=== PATIENT | female | born 1955 | race Caucasian/White ===

== ENCOUNTER 2017-12-29 01:56 | Inpatient (IN) | payer OTHER ==
[~2017-12-29] VITALS: Ht 152.4 cm; Wt 71.8 kg
[~2017-12-29 01:56] MED LIST: ESCITALOPRAM10 MG PO; LIDOCAINE51 PAT; PRAVASTATIN SOD10 MG PO; PROAIR HFA8.5 GM INH; SYMBICORT 16010.2 GM INH; TRAZODONE HCL100 M1 PO; VICODIN 300 MG-1 TAB PO; ZOLPIDEM TARTRAT5 MG PO
--- NOTE | 2017-12-29 16:07 | Admission Certification ---
Admission Certification Certification Statement - As attending physician, I certify that at the time of - admission, based on clinical presentation, severity of - symptoms, need for further diagnostic testing and - therapeutic interventions, and risk of adverse outcomes - without in-hospital treatment, in my clinical assessment, - this patient requires an acute hospital stay for a minimum - of two nights or longer. I have also considered psychsocial - factors such as support system, advanced age, financial - issues, cognitive issues, and failed out-patient treatments, - past re-admission history, safety of patient, and lack of - compliance as applicable. Specific rationale supporting this admission is: Major chest surgery with expected 4-5 day hospital stay including intensive care unit
--- NOTE | 2017-12-29 16:11 | Operative Report ---
Operative/Inv Procedure Report Surgery Date: 12/29/17 Name of Procedure: Right upper lobectomy with mediastinal lymph node dissection Pre-Operative Diagnosis: Right upper lobe lung cancer Post-Operative Diagnosis: Same Estimated Blood Loss: 50ml to 100ml Surgeon/Coping Machine Operator: Miguel Simon MD,Roddy Ocampo Anesthesia: general endotracheal tube Operative/Procedure Note Note: After placement of monitoring lines and induction of general anesthesia the double-lumen endotracheal tube was appropriate position with fiberoptic bronchoscopy. The patient was placed in left lateral decubitus position in her right chest was prepped and draped in a sterile fashion. The chest was entered through the fifth intercostal space via a standard posterolateral thoracotomy incision. The sixth rib was resected in part to allow for better exposure and retraction. There were fairly significant radiation changes along the mediastinum and this made for reflecting the pleura somewhat tedious around the hilum but this was done showing that there were no contraindications to resection. The apical anterior pulmonary arterial branches were divided with the stapler. Dissection was then done in the base of the fissure and the fissures were completed with the Endo CHER stapler. This allowed an opening of the pulmonary artery and further pulmonary arterial branches to the upper lobe were divided with the Endo CHER stapler. The pulmonary vein drainage of the right upper lobe was similarly resected with the Endo CHER stapler. There were a significant amount of lymphatic drainage from the upper lobe and this was also resected with the vascular stapler. The upper lobe bronchus was cleared of surrounding tissue. It was resected with the TA 55 stapler. Intraoperative frozen section of the bronchial margin showed no evidence of tumor. The bronchial stump was insufflated under water to 30 mmHg pressure with no evidence of air leak. The fissures were sprayed with CoSeal spray for pneumostasis. Long-acting rib blocks were placed in the chest was drained with straight and angled 28 Spanish chest tube. Lymph nodes were resected from level 4 level 10. Because of the radiation changes it was felt to be too risky to find lymph nodes from level 7. Inferior pulmonary ligament was divided with electrocautery. The ribs were reapproximated pericostal suture. The incision was closed anatomically with running Vicryl suture followed by running Vicryl subcuticular suture. Patient tolerated the procedure well was brought to recovery room awake and extubated in stable condition. CC: Raffi HINDS,Sanjuana Del Rio; Collin HINDS,Maria D Collins; Veena HINDS,[facility]
--- NOTE | 2017-12-29 16:28 | RADIOLOGY REPORT ---
EXAMINATION: XR PORTABLE CHEST CLINICAL INFORMATION: Right upper lobe lobectomy. History of left upper lobe lobectomy. COMPARISON: Chest x-ray 12/01/2017. CT chest 11/05/2017. PET/CT 11/22/2017. TECHNIQUE: Portable frontal view of the chest was obtained. 3:43 PM FINDINGS: Postsurgical changes with 2 right-sided chest tubes in place and a small right pneumothorax. There is subcutaneous emphysema in the right axillary soft tissues. There are surgical clips over the right hilum. Stable postsurgical changes from upper lobe lobectomy of the left lung. The cardiac and mediastinal contours are normal. There are calcifications of aortic arch. Intramedullary el in the left humerus. There are multiple healed left-sided rib fractures. IMPRESSION: Postsurgical changes of the right hemithorax with [address] and small right-sided pneumothorax. Stable chronic postsurgical changes from left upper lobe lobectomy of the left hemithorax.
[2017-12-29 17:00] VITALS: BP 110/60
--- NOTE | 2017-12-29 17:26 | Cons- CRCU ---
Navin Hill MD 12/29/17 1724: General Information and HPI Consulting Request Date of Consult: 12/29/17 Requested By: Dr. Rivera Reason for Consult: Right upper lobectomy postoperative care Source of Information: patient, old records Exam Limitations: no limitations History of Present Illness: 62 year old female with PMH significant for HTN, HLD, anxiety, paroxysmal SVT, 50+ pack year current daily smoker, stage IB left upper lobe lung cancer s/p left upper lobectomy in 2011 with mediastinal recurrence in 2013 treated with chemoradiotherapy is now admitted to critical care for postoperative care after right upper lobectomy for a new primary right upper lobe biopsy confirmed non small cell lung cancer. She was treated surgically in 2011 followed by cisplatin/docetaxel in February 2012. She was changed to carboplatin/paclitaxel in March 2012 through June 2012. Her relapse in 05/2014 was treated with external beam radiotherapy from 08/2014-09/2014 followed by 10/2014 through 12/2014. She has continues to smoke daily, 1 pack per day. She has been feeling well but had a lesion detected on CT, followed by PET and confirmed with IR CT guided biopsy last month, positive for adenocarcinoma. She underwent preoperative testing with nuclear stress test and outpatient PFTs, labs, and EKG. She underwent right upper lobectomy under GETA, without complications. She has a right radial arterial line, Ramachandran, and [address] postoperatively. She is now being monitored in the critical care unit. Allergies/Medications Allergies: Coded Allergies: Penicillins (LIP SWELLING 12/21/17) acetaminophen (UNKNOWN 12/21/17) codeine (UNKNOWN 12/21/17) latex (UNKNOWN 12/21/17) oxycodone (UNKNOWN 12/21/17) Home Med List: Albuterol Sulfate (Proair Hfa) 90 MCG HFA.AER.AD 2 PUF INH Q4-6 PRN PRN COPD (Reported) Budesonide/Formoterol Fumarate (Symbicort 160-4.5 Mcg Inhaler) 160 MCG-4.5 MCG/ ACTUATION HFA.AER.AD 2 PUF INH BID PRN COPD (Reported) Trazodone HCl 100 MG TABLET 1 TAB PO QPM PRN SLEEP (Reported) Current Medications: Current Medications Sig/Nathan Start time Last Medication Dose Route Stop Time Status Admin Acetaminophen 1,000 MG Q6 12/29 1800 AC PO Acetaminophen 0 .STK-MED ONE 12/29 1128 DC PO Acetaminophen 1,000 MG ONCE 12/29 0000 DC PO 12/29 2359 Albuterol Sulfate 2 PUF Q4P PRN 12/29 1600 AC INH Alvimopan 12 MG ONCE 12/29 0000 DC PO 12/29 2359 Budesonide/ 2 PUF BID 12/29 2100 AC Formoterol Fumarate INH Cefazolin Sodium 1,000 MG Q8H 12/29 2100 AC IV 12/30 0501 Celecoxib 100 MG BID 12/29 2100 AC PO Celecoxib 200 MG ONCE 12/29 0000 DC PO 12/29 2359 Docusate Sodium 100 MG BID 12/29 2100 AC PO Gabapentin 300 MG Q8 12/29 2200 AC PO Gabapentin 0 .STK-MED ONE 12/29 1128 DC PO Gabapentin 600 MG ONCE 12/29 0000 DC PO 12/29 2359 Heparin Sodium 5,000 UNIT Q8 12/30 0600 AC (Porcine) SC Heparin Sodium 0 .STK-MED ONE 12/29 1129 DC (Porcine) .ROUTE Heparin Sodium 5,000 UNIT ONCE 12/29 0000 DC (Porcine) SC 12/29 235 Non-Formulary 0 SEE ADMIN CRITERIA 12/29 2330 UNVr Medication ANY Ondansetron HCl 4 MG Q6P PRN 12/29 1700 AC IV Potassium Chloride 20 MEQ Q13H 12/29 1700 AC Dextrose/Water 1,000 ML IV Tramadol HCl 50 MG Q4-6 PRN PRN 12/29 1700 AC PO Tramadol HCl 100 MG Q4-6 PRN PRN 12/29 1700 AC PO Trazodone HCl 100 MG QPM PRN 12/29 1615 AC PO Review of Systems Review of Systems Constitutional: Denies: chills, diaphoresis, fever. EENTM: Denies: blurred vision, nasal congestion, throat pain. Cardiovascular: Denies: chest pain, orthopena, palpitations, peripheral edema. Respiratory: Reports: cough, short of breath, wheezing. GI: Denies: abdominal pain, diarrhea, nausea, vomiting. Genitourinary: Denies: discharge, dysuria, frequency. Musculoskeletal: Reports: no symptoms. Skin: Reports: no symptoms. Neurological/Psychological: Reports: numbness. Hematologic/Endocrine: Reports: no symptoms. Immunologic/Allergic: Reports: no symptoms. All Other Systems: Reviewed and Negative Past History Travel History Traveled to [place] past 21 day No Medical History Neurological: peripheral neuropathy Cardiovascular: hypertension, hyperlipidemia, paroxysmal SVT Respiratory: COPD, lung cancer Endocrine: hyperthyroidism Surgical History Surgical History: appendectomy, left upper lobectomy, tubal and ovarian cystectomy, knee arthroscopy, tonsillectomy, L arm ORIF Psychosocial History Services at Home: None Smoking Status: Current Everyday Smoker Functional Ability ADLs Independent: dressing, eating, toileting, bathing. Ambulation: independent IADLs Independent: shopping, housework, finances, food prep, telephone, transportation , medication admin. Employment History Employment: Retired Profession/Employer: payroll Exam & Diagnostic Data Last 24 Hrs of Vital Signs/I&O Afebrile HR 66 RR 18 BP 110/66 SpO2 97% on 3L Physical Exam General Appearance: well developed/nourished, no apparent distress, comfortable, mild tachypnea and splinting with pain Respiratory: chest tender on the right mid axillary line and posteriorly, some right sided crackles, 2 chest tubes output 45cc and 15cc bloody A/P, no leak, decreased apical breath sounds Cardiovascular: regular rate/rhythm, normal peripheral pulses, no m/g/r Gastrointestinal: normal bowel sounds, soft, non-tender Extremities: normal inspection, normal capillary refill, normal range of motion, no edema, left radial arterial line Last 48 Hrs of Labs/Tanvir: WBC 5.4 Hgb 13.9 Hct 40 Plt 189 Na 141 K 4.2 Cl 100 HCO3 29 BUN 13 Cr 0.9 Glucose 96 Diagnostic Data CXR Results FINDINGS: Postsurgical changes with 2 right-sided chest tubes in place and a small right pneumothorax. There is subcutaneous emphysema in the right axillary soft tissues. There are surgical clips over the right hilum. Stable postsurgical changes from upper lobe lobectomy of the left lung. The cardiac and mediastinal contours are normal. There are calcifications of aortic arch. Intramedullary el in the left humerus. There are multiple healed left-sided rib fractures. IMPRESSION: Postsurgical changes of the right hemithorax with [address] and small right-sided pneumothorax. Stable chronic postsurgical changes from left upper lobe lobectomy of the left hemithorax. Other Results PET 11/22/17 mild FDG activity in a right upper lobe pulmonary nodule is strongly suspiscious for malignancy. This nodule is changed from 05/07/14 PET. FEV1 1.75L 87% predicted, DLCO 50% predicted Stress test- no reversible ischemia Assessment/Plan CRCU Impression/Plan: 62 year old female with PMH significant for HTN, HLD, paroxysmal SVT, Admitted to critical care postoperative day 0 from right upper lobectomy for adenocarcinoma Post operative care for right upper lobectomy Will continue to monitor overnight for any complications post operatively Strict I/O's, hourly vitals Small right sided pneumothorax on chest x-ray postoperatively Continue to monitor chest tube drainage output Continue D5W with 20meq K at 75cc/hr per surgery Analgesia with tylenol, celebrex, tramadol, and gabapentin, minimizing narcotics Incentive spirometry TRC evaluation Placed on entereg for promotility, zofran prn for nausea Bowel regimen Clear liquid diet, advance tomorrow Follow up morning labs, CBC/BEP COPD: Continue albuterol and symbicort Supplemental oxygen as needed to maintain an SpO2 > 90% Outpatient pulmonology follow up Continue trazodone Clear liquid diet, plan to advance tomorrow DVT ppx-heparin sc Full code Consult Acknowledgment - Thank you for your consult request. Raffi HINDS,Sanjuana Del Rio 12/29/17 4504: Assessment/Plan CRCU Other Findings/Comments: I have personally seen and examined the patient and agree with the residents assessment and plan as detailed above. I discussed the care plan with the patient and family at the bedside. We will continue the plan as detailed above. Consult Acknowledgment - Thank you for your consult request.
--- NOTE | 2017-12-29 17:35 | PN- Thoracic Surgery ---
Subjective Subjective: Patient seen in her bed in ICU, she is comfortable, no complaints. She denies shortness of breath or chest pain Objective Vital Signs and I&Os Vital signs stable, afebrile O2 96% on 2 L nasal cannula Physical Exam: Well-developed well-nourished no apparent distress. HEENT: Atraumatic, extraocular motion intact Neck: Supple, no lymphadenopathy, trachea midline Respiratory: No respiratory distress, breath sounds noted both lungs, crackles noted throughout right lung, decreased breath sounds noted apex. Posterior thoracotomy incision with minimal amount of bloody staining, trace amount of subcu air at the tube sites. [address], anterior chest tube had approximately 47 cc of bloody drainage, posterior chest tube with approximately 15 cc of bloody drainage, holding suction, no air leaks Extremities: No edema, no calf pain Neuro: Alert and oriented x3 Psych: Mood affect normal, normal memory normal judgment. Skin: Warm and dry, no rash on exposed skin Results Recent Imaging Studies: PATIENT: SCOOTER BOYD PRESENT AGE: 62 PATIENT ACCOUNT NO: [id number] : 53 LOCATION: ORDERING PHYSICIAN: Roddy Rivera Jr., MD SERVICE DATE: 12/29/17 EXAM TYPE: RAD - XRY-PORTABLE CHEST XRAY EXAMINATION: XR PORTABLE CHEST CLINICAL INFORMATION: Right upper lobe lobectomy. History of left upper lobe lobectomy. COMPARISON: Chest x-ray 12/01/2017. CT chest 11/05/2017. PET/CT 11/22/2017. TECHNIQUE: Portable frontal view of the chest was obtained. 3:43 PM FINDINGS: Postsurgical changes with 2 right-sided chest tubes in place and a small right pneumothorax. There is subcutaneous emphysema in the right axillary soft tissues. There are surgical clips over the right hilum. Stable postsurgical changes from upper lobe lobectomy of the left lung. The cardiac and mediastinal contours are normal. There are calcifications of aortic arch. Intramedullary el in the left humerus. There are multiple healed left-sided rib fractures. IMPRESSION: Postsurgical changes of the right hemithorax with [address] and small right-sided pneumothorax. Stable chronic postsurgical changes from left upper lobe lobectomy of the left hemithorax. DICTATED BY: Brent Malone MD DATE/TIME DICTATED:12/29/171621 GOVERNMENT PROPERTY INSPECTOR:GONZALEZ DATE/TIME TRANSCRIBED:12/29/171621 Assessment/Plan Assessment/Plan Postop day #0 status post right upper lobectomy with mediastinal lymph node dissection secondary to Right upper lobe lung cancer Monitoring the ICU overnight, critical care consult Perioperative antibiotics Chest x-ray show small right-sided pneumothorax, continue chest tubes 2 to wall suction Heparin subcu for DVT prophylaxis, Alps ERAS protocol Neurontin 1 week Minimize narcotics Entereg IV fluids Continue Ramachandran, monitor I's and O's Clear liquid diet, advance tomorrow Follow-up a.m. labs Follow-up a.m. chest x-ray Reinforced dressing as needed Bedrest Home meds IS/TRC Core Measures Venous Thromboembolism VTE Risk Factors Age>40 No Mechanical VTE Prophylaxis d/t N/A MechProphylax Ordered No VTE Pharm Prophylaxis d/t NA PharmProphylax ordered
[2017-12-29 22:00] VITALS: BP 114/56
[2017-12-30] VITALS: BP 124/60
--- NOTE | 2017-12-30 02:43 | RADIOLOGY REPORT ---
EXAMINATION: XR PORTABLE CHEST CLINICAL INFORMATION: Shortness of breath, pain, right upper lobectomy COMPARISON: 12/29/2017 TECHNIQUE: Portable frontal view of the chest was obtained. FINDINGS: Redemonstrated right-sided chest tubes, in similar orientation compared to prior. Suboptimal assessment of the lungs due to technique with image overexposure. Previously identified right apical pneumothorax may be mildly increased in size from prior. There is mild opacification along the lateral right lung base. No significant pleural effusion. The cardiomediastinal silhouette is stable. Calcification is present at the aortic arch. Left humeral hardware is partially visualized. Soft tissue gas is again demonstrated along the lateral right chest wall. Redemonstrated left rib deformities. IMPRESSION: Suboptimal assessment due to study technique. Previously identified right apical pneumothorax may be mildly increased in size from prior; attention on follow-up is recommended.
[2017-12-30 05:17] LABS: ABSOLUTE BASOPHIL COUNT 0 /CUMM (0.0-0.2); ABSOLUTE EOSINOPHIL COUNT 0 /CUMM (0.0-0.7); ABSOLUTE GRANULOCYTE CT 8.9 /CUMM (1.4-6.5); ABSOLUTE LYMPH COUNT 0.5 /CUMM (1.2-3.4); ABSOLUTE MONOCYTE COUNT 0.6 /CUMM (0.10-0.60); BASOPHIL % 0.3 % (0.0-2.0); EOSINOPHIL % 0 % (0-5); MEAN CORPUSCULAR HGB 33.6 PG (27.0-31.0); MEAN CORPUSCULAR VOLUME 98.9 FL (81.0-99.0); MEAN PLATELET VOLUME 9.4 FL (7.4-10.4); PLATELET COUNT 170 /CUMM (130-400); RBC DISTRIBUTION WIDTH 13.8 % (11.5-14.5); RED BLOOD CELL CT 3.85 /CUMM (4.20-5.40)
[2017-12-30 05:22] LABS: GRANULOCYTE % 88.6 % (42.2-75.2)
--- NOTE | 2017-12-30 05:29 | PN- Thoracic Surgery ---
Subjective Subjective: Patient seen last night and again this am, having moderate pain from the chest tube site despite all meds given on ERAS protocal. Patient having difficulty clearing fluid with PT. CXR ordered shows small right sided pneumo virtually unchanged. She was given a dose of morphine which settled her symptoms down and she is now comfortable. She has mild heartburn this morning after taking neurontin but no chest pain or SOB. Review of Systems Constitutional: Reports: chills, fever. Denies: weakness. Respiratory: Denies: cough, short of breath. Objective Vital Signs and I&Os Vital Signs Date Time Temp Pulse Resp B/P B/P Pulse O2 O2 Flow FiO2 Mean Ox Delivery Rate 12/30 0421 95 Nasal 2.0L Cannula 12/30 0400 98 Nasal 2.0L Cannula 12/30 0003 99 Nasal 3.0L Cannula 12/30 0000 99 Nasal 3.0L Cannula 12/30 0000 96.5 65 20 124/60 99 Nasal 3.0L Cannula 12/29 2200 66 114/56 12/29 2048 Nasal 3.0L Cannula 12/30 1999 97 Nasal 2.0L Cannula 12/29 1715 94 Nasal 3.0L Cannula 12/29 1700 96.6 64 18 110/60 96 Nasal 3.0L Cannula Intake & Output 12/30 0800 12/30 0000 12/29 1600 12/29 0800 12/29 0000 12/28 1600 Intake Total 2530 Output Total 930 Balance 1600 Intake, IV 2450 Intake, Oral 80 Output, Chest 170 Tube Drainage Output, Urine 760 Patient 145 lb Weight Weight Standing Scale Measurement Method Physical Exam: patient is alert and oriented, comfortable this am VSS, afebrile chest - crackles right base, rhonchi that clears with cough -very difficult for patient to cough due to pain, chest tubes to suction without leak 170cc overnight from both heart- RRR without MRG Abdomen -rounded without distention bilateral lower extremities- calves soft distal pulses intact Current Medications: Current Medications Sig/Nathan Start time Last Medication Dose Route Stop Time Status Admin Acetaminophen 1,000 MG .STK-MED ONE 12/29 1833 DC IV 12/29 1834 Acetaminophen 1,000 MG Q6 12/29 1800 AC 12/29 PO 2338 Acetaminophen 0 .STK-MED ONE 12/29 1128 DC PO Acetaminophen 1,000 MG .STK-MED ONE 12/29 1127 DC IV 12/29 1128 Acetaminophen 1,000 MG ONCE 12/29 0000 DC PO 12/29 2359 Albuterol Sulfate 3 ML Q4 12/29 2200 AC 12/30 INH 0352 Albuterol Sulfate 2 PUF Q4P PRN 12/29 1600 AC INH Alvimopan 12 MG Q12 12/29 2100 AC 12/29 PO 2012 Alvimopan 12 MG ONCE 12/29 0000 DC PO 12/29 2359 Budesonide/ 2 PUF BID 12/29 2100 AC 12/29 Formoterol Fumarate INH 2013 Calcium Carbonate 500 MG DAILY 12/30 0900 CANr PO Calcium Carbonate 500 MG ONCE ONE 12/30 0530 UNVr PO 12/30 0531 Cefazolin Sodium 1,000 MG Q8H 12/29 2100 DC 12/29 IV 12/30 0501 2012 Celecoxib 100 MG BID 12/29 2100 AC 12/29 PO 2012 Celecoxib 200 MG ONCE 12/29 0000 DC PO 12/29 2359 Dexmedetomidine HCl 400 MCG .STK-MED ONE 12/29 1127 DC IV 12/29 1128 Docusate Sodium 100 MG BID 12/29 2100 AC 12/29 PO 2010 Fentanyl Citrate 200 MCG .STK-MED ONE 12/29 1126 DC IM 12/29 1127 Gabapentin 300 MG Q8 12/29 2200 AC 12/29 PO 2242 Gabapentin 0 .STK-MED ONE 12/29 1128 DC PO Gabapentin 600 MG ONCE 12/29 0000 DC PO 12/29 2359 Heparin Sodium 5,000 UNIT Q8 12/30 0600 AC (Porcine) SC Heparin Sodium 0 .STK-MED ONE 12/29 1129 DC (Porcine) .ROUTE Heparin Sodium 5,000 UNIT ONCE 12/29 0000 DC (Porcine) SC 12/29 2359 Hydromorphone HCl 2 MG .STK-MED ONE 12/29 1649 DC IM 12/29 1650 Hydromorphone HCl 2 MG .STK-MED ONE 12/29 1618 DC IM 12/29 1619 Hydromorphone HCl 2 MG .STK-MED ONE 12/29 1545 DC IM 12/29 1546 Hydromorphone HCl 2 MG .STK-MED ONE 12/29 1126 DC IM 12/29 1127 Ketamine HCl 50 MG .STK-MED ONE 12/29 1126 DC IM 12/29 1127 Magnesium Sulfate 3 GM .STK-MED ONE 12/29 1126 DC IV 12/29 1127 Midazolam HCl 2 MG .STK-MED ONE 12/29 1126 DC IM 12/29 1127 Morphine Sulfate 4 MG ONCE ONE 12/30 0045 DC 12/30 IV 12/30 0046 0049 Ondansetron HCl 4 MG Q6P PRN 12/29 1700 AC IV Potassium Chloride 20 MEQ Q13H 12/29 1700 AC 12/29 Dextrose/Water 1,000 ML IV 1844 Tramadol HCl 50 MG Q4-6 PRN PRN 12/29 1700 AC PO Tramadol HCl 100 MG Q4-6 PRN PRN 12/29 1700 AC 12/29 PO 2013 Trazodone HCl 100 MG QPM PRN 12/29 1615 AC PO Results Last 48 Hours of Labs: Laboratory Tests 12/30 0350 Hematology CBC w Diff Pending WBC Pending RBC Pending Hgb Pending Hct Pending MCV Pending MCH Pending MCHC Pending RDW Pending Plt Count Pending MPV Pending Gran % Pending Lymphocytes % Pending Monocytes % Pending Eosinophils % Pending Basophils % Pending Absolute Granulocytes Pending Absolute Lymphocytes Pending Absolute Monocytes Pending Absolute Eosinophils Pending Absolute Basophils Pending Assessment/Plan Assessment/Plan 62 y/o female POD1 right upper lobectomy increasing pain last night controlled with one dose of morphine CXR - small apical pneumo -unchanged CLD -advance slowly OOB to chair continue to monitor CT output awaiting am labs Core Measures Venous Thromboembolism VTE Risk Factors Age>40 No Mechanical VTE Prophylaxis d/t N/A MechProphylax Ordered No VTE Pharm Prophylaxis d/t NA PharmProphylax ordered
--- NOTE | 2017-12-30 07:27 | PN- CRCU ---
Subjective HPI/Critical Care Issues: The patient is awake and alert. She continues to have a congested cough. She has ongoing shortness of breath. She has a persistent air leak. There were no overnight events reported. Objective Current Medications: Current Medications Sig/Nathan Start time Last Medication Dose Route Stop Time Status Admin Acetaminophen 1,000 MG .STK-MED ONE 12/29 1833 DC IV 12/29 1834 Acetaminophen 1,000 MG Q6 12/29 1800 AC 12/30 PO 0644 Acetaminophen 0 .STK-MED ONE 12/29 1128 DC PO Acetaminophen 1,000 MG .STK-MED ONE 12/29 1127 DC IV 12/29 1128 Acetaminophen 1,000 MG ONCE 12/29 0000 DC PO 12/29 2359 Albuterol Sulfate 3 ML Q4 12/29 2200 AC 12/30 INH 0352 Albuterol Sulfate 2 PUF Q4P PRN 12/29 1600 AC INH Alvimopan 12 MG Q12 12/29 2100 AC 12/29 PO 2012 Alvimopan 12 MG ONCE 12/29 0000 DC PO 12/29 2359 Budesonide/ 2 PUF BID 12/29 2100 AC 12/29 Formoterol Fumarate INH 2013 Calcium Carbonate 500 MG DAILY 12/30 0900 CAN PO Calcium Carbonate 500 MG ONCE ONE 12/30 0530 DC 12/30 PO 12/30 0531 0544 Cefazolin Sodium 1,000 MG Q8H 12/29 2100 DC 12/30 IV 12/30 0501 0643 Celecoxib 100 MG BID 12/29 2100 AC 12/29 PO 2011 Celecoxib 200 MG ONCE 12/29 0000 DC PO 12/29 2359 Dexmedetomidine HCl 400 MCG .STK-MED ONE 12/29 1127 DC IV 12/29 1128 Docusate Sodium 100 MG BID 12/29 2100 AC 12/29 PO 2010 Fentanyl Citrate 200 MCG .STK-MED ONE 12/29 1126 DC IM 12/29 1127 Gabapentin 300 MG Q8 12/29 2200 AC 12/29 PO 2242 Gabapentin 0 .STK-MED ONE 12/29 1128 DC PO Gabapentin 600 MG ONCE 12/29 0000 DC PO 12/29 2359 Heparin Sodium 5,000 UNIT Q8 12/30 0600 AC 12/30 (Porcine) SC 0644 Heparin Sodium 0 .STK-MED ONE 12/29 1129 DC (Porcine) .ROUTE Heparin Sodium 5,000 UNIT ONCE 12/29 0000 DC (Porcine) SC 12/29 2359 Hydromorphone HCl 2 MG .STK-MED ONE 12/29 1649 DC IM 12/29 1650 Hydromorphone HCl 2 MG .STK-MED ONE 12/29 1618 DC IM 12/29 1619 Hydromorphone HCl 2 MG .STK-MED ONE 12/29 1545 DC IM 12/29 1546 Hydromorphone HCl 2 MG .STK-MED ONE 12/29 1126 DC IM 12/29 1127 Ketamine HCl 50 MG .STK-MED ONE 12/29 1126 DC IM 12/29 1127 Magnesium Sulfate 3 GM .STK-MED ONE 12/29 1126 DC IV 12/29 1127 Midazolam HCl 2 MG .STK-MED ONE 12/29 1126 DC IM 12/29 1127 Morphine Sulfate 4 MG ONCE ONE 12/30 0045 DC 12/30 IV 12/30 0046 0049 Ondansetron HCl 4 MG Q6P PRN 12/29 1700 AC IV Potassium Chloride 20 MEQ Q13H 12/29 1700 AC 12/30 Dextrose/Water 1,000 ML IV 0545 Tramadol HCl 50 MG Q4-6 PRN PRN 12/29 1700 AC PO Tramadol HCl 100 MG Q4-6 PRN PRN 12/29 1700 AC 12/29 PO 2013 Trazodone HCl 100 MG QPM PRN 12/29 1615 AC PO Vital Signs & I&O Last 24 Hrs of Vitals and I&O: Vital Signs Date Time Temp Pulse Resp B/P B/P Pulse O2 O2 Flow FiO2 Mean Ox Delivery Rate 12/30 0421 95 Nasal 2.0L Cannula 12/30 0400 98 Nasal 2.0L Cannula 12/30 0003 99 Nasal 3.0L Cannula 12/30 0000 99 Nasal 3.0L Cannula 12/30 0000 96.5 65 20 124/60 99 Nasal 3.0L Cannula 12/29 2200 66 114/56 12/29 2048 Nasal 3.0L Cannula 12/29 2000 97 Nasal 2.0L Cannula 12/29 1715 94 Nasal 3.0L Cannula 12/29 1700 96.6 64 18 110/60 96 Nasal 3.0L Cannula Intake & Output 12/30 0800 12/30 0000 07/19 1600 Intake Total 700 2530 Output Total 270 930 Balance 430 1600 Intake, IV 600 2450 Intake, Oral 100 80 Output, Chest 120 170 Tube Drainage Output, Urine 150 760 Patient 145 lb Weight Weight Standing Scale Measurement Method Results Last 24 Hrs of Lab Results: Laboratory Tests 12/30/17 0540: Anion Gap 12, Estimated GFR > 60, BUN/Creatinine Ratio 21.7 12/30/17 0350: CBC w Diff MAN DIFF ORDERED, RBC 3.85 L, MCV 98.9, MCH 33.6 H, MCHC 34.0, RDW 13.8, MPV 9.4, Gran % 88.6 H, Lymphocytes % 5.4 L, Monocytes % 5.7, Eosinophils % 0, Basophils % 0.3, Absolute Granulocytes 8.9 H, Segmented Neutrophils 82 H, Band Neutrophils 1, Absolute Lymphocytes 0.5 L, Lymphocytes 9 L, Monocytes 8, Absolute Monocytes 0.6, Absolute Eosinophils 0, Absolute Basophils 0, Platelet Estimate ADEQUATE, Polychromasia 1+, Basophilic Stippling RARE, Ovalocytes RARE, Fld Total RBCs Counted 100 Impression/Plan Impression/Plan Impression/Plan: Right upper lobe lung cancer, status post lobectomy. The patient has severe COPD and hypoxemic respiratory failure per Recommendations: Continue nebs/TRC. Taper supplemental oxygen if able. Continue postthoracotomy protocol. Out of bed to chair daily. DVT prophylaxis at all times. Continue all supportive care
[2017-12-30 08:00] VITALS: BP 122/60
--- NOTE | 2017-12-30 09:14 | PN- CRCU ---
Subjective HPI/Critical Care Issues: The patient is awake and alert. She continues to complain of severe pain at the incisional sites. She had significant heartburn overnight which was treated with antacids. She has good urine output. She remains afebrile. Her vital signs have been stable. Objective Current Medications: Current Medications Sig/Nathan Start time Last Medication Dose Route Stop Time Status Admin Acetaminophen 1,000 MG .STK-MED ONE 12/29 1833 DC IV 12/29 1834 Acetaminophen 1,000 MG Q6 12/29 1800 AC 12/30 PO 0644 Acetaminophen 0 .STK-MED ONE 12/29 1128 DC PO Acetaminophen 1,000 MG .STK-MED ONE 12/29 1127 DC IV 12/29 1128 Acetaminophen 1,000 MG ONCE 12/29 0000 DC PO 12/29 2359 Albuterol Sulfate 3 ML Q4 12/29 2200 AC 12/30 INH 0818 Albuterol Sulfate 2 PUF Q4P PRN 12/29 1600 AC INH Alvimopan 12 MG Q12 12/29 2100 AC 12/29 PO 2011 Alvimopan 12 MG ONCE 12/29 0000 DC PO 12/29 2359 Budesonide/ 2 PUF BID 12/29 2100 AC 12/29 Formoterol Fumarate INH 2013 Calcium Carbonate 500 MG DAILY 12/30 0900 CAN PO Calcium Carbonate 500 MG ONCE ONE 12/30 0530 DC 12/30 PO 12/30 0531 0544 Cefazolin Sodium 1,000 MG Q8H 12/29 2100 DC 12/30 IV 12/30 0501 0643 Celecoxib 100 MG BID 12/29 2100 AC 12/29 PO 2011 Celecoxib 200 MG ONCE 12/29 0000 DC PO 12/29 2359 Dexmedetomidine HCl 400 MCG .STK-MED ONE 12/29 1127 DC IV 12/29 1128 Docusate Sodium 100 MG BID 12/29 2100 AC 12/29 PO 2010 Fentanyl Citrate 200 MCG .STK-MED ONE 12/29 1126 DC IM 12/29 1127 Gabapentin 300 MG Q8 12/29 2200 AC 12/29 PO 2242 Gabapentin 0 .STK-MED ONE 12/29 1128 DC PO Gabapentin 600 MG ONCE 12/29 0000 DC PO 12/29 2359 Heparin Sodium 5,000 UNIT Q8 12/30 0600 AC 12/30 (Porcine) SC 0644 Heparin Sodium 0 .STK-MED ONE 12/29 1129 DC (Porcine) .ROUTE Heparin Sodium 5,000 UNIT ONCE 12/29 0000 DC (Porcine) SC 12/29 2359 Hydromorphone HCl 2 MG .STK-MED ONE 12/29 1649 DC IM 12/29 1650 Hydromorphone HCl 2 MG .STK-MED ONE 12/29 1618 DC IM 12/29 1619 Hydromorphone HCl 2 MG .STK-MED ONE 12/29 1545 DC IM 12/29 1546 Hydromorphone HCl 2 MG .STK-MED ONE 12/29 1126 DC IM 12/29 1127 Ketamine HCl 50 MG .STK-MED ONE 12/29 1126 DC IM 12/29 1127 Lidocaine 20 ML .STK-MED ONE 12/30 0026 DC IA 12/30 0027 Magnesium Sulfate 3 GM .STK-MED ONE 12/29 1126 DC IV 12/29 1127 Midazolam HCl 2 MG .STK-MED ONE 12/29 1126 DC IM 12/29 1127 Morphine Sulfate 4 MG ONCE ONE 12/30 0045 DC 12/30 IV 12/30 0046 0049 Ondansetron HCl 4 MG Q6P PRN 12/29 1700 AC IV Potassium Chloride 20 MEQ Q13H 12/29 1700 AC 12/30 Dextrose/Water 1,000 ML IV 0545 Tramadol HCl 50 MG Q4-6 PRN PRN 12/29 1700 AC PO Tramadol HCl 100 MG Q4-6 PRN PRN 12/29 1700 AC 12/29 PO 2013 Trazodone HCl 100 MG QPM PRN 12/29 1615 AC PO Vital Signs & I&O Last 24 Hrs of Vitals and I&O: Vital Signs Date Time Temp Pulse Resp B/P B/P Pulse O2 O2 Flow FiO2 Mean Ox Delivery Rate 12/30 0421 95 Nasal 2.0L Cannula 12/30 0400 98 Nasal 2.0L Cannula 12/30 0003 99 Nasal 3.0L Cannula 12/30 0000 99 Nasal 3.0L Cannula 12/30 0000 96.5 65 20 124/60 99 Nasal 3.0L Cannula 12/29 2200 66 114/56 12/30 2047 Nasal 3.0L Cannula 12/29 2000 97 Nasal 2.0L Cannula 12/29 1715 94 Nasal 3.0L Cannula 12/29 1700 96.6 64 18 110/60 96 Nasal 3.0L Cannula Intake & Output 12/30 1600 12/30 0800 12/30 0000 Intake Total 700 2530 Output Total 270 930 Balance 430 1600 Intake, IV 600 2450 Intake, Oral 100 80 Output, Chest 120 170 Tube Drainage Output, Urine 150 760 Patient 145 lb Weight Weight Standing Scale Measurement Method General Appearance: well developed/nourished, no apparent distress, comfortable, mild tachypnea and splinting with pain Respiratory: chest tender on the right mid axillary line and posteriorly, some right sided crackles, 2 chest tubes output 45cc and 15cc bloody A/P, no leak, decreased apical breath sounds Cardiovascular: regular rate/rhythm, normal peripheral pulses, no m/g/r Gastrointestinal: normal bowel sounds, soft, non-tender Extremities: normal inspection, normal capillary refill, normal range of motion, no edema, left radial arterial line Last 48 Hrs of Labs/Tanvir: Impression/Plan Impression/Plan Impression/Plan: 1. Status post right upper lobectomy for adenocarcinoma, postoperative day 1. 2. Severe pain at incisional sites. 3. Increased heartburn, likely side effect of medication. 4. Dyspepsia, surgery, and cardiovascular risk factors, will further evaluate chest pain. 5. History of COPD without evidence of acute bronchospasm. 6. History of hypertension, hyperlipidemia and proximal SVT. Recommendations: * Continue with adequate pain control. * Stop IVFs when patient taking in adequate PO. * Will check an EKG and troponin. Cardiology consult if any abnormalities. * Discontinue radial arterial line. * Continue nebs/total respiratory care. * Continue Symbicort 2 puffs twice daily. * Continue total respiratory care. * Incentive spirometry. * Out of bed to chair. * DVT prophylaxis at all times. Code Status: Full Code
[2017-12-30 16:00] VITALS: BP 112/50
[2017-12-30 20:00] VITALS: BP 108/44
[2017-12-31] VITALS: BP 104/50
[2017-12-31 05:31] LABS: ABSOLUTE BASOPHIL COUNT 0 /CUMM (0.0-0.2); ABSOLUTE EOSINOPHIL COUNT 0 /CUMM (0.0-0.7); ABSOLUTE LYMPH COUNT 0.9 /CUMM (1.2-3.4); ABSOLUTE MONOCYTE COUNT 0.4 /CUMM (0.10-0.60); BASOPHIL % 0.1 % (0.0-2.0); EOSINOPHIL % 0.3 % (0-5); GRANULOCYTE % 85.8 % (42.2-75.2); HEMATOCRIT 35.7 % (37-47); MEAN CORPUSCULAR HGB 33.8 PG (27.0-31.0); MEAN CORPUSCULAR HGB CONC 33.8 G/DL (33.0-37.0); MEAN CORPUSCULAR VOLUME 100.2 FL (81.0-99.0); MEAN PLATELET VOLUME 9.4 FL (7.4-10.4); PLATELET COUNT 148 /CUMM (130-400); RBC DISTRIBUTION WIDTH 13.8 % (11.5-14.5); RED BLOOD CELL CT 3.56 /CUMM (4.20-5.40); WHITE BLOOD CELL COUNT 9.3 /CUMM (4.8-10.8)
--- NOTE | 2017-12-31 06:00 | PN- Thoracic Surgery ---
Subjective Subjective: Reports pain controlled best with vicodin, so she was switched yesterday. Posterior chest tube removed yesterday and anterior tube placed to waterseal. Out of bed to chair and sink without difficulty. Some shortness of breath with exertion when out of bed. She admits coughing up some scant, dark "bloody" sputum yesterday. Poor appetite but tolerating diet. Anticipates adler removal this morning. Objective Vital Signs and I&Os Vital Signs Date Time Temp Pulse Resp B/P B/P Pulse O2 O2 Flow FiO2 Mean Ox Delivery Rate 12/31 0400 95 Nasal 2.0L Cannula 12/31 0043 96 Nasal 2.0L Cannula 12/31 0000 97 Nasal 2.0L Cannula 12/31 0000 97.6 76 22 104/50 97 Nasal 2.0L Cannula 12/31 1999 94 Nasal 2.0L Cannula 12/31 1999 99.2 86 24 108/44 97 Nasal 2.0L Cannula 12/30 1610 96 Nasal 2.0L Cannula 12/30 1600 97.8 88 20 112/50 96 Nasal 2.0L Cannula 12/30 1600 96 Nasal 2.0L Cannula 12/30 1200 98 Nasal 2.0L Cannula 12/30 0818 97 Nasal 2.0L Cannula 12/30 0800 98.7 80 18 122/60 98 Nasal 2.0L Cannula Intake & Output 12/31 0800 12/31 0000 12/30 1600 12/30 0800 12/30 0000 12/29 1600 Intake Total 620 6114 342 4563 Output Total 760 405 270 930 Balance -140 6517 190 8623 Intake, IV 909 023 4416 Intake, Oral 620 920 100 80 Number 0 Bowel Movements Output, Chest 160 80 120 170 Tube Drainage Output, Urine 600 325 150 760 Patient 151 lb 145 lb Weight Weight Bed scale Standing Scale Measurement Method Physical Exam: General - alert & oriented x 3. comfortable. no acute distress. Lungs - clear. decreased breath sounds b/l bases. anterior chest tube remains, to waterseal, without any significant air leak appreciated, with 60mls serosang drainage overnight. Cardiac - s1s2. reg. Abdomen - soft. nontender - adler draining clear, yellow urine. Extremities - warm bilaterally. no c/c/e. calves soft and nontender b/l. athrombics active. Current Medications: Current Medications Sig/Nathan Start time Last Medication Dose Route Stop Time Status Admin Acetaminophen 650 MG .STK-MED ONE 12/30 1308 DC PO 12/30 1309 Acetaminophen 325 MG ONCE ONE 12/30 1200 DC 12/30 PO 12/30 1201 1203 Acetaminophen 1,000 MG Q6 12/29 1800 DC 12/30 PO 0644 Al Hydroxide/Mg 30 ML .STK-MED ONE 12/30 2101 DC Hydroxide PO 12/30 2102 Al Hydroxide/Mg 30 ML .STK-MED ONE 12/30 1736 DC Hydroxide PO 12/30 1737 Al Hydroxide/Mg 30 ML Q4-6 PRN PRN 12/30 1115 AC 12/30 Hydroxide PO 2130 Al Hydroxide/Mg 30 ML .STK-MED ONE 12/30 1110 DC Hydroxide PO 12/30 1111 Albuterol Sulfate 3 ML Q4 12/29 2200 AC 12/31 INH 0400 Albuterol Sulfate 2 PUF Q4P PRN 12/29 1600 AC INH Alvimopan 12 MG Q12 12/29 2100 AC 12/30 PO 2211 Budesonide/ 2 PUF BID 12/29 2100 AC 12/30 Formoterol Fumarate INH 2212 Calcium Carbonate 500 MG .STK-MED ONE 12/30 1308 DC PO 12/30 1309 Celecoxib 100 MG BID 12/29 2100 AC 12/30 PO 2213 Docusate Sodium 100 MG BID 12/29 2100 AC 12/30 PO 2211 Gabapentin 300 MG Q8 12/29 2200 AC 12/30 PO 2212 Heparin Sodium 5,000 UNIT Q8 12/30 0600 AC 12/30 (Porcine) SC 2208 Hydrocodone Bitart/ 1 TAB ONCE ONE 12/30 1200 DC 12/30 Acetaminophen PO 12/30 1201 1203 Hydrocodone Bitart/ 1 TAB Q4P PRN 12/30 1030 AC 12/30 Acetaminophen PO 1117 Hydrocodone Bitart/ 2 TAB Q4-6 PRN PRN 12/30 1030 AC 12/31 Acetaminophen PO 0017 Morphine Sulfate 4 MG .STK-MED ONE 12/30 1308 DC IV 12/30 1309 Omeprazole 40 MG .STK-MED ONE 12/30 1308 DC PO 12/30 1309 Omeprazole 40 MG DAILY AC 12/30 1115 AC 12/30 PO 1116 Ondansetron HCl 4 MG Q6P PRN 07/19 1700 AC 12/30 IV 2208 Potassium Chloride 20 MEQ Q13H 12/29 1699 DC 12/30 Dextrose/Water 1,000 ML IV 0545 Tramadol HCl 50 MG Q4-6 PRN PRN 12/29 1699 DC PO Tramadol HCl 100 MG Q4-6 PRN PRN 12/29 1699 AC 12/29 PO 2012 Trazodone HCl 100 MG QPM PRN 12/29 1615 DC PO Results Last 48 Hours of Labs: Laboratory Tests 12/31 12/30 12/30 0410 0918 0540 Chemistry Sodium (137 - 145 mmol/L) 132 L 133 L Potassium (3.5 - 5.1 mmol/L) 4.3 4.1 Chloride (98 - 107 mmol/L) 96 L 95 L Carbon Dioxide (22 - 30 mmol/L) 27 26 Anion Gap (5 - 16) 8 12 BUN (7 - 17 mg/dL) 13 13 Creatinine (0.5 - 1.0 mg/dL) 0.7 0.6 Estimated GFR (>60 ml/min) > 60 > 60 BUN/Creatinine Ratio (7 - 25 %) 21.7 Glucose (65 - 99 mg/dL) 114 H Calcium (8.4 - 10.2 mg/dL) 9.3 Phosphorus (2.5 - 4.5 mg/dL) 2.6 Magnesium (1.6 - 2.3 mg/dL) 2.2 Total Bilirubin (0.2 - 1.3 mg/dL) 1.3 AST (14 - 36 U/L) 147 H ALT (9 - 52 U/L) 64 H Troponin I (< 0.11 ng/ml) < 0.01 Albumin (3.5 - 5.0 g/dL) 3.2 L Hematology CBC w Diff MAN DIFF ORDERED WBC (4.8 - 10.8 /CUMM) Pending RBC (4.20 - 5.40 /CUMM) Pending Hgb (12.0 - 16.0 G/DL) Pending Hct (37 - 47 %) Pending MCV (81.0 - 99.0 FL) Pending MCH (27.0 - 31.0 PG) Pending MCHC (33.0 - 37.0 G/DL) Pending RDW (11.5 - 14.5 %) Pending Plt Count (130 - 400 /CUMM) Pending MPV (7.4 - 10.4 FL) Pending Gran % (42.2 - 75.2 %) Pending Lymphocytes % (20.5 - 51.1 %) Pending Monocytes % (1.7 - 9.3 %) Pending Eosinophils % (0 - 5 %) Pending Basophils % (0.0 - 2.0 %) Pending Absolute Granulocytes (1.4 - 6.5 /CUMM) Pending Segmented Neutrophils (42.2 - 75.2 %) Pending Absolute Lymphocytes (1.2 - 3.4 /CUMM) Pending Absolute Monocytes (0.10 - 0.60 /CUMM) Pending Absolute Eosinophils (0.0 - 0.7 /CUMM) Pending Absolute Basophils (0.0 - 0.2 /CUMM) Pending 12/30 0350 Hematology CBC w Diff MAN DIFF ORDERED WBC (4.8 - 10.8 /CUMM) 10.0 RBC (4.20 - 5.40 /CUMM) 3.85 L Hgb (12.0 - 16.0 G/DL) 12.9 Hct (37 - 47 %) 38.0 MCV (81.0 - 99.0 FL) 98.9 MCH (27.0 - 31.0 PG) 33.6 H MCHC (33.0 - 37.0 G/DL) 34.0 RDW (11.5 - 14.5 %) 13.8 Plt Count (130 - 400 /CUMM) 170 MPV (7.4 - 10.4 FL) 9.4 Gran % (42.2 - 75.2 %) 88.6 H Lymphocytes % (20.5 - 51.1 %) 5.4 L Monocytes % (1.7 - 9.3 %) 5.7 Eosinophils % (0 - 5 %) 0 Basophils % (0.0 - 2.0 %) 0.3 Absolute Granulocytes (1.4 - 6.5 /CUMM) 8.9 H Segmented Neutrophils (42.2 - 75.2 %) 82 H Band Neutrophils (0.0 - 5.0 %) 1 Absolute Lymphocytes (1.2 - 3.4 /CUMM) 0.5 L Lymphocytes (20.5 - 51.1 %) 9 L Monocytes (1.7 - 9.3 %) 8 Absolute Monocytes (0.10 - 0.60 /CUMM) 0.6 Absolute Eosinophils (0.0 - 0.7 /CUMM) 0 Absolute Basophils (0.0 - 0.2 /CUMM) 0 Platelet Estimate (ADEQUATE) ADEQUATE Polychromasia 1+ Basophilic Stippling RARE Ovalocytes RARE Other Body Source Fld Total RBCs Counted (%) 100 Assessment/Plan Assessment/Plan This 62 year old female with hx copd, lung ca s/p previous left sided lobectomy, is POD#2 s/p right upper lobectomy with mediastinal lymph node dissection for right upper lobe lung cancer tolerating diet, off ivf pain controlled with vicodin / neurontin / celebrex continue entereg q12 f/u labs and cxr omeprazole added yesterday hep sc - dvt ppx possible removal of remaining chest tube f/u critical care note will d/w Core Measures Venous Thromboembolism VTE Risk Factors Age>40 No Mechanical VTE Prophylaxis d/t N/A MechProphylax Ordered No VTE Pharm Prophylaxis d/t NA PharmProphylax ordered
[2017-12-31 08:00] VITALS: BP 102/50
--- NOTE | 2017-12-31 08:36 | RADIOLOGY REPORT ---
EXAMINATION: XR PORTABLE CHEST CLINICAL INFORMATION: Status post right lobectomy, d/c one chest tube, 2nd tube to water seal 12/30 COMPARISON: Multiple priors, most recent dated 12/30/2017. TECHNIQUE: Portable frontal view of the chest was obtained. FINDINGS: The right basilar chest tube has been removed. The right apical chest tube is in similar position compared to prior. The cardiomediastinal silhouette is unchanged. Aortic arch atherosclerosis again seen. Similar size of moderate right apical pneumothorax when compared to radiograph from 12/30/2017, although increased compared to radiograph dated 12/29/2017. A collapsed right upper lung is again seen. The left lung is hypoexpanded with ill-defined opacities likely representing atelectasis. Scattered surgical clips again seen at the donita. Old left-sided rib fractures and left proximal humeral fracture stabilized by a partially imaged intramedullary el again seen. There is increased soft tissue gas in the right chest wall. IMPRESSION: Right basilar chest tube has been removed. Right apical chest tube in unchanged position. Similar size of moderate right pneumothorax compared to 12/30/2017, although is increased compared to 12/29/2017. Collapsed right upper lung with postsurgical change again seen. Left lung is hypoexpanded with basilar atelectasis.
--- NOTE | 2017-12-31 10:19 | PN- Resident CRCU ---
Subjective HPI/CRCU Issues: #s/p right upper lobectomy for adenocarcinoma, POD#2 #Heartburn, resolving #H/o COPD #H/o HLD, HTN 24 Hour Events: Pt seen and examined at bedside this am. States pain is better controlled this am. POD#2. Posterior chest tube removed yesterday, anterior remains in place. She notes some dyspnea on exertion; heartburn is much improved, though still experiences some dysphagia with decreased appetite. She remains afebrile, with stable vital signs. Objective Vital Signs & I&O Last 8 Hrs of Vitals and I&O: Laboratory Tests 12/31/17 0410: Anion Gap 8, Estimated GFR > 60, Glucose 114 H, Calcium 9.3, Phosphorus 2.6, Magnesium 2.2, Total Bilirubin 1.3, AST 147 H, ALT 64 H, Albumin 3.2 L, CBC w Diff MAN DIFF ORDERED, RBC 3.56 L, MCV 100.2 H, MCH 33.8 H, MCHC 33.8, RDW 13.8, MPV 9.4, Gran % 85.8 H, Lymphocytes % 9.6 L, Monocytes % 4.2, Eosinophils % 0.3, Basophils % 0.1, Absolute Granulocytes 8.0 H, Absolute Lymphocytes 0.9 L, Absolute Monocytes 0.4, Absolute Eosinophils 0, Absolute Basophils 0, Platelet Estimate ADEQUATE, Basophilic Stippling 1+ Vital Signs Date Time Temp Pulse Resp B/P B/P Pulse O2 O2 Flow FiO2 Mean Ox Delivery Rate 12/31 0938 94 Nasal 2.0L Cannula 12/31 0800 96 Nasal 2.0L Cannula 12/31 0800 96.6 80 20 102/50 96 Nasal 2.0L Cannula 12/31 0400 95 Nasal 2.0L Cannula 12/31 0043 96 Nasal 2.0L Cannula 12/31 0000 97 Nasal 2.0L Cannula 12/31 0000 97.6 76 22 104/50 97 Nasal 2.0L Cannula 12/30 2000 94 Nasal 2.0L Cannula 12/31 1999 99.2 86 24 108/44 97 Nasal 2.0L Cannula 12/30 1610 96 Nasal 2.0L Cannula 12/30 1600 97.8 88 20 112/50 96 Nasal 2.0L Cannula 12/30 1600 96 Nasal 2.0L Cannula 12/30 1200 98 Nasal 2.0L Cannula Intake & Output 12/31 1600 12/31 0800 12/31 0000 Intake Total 440 620 Output Total 1320 760 Balance -880 -140 Intake, Oral 440 620 Number 0 Bowel Movements Output, Chest 60 160 Tube Drainage Output, Urine 1260 600 Patient 151 lb Weight Weight Bed scale Measurement Method Exam General Appearance: no apparent distress, alert, awake Head: atraumatic, normal appearance Neck: normal inspection, supple Respiratory: decreased breath sounds (bibasilar), anterior chest tube in place noted Cardiovascular: regular rate/rhythm Gastrointestinal: normal bowel sounds, soft, non-tender, no organomegaly Extremities: normal inspection, normal capillary refill, no edema Current Medications: Current Medications Sig/Nathan Start time Last Medication Dose Route Stop Time Status Admin Acetaminophen 650 MG .STK-MED ONE 12/30 1308 DC PO 12/30 1309 Acetaminophen 325 MG ONCE ONE 12/30 1200 DC 12/30 PO 12/30 1201 1203 Acetaminophen 1,000 MG Q6 12/29 1800 DC 12/30 PO 0644 Al Hydroxide/Mg 30 ML .STK-MED ONE 12/30 2101 DC Hydroxide PO 12/30 2102 Al Hydroxide/Mg 30 ML .STK-MED ONE 12/30 1736 DC Hydroxide PO 12/30 1737 Al Hydroxide/Mg 30 ML Q4-6 PRN PRN 12/30 1115 AC 12/30 Hydroxide PO 2130 Albuterol Sulfate 3 ML Q4 12/29 2200 AC 12/31 INH 0900 Albuterol Sulfate 2 PUF Q4P PRN 12/29 1600 AC INH Alvimopan 12 MG Q12 12/29 2100 AC 12/31 PO 0822 Budesonide/ 2 PUF BID 12/29 2100 AC 12/31 Formoterol Fumarate INH 0822 Calcium Carbonate 500 MG .STK-MED ONE 12/30 1308 DC PO 12/30 1309 Celecoxib 100 MG BID 12/29 2100 AC 12/31 PO 0822 Docusate Sodium 100 MG BID 12/29 2100 AC 12/31 PO 0822 Gabapentin 300 MG Q8 12/29 2200 AC 12/31 PO 0623 Heparin Sodium 5,000 UNIT Q8 12/30 0600 AC 12/31 (Porcine) SC 0628 Hydrocodone Bitart/ 1 TAB ONCE ONE 12/30 1200 DC 12/30 Acetaminophen PO 12/30 1201 1203 Hydrocodone Bitart/ 1 TAB Q4P PRN 12/30 1030 AC 12/30 Acetaminophen PO 1117 Hydrocodone Bitart/ 2 TAB Q4-6 PRN PRN 12/30 1030 AC 12/31 Acetaminophen PO 0821 Morphine Sulfate 4 MG .STK-MED ONE 12/30 1308 DC IV 12/30 1309 Omeprazole 40 MG .STK-MED ONE 12/30 1308 DC PO 12/30 1309 Omeprazole 40 MG DAILY AC 12/30 1115 AC 12/31 PO 0623 Ondansetron HCl 4 MG Q6P PRN 12/29 1700 AC 12/30 IV 2208 Potassium Chloride 20 MEQ Q13H 12/29 170 DC 12/30 Dextrose/Water 1,000 ML IV 0545 Tramadol HCl 50 MG Q4-6 PRN PRN 12/29 170 DC PO Tramadol HCl 100 MG Q4-6 PRN PRN 12/29 1700 AC 12/29 PO 2013 Trazodone HCl 100 MG QPM PRN 12/29 1615 DC PO CXR Findings: SERVICE DATE: EXAM TYPE: RAD - XRY-PORTABLE CHEST XRAY EXAMINATION: XR PORTABLE CHEST CLINICAL INFORMATION: Status post right lobectomy, d/c one chest tube, 2nd tube to water seal 12/30 COMPARISON: Multiple priors, most recent dated 12/30/2017. TECHNIQUE: Portable frontal view of the chest was obtained. FINDINGS: The right basilar chest tube has been removed. The right apical chest tube is in similar position compared to prior. The cardiomediastinal silhouette is unchanged. Aortic arch atherosclerosis again seen. Similar size of moderate right apical pneumothorax when compared to radiograph from 12/30/2017, although increased compared to radiograph dated 12/29/2017. A collapsed right upper lung is again seen. The left lung is hypoexpanded with ill-defined opacities likely representing atelectasis. Scattered surgical clips again seen at the donita. Old left-sided rib fractures and left proximal humeral fracture stabilized by a partially imaged intramedullary el again seen. There is increased soft tissue gas in the right chest wall. IMPRESSION: Right basilar chest tube has been removed. Right apical chest tube in unchanged position. Similar size of moderate right pneumothorax compared to 12/30/2017, although is increased compared to 12/29/2017. Collapsed right upper lung with postsurgical change again seen. Left lung is hypoexpanded with basilar atelectasis. Impression/Plan Impression/Problem List Impression: Ms. 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 POD#2. IMPRESSION #s/p right upper lobectomy for adenocarcinoma, POD#2 #H/o COPD #H/o HLD, HTN #S/p right upper lobectomy for adenocarcinoma, POD#2 Patient's pain is better controlled with vicodin added to the pain regimen - she states it is now more manageable. Her posterior chest tube was dc'd yesterday. anterior chest tube is noted. Latest CXR shows a hypoexpanded left lung with basilar atelectasis. -Continue nebs/TRC -Symbicort 2 puffs BID -Incentive spirometry -f/u CXR -Pain management as per surgery FULL CODE REG DIET DVT PPX - mech, pharm Problem List: 1. S/P SANTOS LOBECTOMY 2. LEFT LUNG CANCER Pain Ratin Pain Location: Surgical incisions Tomorrow's Labs & Rationales: cxr icu lab bundle cbc Plan DVT/Prophylaxis: mechanical Code Status: Full Code
--- NOTE | 2017-12-31 10:24 | PN- Pulmonary ---
Subjective HPI/Critical Care Issues: Reports pain controlled best with vicodin, so she was switched yesterday. Posterior chest tube removed yesterday and anterior tube placed to waterseal. Out of bed to chair and sink without difficulty. Some shortness of breath with exertion when out of bed. She admits coughing up some scant, dark "bloody" sputum yesterday. Poor appetite but tolerating diet. Anticipates adler removal this morning. Still has a sig airleak Objective Current Medications: Current Medications Sig/Nathan Start time Last Medication Dose Route Stop Time Status Admin Acetaminophen 650 MG .STK-MED ONE 12/30 1308 DC PO 12/30 1309 Acetaminophen 325 MG ONCE ONE 12/30 1200 DC 12/30 PO 12/30 1201 1203 Acetaminophen 1,000 MG Q6 12/29 1800 DC 12/30 PO 0644 Al Hydroxide/Mg 30 ML .STK-MED ONE 12/30 2101 DC Hydroxide PO 12/30 2102 Al Hydroxide/Mg 30 ML .STK-MED ONE 12/30 1736 DC Hydroxide PO 12/30 1737 Al Hydroxide/Mg 30 ML Q4-6 PRN PRN 12/30 1115 AC 12/30 Hydroxide PO 2130 Al Hydroxide/Mg 30 ML .STK-MED ONE 12/30 1110 DC Hydroxide PO 12/30 1111 Albuterol Sulfate 3 ML Q4 12/29 2200 AC 12/31 INH 0900 Albuterol Sulfate 2 PUF Q4P PRN 12/29 1600 AC INH Alvimopan 12 MG Q12 12/29 2100 AC 12/31 PO 0822 Budesonide/ 2 PUF BID 12/29 2100 AC 12/31 Formoterol Fumarate INH 0822 Calcium Carbonate 500 MG .STK-MED ONE 12/30 1308 DC PO 12/30 1309 Celecoxib 100 MG BID 12/29 2100 AC 12/31 PO 0822 Docusate Sodium 100 MG BID 12/29 2100 AC 12/31 PO 0822 Gabapentin 300 MG Q8 12/29 2200 AC 12/31 PO 0623 Heparin Sodium 5,000 UNIT Q8 12/30 0600 AC 12/31 (Porcine) SC 0628 Hydrocodone Bitart/ 1 TAB ONCE ONE 12/30 1200 DC 12/30 Acetaminophen PO 12/30 1201 1203 Hydrocodone Bitart/ 1 TAB Q4P PRN 12/30 1030 AC 12/30 Acetaminophen PO 1117 Hydrocodone Bitart/ 2 TAB Q4-6 PRN PRN 12/30 1030 AC 12/31 Acetaminophen PO 0821 Morphine Sulfate 4 MG .STK-MED ONE 12/30 1308 DC IV 12/30 1309 Omeprazole 40 MG .STK-MED ONE 12/30 1308 DC PO 12/30 1309 Omeprazole 40 MG DAILY AC 12/30 1115 AC 12/31 PO 0623 Ondansetron HCl 4 MG Q6P PRN 12/29 1700 AC 12/30 IV 2208 Potassium Chloride 20 MEQ Q13H 12/29 1700 DC 12/30 Dextrose/Water 1,000 ML IV 0545 Tramadol HCl 50 MG Q4-6 PRN PRN 12/29 170 DC PO Tramadol HCl 100 MG Q4-6 PRN PRN 12/29 1700 AC 12/29 PO 2013 Trazodone HCl 100 MG QPM PRN 12/29 1615 DC PO Vital Signs & I&O Last 24 Hrs of Vitals and I&O: Vital Signs Date Time Temp Pulse Resp B/P B/P Pulse O2 O2 Flow FiO2 Mean Ox Delivery Rate 12/31 0938 94 Nasal 2.0L Cannula 12/31 0400 95 Nasal 2.0L Cannula 12/31 0043 96 Nasal 2.0L Cannula 12/31 0000 97 Nasal 2.0L Cannula 12/31 0000 97.6 76 22 104/50 97 Nasal 2.0L Cannula 12/30 2000 94 Nasal 2.0L Cannula 12/30 2000 99.2 86 24 108/44 97 Nasal 2.0L Cannula 12/30 1610 96 Nasal 2.0L Cannula 12/30 1600 97.8 88 20 112/50 96 Nasal 2.0L Cannula 12/30 1600 96 Nasal 2.0L Cannula 12/30 1200 98 Nasal 2.0L Cannula Intake & Output 12/31 1600 12/31 0800 12/31 0000 Intake Total 440 620 Output Total 1320 760 Balance -880 -140 Intake, Oral 440 620 Number 0 Bowel Movements Output, Chest 60 160 Tube Drainage Output, Urine 1260 600 Patient 151 lb Weight Weight Bed scale Measurement Method Impression/Plan Impression/Plan Impression/Plan: General - alert & oriented x 3. comfortable. no acute distress. Lungs - clear. decreased breath sounds b/l bases. anterior chest tube remains, to waterseal, with air leak appreciated, with 60mls serosang drainage overnight. Cardiac - s1s2. reg. Abdomen - soft. nontender - adler draining clear, yellow urine. Extremities - warm bilaterally. no c/c/e. calves soft and nontender b/l. athrombics active. This 62 year old female with hx copd, lung ca s/p previous left sided lobectomy, is POD#2 s/p right upper lobectomy with mediastinal lymph node dissection for right upper lobe lung cancer Ongoing mild to mod airleak GERD with mild dysphagia COPD no sig wheezing HTN and HLD and psvt before Altered lft (prob chronic needs follow up labs) bili ok and no rt upper qdt pain REC COnt current rx Pain control per surg Incentive spirometry Cont nebs and resp care Incentive spirometry DVT prophylaxis will follow Cont
[2017-12-31 16:00] VITALS: BP 110/50
[2018-01-01] VITALS: BP 110/60
[2018-01-01 04:34] LABS: ABSOLUTE BASOPHIL COUNT 0 /CUMM (0.0-0.2); ABSOLUTE EOSINOPHIL COUNT 0.1 /CUMM (0.0-0.7); ABSOLUTE LYMPH COUNT 0.9 /CUMM (1.2-3.4); ABSOLUTE MONOCYTE COUNT 0.5 /CUMM (0.10-0.60); BASOPHIL % 0.1 % (0.0-2.0); EOSINOPHIL % 0.9 % (0-5); HEMATOCRIT 34.9 % (37-47); MEAN CORPUSCULAR HGB 33.6 PG (27.0-31.0); MEAN CORPUSCULAR HGB CONC 34.1 G/DL (33.0-37.0); MEAN CORPUSCULAR VOLUME 98.6 FL (81.0-99.0); MEAN PLATELET VOLUME 9.4 FL (7.4-10.4); PLATELET COUNT 157 /CUMM (130-400); RBC DISTRIBUTION WIDTH 13.6 % (11.5-14.5); RED BLOOD CELL CT 3.54 /CUMM (4.20-5.40)
[2018-01-01 05:22] LABS: WHITE BLOOD CELL COUNT 10.5 /CUMM (4.8-10.8)
--- NOTE | 2018-01-01 06:02 | PN- Thoracic Surgery ---
Subjective Subjective: Patient feels as though she is improving. Her breathing is improving. She has now more production with her cough. She has less pain. She denies fever or flulike illness. Objective Vital Signs and I&Os Vital Signs Date Time Temp Pulse Resp B/P B/P Pulse O2 O2 Flow FiO2 Mean Ox Delivery Rate 01/01 0400 92 Nasal 2.0L Cannula 01/01 0102 91 Nasal 4.0L Cannula 01/01 0000 94 Nasal 4.0L Cannula 01/01 0000 97.0 78 22 110/60 94 Nasal 4.0L Cannula 12/31 2100 94 Nasal 4.0L Cannula 12/31 2000 96 Nasal 4.0L Cannula 12/31 1600 94 Nasal 4.0L Cannula 12/31 1600 98.2 110 24 110/50 94 Nasal 4.0L Cannula 12/31 1200 94 Nasal 2.0L Cannula 12/31 0938 94 Nasal 2.0L Cannula 12/31 0800 96 Nasal 2.0L Cannula 12/31 0800 96.6 80 20 102/50 96 Nasal 2.0L Cannula Intake & Output 01/01 0800 01/01 0000 12/31 1600 12/31 0800 12/31 0000 12/30 1600 Intake Total 480 1200 594 826 0464 Output Total 1230 1960 1320 760 405 Balance -750 -760 -880 -140 1216 Intake, IV 701 Intake, Oral 480 1200 440 620 920 Number 0 0 0 Bowel Movements Output, Chest 30 60 60 160 80 Tube Drainage Output, Urine 1200 1900 1260 600 325 Patient 145 lb 151 lb 151 lb Weight Weight Bed scale Bed scale Measurement Method Physical Exam: Well-developed well-nourished no apparent distress. HEENT: Atraumatic, extraocular motion intact Neck: Supple, no lymphadenopathy, trachea midline Heart: Mild tachycardia, regular rhythm Respiratory: No respiratory distress right posterior thorax. Dressing with minimal dry staining. No swelling, no subcu air. Tube site dressing is clean dry and intact. Serosanguineous drainage remains in the tube. Lung sounds noted at the apex bilaterally, equal. Mild crackles throughout right lung and mild wheezing bilateral. Chest tube to waterseal, minimal air leak if any, positive titling Extremities: No edema, no calf pain Neuro: Alert and oriented x3 Psych: Mood affect normal, normal memory normal judgment. Skin: Warm and dry, no rash on exposed skin Results Last 48 Hours of Labs: Laboratory Tests 01/01 12/31 0340 0410 Chemistry Sodium (137 - 145 mmol/L) 139 132 L Potassium (3.5 - 5.1 mmol/L) 4.5 4.3 Chloride (98 - 107 mmol/L) 100 96 L Carbon Dioxide (22 - 30 mmol/L) 29 27 Anion Gap (5 - 16) 10 8 BUN (7 - 17 mg/dL) 14 13 Creatinine (0.5 - 1.0 mg/dL) 0.6 0.7 Estimated GFR (>60 ml/min) > 60 > 60 Glucose (65 - 99 mg/dL) 109 H 114 H Calcium (8.4 - 10.2 mg/dL) 9.8 9.3 Phosphorus (2.5 - 4.5 mg/dL) 2.8 2.6 Magnesium (1.6 - 2.3 mg/dL) 2.1 2.2 Total Bilirubin (0.2 - 1.3 mg/dL) 1.2 1.3 AST (14 - 36 U/L) 85 H 147 H ALT (9 - 52 U/L) 60 H 64 H Albumin (3.5 - 5.0 g/dL) 3.3 L 3.2 L Hematology CBC w Diff NO MAN DIFF REQ MAN DIFF ORDERED WBC (4.8 - 10.8 /CUMM) 10.5 9.3 RBC (4.20 - 5.40 /CUMM) 3.54 L 3.56 L Hgb (12.0 - 16.0 G/DL) 11.9 L 12.1 Hct (37 - 47 %) 34.9 L 35.7 L MCV (81.0 - 99.0 FL) 98.6 100.2 H MCH (27.0 - 31.0 PG) 33.6 H 33.8 H MCHC (33.0 - 37.0 G/DL) 34.1 33.8 RDW (11.5 - 14.5 %) 13.6 13.8 Plt Count (130 - 400 /CUMM) 157 148 MPV (7.4 - 10.4 FL) 9.4 9.4 Gran % (42.2 - 75.2 %) 86.0 H 85.8 H Lymphocytes % (20.5 - 51.1 %) 8.6 L 9.6 L Monocytes % (1.7 - 9.3 %) 4.4 4.2 Eosinophils % (0 - 5 %) 0.9 0.3 Basophils % (0.0 - 2.0 %) 0.1 0.1 Absolute Granulocytes (1.4 - 6.5 /CUMM) 9.0 H 8.0 H Absolute Lymphocytes (1.2 - 3.4 /CUMM) 0.9 L 0.9 L Absolute Monocytes (0.10 - 0.60 /CUMM) 0.5 0.4 Absolute Eosinophils (0.0 - 0.7 /CUMM) 0.1 0 Absolute Basophils (0.0 - 0.2 /CUMM) 0 0 Platelet Estimate (ADEQUATE) ADEQUATE Basophilic Stippling 1+ 12/30 0918 Chemistry Troponin I (< 0.11 ng/ml) < 0.01 Assessment/Plan Assessment/Plan This 62 year old female with hx copd, adenocarcinoma lung ca s/p previous left sided lobectomy, is POD#3 s/p right upper lobectomy with mediastinal lymph node dissection for right upper lobe lung cancer tolerating diet, off ivf pain controlled with vicodin / neurontin / celebrex continue entereg q12 until bowel movement f/u cxr hep sc - dvt ppx continue chest tube to waterseal, possible removal of remaining chest tube will d/w Core Measures Venous Thromboembolism VTE Risk Factors Age>40 No Mechanical VTE Prophylaxis d/t N/A MechProphylax Ordered No VTE Pharm Prophylaxis d/t NA PharmProphylax ordered
[2018-01-01 08:00] VITALS: BP 142/70
--- NOTE | 2018-01-01 08:23 | RADIOLOGY REPORT ---
EXAMINATION: XR PORTABLE CHEST CLINICAL INFORMATION: Post lobectomy COMPARISON: Previous chest x-rays most recent from yesterday TECHNIQUE: Portable frontal view of the chest was obtained. FINDINGS: The cardiac silhouette is enlarged. There are postsurgical changes with volume loss to the left hemithorax with shift of the central mediastinal structures to the left following left upper lobe lobectomy. This is not appreciably changed. There is increasing airspace disease with air bronchograms in the mid and lower left lung questionable for developing pneumonia. This is new from December 29 of 12/30/2017 exam. There are acute postsurgical changes to the right hemithorax. There is increased soft tissue in the right hilar region that is stable from exam probably representing postsurgical change. There is a single right apical chest tube. There is a moderate-sized right apical pneumothorax that measures approximately 3 cm in thickness. This does not appear appreciably changed from yesterday's exam. There is left apical pleural thickening that is stable. No pleural effusion is seen. There is subcutaneous emphysema in the right chest wall. There are old left rib fractures or postsurgical change that is appears stable. IMPRESSION: Stable position of single right apical chest tube. Stable moderate approximately 3 cm right apical pneumothorax. Stable increased soft tissue in the right hilar region probably representing postsurgical change. Increasing airspace disease and air bronchograms at the left lung base questionable for developing pneumonia.
--- NOTE | 2018-01-01 08:33 | PN- Resident CRCU ---
Impression/Plan Plan DVT/Prophylaxis: mechanical Code Status: Full Code
--- NOTE | 2018-01-01 11:52 | PN- Pulmonary ---
Subjective HPI/Critical Care Issues: Patient feels as though she is improving. Her breathing is improving. She has now more production with her cough. She has less pain. She denies fever or flulike illnes Objective Current Medications: Current Medications Sig/Nathan Start time Last Medication Dose Route Stop Time Status Admin Acetylcysteine 2 ML BID 12/31 2100 AC 01/01 INH 0844 Acetylcysteine 4 ML BID 12/31 1225 DC INH Al Hydroxide/Mg 30 ML Q4-6 PRN PRN 12/30 1115 AC 12/30 Hydroxide PO 2130 Albuterol Sulfate 3 ML Q4 12/29 2200 AC 01/01 INH 0844 Albuterol Sulfate 2 PUF Q4P PRN 12/29 1600 AC INH Alvimopan 12 MG Q12 12/29 2100 AC 01/01 PO 0911 Bisacodyl 10 MG ONCE ONE 01/01 1030 DC 01/01 ID 01/01 1031 1032 Budesonide/ 2 PUF BID 12/29 2100 AC 01/01 Formoterol Fumarate INH 0911 Celecoxib 100 MG BID 12/29 2100 AC 01/01 PO 0911 Docusate Sodium 100 MG BID 12/29 2100 AC 01/01 PO 0911 Gabapentin 300 MG Q8 12/29 2200 AC 01/01 PO 0608 Heparin Sodium 5,000 UNIT Q8 12/30 0600 AC 01/01 (Porcine) SC 0604 Hydrocodone Bitart/ 1 TAB Q4P PRN 12/30 1030 AC 12/30 Acetaminophen PO 1117 Hydrocodone Bitart/ 2 TAB Q4-6 PRN PRN 12/30 1030 AC 01/01 Acetaminophen PO 1000 Omeprazole 40 MG DAILY AC 12/30 1115 AC 01/01 PO 0616 Ondansetron HCl 4 MG Q6P PRN 12/29 1700 AC 12/30 IV 2208 Tramadol HCl 100 MG Q4-6 PRN PRN 12/29 1700 AC 12/29 PO 2012 Laboratory Tests 01/01 12/31 0340 0410 Chemistry Sodium (137 - 145 mmol/L) 139 132 L Potassium (3.5 - 5.1 mmol/L) 4.5 4.3 Chloride (98 - 107 mmol/L) 100 96 L Carbon Dioxide (22 - 30 mmol/L) 29 27 Anion Gap (5 - 16) 10 8 BUN (7 - 17 mg/dL) 14 13 Creatinine (0.5 - 1.0 mg/dL) 0.6 0.7 Estimated GFR (>60 ml/min) > 60 > 60 Glucose (65 - 99 mg/dL) 109 H 114 H Calcium (8.4 - 10.2 mg/dL) 9.8 9.3 Phosphorus (2.5 - 4.5 mg/dL) 2.8 2.6 Magnesium (1.6 - 2.3 mg/dL) 2.1 2.2 Total Bilirubin (0.2 - 1.3 mg/dL) 1.2 1.3 AST (14 - 36 U/L) 85 H 147 H ALT (9 - 52 U/L) 60 H 64 H Albumin (3.5 - 5.0 g/dL) 3.3 L 3.2 L Hematology CBC w Diff NO MAN DIFF REQ MAN DIFF ORDERED WBC (4.8 - 10.8 /CUMM) 10.5 9.3 RBC (4.20 - 5.40 /CUMM) 3.54 L 3.56 L Hgb (12.0 - 16.0 G/DL) 11.9 L 12.1 Hct (37 - 47 %) 34.9 L 35.7 L MCV (81.0 - 99.0 FL) 98.6 100.2 H MCH (27.0 - 31.0 PG) 33.6 H 33.8 H MCHC (33.0 - 37.0 G/DL) 34.1 33.8 RDW (11.5 - 14.5 %) 13.6 13.8 Plt Count (130 - 400 /CUMM) 157 148 MPV (7.4 - 10.4 FL) 9.4 9.4 Gran % (42.2 - 75.2 %) 86.0 H 85.8 H Lymphocytes % (20.5 - 51.1 %) 8.6 L 9.6 L Monocytes % (1.7 - 9.3 %) 4.4 4.2 Eosinophils % (0 - 5 %) 0.9 0.3 Basophils % (0.0 - 2.0 %) 0.1 0.1 Absolute Granulocytes (1.4 - 6.5 /CUMM) 9.0 H 8.0 H Absolute Lymphocytes (1.2 - 3.4 /CUMM) 0.9 L 0.9 L Absolute Monocytes (0.10 - 0.60 /CUMM) 0.5 0.4 Absolute Eosinophils (0.0 - 0.7 /CUMM) 0.1 0 Absolute Basophils (0.0 - 0.2 /CUMM) 0 0 Platelet Estimate (ADEQUATE) ADEQUATE Basophilic Stippling 1+ Microbiology Date/Time Procedure - Status Source Growth 12/29 163 Surveillance Culture - COMP UPPER RESP 12/29 1636 Surveillance Culture - COMP GI 12/29 1250 Urine Culture - COMP URINE ROUT Vital Signs & I&O Last 24 Hrs of Vitals and I&O: Vital Signs Date Time Temp Pulse Resp B/P B/P Pulse O2 O2 Flow FiO2 Mean Ox Delivery Rate 01/01 0845 93 Nasal 5.0L Cannula 01/01 0400 92 Nasal 2.0L Cannula 01/01 0102 91 Nasal 4.0L Cannula 01/01 0000 94 Nasal 4.0L Cannula 01/01 0000 97.0 78 22 110/60 94 Nasal 4.0L Cannula 12/31 2100 94 Nasal 4.0L Cannula 12/31 2000 96 Nasal 4.0L Cannula 12/31 1600 94 Nasal 4.0L Cannula 12/31 1600 98.2 110 24 110/50 94 Nasal 4.0L Cannula 12/31 1200 94 Nasal 2.0L Cannula Intake & Output 01/01 1600 01/01 0800 01/01 0000 Intake Total 320 480 Output Total 515 1230 Balance -195 -750 Intake, Oral 320 480 Number 0 Bowel Movements Output, Chest 40 30 Tube Drainage Output, Urine 475 1200 Patient 145 lb 151 lb Weight Weight Bed scale Measurement Method Impression/Plan Impression/Plan Impression/Plan: General - alert & oriented x 3. comfortable. no acute distress. Lungs - clear. decreased breath sounds b/l bases. anterior chest tube remains, to waterseal, with air leak appreciated, with 60mls serosang drainage overnight. Cardiac - s1s2. reg. Abdomen - soft. nontender - adler draining clear, yellow urine. Extremities - warm bilaterally. no c/c/e. calves soft and nontender b/l. athrombics active. This 62 year old female with hx copd, lung ca s/p previous left sided lobectomy, is POD#2 s/p right upper lobectomy with mediastinal lymph node dissection for right upper lobe lung cancer Ongoing mild airleak GERD with mild dysphagia COPD no sig wheezing HTN and HLD and psvt before Altered lft (prob chronic needs follow up labs) bili ok and no rt upper qdt pain Increased sputum REC COnt current rx Pain control per surg Sputum culture Incentive spirometry Cont nebs and resp care Incentive spirometry DVT prophylaxis will follow Cont
[2018-01-01 12:00] VITALS: BP 124/64
[2018-01-01 16:00] VITALS: BP 122/60
[2018-01-02] VITALS: BP 93/54
--- NOTE | 2018-01-02 05:52 | PN- Thoracic Surgery ---
Subjective Subjective: Patient sitting upright in bed getting respiratory treatment. Moving air overall better this morning but desated on 6 Liters- coughing frequently. no fevers or chills. now on partial rebreather at 60% per repiratory therapist Review of Systems Constitutional: Denies: diaphoresis, fever, weakness. Cardiovascular: Denies: chest pain. Respiratory: Reports: cough, short of breath. Denies: orthopnea. Gastrointestinal: Denies: no symptoms. Objective Vital Signs and I&Os Vital Signs Date Time Temp Pulse Resp B/P B/P Pulse O2 O2 Flow FiO2 Mean Ox Delivery Rate 01/02 0400 92 Nasal 6.0L Cannula 01/02 0116 94 Nasal 6.0L Cannula 01/02 0000 92 Nasal 6.0L Cannula 01/02 0000 106 16 93/54 94 Nasal 6.0L Cannula 01/01 2000 92 Nasal 5.0L Cannula 01/01 1600 98.0 122 24 122/60 92 Nasal 5.0L Cannula 01/01 1600 92 Nasal 5.0L Cannula 01/01 1547 91 Nasal 5.0L Cannula 01/01 1200 97.2 100 20 124/64 92 Nasal 5.0L Cannula 01/01 1200 94 Nasal 5.0L Cannula 01/01 0845 93 Nasal 5.0L Cannula 01/01 0800 92 Nasal 4.0L Cannula 01/01 0800 97.7 115 22 142/70 92 Nasal 4.0L Cannula Intake & Output 01/02 0800 01/02 0000 01/01 1600 01/01 0800 01/01 0000 12/31 1600 Intake Total 450 720 908 407 6716 Output Total 770 519 488 3004 1960 Balance -320 200 -195 -750 -760 Intake, Oral 450 720 698 529 1627 Number 1 0 0 Bowel Movements Output, Chest 20 20 40 30 60 Tube Drainage Output, Urine 750 620 470 5819 1900 Patient 145 lb 151 lb Weight Weight Bed scale Measurement Method Physical Exam: alert and oriented, comfortable, pain controlled HEENT: Atraumatic, extraocular motion intact Neck: Supple, no lymphadenopathy, trachea midline Heart: Mild tachycardia, regular rhythm -getting breathing treatment Respiratory: Dressing with minimal dry staining. No swelling, no subcu air. Tube site dressing is clean dry and intact. Serosanguineous drainage remains in the tube. Lung sounds noted at the apex bilaterally, Mild crackles throughout right. Chest tube to waterseal, minimal air leak if any Extremities: No edema, no calf pain Neuro: Alert and oriented x3 Psych: Mood affect normal, normal memory normal judgment. Skin: Warm and dry, no rash on exposed skin Assessment/Plan Assessment/Plan This 62 year old female with hx copd, adenocarcinoma lung ca s/p previous left sided lobectomy, is POD#4 s/p right upper lobectomy with mediastinal lymph node dissection for right upper lobe lung cancer desaturated to 87% on 6 L changed to partial rebreather at 60% breathing unlabored -coughing up clear sputum intermittent- which has improved awaiting am chest xray tolerating diet, off ivf pain controlled with vicodin / neurontin / celebrex BM last night - D/C entereg hep sc - dvt ppx continue chest tube to waterseal, possible removal of remaining chest tube will d/w Core Measures Venous Thromboembolism VTE Risk Factors Age>40 No Mechanical VTE Prophylaxis d/t N/A MechProphylax Ordered No VTE Pharm Prophylaxis d/t NA PharmProphylax ordered
[2018-01-02 06:00] LABS: ABSOLUTE BASOPHIL COUNT 0 /CUMM (0.0-0.2); ABSOLUTE EOSINOPHIL COUNT 0.1 /CUMM (0.0-0.7); ABSOLUTE GRANULOCYTE CT 9.5 /CUMM (1.4-6.5); ABSOLUTE LYMPH COUNT 0.9 /CUMM (1.2-3.4); ABSOLUTE MONOCYTE COUNT 0.4 /CUMM (0.10-0.60); BASOPHIL % 0.1 % (0.0-2.0); EOSINOPHIL % 1.2 % (0-5); GRANULOCYTE % 86.3 % (42.2-75.2); HEMATOCRIT 37.2 % (37-47); MEAN CORPUSCULAR HGB 33.3 PG (27.0-31.0); MEAN CORPUSCULAR HGB CONC 33.6 G/DL (33.0-37.0); MEAN PLATELET VOLUME 9.4 FL (7.4-10.4); PLATELET COUNT 172 /CUMM (130-400); RBC DISTRIBUTION WIDTH 14.1 % (11.5-14.5); RED BLOOD CELL CT 3.76 /CUMM (4.20-5.40); WHITE BLOOD CELL COUNT 11.1 /CUMM (4.8-10.8)
--- NOTE | 2018-01-02 07:19 | PN- Student ---
Judi Suazo 01/02/18 0704: Subjective Subjective: This morning when I went to see the pt she was sitting up comfortable in bed with her partial rebreather mask on. Pt states that she still has difficulty breathing at times, particularily after her breathing treatments. Pt is still has a productive cough with clear secretions this morning. Pt deneis any PND, orthopnea, cp, chest tightness, palipations, abd pain. Pt states she had a BM yesterday and is passing gas. Pt denies any difficulty urinating. Overall, pt is feel better and states she is eager to get back home to see her cats. Objective Objective: Intake & Output 01/02 0800 01/02 0000 01/01 1600 Intake Total 100 450 720 Output Total 0 770 520 Balance 100 -320 200 Intake, Oral 100 450 720 Number 0 1 Bowel Movements Output, Chest 20 20 Tube Drainage Output, Urine 0 750 500 Laboratory Tests 01/02 0510 Chemistry Sodium (137 - 145 mmol/L) 138 Potassium (3.5 - 5.1 mmol/L) 4.4 Chloride (98 - 107 mmol/L) 96 L Carbon Dioxide (22 - 30 mmol/L) 30 Anion Gap (5 - 16) 11 BUN (7 - 17 mg/dL) 14 Creatinine (0.5 - 1.0 mg/dL) 0.6 Estimated GFR (>60 ml/min) > 60 Glucose (65 - 99 mg/dL) 124 H Calcium (8.4 - 10.2 mg/dL) 9.8 Phosphorus (2.5 - 4.5 mg/dL) 3.7 Magnesium (1.6 - 2.3 mg/dL) 1.7 Total Bilirubin (0.2 - 1.3 mg/dL) 1.4 H AST (14 - 36 U/L) 59 H ALT (9 - 52 U/L) 43 Albumin (3.5 - 5.0 g/dL) 3.3 L Hematology CBC w Diff Pending WBC Pending RBC Pending Hgb Pending Hct Pending MCV Pending MCH Pending MCHC Pending RDW Pending Plt Count Pending MPV Pending Physical Exam: Gen: O&Ax3, in no apparent respiratory distress HEENT: PERRL, oral mucosa moist clear Lungs: Crackles noted on left base, lungs presents at right base and throughout anterior aspect of both lungs. Dressing in place on right posterior thorax, clear, dry, intact wtih some dried serosangious fluid underneath it. Chest tube in place with serosangious output. Non labored breathing, no accessory muscle use. Pt has partial rebreather mask on wtih Fio2 at 60 per [employer] Heart: Tachycardia, regular rhythm. S1 and S2 normal Abd: soft, nt/nd, normoactive bs Extremities: Soft, no edema, nt Assessment/Plan Assessment: Pt is a 62 yo Female with hx copd, adenocarcinoma lung ca s/p previous left sided lobectomy, and is now POD#4 s/p right upper lobectomy with mediastinal lymph node dissection for right upper lobe lung cancer. Plan: - Per [employer], pt saturations dropping during treatment this weekend requiring non- rebreather at Fi02 of 60 to bring saturations back into 90s, continue with this and wean and adjust as tolerated by pt and per [employer] -CXR ordered this AM, results still pending -Continue with IS, encourage oob and ambulation -one chest tube remains in place, and put out about 80 cc over past 24 hrs, 500 cc overall of serosangious fluid, may be ready to be removed today, will d/w attending -BM and Flatus passed, pt on regular diet and is tolerating well -Ramachandran is removed, pt urinating well -DVT ppx - ALPS in place, heparin sq -Continue with breathing treatments per respiratory -Pt's pain is well controlled, c/w celebrex, tramadol, vicodin prn for pain Signed FROYLAN Grier Sara 01/02/18 1130: Assessment/Plan Assessment: did not see patient, please review notes from surgical pa
[2018-01-02 08:00] VITALS: BP 100/56
--- NOTE | 2018-01-02 08:18 | RADIOLOGY REPORT ---
EXAMINATION: XR PORTABLE CHEST CLINICAL INFORMATION: Shortness of breath. COMPARISON: 01/01/2018 TECHNIQUE: Portable frontal view of the chest was obtained. FINDINGS: Again noted is surgical change from recent right upper lobectomy. The moderate sized pneumothorax is similar in appearance compared to the prior exam. The tip of the right thoracostomy tube remains within the apex of the right hemithorax. There is persistent soft tissue emphysema of the right chest wall and neck, and the soft tissue emphysema within the neck has increased compared to 01/01/2018. There is volume loss of the left hemithorax with radiation-induced fibrosis in the perihilar region of the left upper lung. Cardiac silhouette is normal in size. There are old thoracotomy defects of left 5th - 7th ribs. Old, healed fracture of right posterolateral seventh rib. IMPRESSION: 1. The moderate right pneumothorax is similar in appearance compared to 01/01/2018. No new cardiopulmonary findings compared to the prior radiograph. 2. Soft tissue emphysema within the neck has increased compared to 01/01/2018.
--- NOTE | 2018-01-02 08:44 | PN- CRCU ---
Subjective HPI/Critical Care Issues: The patient is awake and alert. She continues to have shortness of breath with minimal exertion. The patient was noted to have worsening hypoxia overnight and was placed on a partial rebreather. She has a cough which is productive of clear sputum. The patient is afebrile. She is intermittently tachycardic. Chest x-ray shows persistent moderate right pneumothorax with chest tube in place. Objective Current Medications: Current Medications Sig/Nathan Start time Last Medication Dose Route Stop Time Status Admin Acetylcysteine 2 ML BID 12/31 2100 AC 01/01 INH 2026 Al Hydroxide/Mg 30 ML Q4-6 PRN PRN 12/30 1115 AC 12/30 Hydroxide PO 2130 Albuterol Sulfate 3 ML Q4 12/29 220 AC 01/02 INH 0423 Albuterol Sulfate 2 PUF Q4P PRN 12/29 1600 AC INH Alvimopan 12 MG Q12 12/29 2100 AC 01/01 PO 2020 Bisacodyl 10 MG ONCE ONE 01/01 1030 DC 01/01 MI 01/01 1031 1032 Budesonide/ 2 PUF BID 12/29 2100 AC 01/01 Formoterol Fumarate INH 2020 Celecoxib 100 MG BID 12/29 2100 AC 01/01 PO 202 Docusate Sodium 100 MG BID 12/29 2100 AC 01/01 PO 2020 Gabapentin 300 MG Q8 12/29 220 AC 01/02 PO 045 Heparin Sodium 5,000 UNIT Q8 12/30 0600 AC 01/02 (Porcine) SC 0456 Hydrocodone Bitart/ 1 TAB Q4P PRN 12/30 1030 AC 01/01 Acetaminophen PO 2019 Hydrocodone Bitart/ 2 TAB Q4-6 PRN PRN 12/30 1030 AC 01/01 Acetaminophen PO 1000 Melatonin 5 MG AT BEDTIME 01/01 2100 AC 01/01 PO 2019 Omeprazole 40 MG DAILY AC 12/30 1115 AC 01/02 PO 0455 Ondansetron HCl 4 MG Q6P PRN 12/29 1700 AC 12/30 IV 2208 Tramadol HCl 100 MG Q4-6 PRN PRN 12/29 1700 AC 01/01 PO 2019 Trazodone HCl 100 MG AT BEDTIME 01/01 2100 AC 01/01 PO 2020 Vital Signs & I&O Last 24 Hrs of Vitals and I&O: Vital Signs Date Time Temp Pulse Resp B/P B/P Pulse O2 O2 Flow FiO2 Mean Ox Delivery Rate 01/02 0400 92 Nasal 6.0L Cannula 01/02 0116 94 Nasal 6.0L Cannula 01/02 0000 92 Nasal 6.0L Cannula 01/02 0000 106 16 93/54 94 Nasal 6.0L Cannula 01/01 2000 92 Nasal 5.0L Cannula 01/01 1600 98.0 122 24 122/60 92 Nasal 5.0L Cannula 01/01 1600 92 Nasal 5.0L Cannula 01/01 1547 91 Nasal 5.0L Cannula 01/01 1200 97.2 100 20 124/64 92 Nasal 5.0L Cannula 01/01 1200 94 Nasal 5.0L Cannula 01/01 0845 93 Nasal 5.0L Cannula Intake & Output 01/02 1600 01/02 0800 01/02 0000 Intake Total 100 450 Output Total 0 770 Balance 100 -320 Intake, Oral 100 450 Number 0 Bowel Movements Output, Chest 20 Tube Drainage Output, Urine 0 750 General Appearance: well developed/nourished, no apparent distress, comfortable, mild tachypnea Respiratory: chest tender on the right mid axillary line and posteriorly, some right sided crackles, Cardiovascular: regular rate/rhythm, normal peripheral pulses, no m/g/r Gastrointestinal: normal bowel sounds, soft, non-tender Extremities: normal inspection, normal capillary refill, normal range of motion, no edema Results Last 24 Hrs of Lab Results: Laboratory Tests 01/02/18 0510: Anion Gap 11, Estimated GFR > 60, Glucose 124 H, Calcium 9.8, Phosphorus 3.7, Magnesium 1.7, Total Bilirubin 1.4 H, AST 59 H, ALT 43, Albumin 3.3 L, CBC w Diff MAN DIFF ORDERED, RBC 3.76 L, MCV 99.0, MCH 33.3 H, MCHC 33.6, RDW 14.1, MPV 9.4, Gran % 86.3 H, Lymphocytes % 8.6 L, Monocytes % 3.8, Eosinophils % 1.2, Basophils % 0.1, Absolute Granulocytes 9.5 H, Segmented Neutrophils 72, Band Neutrophils 8 H, Absolute Lymphocytes 0.9 L, Lymphocytes 14 L, Monocytes 4, Absolute Monocytes 0.4, Eosinophils 1, Absolute Eosinophils 0.1, Absolute Basophils 0, Metamyelocytes 1, Nucleated RBCs 1 H, Platelet Estimate ADEQUATE, Normocytic RBCs VERIFIED, Normochromic RBCs VERIFIED Impression/Plan Impression/Plan Impression/Plan: 1. Status post right upper lobectomy for adenocarcinoma (12/29/17). 2. Hypoxemic respiratory failure in the setting of persistent right pneumothorax and emphysema. 3. Increased heartburn, likely side effect of medication. 4. Dyspepsia, surgery, and cardiovascular risk factors, will further evaluate chest pain. 5. History of COPD without evidence of acute bronchospasm. 6. History of hypertension, hyperlipidemia and proximal SVT. Recommendations: * Continue with nebs/total respiratory care. * Change to high flow oxygen if the patient does not improve with nasal cannula appear * Follow-up sputum culture. * Continue with incentive spirometry. * Will discuss chest tube management with surgery. * Continue with pain control. * Will consider CT angiogram if the patient does not improve with oxygen therapy. * DVT prophylaxis at all times per * Continue all supportive care. Code Status: Full Code
--- NOTE | 2018-01-02 08:48 | PN- Resident CRCU ---
Subjective HPI/CRCU Issues: s/p right upper lobectomy for adenocarcinoma, POD#4 pneumothorax Patient seen and examined. Reports significant shortness of breath at rest and with minimal exertion. Currently on 70% high flow oxygen. 24 Hour Events: Overnight patient was hypoxic and was placed on a partial rebreather which was taken off this morning. Objective Vital Signs & I&O Last 8 Hrs of Vitals and I&O: . Exam General Appearance: alert, awake, mild distress Head: atraumatic, normal appearance Respiratory: crackles (right lung base), left lung cta, palpable crepitus in right infraclavicular space, anterior chest tube to waterseal with air leak Cardiovascular: tachycardia Gastrointestinal: soft, non-tender Extremities: no edema Cranial Nerves: normal hearing, normal speech Skin: intact, normal color, warm/dry Skin Temp/Moisture Exam: Warm/Dry Sepsis Skin Exam (color): Normal for Ethnicity Current Medications: Current Medications Sig/Nathan Start time Last Medication Dose Route Stop Time Status Admin Acetylcysteine 2 ML BID 12/31 2100 AC 01/01 INH 2026 Al Hydroxide/Mg 30 ML Q4-6 PRN PRN 12/30 1115 AC 12/30 Hydroxide PO 2130 Albuterol Sulfate 3 ML Q4 12/29 2200 AC 01/02 INH 0423 Albuterol Sulfate 2 PUF Q4P PRN 12/29 1600 AC INH Alvimopan 12 MG Q12 12/29 2100 AC 01/01 PO 202 Bisacodyl 10 MG ONCE ONE 01/01 1030 DC 01/01 PA 01/01 1031 1032 Budesonide/ 2 PUF BID 12/29 2100 AC 01/01 Formoterol Fumarate INH 2020 Celecoxib 100 MG BID 12/29 2100 AC 01/01 PO 202 Docusate Sodium 100 MG BID 12/29 2100 AC 01/01 PO 2020 Gabapentin 300 MG Q8 12/29 2200 AC 01/02 PO 0455 Heparin Sodium 5,000 UNIT Q8 12/30 0600 AC 01/02 (Porcine) SC 0456 Hydrocodone Bitart/ 1 TAB Q4P PRN 12/30 1030 AC 01/01 Acetaminophen PO 2019 Hydrocodone Bitart/ 2 TAB Q4-6 PRN PRN 12/30 1030 AC 01/01 Acetaminophen PO 1000 Magnesium Sulfate 1 GM ONCE ONE 01/02 0900 UNVr Dextrose/Water 100 ML IV 01/02 1259 Melatonin 5 MG AT BEDTIME 01/01 2100 AC 01/01 PO 2019 Omeprazole 40 MG DAILY AC 12/30 1115 AC 01/02 PO 045 Ondansetron HCl 4 MG Q6P PRN 12/29 1700 AC 12/30 IV 2208 Tramadol HCl 100 MG Q4-6 PRN PRN 12/29 1700 AC 01/01 PO 2018 Trazodone HCl 100 MG AT BEDTIME 01/01 2100 AC 01/01 PO 2020 Impression/Plan Impression/Problem List Impression: Ms. Hadley is a pleasant 62 y/o F with PMH significant for HTN, HLD, paroxysmal SVT, 50PY daily smoker, stage IB left upper lobe lung cancer s/p left upper lobectomy in 2011 with mediastinal recurrence in 2013 tx with chemo/rad, is now admitted to critical care for postoperative care after right upper lobectomy. Assessment: 1. Hypoxemic Respiratory Failure 2. Moderate Right Sided Pneumothorax 3. S/p right upper lobectomy for adenocarcinmoa 4. Sinus Tachycardia Plan: * Continue supplemental oxygen to maintain target sats >92%. Currently on 75%. * TRC/nebs as needed. * Obtain blood and urine culture * Follow up sputum cultures * IV Unasyn. Patient has an allergy listed but she has received Unasyn in the past at the hospital. * Incentive spirometry * Management of chest tube as per surgery * Monitor electrolytes and replete as needed * Diet: Regular * DVT Prophylaxis: SC Heparin * Code: Full Code Problem List: 1. S/P SANTOS LOBECTOMY Pain Ratin Tomorrow's Labs & Rationales: CBC, ICU bundle Plan DVT/Prophylaxis: mechanical Code Status: Full Code
--- NOTE | 2018-01-02 15:53 | PN- Thoracic Surgery ---
Surgical Brief Attending Note Brief Attending Note: Patient a little more dyspneic this morning with higher oxygen requirements. I am actually happy with her chest x-ray appearance as the middle lobe appears better aerated and there is definite improvement at the left base. Her white blood cell count is elevated and she is having a productive cough. After discussion with pulmonary we will start antibiotics. I am putting the chest tube back to suction given that there is increase in subcutaneous air. Hopefully with a degree of reexpansion it might haste and resolution of her small air leak. If there is no clinical improvement on antibiotics, we will need to check a CT angiogram.
[2018-01-02 16:00] VITALS: BP 110/63
[2018-01-03] VITALS: BP 104/54
[2018-01-03 05:38] LABS: ABSOLUTE BASOPHIL COUNT 0 /CUMM (0.0-0.2); ABSOLUTE EOSINOPHIL COUNT 0.3 /CUMM (0.0-0.7); ABSOLUTE GRANULOCYTE CT 7.5 /CUMM (1.4-6.5); ABSOLUTE LYMPH COUNT 0.9 /CUMM (1.2-3.4); ABSOLUTE MONOCYTE COUNT 0.6 /CUMM (0.10-0.60); BASOPHIL % 0.1 % (0.0-2.0); EOSINOPHIL % 3.1 % (0-5); GRANULOCYTE % 80.7 % (42.2-75.2); MEAN CORPUSCULAR HGB 33.7 PG (27.0-31.0); MEAN CORPUSCULAR VOLUME 99.1 FL (81.0-99.0); MEAN PLATELET VOLUME 8.8 FL (7.4-10.4); PLATELET COUNT 199 /CUMM (130-400); RBC DISTRIBUTION WIDTH 13.9 % (11.5-14.5); RED BLOOD CELL CT 3.24 /CUMM (4.20-5.40); WHITE BLOOD CELL COUNT 9.3 /CUMM (4.8-10.8)
[2018-01-03 05:44] LABS: HEMATOCRIT 32.1 % (37-47)
--- NOTE | 2018-01-03 05:51 | PN- Thoracic Surgery ---
Subjective Subjective: CT back to [facility] yesterday, started on unasyn. feeling better, breathing less difficult, "less raspy", pain at tube site, syed diet, +bms/void Objective Vital Signs and I&Os Vital Signs Date Time Temp Pulse Resp B/P B/P Pulse O2 O2 Flow FiO2 Mean Ox Delivery Rate 01/03 0400 94 Nasal 60% Cannula 01/03 0050 94 Nasal 60% Cannula 01/03 0000 98.1 90 24 104/54 92 Nasal 60% Cannula 01/03 0000 92 Nasal 60% Cannula 01/02 2000 93 Nasal 60% Cannula 01/02 1641 94 Nasal 70% Cannula 01/02 1600 94 Nasal 70% Cannula 01/02 1600 98.3 114 32 110/63 94 Nasal 70% Cannula 01/02 1347 96 Nasal 70% Cannula 01/02 1200 94 Nasal 70% Cannula 01/02 0910 94 Nasal 75% Cannula 01/02 0840 92 Part 60% ReBreather 01/02 0800 99 Part 60% ReBreather 01/02 0800 98.4 110 32 100/56 99 Part 60% ReBreather Intake & Output 01/03 0800 01/03 0000 01/02 1600 01/02 0800 01/02 0000 01/01 1600 Intake Total 600 870 100 450 720 Output Total 400 600 0 770 520 Balance 200 270 100 -320 200 Intake, IV 120 240 Intake, Oral 480 630 100 450 720 Number 1 0 1 Bowel Movements Output, Chest 50 20 20 Tube Drainage Output, Urine 350 600 0 750 500 Physical Exam: gen- nad card-s1s2 pulm- coarse throughout. ct dressing cdi, tube w serous drainage, 130cc since 2pm yesterday, +AL abd- soft nt ext- calves soft nt, alps on, palp pedal pulses CT- 80/50/nr UO- 650/350/600 Current Medications: Current Medications Sig/Nathan Start time Last Medication Dose Route Stop Time Status Admin Acetylcysteine 2 ML BID 12/31 2100 AC 01/02 INH 2035 Al Hydroxide/Mg 30 ML Q4-6 PRN PRN 12/30 1115 AC 12/30 Hydroxide PO 2130 Albuterol Sulfate 3 ML Q4 12/29 2200 AC 01/03 INH 0452 Albuterol Sulfate 2 PUF Q4P PRN 12/29 1600 AC INH Alvimopan 12 MG Q12 12/29 2100 AC 01/02 PO 2019 Ampicillin Sodium/ 3,000 MG Q6 01/02 1200 AC 01/03 Sulbactam Sodium IV 0507 Sodium Chloride 100 ML Budesonide/ 2 PUF BID 12/29 2100 AC 01/02 Formoterol Fumarate INH 2019 Celecoxib 100 MG BID 12/29 2100 AC 01/02 PO 2019 Docusate Sodium 100 MG BID 12/29 2100 AC 01/02 PO 2019 Gabapentin 300 MG Q8 12/29 2200 AC 01/03 PO 0508 Heparin Sodium 5,000 UNIT Q8 12/30 0600 AC 01/03 (Porcine) SC 0508 Hydrocodone Bitart/ 1 TAB Q4P PRN 12/30 1030 AC 01/03 Acetaminophen PO 0145 Hydrocodone Bitart/ 2 TAB Q4-6 PRN PRN 12/30 1030 AC 01/01 Acetaminophen PO 1000 Magnesium Sulfate 1 GM ONCE ONE 01/02 0900 DC 01/02 Dextrose/Water 100 ML IV 01/02 1259 0924 Melatonin 5 MG AT BEDTIME 01/01 2100 AC 01/02 PO 2019 Omeprazole 40 MG DAILY AC 12/30 1115 AC 01/03 PO 0507 Ondansetron HCl 4 MG Q6P PRN 12/29 1700 AC 12/30 IV 2208 Tramadol HCl 100 MG Q4-6 PRN PRN 12/29 1700 AC 01/01 PO 2019 Trazodone HCl 100 MG AT BEDTIME 01/01 2100 AC 01/02 PO 2018 Results Last 48 Hours of Labs: Laboratory Tests 01/03 01/02 0500 1334 Chemistry Sodium Pending Potassium Pending Chloride Pending Carbon Dioxide Pending Anion Gap Pending BUN Pending Creatinine Pending Glucose Pending Calcium Pending Phosphorus Pending Magnesium Pending Total Bilirubin Pending AST Pending ALT Pending Albumin Pending Hematology CBC w Diff NO MAN DIFF REQ WBC (4.8 - 10.8 /CUMM) 9.3 RBC (4.20 - 5.40 /CUMM) 3.24 L Hgb (12.0 - 16.0 G/DL) 10.9 L Hct (37 - 47 %) 32.1 L MCV (81.0 - 99.0 FL) 99.1 H MCH (27.0 - 31.0 PG) 33.7 H MCHC (33.0 - 37.0 G/DL) 34.0 RDW (11.5 - 14.5 %) 13.9 Plt Count (130 - 400 /CUMM) 199 MPV (7.4 - 10.4 FL) 8.8 Gran % (42.2 - 75.2 %) 80.7 H Lymphocytes % (20.5 - 51.1 %) 9.8 L Monocytes % (1.7 - 9.3 %) 6.3 Eosinophils % (0 - 5 %) 3.1 Basophils % (0.0 - 2.0 %) 0.1 Absolute Granulocytes (1.4 - 6.5 /CUMM) 7.5 H Absolute Lymphocytes (1.2 - 3.4 /CUMM) 0.9 L Absolute Monocytes (0.10 - 0.60 /CUMM) 0.6 Absolute Eosinophils (0.0 - 0.7 /CUMM) 0.3 Absolute Basophils (0.0 - 0.2 /CUMM) 0 Urines Urine Color (YEL,AMB,STR) YEL Urine Clarity (CLEAR) CLEAR Urine pH (5.0 - 8.0) 7.0 Ur Specific [place] (1.001 - 1.035) 1.015 Urine Protein (NEG,<30 MG/DL) NEG Urine Ketones (NEG) NEG Urine Nitrite (NEG) NEG Urine Bilirubin (NEG) NEG Urine Urobilinogen (0.1 - 1.0 EU/dl) 0.2 Ur Leukocyte Esterase (NEG) NEG Ur Microscopic EXAM NOT REQUIRED Urine Hemoglobin (NEG) NEG Urine Glucose (N MG/DL) NEG 01/02 0510 Chemistry Sodium (137 - 145 mmol/L) 138 Potassium (3.5 - 5.1 mmol/L) 4.4 Chloride (98 - 107 mmol/L) 96 L Carbon Dioxide (22 - 30 mmol/L) 30 Anion Gap (5 - 16) 11 BUN (7 - 17 mg/dL) 14 Creatinine (0.5 - 1.0 mg/dL) 0.6 Estimated GFR (>60 ml/min) > 60 Glucose (65 - 99 mg/dL) 124 H Calcium (8.4 - 10.2 mg/dL) 9.8 Phosphorus (2.5 - 4.5 mg/dL) 3.7 Magnesium (1.6 - 2.3 mg/dL) 1.7 Total Bilirubin (0.2 - 1.3 mg/dL) 1.4 H AST (14 - 36 U/L) 59 H ALT (9 - 52 U/L) 43 Albumin (3.5 - 5.0 g/dL) 3.3 L Hematology CBC w Diff MAN DIFF ORDERED WBC (4.8 - 10.8 /CUMM) 11.1 H RBC (4.20 - 5.40 /CUMM) 3.76 L Hgb (12.0 - 16.0 G/DL) 12.5 Hct (37 - 47 %) 37.2 MCV (81.0 - 99.0 FL) 99.0 MCH (27.0 - 31.0 PG) 33.3 H MCHC (33.0 - 37.0 G/DL) 33.6 RDW (11.5 - 14.5 %) 14.1 Plt Count (130 - 400 /CUMM) 172 MPV (7.4 - 10.4 FL) 9.4 Gran % (42.2 - 75.2 %) 86.3 H Lymphocytes % (20.5 - 51.1 %) 8.6 L Monocytes % (1.7 - 9.3 %) 3.8 Eosinophils % (0 - 5 %) 1.2 Basophils % (0.0 - 2.0 %) 0.1 Absolute Granulocytes (1.4 - 6.5 /CUMM) 9.5 H Segmented Neutrophils (42.2 - 75.2 %) 72 Band Neutrophils (0.0 - 5.0 %) 8 H Absolute Lymphocytes (1.2 - 3.4 /CUMM) 0.9 L Lymphocytes (20.5 - 51.1 %) 14 L Monocytes (1.7 - 9.3 %) 4 Absolute Monocytes (0.10 - 0.60 /CUMM) 0.4 Eosinophils (0 - 5.0 %) 1 Absolute Eosinophils (0.0 - 0.7 /CUMM) 0.1 Absolute Basophils (0.0 - 0.2 /CUMM) 0 Metamyelocytes (0.0 - 1.0 %) 1 Nucleated RBCs (0.0 - 0.0 /100WBC) 1 H Platelet Estimate (ADEQUATE) ADEQUATE Normocytic RBCs VERIFIED Normochromic RBCs VERIFIED Recent Imaging Studies: CXR: pending Assessment/Plan Assessment/Plan A- 62F with lung CA POD5 sp RULobectomy, MS node dissection, with hx copd and hx left sided lobectomy for ca, placed back to [facility] yesterday and started on unasyn per pulmonology due to ptx/sqair/decreased o2sats, stable with todays cxr and labs pending. P- unasyn per pulm +daily bm- dc entereg prn pain meds hep sc - dvt ppx continue chest tube to [facility] await am labs, cxr will d/w Core Measures Venous Thromboembolism VTE Risk Factors Age>40 No Mechanical VTE Prophylaxis d/t N/A MechProphylax Ordered No VTE Pharm Prophylaxis d/t NA PharmProphylax ordered
--- NOTE | 2018-01-03 07:01 | PN- Resident CRCU ---
Subjective HPI/CRCU Issues: s/p right upper lobectomy for adenocarcinoma, POD#5 pneumothorax Patient seen and examined. Still reports feeling short of breath at rest and with minimal exertion. States she slept well last night and offers no other complaints. 24 Hour Events: No acute events overnight. Patient remains on high flow oxygen though her oxygen requirement has decreased to 60% today. Objective Vital Signs & I&O Last 8 Hrs of Vitals and I&O: . Exam General Appearance: alert, awake, mild distress Head: atraumatic, normal appearance Respiratory: chest non-tender, crackles, wheezing, palpable crepitus in right anterior and posterior chest wall Cardiovascular: regular rate/rhythm Gastrointestinal: soft, non-tender Extremities: no edema Cranial Nerves: normal hearing, normal speech Skin: intact, normal color Skin Temp/Moisture Exam: Warm/Dry Sepsis Skin Exam (color): Normal for Ethnicity Current Medications: Current Medications Sig/Nathan Start time Last Medication Dose Route Stop Time Status Admin Acetylcysteine 2 ML BID 12/31 2100 AC 01/02 INH 2036 Al Hydroxide/Mg 30 ML Q4-6 PRN PRN 12/30 1115 AC 12/30 Hydroxide PO 2130 Albuterol Sulfate 3 ML Q4 12/29 2200 AC 01/03 INH 0452 Albuterol Sulfate 2 PUF Q4P PRN 12/29 1600 AC INH Alvimopan 12 MG Q12 12/29 2100 DC 01/02 PO 2019 Ampicillin Sodium/ 3,000 MG Q6 01/02 1200 AC 01/03 Sulbactam Sodium IV 0507 Sodium Chloride 100 ML Budesonide/ 2 PUF BID 12/29 2100 AC 01/02 Formoterol Fumarate INH 2020 Celecoxib 100 MG BID 12/29 2100 AC 01/02 PO 2019 Docusate Sodium 100 MG BID 12/29 2100 AC 01/02 PO 2019 Gabapentin 300 MG Q8 12/29 2200 AC 01/03 PO 0508 Heparin Sodium 5,000 UNIT Q8 12/30 0600 AC 01/03 (Porcine) SC 0508 Hydrocodone Bitart/ 1 TAB Q4P PRN 12/30 1030 AC 01/03 Acetaminophen PO 0612 Hydrocodone Bitart/ 2 TAB Q4-6 PRN PRN 12/30 1030 AC 01/01 Acetaminophen PO 1000 Magnesium Sulfate 1 GM ONCE ONE 01/02 0900 DC 01/02 Dextrose/Water 100 ML IV 01/02 1259 0924 Melatonin 5 MG AT BEDTIME 01/01 2100 AC 01/02 PO 2019 Omeprazole 40 MG DAILY AC 12/30 1115 AC 01/03 PO 0507 Ondansetron HCl 4 MG Q6P PRN 12/29 1700 AC 12/30 IV 2208 Tramadol HCl 100 MG Q4-6 PRN PRN 12/29 1700 AC 01/01 PO 2019 Trazodone HCl 100 MG AT BEDTIME 01/01 2100 AC 01/02 PO 2018 Impression/Plan Impression/Problem List Impression: Ms. Hadley is a pleasant 62 y/o F with PMH significant for HTN, HLD, paroxysmal SVT, 50PY daily smoker, stage IB left upper lobe lung cancer s/p left upper lobectomy in 2011 with mediastinal recurrence in 2013 tx with chemo/rad, is now admitted to critical care for postoperative care after right upper lobectomy. Assessment: 1. Hypoxemic Respiratory Failure 2. Moderate Right Sided Pneumothorax 3. S/p right upper lobectomy for adenocarcinmoa 4. Sinus Tachycardia - resolved Plan: * Continue supplemental oxygen to maintain target sats >92%. Currently on 60% high flow * TRC/nebs as needed. * Blood and urine cultures - pending * UA shows no signs of infection * Continue IV Unasyn for possible aspiration pneumonia * Incentive spirometry * Management of chest tube as per surgery * Monitor electrolytes and replete as needed * Diet: Regular * DVT Prophylaxis: SC Lovenox * Code: Full Code Problem List: 1. LEFT LUNG CANCER Pain Ratin Tomorrow's Labs & Rationales: CBC, ICU bundle Plan DVT/Prophylaxis: mechanical Code Status: Full Code
[2018-01-03 08:00] VITALS: BP 102/50
--- NOTE | 2018-01-03 08:33 | PN- CRCU ---
Subjective HPI/Critical Care Issues: The patient is awake and alert. She reports feeling slightly improved today. She is afebrile. She remains on high flow nasal cannula noting she is down to 60% with saturations in the mid 90s. She is less tachycardic. She coughed up 1 mucous plug which was bloody. She is taking in adequate nutrition. She is sitting out of bed daily. There were no overnight events reported. Objective Current Medications: Current Medications Sig/Nathan Start time Last Medication Dose Route Stop Time Status Admin Acetylcysteine 2 ML BID 12/31 2100 AC 01/02 INH 2036 Al Hydroxide/Mg 30 ML Q4-6 PRN PRN 12/30 1115 AC 12/30 Hydroxide PO 2130 Albuterol Sulfate 3 ML Q4 12/29 2200 AC 01/03 INH 0452 Albuterol Sulfate 2 PUF Q4P PRN 12/29 1600 AC INH Alvimopan 12 MG Q12 12/29 2100 DC 01/02 PO 2019 Ampicillin Sodium/ 3,000 MG Q6 01/02 1200 AC 01/03 Sulbactam Sodium IV 0507 Sodium Chloride 100 ML Budesonide/ 2 PUF BID 12/29 2100 AC 01/02 Formoterol Fumarate INH 2020 Celecoxib 100 MG BID 12/29 2100 AC 01/02 PO 2019 Docusate Sodium 100 MG BID 12/29 2100 AC 01/02 PO 2019 Gabapentin 300 MG Q8 12/29 2200 AC 01/03 PO 0508 Heparin Sodium 5,000 UNIT Q8 12/30 0600 AC 01/03 (Porcine) SC 0508 Hydrocodone Bitart/ 1 TAB Q4P PRN 12/30 1030 AC 01/03 Acetaminophen PO 0612 Hydrocodone Bitart/ 2 TAB Q4-6 PRN PRN 12/30 1030 AC 01/01 Acetaminophen PO 1000 Magnesium Sulfate 1 GM ONCE ONE 01/02 0900 DC 01/02 Dextrose/Water 100 ML IV 01/02 1259 0924 Melatonin 5 MG AT BEDTIME 01/01 2100 AC 01/02 PO 2019 Omeprazole 40 MG DAILY AC 12/30 1115 AC 01/03 PO 0507 Ondansetron HCl 4 MG Q6P PRN 12/29 1700 AC 12/30 IV 2208 Tramadol HCl 100 MG Q4-6 PRN PRN 12/29 1700 AC 01/01 PO 2019 Trazodone HCl 100 MG AT BEDTIME 01/01 2100 AC 01/02 PO 2018 Vital Signs & I&O Last 24 Hrs of Vitals and I&O: Vital Signs Date Time Temp Pulse Resp B/P B/P Pulse O2 O2 Flow FiO2 Mean Ox Delivery Rate 01/03 0400 94 Nasal 60% Cannula 01/03 0050 94 Nasal 60% Cannula 01/03 0000 98.1 90 24 104/54 92 Nasal 60% Cannula 01/03 0000 92 Nasal 60% Cannula 01/02 2000 93 Nasal 60% Cannula 01/02 1641 94 Nasal 70% Cannula 01/02 1600 94 Nasal 70% Cannula 01/02 1600 98.3 114 32 110/63 94 Nasal 70% Cannula 01/02 1347 96 Nasal 70% Cannula 01/02 1200 94 Nasal 70% Cannula 01/02 0910 94 Nasal 75% Cannula 01/02 0840 92 Part 60% ReBreather Intake & Output 01/03 1600 01/03 0800 01/03 0000 Intake Total 480 600 Output Total 730 400 Balance -250 200 Intake, IV 240 120 Intake, Oral 240 480 Number 1 Bowel Movements Output, Chest 80 50 Tube Drainage Output, Urine 650 350 General Appearance: well developed/nourished, no apparent distress, comfortable, mild tachypnea with significant exertion Respiratory: chest tender on the right mid axillary line and posteriorly, some right sided crackles, Cardiovascular: regular rate/rhythm, normal peripheral pulses, no m/g/r Gastrointestinal: normal bowel sounds, soft, non-tender Extremities: normal inspection, normal capillary refill, normal range of motion, no edema Results Last 24 Hrs of Lab Results: Laboratory Tests 01/03/18 0500: Anion Gap 8, Estimated GFR > 60, Glucose 108 H, Calcium 9.1, Phosphorus 3.7, Magnesium 1.8, Total Bilirubin 1.3, AST 51 H, ALT 39, Albumin 2.8 L, CBC w Diff NO MAN DIFF REQ, RBC 3.24 L, MCV 99.1 H, MCH 33.7 H, MCHC 34.0, RDW 13.9 , MPV 8.8, Gran % 80.7 H, Lymphocytes % 9.8 L, Monocytes % 6.3, Eosinophils % 3.1, Basophils % 0.1, Absolute Granulocytes 7.5 H, Absolute Lymphocytes 0.9 L, Absolute Monocytes 0.6, Absolute Eosinophils 0.3, Absolute Basophils 0 01/02/18 1334: Urine Color YEL, Urine Clarity CLEAR, Urine pH 7.0, Ur Specific [place] 1.015, Urine Protein NEG, Urine Ketones NEG, Urine Nitrite NEG, Urine Bilirubin NEG, Urine Urobilinogen 0.2, Ur Leukocyte Esterase NEG, Ur Microscopic EXAM NOT REQUIRED, Urine Hemoglobin NEG, Urine Glucose NEG Diagnostic Data CXR Findings: Improving pneumothorax and airspace opacities. Impression/Plan Impression/Plan Impression/Plan: 1. 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 2. Hypoxemic respiratory failure in the setting of right pneumothorax and emphysema. The patient's oxygen requirement is improving. 3. Possible tracheobronchitis versus aspiration pneumonia. The patient is now on Unasyn. Cultures are negative. 4. History of COPD without evidence of acute bronchospasm. 5. History of hypertension, hyperlipidemia and proximal SVT. Recommendations: * Continue with nebs/total respiratory care. * Continue high flow oxygen, maintain saturations greater than 92%. * Follow-up cultures. * Continue empiric antibiotic therapy pending results. * Continue with incentive spirometry/postoperative thoracotomy protocol. * Will discuss chest tube management with surgery. * Continue with pain control. * Out of bed to chair daily. * DVT prophylaxis at all times. * Continue all supportive care. Code Status: Full Code
--- NOTE | 2018-01-03 10:16 | RADIOLOGY REPORT ---
EXAMINATION: XR PORTABLE CHEST CLINICAL INFORMATION: Status post right upper lobectomy. Has chest tube in place. COMPARISON: Several prior chest x-rays, most recent of which is dated 01/02/2018. TECHNIQUE: Portable AP semierect view of the chest was obtained. FINDINGS: EKG leads overlie the lower chest/upper abdomen. A right-sided chest tube remains unchanged in position with tip directed towards the right lung apex. There is a persistent small right-sided pneumothorax, improved when compared to the prior exam. Diffuse subcutaneous emphysema, primarily in the lower neck and along the right chest wall and axilla, is also improved. There are changes related to right upper lobectomy again noted. Low lung volumes persist with diffuse opacities seen throughout both lungs, unchanged. There are changes related to prior left upper lobectomy and postradiation scarring, unchanged from previous study. There is partial air distention of the upper thoracic esophagus. Hardware is partially included in the left humeral head. Diffuse osteopenia is noted. Healed fracture deformities of the lateral left mid and upper ribs are again noted, related to prior thoracotomy. IMPRESSION: 1. Interval improvement in the small right pneumothorax and in the extensive subcutaneous emphysema when compared to prior exam. 2. No change in positioning of the right chest tube. 3. No significant change in diffuse bilateral lung parenchymal opacities. These are nonspecific and may be related to diffuse pneumonitis. Clinical correlation requested. 4. Other chronic findings in the chest are as described above and are unchanged.
[2018-01-03 16:00] VITALS: BP 120/54
[2018-01-04] VITALS: BP 105/60
[2018-01-04 05:24] LABS: ABSOLUTE BASOPHIL COUNT 0 /CUMM (0.0-0.2); ABSOLUTE EOSINOPHIL COUNT 0.3 /CUMM (0.0-0.7); ABSOLUTE GRANULOCYTE CT 8.3 /CUMM (1.4-6.5); ABSOLUTE LYMPH COUNT 0.8 /CUMM (1.2-3.4); ABSOLUTE MONOCYTE COUNT 0.7 /CUMM (0.10-0.60); BASOPHIL % 0 % (0.0-2.0); EOSINOPHIL % 3.3 % (0-5); MEAN CORPUSCULAR HGB 33.1 PG (27.0-31.0); MEAN CORPUSCULAR HGB CONC 33.2 G/DL (33.0-37.0); MEAN CORPUSCULAR VOLUME 99.8 FL (81.0-99.0); MEAN PLATELET VOLUME 8.8 FL (7.4-10.4); PLATELET COUNT 233 /CUMM (130-400); RBC DISTRIBUTION WIDTH 14.3 % (11.5-14.5); WHITE BLOOD CELL COUNT 10.1 /CUMM (4.8-10.8)
--- NOTE | 2018-01-04 06:35 | RADIOLOGY REPORT ---
EXAMINATION: CHEST 1 VIEW CLINICAL INFORMATION: Status post right upper lobectomy. Follow-up. COMPARISON: Multiple prior exams are reviewed. The most recent is from 01/03/2018. TECHNIQUE: An AP view of the chest is provided. FINDINGS: The cardiac silhouette is stable. There is a stable right apical pneumothorax with a right chest tube in place. Interstitial prominence throughout both lungs is relatively stable. The osseous structures are stable. Subcutaneous gas within the right chest wall has decreased since the prior exam. IMPRESSION: Stable right pneumothorax with right chest tube in place.
--- NOTE | 2018-01-04 06:38 | PN- Thoracic Surgery ---
Subjective Subjective: Patient doing fairly well this am. Cough is more productive today. Breathing is about the same, but overall she feels improved. No appetite. OOB to chair, using IS, and doing pulmonary toilet. Denies any other issues or complaints. No additional concerns per nursing. Objective Vital Signs and I&Os Vital Signs Date Time Temp Pulse Resp B/P B/P Pulse O2 O2 Flow FiO2 Mean Ox Delivery Rate 01/04 0400 94 Nasal 55% Cannula 01/04 0123 94 Nasal 50% Cannula 01/04 0000 95 Nasal 50% Cannula 01/04 0000 96.6 86 20 105/60 95 Nasal 50% Cannula 01/03 2028 95 Nasal 60% Cannula 01/03 2000 93 Nasal 60% Cannula 01/03 1637 93 Nasal 60% Cannula 01/03 1600 95 Nasal 60% Cannula 01/03 1600 97.3 106 24 120/54 95 Nasal 60% Cannula 01/03 1353 93 Nasal 60% Cannula 01/03 1200 93 Nasal 60% Cannula 01/03 0858 93 Nasal 60% Cannula 01/03 0800 95 Nasal 60% Cannula 01/03 0800 97.4 98 28 102/50 95 Nasal 60% Cannula Intake & Output 01/04 0800 01/04 0000 01/03 1600 01/03 0800 01/03 0000 01/02 1600 Intake Total 700 920 480 600 870 Output Total 800 1300 730 400 600 Balance -100 -380 -250 200 270 Intake, IV 100 200 240 120 240 Intake, Oral 600 720 240 480 630 Number 0 1 Bowel Movements Output, Chest 50 80 50 Tube Drainage Output, Urine 800 1250 650 350 600 Physical Exam: Gen: A, A, NAD Chest: Chest tube in place with serous drainage and an air leak, sub q emphysema at right apex, dressing c/d/i Extremities: No clubbing, cyanosis or edema Current Medications: Current Medications Sig/Nathan Start time Last Medication Dose Route Stop Time Status Admin Acetylcysteine 2 ML BID 12/31 2100 DC 01/02 INH 203 Al Hydroxide/Mg 30 ML Q4-6 PRN PRN 12/30 1115 AC 12/30 Hydroxide PO 2130 Albuterol Sulfate 3 ML Q4 12/29 2200 AC 01/04 INH 0418 Albuterol Sulfate 2 PUF Q4P PRN 12/29 1600 AC INH Ampicillin Sodium/ 3,000 MG Q6 01/02 1200 AC 01/04 Sulbactam Sodium IV 0002 Sodium Chloride 100 ML Budesonide/ 2 PUF BID 12/29 2100 AC 01/03 Formoterol Fumarate INH 2046 Celecoxib 100 MG BID 12/29 2100 AC 01/03 PO 2045 Docusate Sodium 100 MG BID 12/29 2100 AC 01/03 PO 2045 Enoxaparin Sodium 40 MG DAILY 01/03 0900 AC 01/03 SC 0940 Gabapentin 300 MG Q8 12/29 2200 AC 01/03 PO 204 Heparin Sodium 5,000 UNIT Q8 12/30 0600 DC 01/03 (Porcine) SC 0508 Hydrocodone Bitart/ 1 TAB Q4P PRN 12/30 1030 AC 01/03 Acetaminophen PO 0612 Hydrocodone Bitart/ 2 TAB Q4-6 PRN PRN 12/30 1030 AC 01/04 Acetaminophen PO 0145 Magnesium Sulfate 1 GM ONCE ONE 01/03 0830 DC 01/03 Dextrose/Water 100 ML IV 01/03 1229 0947 Melatonin 5 MG AT BEDTIME 01/01 2100 AC 01/03 PO 2045 Omeprazole 40 MG DAILY AC 12/30 1115 AC 01/03 PO 0507 Ondansetron HCl 4 MG Q6P PRN 12/29 1700 AC 12/30 IV 2208 Tramadol HCl 100 MG Q4-6 PRN PRN 12/29 170 AC 01/01 PO 2019 Trazodone HCl 100 MG AT BEDTIME 01/01 2100 AC 01/03 PO 2045 Results Last 48 Hours of Labs: Laboratory Tests 01/04 01/03 0420 0500 Chemistry Sodium (137 - 145 mmol/L) 140 135 L Potassium (3.5 - 5.1 mmol/L) 4.0 4.1 Chloride (98 - 107 mmol/L) 96 L 96 L Carbon Dioxide (22 - 30 mmol/L) 31 H 32 H Anion Gap (5 - 16) 12 8 BUN (7 - 17 mg/dL) 11 14 Creatinine (0.5 - 1.0 mg/dL) 0.7 0.6 Estimated GFR (>60 ml/min) > 60 > 60 Glucose (65 - 99 mg/dL) 105 H 108 H Calcium (8.4 - 10.2 mg/dL) 9.3 9.1 Phosphorus (2.5 - 4.5 mg/dL) 4.2 3.7 Magnesium (1.6 - 2.3 mg/dL) 1.9 1.8 Total Bilirubin (0.2 - 1.3 mg/dL) 1.6 H 1.3 AST (14 - 36 U/L) 50 H 51 H ALT (9 - 52 U/L) 47 39 Albumin (3.5 - 5.0 g/dL) 2.8 L 2.8 L Hematology CBC w Diff NO MAN DIFF REQ NO MAN DIFF REQ WBC (4.8 - 10.8 /CUMM) 10.1 9.3 RBC (4.20 - 5.40 /CUMM) 3.20 L 3.24 L Hgb (12.0 - 16.0 G/DL) 10.6 L 10.9 L Hct (37 - 47 %) 32.0 L 32.1 L MCV (81.0 - 99.0 FL) 99.8 H 99.1 H MCH (27.0 - 31.0 PG) 33.1 H 33.7 H MCHC (33.0 - 37.0 G/DL) 33.2 34.0 RDW (11.5 - 14.5 %) 14.3 13.9 Plt Count (130 - 400 /CUMM) 233 199 MPV (7.4 - 10.4 FL) 8.8 8.8 Gran % (42.2 - 75.2 %) 82.0 H 80.7 H Lymphocytes % (20.5 - 51.1 %) 7.6 L 9.8 L Monocytes % (1.7 - 9.3 %) 7.1 6.3 Eosinophils % (0 - 5 %) 3.3 3.1 Basophils % (0.0 - 2.0 %) 0 0.1 Absolute Granulocytes (1.4 - 6.5 /CUMM) 8.3 H 7.5 H Absolute Lymphocytes (1.2 - 3.4 /CUMM) 0.8 L 0.9 L Absolute Monocytes (0.10 - 0.60 /CUMM) 0.7 H 0.6 Absolute Eosinophils (0.0 - 0.7 /CUMM) 0.3 0.3 Absolute Basophils (0.0 - 0.2 /CUMM) 0 0 07/23 1334 Urines Urine Color (YEL,AMB,STR) YEL Urine Clarity (CLEAR) CLEAR Urine pH (5.0 - 8.0) 7.0 Ur Specific [place] (1.001 - 1.035) 1.015 Urine Protein (NEG,<30 MG/DL) NEG Urine Ketones (NEG) NEG Urine Nitrite (NEG) NEG Urine Bilirubin (NEG) NEG Urine Urobilinogen (0.1 - 1.0 EU/dl) 0.2 Ur Leukocyte Esterase (NEG) NEG Ur Microscopic EXAM NOT REQUIRED Urine Hemoglobin (NEG) NEG Urine Glucose (N MG/DL) NEG Recent Imaging Studies: CXR 01/04/18: Pending Assessment/Plan Assessment/Plan A- 62F with lung CA POD6 s/p Right Upper Lobectomy, MS node dissection, with hx copd and hx left sided lobectomy for ca, placed back to ws yesterday and started on unasyn per pulmonology due to ptx/sqair/decreased o2sats, stable with todays cxr and labs pending. P- unasyn per pulm prn pain meds hep sc - dvt ppx continue chest tube to ws await am labs, cxr will d/w Core Measures Venous Thromboembolism VTE Risk Factors Age>40 No Mechanical VTE Prophylaxis d/t N/A MechProphylax Ordered No VTE Pharm Prophylaxis d/t NA PharmProphylax ordered
--- NOTE | 2018-01-04 07:05 | PN- Resident CRCU ---
Subjective HPI/CRCU Issues: s/p right upper lobectomy for adenocarcinoma, POD#6 pneumothorax 24 Hour Events: No acute events overnight. Continues to feel short of breath with persistent cough. Currently on FiO2 of 55%. Objective Vital Signs & I&O Last 8 Hrs of Vitals and I&O: . Exam General Appearance: alert, awake, mild distress, on high flow Head: atraumatic, normal appearance Respiratory: chest non-tender, crackles, palpable crepitus in right anterior and posterior chest wall Cardiovascular: murmur, tachycardia Gastrointestinal: soft, non-tender Extremities: no edema Cranial Nerves: normal hearing, normal speech Skin: intact, normal color, warm/dry Skin Temp/Moisture Exam: Warm/Dry Current Medications: Current Medications Sig/Nathan Start time Last Medication Dose Route Stop Time Status Admin Acetylcysteine 2 ML BID 12/31 2099 DC 01/02 INH 2036 Al Hydroxide/Mg 30 ML Q4-6 PRN PRN 12/30 111 AC 12/30 Hydroxide PO 2130 Albuterol Sulfate 3 ML Q4 12/29 2200 AC 01/04 INH 0418 Albuterol Sulfate 2 PUF Q4P PRN 12/29 1600 AC INH Ampicillin Sodium/ 3,000 MG Q6 01/02 1200 AC 01/04 Sulbactam Sodium IV 0613 Sodium Chloride 100 ML Budesonide/ 2 PUF BID 12/29 2100 AC 01/04 Formoterol Fumarate INH 0749 Celecoxib 100 MG BID 12/29 2100 AC 01/04 PO 0748 Docusate Sodium 100 MG BID 12/29 2100 AC 01/04 PO 0748 Enoxaparin Sodium 40 MG DAILY 01/03 0900 AC 01/04 SC 0749 Gabapentin 300 MG Q8 12/29 2200 AC 01/04 PO 0618 Hydrocodone Bitart/ 1 TAB Q4P PRN 12/30 1030 AC 01/03 Acetaminophen PO 0612 Hydrocodone Bitart/ 2 TAB Q4-6 PRN PRN 12/30 1030 AC 01/04 Acetaminophen PO 0749 Magnesium Sulfate 1 GM ONCE ONE 01/03 0830 DC 01/03 Dextrose/Water 100 ML IV 01/03 1229 0947 Melatonin 5 MG AT BEDTIME 01/01 2100 AC 01/03 PO 2046 Omeprazole 40 MG DAILY AC 12/30 1115 AC 01/04 PO 0618 Ondansetron HCl 4 MG Q6P PRN 12/29 1700 AC 12/30 IV 2208 Tramadol HCl 100 MG Q4-6 PRN PRN 12/29 1700 AC 01/01 PO 2018 Trazodone HCl 100 MG AT BEDTIME 01/01 2100 AC 01/03 PO 2045 Impression/Plan Impression/Problem List Impression: Ms. Hadley is a pleasant 62 y/o F with PMH significant for HTN, HLD, paroxysmal SVT, 50PY daily smoker, stage IB left upper lobe lung cancer s/p left upper lobectomy in 2011 with mediastinal recurrence in 2013 tx with chemo/rad, is now admitted to critical care for postoperative care after right upper lobectomy. Assessment: 1. Hypoxemic Respiratory Failure 2. Moderate Right Sided Pneumothorax 3. S/p right upper lobectomy for adenocarcinmoa 4. Sinus Tachycardia - resolved Plan: * Continue supplemental oxygen to maintain target sats >92%. Currently on 55% high flow * TRC/nebs as needed. * Blood and urine cultures - no growth so far * UA shows no signs of infection * Continue IV Unasyn for possible aspiration pneumonia * CXR shows improvement in pneumothorax. * Incentive spirometry * Management of chest tube as per surgery. Still shows air leak * Monitor electrolytes and replete as needed * Diet: Regular * DVT Prophylaxis: SC Lovenox * Code: Full Code Problem List: 1. Lung cancer Pain Ratin Tomorrow's Labs & Rationales: CBC, ICU bundle Plan DVT/Prophylaxis: mechanical Code Status: Full Code
[2018-01-04 08:00] VITALS: BP 120/60
--- NOTE | 2018-01-04 08:26 | PN- CRCU ---
Subjective HPI/Critical Care Issues: The patient is awake and alert. She continues to have a cough and shortness of breath. Her oxygenation has not significantly changed over the past 24 hours, noting she is on 55% high flow. She continues to have an air leak. Chest x-ray shows persistent pneumothorax but improvement overall. Objective Current Medications: Current Medications Sig/Nathan Start time Last Medication Dose Route Stop Time Status Admin Acetylcysteine 2 ML BID 12/31 2100 DC 01/02 INH 203 Al Hydroxide/Mg 30 ML Q4-6 PRN PRN 12/30 1115 AC 12/30 Hydroxide PO 2130 Albuterol Sulfate 3 ML Q4 12/29 2200 AC 01/04 INH 0418 Albuterol Sulfate 2 PUF Q4P PRN 12/29 1600 AC INH Ampicillin Sodium/ 3,000 MG Q6 01/02 1200 AC 01/04 Sulbactam Sodium IV 0613 Sodium Chloride 100 ML Budesonide/ 2 PUF BID 12/29 2100 AC 01/04 Formoterol Fumarate INH 0749 Celecoxib 100 MG BID 12/29 2100 AC 01/04 PO 0748 Docusate Sodium 100 MG BID 12/29 2100 AC 01/04 PO 0748 Enoxaparin Sodium 40 MG DAILY 01/03 0900 AC 01/04 SC 0749 Gabapentin 300 MG Q8 12/29 2200 AC 01/04 PO 0618 Heparin Sodium 5,000 UNIT Q8 12/30 0600 DC 01/03 (Porcine) SC 0508 Hydrocodone Bitart/ 1 TAB Q4P PRN 12/30 1030 AC 01/03 Acetaminophen PO 0612 Hydrocodone Bitart/ 2 TAB Q4-6 PRN PRN 12/30 1030 AC 01/04 Acetaminophen PO 0749 Magnesium Sulfate 1 GM ONCE ONE 01/03 0830 DC 01/03 Dextrose/Water 100 ML IV 01/03 1229 0947 Melatonin 5 MG AT BEDTIME 01/01 2100 AC 01/03 PO 204 Omeprazole 40 MG DAILY AC 12/30 1115 AC 01/04 PO 0618 Ondansetron HCl 4 MG Q6P PRN 12/29 1700 AC 12/30 IV 2208 Tramadol HCl 100 MG Q4-6 PRN PRN 12/29 1700 AC 01/01 PO 2019 Trazodone HCl 100 MG AT BEDTIME 01/01 2100 AC 01/03 PO 204 Vital Signs & I&O Last 24 Hrs of Vitals and I&O: Vital Signs Date Time Temp Pulse Resp B/P B/P Pulse O2 O2 Flow FiO2 Mean Ox Delivery Rate 01/04 0400 94 Nasal 55% Cannula 01/04 0123 94 Nasal 50% Cannula 01/04 0000 95 Nasal 50% Cannula 01/04 0000 96.6 86 20 105/60 95 Nasal 50% Cannula 01/03 2028 95 Nasal 60% Cannula 01/03 2000 93 Nasal 60% Cannula 01/03 1637 93 Nasal 60% Cannula 01/03 1600 95 Nasal 60% Cannula 01/03 1600 97.3 106 24 120/54 95 Nasal 60% Cannula 01/03 1353 93 Nasal 60% Cannula 01/03 1200 93 Nasal 60% Cannula 01/03 0858 93 Nasal 60% Cannula Intake & Output 01/04 1600 01/04 0800 01/04 0000 Intake Total 570 700 Output Total 450 800 Balance 120 -100 Intake, IV 220 100 Intake, Oral 350 600 Number 0 Bowel Movements Output, Chest 25 Tube Drainage Output, Urine 425 800 General Appearance: well developed/nourished, no apparent distress, comfortable, mild tachypnea with significant exertion Respiratory: chest tender on the right mid axillary line and posteriorly, some right sided crackles, Cardiovascular: regular rate/rhythm, normal peripheral pulses, no m/g/r Gastrointestinal: normal bowel sounds, soft, non-tender Extremities: normal inspection, normal capillary refill, normal range of motion, no edema Results Last 24 Hrs of Lab Results: Laboratory Tests 01/04/18 0420: Anion Gap 12, Estimated GFR > 60, Glucose 105 H, Calcium 9.3, Phosphorus 4.2, Magnesium 1.9, Total Bilirubin 1.6 H, AST 50 H, ALT 47, Albumin 2.8 L, CBC w Diff NO MAN DIFF REQ, RBC 3.20 L, MCV 99.8 H, MCH 33.1 H, MCHC 33.2, RDW 14.3 , MPV 8.8, Gran % 82.0 H, Lymphocytes % 7.6 L, Monocytes % 7.1, Eosinophils % 3.3, Basophils % 0, Absolute Granulocytes 8.3 H, Absolute Lymphocytes 0.8 L, Absolute Monocytes 0.7 H, Absolute Eosinophils 0.3, Absolute Basophils 0 Last 24 Hrs of Micro Results: All cultures are negative to date. Diagnostic Data CXR Findings: Persistent pneumothorax, with improving airspace opacities. Impression/Plan Impression/Plan Impression/Plan: 1. 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 2. Hypoxemic respiratory failure in the setting of right pneumothorax and emphysema. The patient's oxygen requirement is improving. 3. Possible tracheobronchitis versus aspiration pneumonia. The patient is now on Unasyn. Cultures are negative. 4. History of COPD without evidence of acute bronchospasm. 5. History of hypertension, hyperlipidemia and proximal SVT. Recommendations: * Continue with nebs/total respiratory care. * Continue high flow oxygen, maintain saturations greater than 92%. * Follow-up cultures. * Continue empiric antibiotic therapy pending results. * Continue with incentive spirometry/postoperative thoracotomy protocol. * Will discuss chest tube management with surgery. * Continue with pain control. * Out of bed to chair daily. * DVT prophylaxis at all times. * Continue all supportive care. Code Status: Full Code
[2018-01-04 12:00] VITALS: BP 110/70
--- NOTE | 2018-01-04 13:48 | PN- Thoracic Surgery ---
Surgical Brief Attending Note Brief Attending Note: Air leak appears resolved. Will leave to another 24 hours and clamp in the morning.
[2018-01-04 16:00] VITALS: BP 106/66
[2018-01-05] VITALS: BP 104/58
[2018-01-05 06:08] LABS: ABSOLUTE BASOPHIL COUNT 0 /CUMM (0.0-0.2); ABSOLUTE EOSINOPHIL COUNT 0.3 /CUMM (0.0-0.7); ABSOLUTE GRANULOCYTE CT 6.7 /CUMM (1.4-6.5); ABSOLUTE LYMPH COUNT 0.8 /CUMM (1.2-3.4); ABSOLUTE MONOCYTE COUNT 0.4 /CUMM (0.10-0.60); BASOPHIL % 0 % (0.0-2.0); EOSINOPHIL % 4.2 % (0-5); GRANULOCYTE % 81.4 % (42.2-75.2); HEMATOCRIT 30.3 % (37-47); MEAN CORPUSCULAR HGB 34.2 PG (27.0-31.0); MEAN CORPUSCULAR HGB CONC 34.3 G/DL (33.0-37.0); MEAN CORPUSCULAR VOLUME 99.9 FL (81.0-99.0); MEAN PLATELET VOLUME 8.4 FL (7.4-10.4); PLATELET COUNT 256 /CUMM (130-400); RBC DISTRIBUTION WIDTH 14.5 % (11.5-14.5); RED BLOOD CELL CT 3.03 /CUMM (4.20-5.40); WHITE BLOOD CELL COUNT 8.3 /CUMM (4.8-10.8)
--- NOTE | 2018-01-05 07:32 | PN- Resident CRCU ---
Subjective HPI/CRCU Issues: s/p right upper lobectomy for adenocarcinoma, POD#6 pneumothorax 24 Hour Events: No acute events overnight. Remains on FiO2 of 55%. Subjectively does not feel any better than yesterday. Chest tube shows small air leak Objective Vital Signs & I&O Last 8 Hrs of Vitals and I&O: Intake & Output 01/05 1600 Intake Total Output Total 20 Balance -20 Output, Chest 20 Tube Drainage Patient 149 lb Weight Weight Bed scale Measurement Method Exam General Appearance: alert, awake, mild distress, on high flow oxygen Head: atraumatic, normal appearance Respiratory: normal breath sounds, chest non-tender, crackles, palpable crepitus in right anterior and posterior chest wall Cardiovascular: tachycardia Gastrointestinal: soft, non-tender Extremities: no edema Cranial Nerves: normal hearing, normal speech Skin: intact, normal color Skin Temp/Moisture Exam: Warm/Dry Sepsis Skin Exam (color): Normal for Ethnicity Current Medications: Current Medications Sig/Nathan Start time Last Medication Dose Route Stop Time Status Admin Al Hydroxide/Mg 30 ML Q4-6 PRN PRN 12/30 1115 AC 12/30 Hydroxide PO 2130 Albuterol Sulfate 3 ML Q4 12/29 2200 AC 01/05 INH 0809 Albuterol Sulfate 2 PUF Q4P PRN 12/29 1600 AC INH Ampicillin Sodium/ 3,000 MG Q6 01/02 1200 AC 01/05 Sulbactam Sodium IV 0536 Sodium Chloride 100 ML Budesonide/ 2 PUF BID 12/29 2100 AC 01/05 Formoterol Fumarate INH 0828 Celecoxib 100 MG BID 12/29 2100 AC 01/05 PO 0828 Docusate Sodium 100 MG BID 12/29 2100 AC 01/05 PO 0828 Enoxaparin Sodium 40 MG DAILY 01/03 0900 AC 01/05 SC 0828 Gabapentin 300 MG Q8 12/29 2200 AC 01/05 PO 0536 Hydrocodone Bitart/ 1 TAB Q4P PRN 12/30 1030 AC 01/03 Acetaminophen PO 0612 Hydrocodone Bitart/ 2 TAB Q4-6 PRN PRN 12/30 1030 AC 01/05 Acetaminophen PO 1012 Magnesium Sulfate 1 GM ONCE ONE 01/05 0800 AC 01/05 Dextrose/Water 100 ML IV 01/05 1159 0835 Melatonin 5 MG AT BEDTIME 01/01 2100 AC 01/04 PO 2047 Morphine Sulfate 2 MG Q2P PRN 01/05 0630 AC 01/05 IV 0837 Omeprazole 40 MG DAILY AC 12/30 1115 AC 01/05 PO 0536 Ondansetron HCl 4 MG Q6P PRN 12/29 1700 AC 12/30 IV 2208 Potassium Chloride 40 MEQ ONCE ONE 01/05 1130 DC PO 01/05 1131 Tramadol HCl 100 MG Q4-6 PRN PRN 12/29 1700 AC 01/01 PO 2018 Trazodone HCl 100 MG AT BEDTIME 01/01 2100 AC 01/04 PO 2044 Impression/Plan Impression/Problem List Impression: Ms. Hadley is a pleasant 62 y/o F with PMH significant for HTN, HLD, paroxysmal SVT, 50PY daily smoker, stage IB left upper lobe lung cancer s/p left upper lobectomy in 2011 with mediastinal recurrence in 2013 tx with chemo/rad, is now admitted to critical care for postoperative care after right upper lobectomy. Assessment: 1. Hypoxemic Respiratory Failure 2. Moderate Right Sided Pneumothorax 3. S/p right upper lobectomy for adenocarcinmoa 4. Sinus Tachycardia Plan: * Continue supplemental oxygen to maintain target sats >92%. Currently on 55% high flow. * TRC/nebs as needed. * Blood and urine cultures - no growth so far * UA showed no signs of infection * Continue IV Unasyn for possible aspiration pneumonia. Can be discontinued tomorrow after a 5 day course * CXR shows persistent pneumothorax. * Incentive spirometry * Management of chest tube as per surgery. Still shows air leak but significantly improved from before. * Monitor electrolytes and replete as needed * Diet: Regular * DVT Prophylaxis: SC Lovenox * Code: Full Code Problem List: 1. Lung cancer Pain Ratin Tomorrow's Labs & Rationales: CBC, ICU bundle Plan DVT/Prophylaxis: mechanical Code Status: Full Code
--- NOTE | 2018-01-05 07:34 | PN- Thoracic Surgery ---
See Addendum Subjective Subjective: Patient reports burning pain from her incision with deep inspiration. She reports pain improved with Morphine. She reports a productive cough, states yesterday it was dry, now reports brown phelgm. She reports sob. She offers no other complaints. Objective Vital Signs and I&Os Vital Signs Date Time Temp Pulse Resp B/P B/P Pulse O2 O2 Flow FiO2 Mean Ox Delivery Rate 01/05 0400 96 Nasal 55% Cannula 01/05 0208 92 Nasal 55% Cannula 01/05 0000 94 Nasal 55% Cannula 01/05 0000 98.1 76 18 104/58 96 Nasal 55% Cannula 01/04 2134 98 Nasal 55% Cannula 01/04 2000 96 Nasal 55% Cannula 01/04 1909 95 Nasal 55% Cannula 01/04 1827 95 Nasal 55% Cannula 01/04 1654 94 Nasal 55% Cannula 01/04 1600 96.9 95 19 106/66 97 Nasal 55% Cannula 01/04 1600 97 Nasal 55% Cannula 01/04 1428 95 Nasal 55% Cannula 01/04 1200 94 Nasal 55% Cannula 01/04 1200 96.5 102 22 110/70 94 Nasal 55% Cannula 01/04 1131 94 Nasal 50% Cannula 01/04 0910 95 Nasal 55% Cannula 01/04 0800 94 Nasal 55% Cannula 01/04 0800 97.1 100 22 120/60 94 Nasal 55% Cannula Intake & Output 01/05 0800 01/05 0000 01/04 1600 01/04 0800 01/04 0000 01/03 1600 Intake Total 840 1320 1060 570 700 920 Output Total 580 870 600 530 541 5833 Balance 260 450 460 120 -100 -380 Intake, IV 240 120 100 220 100 200 Intake, Oral 600 1200 960 350 600 720 Number 1 0 0 0 Bowel Movements Output, Chest 30 50 0 25 50 Tube Drainage Output, Urine 550 820 600 841 067 4315 Physical Exam: Gen - resting uncomfortably in ICU in nad Cardiac - S1S2 noted, tachycardic Chest - CT x1 to waterseal with serosanguineous drainage and an small air leak with coughing, dressing c/d/i, no crepitus appreciated. Ext - alps in place, no edema or calf pain Current Medications: Current Medications Sig/Nathan Start time Last Medication Dose Route Stop Time Status Admin Al Hydroxide/Mg 30 ML Q4-6 PRN PRN 12/30 1115 AC 12/30 Hydroxide PO 2130 Albuterol Sulfate 3 ML Q4 12/29 2200 AC 01/05 INH 0502 Albuterol Sulfate 2 PUF Q4P PRN 12/29 1600 AC INH Ampicillin Sodium/ 3,000 MG Q6 01/02 1200 AC 01/05 Sulbactam Sodium IV 0536 Sodium Chloride 100 ML Budesonide/ 2 PUF BID 12/29 2100 AC 01/04 Formoterol Fumarate INH 2048 Celecoxib 100 MG BID 12/29 2100 AC 01/04 PO 2048 Docusate Sodium 100 MG BID 12/29 2100 AC 01/04 PO 204 Enoxaparin Sodium 40 MG DAILY 01/03 0900 AC 01/04 SC 0749 Gabapentin 300 MG Q8 12/29 220 AC 01/05 PO 0536 Hydrocodone Bitart/ 1 TAB Q4P PRN 12/30 1030 AC 01/03 Acetaminophen PO 0612 Hydrocodone Bitart/ 2 TAB Q4-6 PRN PRN 12/30 1030 AC 01/05 Acetaminophen PO 0549 Melatonin 5 MG AT BEDTIME 01/01 2100 AC 01/04 PO 204 Morphine Sulfate 2 MG Q2P PRN 01/05 0630 AC 01/05 IV 0632 Omeprazole 40 MG DAILY AC 12/30 1115 AC 01/05 PO 0536 Ondansetron HCl 4 MG Q6P PRN 12/29 170 AC 12/30 IV 2208 Tramadol HCl 100 MG Q4-6 PRN PRN 12/29 170 AC 01/01 PO 2019 Trazodone HCl 100 MG AT BEDTIME 01/01 2100 AC 01/04 PO 2044 Results Last 48 Hours of Labs: Laboratory Tests 01/05 01/04 0420 0420 Chemistry Sodium (137 - 145 mmol/L) 138 140 Potassium (3.5 - 5.1 mmol/L) 3.6 4.0 Chloride (98 - 107 mmol/L) 98 96 L Carbon Dioxide (22 - 30 mmol/L) 30 31 H Anion Gap (5 - 16) 10 12 BUN (7 - 17 mg/dL) 14 11 Creatinine (0.5 - 1.0 mg/dL) 0.7 0.7 Estimated GFR (>60 ml/min) > 60 > 60 Glucose (65 - 99 mg/dL) 105 H 105 H Calcium (8.4 - 10.2 mg/dL) 8.6 9.3 Phosphorus (2.5 - 4.5 mg/dL) 4.8 H 4.2 Magnesium (1.6 - 2.3 mg/dL) 1.8 1.9 Total Bilirubin (0.2 - 1.3 mg/dL) 1.0 1.6 H AST (14 - 36 U/L) 44 H 50 H ALT (9 - 52 U/L) 40 47 Albumin (3.5 - 5.0 g/dL) 2.6 L 2.8 L Hematology CBC w Diff NO MAN DIFF REQ NO MAN DIFF REQ WBC (4.8 - 10.8 /CUMM) 8.3 10.1 RBC (4.20 - 5.40 /CUMM) 3.03 L 3.20 L Hgb (12.0 - 16.0 G/DL) 10.4 L 10.6 L Hct (37 - 47 %) 30.3 L 32.0 L MCV (81.0 - 99.0 FL) 99.9 H 99.8 H MCH (27.0 - 31.0 PG) 34.2 H 33.1 H MCHC (33.0 - 37.0 G/DL) 34.3 33.2 RDW (11.5 - 14.5 %) 14.5 14.3 Plt Count (130 - 400 /CUMM) 256 233 MPV (7.4 - 10.4 FL) 8.4 8.8 Gran % (42.2 - 75.2 %) 81.4 H 82.0 H Lymphocytes % (20.5 - 51.1 %) 9.6 L 7.6 L Monocytes % (1.7 - 9.3 %) 4.8 7.1 Eosinophils % (0 - 5 %) 4.2 3.3 Basophils % (0.0 - 2.0 %) 0 0 Absolute Granulocytes (1.4 - 6.5 /CUMM) 6.7 H 8.3 H Absolute Lymphocytes (1.2 - 3.4 /CUMM) 0.8 L 0.8 L Absolute Monocytes (0.10 - 0.60 /CUMM) 0.4 0.7 H Absolute Eosinophils (0.0 - 0.7 /CUMM) 0.3 0.3 Absolute Basophils (0.0 - 0.2 /CUMM) 0 0 Assessment/Plan Assessment/Plan 62 F with a hx copd, adenocarcinoma lung ca previous left sided lobectomy who is POD 7 s/p right upper lobectomy with mediastinal lymph node dissection for right upper lobe lung cancer Chest tube to ws, possibly clamp today Cont Unasyn, partial rebreather per pulm ERAS protocol Morphine for breakthrough DVT ppx - oob, lovenox TRC, nebs prn F/u CXR Appreciate pulmonary involvement Will d/w Dr. Rivera Core Measures Venous Thromboembolism VTE Risk Factors Age>40 No Mechanical VTE Prophylaxis d/t N/A MechProphylax Ordered No VTE Pharm Prophylaxis d/t NA PharmProphylax ordered
[2018-01-05 08:00] VITALS: BP 104/52
--- NOTE | 2018-01-05 09:18 | RADIOLOGY REPORT ---
EXAMINATION: XR PORTABLE CHEST CLINICAL INFORMATION: Status post right upper lobar lung lobectomy. For follow up. COMPARISON: Chest done on 01/04/2018. TECHNIQUE: Portable upright 80 degree frontal view of the chest was obtained. FINDINGS: Fsbka-[id number]-[id number] amount of right-sided pneumothorax is present with a right-sided chest tube tip projecting at the level of the right upper hemithorax at the level of the clavicle. The size of the pneumothorax appears minimally smaller as compared to the most recent prior study done yesterday. Pleural parenchymal scar/fibrosis-related changes are noted within the left upper hemithorax, unchanged. Postoperative changes of thoracotomy are noted within the left mid hemithorax, unchanged. Bibasilar airspace disease is noted, unchanged. Incidental note is made of subcutaneous, soft tissue emphysema within the right lateral chest wall suggestive of an air leak, which shows progression since the prior study. IMPRESSION: The right-sided pneumothorax appears minimally smaller since the prior study dated 01/04/2018 done at 5:59 AM. Interval progression of right-sided subcutaneous, soft tissue emphysema. No other significant change.
--- NOTE | 2018-01-05 09:23 | PN- CRCU ---
Subjective HPI/Critical Care Issues: The patient is awake and alert. She continues to have pain at her incision sites. She remains on 55% oxygen. She continues to cough however cough is more productive. There were no overnight events reported. Objective Current Medications: Current Medications Sig/Nathan Start time Last Medication Dose Route Stop Time Status Admin Al Hydroxide/Mg 30 ML Q4-6 PRN PRN 12/30 1115 AC 12/30 Hydroxide PO 2130 Albuterol Sulfate 3 ML Q4 12/29 2200 AC 01/05 INH 0809 Albuterol Sulfate 2 PUF Q4P PRN 12/29 1600 AC INH Ampicillin Sodium/ 3,000 MG Q6 01/02 1200 AC 01/05 Sulbactam Sodium IV 0536 Sodium Chloride 100 ML Budesonide/ 2 PUF BID 12/29 2100 AC 01/05 Formoterol Fumarate INH 0828 Celecoxib 100 MG BID 12/29 2100 AC 01/05 PO 0828 Docusate Sodium 100 MG BID 12/29 2100 AC 01/05 PO 0828 Enoxaparin Sodium 40 MG DAILY 01/03 0900 AC 01/05 SC 0828 Gabapentin 300 MG Q8 12/29 2200 AC 01/05 PO 0536 Hydrocodone Bitart/ 1 TAB Q4P PRN 12/30 1030 AC 01/03 Acetaminophen PO 0612 Hydrocodone Bitart/ 2 TAB Q4-6 PRN PRN 12/30 1030 AC 01/05 Acetaminophen PO 0549 Magnesium Sulfate 1 GM ONCE ONE 01/05 0800 AC 01/05 Dextrose/Water 100 ML IV 01/05 1159 0835 Melatonin 5 MG AT BEDTIME 01/01 2100 AC 01/04 PO 204 Morphine Sulfate 2 MG Q2P PRN 01/05 0630 AC 01/05 IV 0837 Omeprazole 40 MG DAILY AC 12/30 1115 AC 01/05 PO 0536 Ondansetron HCl 4 MG Q6P PRN 12/29 170 AC 12/30 IV 2208 Tramadol HCl 100 MG Q4-6 PRN PRN 12/29 170 AC 01/01 PO 2019 Trazodone HCl 100 MG AT BEDTIME 01/01 2100 AC 01/04 PO 204 Vital Signs & I&O Last 24 Hrs of Vitals and I&O: Vital Signs Date Time Temp Pulse Resp B/P B/P Pulse O2 O2 Flow FiO2 Mean Ox Delivery Rate 01/05 0910 95 Nasal 55% Cannula 01/05 0400 96 Nasal 55% Cannula 01/05 0208 92 Nasal 55% Cannula 01/05 0000 94 Nasal 55% Cannula 01/05 0000 98.1 76 18 104/58 96 Nasal 55% Cannula 01/04 2134 98 Nasal 55% Cannula 01/04 2000 96 Nasal 55% Cannula 01/04 1909 95 Nasal 55% Cannula 01/04 1827 95 Nasal 55% Cannula 01/04 1654 94 Nasal 55% Cannula 01/04 1600 96.9 95 19 106/66 97 Nasal 55% Cannula 01/04 1600 97 Nasal 55% Cannula 01/04 1428 95 Nasal 55% Cannula 01/04 1200 94 Nasal 55% Cannula 01/04 1200 96.5 102 22 110/70 94 Nasal 55% Cannula 01/04 1131 94 Nasal 50% Cannula Intake & Output 01/05 1600 01/05 0800 01/05 0000 Intake Total 840 1320 Output Total 580 870 Balance 260 450 Intake, IV 240 120 Intake, Oral 600 1200 Number 1 Bowel Movements Output, Chest 30 50 Tube Drainage Output, Urine 550 820 General Appearance: well developed/nourished, no apparent distress, comfortable, mild tachypnea with significant exertion Respiratory: chest tender on the right mid axillary line and posteriorly, some right sided crackles, Cardiovascular: regular rate/rhythm, normal peripheral pulses, no m/g/r Gastrointestinal: normal bowel sounds, soft, non-tender Extremities: normal inspection, normal capillary refill, normal range of motion, no edema Results Last 24 Hrs of Lab Results: Laboratory Tests 01/05/18 0420: Anion Gap 10, Estimated GFR > 60, Glucose 105 H, Calcium 8.6, Phosphorus 4.8 H , Magnesium 1.8, Total Bilirubin 1.0, AST 44 H, ALT 40, Albumin 2.6 L, CBC w Diff NO MAN DIFF REQ, RBC 3.03 L, MCV 99.9 H, MCH 34.2 H, MCHC 34.3, RDW 14.5 , MPV 8.4, Gran % 81.4 H, Lymphocytes % 9.6 L, Monocytes % 4.8, Eosinophils % 4.2, Basophils % 0, Absolute Granulocytes 6.7 H, Absolute Lymphocytes 0.8 L, Absolute Monocytes 0.4, Absolute Eosinophils 0.3, Absolute Basophils 0 Impression/Plan Impression/Plan Impression/Plan: 1. Right upper lobectomy for adenocarcinoma (7/19/18). 2. Hypoxemic respiratory failure in the setting of right pneumothorax and emphysema. 3. Aspiration pneumonia. The patient is now on Unasyn. Cultures are negative. 4. History of COPD without evidence of acute bronchospasm. 5. History of hypertension, hyperlipidemia and proximal SVT. Recommendations: * Continue with nebs/total respiratory care. * Continue high flow oxygen, maintain saturations greater than 92%. * Continue Unasyn. * Continue with incentive spirometry/postoperative thoracotomy protocol. * Continue with pain control. * Out of bed to chair daily. * DVT prophylaxis at all times. * Continue all supportive care. Code Status: Full Code
[2018-01-05 12:00] VITALS: BP 118/56
--- NOTE | 2018-01-05 14:28 | RADIOLOGY REPORT ---
EXAMINATION: XR PORTABLE CHEST CLINICAL INFORMATION: Status post right upper lobar lung lobectomy. Chest tube removal. COMPARISON: Chest done on 01/05/2018 at 5:40 AM. TECHNIQUE: Portable frontal view of the chest was obtained. FINDINGS: The right-sided pneumothorax is increased since the prior study done earlier today. The right-sided chest tube is not visualized. The right apical pneumothorax currently measures 4.2 cm as compared to previous measurement of 2.0 cm as was documented on prior study done earlier today with the chest tube in situ. No other significant change. IMPRESSION: Interval increase in size of the right sided pneumothorax since prior chest radiograph done earlier today. The right hemithoracic chest tube has been removed in the interim. No other significant change.
[2018-01-05 16:00] VITALS: BP 116/62
--- NOTE | 2018-01-05 23:19 | Event Note ---
Event Note Event Note: Pt sp CT removal around noon yesterday. Postpull cxr showed increase ptx. As pt maintaining o2 sat and comfortable at that time, conservative course was taken and no ct re-inserted per dr. cueto. Pt has had increased sq emphysema since CT removal. At my time of assessment at 11pm, crepitus present from buttock to face, R>L. Pt maintaining o2 sats in mid-90s on 40%hv nc o2, denied sob or dysphagia, though unable to open eyes at that point due to sq air. d/w dr. cueto, decision was made to insert right anterior thoravent to evacuate ptx and decrease sq air. procedure and risks/benefits explained to pt and pt's , written consent obtained and time out performed. right anterior throavent was inserted without complications under sterile technique. pt tolerated well. performed at pr. CXR-prelim reading showed slightly improved ptx, ct in place, significant sq emphseyma in contact with Dr. Cueto about these developments since 10pm
[2018-01-06 00:42] VITALS: BP 99/61
--- NOTE | 2018-01-06 00:57 | PN- Thoracic Surgery ---
See Addendum Subjective Subjective: pt feeling ok, soreness in chest. puffy face. no dysphagia, no sob, no cp. Pt sp CT removal around noon yesterday. Postpull cxr showed increase ptx. As pt maintaining o2 sat and comfortable at that time, conservative course was taken and no ct re-inserted per dr. cueto. Pt has had increased sq emphysema since CT removal. At my time of assessment at 11pm, crepitus present from buttock to face, R>L. Pt maintaining o2 sats in mid-90s on 40%hv nc o2, denied sob or dysphagia, though unable to open eyes at that point due to sq air. d/w dr. cueto, decision was made to insert right anterior thoravent to evacuate ptx and decrease sq air. procedure and risks/benefits explained to pt and pt's , written consent obtained and time out performed. right anterior throavent was inserted without complications under sterile technique. pt tolerated well. perforemd at ri. CXR-prelim reading showed slightly improved ptx, ct in place, significant sq emphseyma in contact with Dr. Cueto about these developments since 10pm Objective Vital Signs and I&Os Vital Signs Date Time Temp Pulse Resp B/P B/P Pulse O2 O2 Flow FiO2 Mean Ox Delivery Rate 01/06 0042 97.3 99 20 99/61 92 01/05 2356 92 Nasal 40% Cannula 01/05 2000 96 Nasal 40% Cannula 01/05 1649 95 Nasal 45% Cannula 01/05 1600 96 Nasal 45% Cannula 01/05 1600 96.2 94 22 116/62 96 Nasal 45% Cannula 01/05 1409 95 Nasal 45% Cannula 01/05 1200 98.7 96 24 118/56 94 Nasal 45% Cannula 01/05 1047 95 Nasal 50% Cannula 01/05 0910 95 Nasal 55% Cannula 01/05 0800 97.5 76 18 104/52 96 Nasal 55% Cannula 01/05 0400 96 Nasal 55% Cannula 01/05 0208 92 Nasal 55% Cannula Intake & Output 01/06 0800 01/06 0000 01/05 1600 01/05 0800 01/05 0000 01/04 1600 Intake Total 580 210 603 6547 1060 Output Total 400 320 580 870 600 Balance 180 405 260 450 460 Intake, IV 100 125 240 120 100 Intake, Oral 480 033 652 4852 960 Number 1 1 0 Bowel Movements Output, Chest 20 30 50 0 Tube Drainage Output, Urine 400 300 550 820 600 Patient 149 lb Weight Weight Bed scale Measurement Method Physical Exam: gen- signicant sq emphesemya from buttock to face (r>L), eyes unable to open, visible sq air central chest, crepitus throughout card-s1s2 pulm-no bs r apex. thoravent in palce r anterior chest. former ct sites dressed with serous drainage. Results Recent Imaging Studies: CXR: see rads report Assessment/Plan Assessment/Plan A- 62F POD8 sp RUlobectomy, with final CT removed yesterdat at noon, with worsening sq emphesemya and ptx since CT pull, sp r anterior thoravent placement with good rwesults, stable. P- dw Dr. Cueto. Will fu CXR read and serial CXR. Continue NPO status due to possible surgical or ir intervention later today. cont current meds. keep thoravent in place. Dr. Cueto to see pt in am. Core Measures Venous Thromboembolism VTE Risk Factors Age>40 No Mechanical VTE Prophylaxis d/t N/A MechProphylax Ordered No VTE Pharm Prophylaxis d/t NA PharmProphylax ordered
--- NOTE | 2018-01-06 00:58 | RADIOLOGY REPORT ---
EXAMINATION: CHEST 1 VIEW CLINICAL INFORMATION: Follow-up pneumothorax. COMPARISON: Multiple prior exams are reviewed. The most recent is from January 05, 2018. TECHNIQUE: An AP view of the chest is provided. FINDINGS: The cardiac silhouette is stable. A right pneumothorax is slightly decreased in size from prior exam. A right pleural catheter is in place. There is persistent subcutaneous chest wall edema on the right. There is also new subcutaneous gas within the left chest wall. There is stable streaky nonspecific airspace disease noted within the mid lungs bilaterally. The osseous structures are stable. IMPRESSION: Slight interval decrease in size of right pneumothorax. Persistent chest wall subcutaneous edema.
[2018-01-06 06:31] LABS: ABSOLUTE BASOPHIL COUNT 0 /CUMM (0.0-0.2); ABSOLUTE EOSINOPHIL COUNT 0.1 /CUMM (0.0-0.7); ABSOLUTE LYMPH COUNT 0.7 /CUMM (1.2-3.4); ABSOLUTE MONOCYTE COUNT 0.3 /CUMM (0.10-0.60); BASOPHIL % 0.1 % (0.0-2.0); EOSINOPHIL % 0.8 % (0-5); HEMATOCRIT 31.5 % (37-47); MEAN CORPUSCULAR HGB 33.3 PG (27.0-31.0); MEAN CORPUSCULAR HGB CONC 33.6 G/DL (33.0-37.0); MEAN CORPUSCULAR VOLUME 98.9 FL (81.0-99.0); MEAN PLATELET VOLUME 7.8 FL (7.4-10.4); PLATELET COUNT 347 /CUMM (130-400); RBC DISTRIBUTION WIDTH 14.8 % (11.5-14.5); RED BLOOD CELL CT 3.18 /CUMM (4.20-5.40)
--- NOTE | 2018-01-06 07:09 | PN- Resident CRCU ---
Subjective HPI/CRCU Issues: s/p right upper lobectomy for adenocarcinoma, POD#7 pneumothorax subcutaneous emphysema 24 Hour Events: Patient had removal of chest tube yesterday after which she developed facial and neck swelling secondary to subcutaneous emphysema. Last night she had difficulty opening her eyes due to significant swelling and a thoracic vent was placed. She currently feels better than yesterday but still has some discomfort. Her oxygen requirement has decreased to 40%. Objective Vital Signs & I&O Last 8 Hrs of Vitals and I&O: . Exam General Appearance: alert, awake, moderate distress Head: atraumatic, swelling, no tenderness to palpation Respiratory: crackles, anterior and posterior chest wall tenderness at the site of chest tube insertion, palpable crepitus in right anterior and posterior chest wall Cardiovascular: regular rate/rhythm Gastrointestinal: soft, non-tender Extremities: no edema Cranial Nerves: normal hearing, normal speech Skin: intact, normal color Skin Temp/Moisture Exam: Warm/Dry Sepsis Skin Exam (color): Normal for Ethnicity Current Medications: Current Medications Sig/Nathan Start time Last Medication Dose Route Stop Time Status Admin Acetaminophen 325 MG ONCE ONE 01/05 190 DC 01/05 PO 01/05 190 1912 Al Hydroxide/Mg 30 ML Q4-6 PRN PRN 12/30 1115 AC 12/30 Hydroxide PO 2130 Albuterol Sulfate 3 ML EVERY 4 HRS/AWAKE 01/05 1600 AC 01/06 INH 0804 Albuterol Sulfate 3 ML Q4 12/29 2200 DC 01/05 INH 1302 Albuterol Sulfate 2 PUF Q4P PRN 12/29 1600 AC INH Ampicillin Sodium/ 3,000 MG Q6 01/02 1200 AC 01/06 Sulbactam Sodium IV 0508 Sodium Chloride 100 ML Budesonide/ 2 PUF BID 12/29 2100 AC 01/06 Formoterol Fumarate INH 0753 Celecoxib 100 MG BID 12/29 2100 AC 01/06 PO 0752 Diphenhydramine HCl 25 MG ONCE ONE 01/05 1330 DC 01/05 PO 01/05 1331 1408 Docusate Sodium 100 MG BID 12/29 2100 AC 01/06 PO 0751 Enoxaparin Sodium 40 MG DAILY 01/03 0900 AC 01/05 SC 0828 Gabapentin 300 MG Q8 12/29 2200 AC 01/06 PO 0508 Hydrocodone Bitart/ 1 TAB Q4P PRN 12/30 1030 AC 01/03 Acetaminophen PO 0612 Hydrocodone Bitart/ 2 TAB Q4-6 PRN PRN 12/30 1030 AC 01/06 Acetaminophen PO 0756 Lidocaine 20 ML .STK-MED ONE 01/06 0004 DC IA 01/06 0005 Magnesium Sulfate 1 GM ONCE ONE 01/05 0800 DC 01/05 Dextrose/Water 100 ML IV 01/05 1159 0835 Melatonin 5 MG AT BEDTIME 01/05 2100 AC PO Melatonin 5 MG AT BEDTIME 01/01 2100 AC 01/05 PO 2034 Morphine Sulfate 4 MG .STK-MED ONE 01/05 2315 DC IV 01/05 2316 Morphine Sulfate 2 MG Q2P PRN 01/05 0630 AC 01/05 IV 0837 Omeprazole 40 MG DAILY AC 12/30 1115 AC 01/06 PO 0643 Ondansetron HCl 4 MG Q6P PRN 12/29 1700 AC 01/05 IV 2059 Potassium Chloride 40 MEQ ONCE ONE 01/05 1130 DC 01/05 PO 01/05 1131 1217 Tramadol HCl 100 MG Q4-6 PRN PRN 12/29 1700 AC 01/01 PO 2019 Trazodone HCl 100 MG AT BEDTIME 01/01 2100 AC 01/05 PO 2034 Impression/Plan Impression/Problem List Impression: Ms. Hadley is a pleasant 62 y/o F with PMH significant for HTN, HLD, paroxysmal SVT, 50PY daily smoker, stage IB left upper lobe lung cancer s/p left upper lobectomy in 2011 with mediastinal recurrence in 2013 tx with chemo/rad, is now admitted to critical care for postoperative care after right upper lobectomy. Assessment: 1. Hypoxemic Respiratory Failure 2. Moderate Right Sided Pneumothorax 3. S/p right upper lobectomy for adenocarcinmoa 4. Sinus Tachycardia Plan: * Continue supplemental oxygen to maintain target sats >92%. Currently on 40% high flow. * TRC/nebs as needed. * Blood and urine cultures - no growth so far * UA showed no signs of infection * IV Unasyn can be discontinued as she has received a 5 day course. * CXR today shows improvement in her pneumothorax. * Incentive spirometry * Management of thoracic vent as per surgery. * Monitor electrolytes and replete as needed * OOB to chair * Diet: Regular * DVT Prophylaxis: SC Lovenox * Code: Full Code Problem List: 1. Lung cancer Pain Ratin Tomorrow's Labs & Rationales: CBC, ICU bundle Plan DVT/Prophylaxis: mechanical Code Status: Full Code
[2018-01-06 08:00] VITALS: BP 124/60
--- NOTE | 2018-01-06 08:21 | PN- CRCU ---
Subjective HPI/Critical Care Issues: Overnight events noted. The patient had a thoracic vent placed. She continues to have significant facial swelling without dysphagia or stridor. She denies any airway compromise. The patient has ongoing pain at her incisional sites but this is better controlled. Objective Current Medications: Current Medications Sig/Nathan Start time Last Medication Dose Route Stop Time Status Admin Acetaminophen 325 MG ONCE ONE 01/05 1900 DC 01/05 PO 01/05 190 1912 Al Hydroxide/Mg 30 ML Q4-6 PRN PRN 12/30 1115 AC 12/30 Hydroxide PO 2130 Albuterol Sulfate 3 ML EVERY 4 HRS/AWAKE 01/05 1600 AC 01/06 INH 0804 Albuterol Sulfate 3 ML Q4 12/29 2200 DC 01/05 INH 1302 Albuterol Sulfate 2 PUF Q4P PRN 12/29 1600 AC INH Ampicillin Sodium/ 3,000 MG Q6 01/02 1200 AC 01/06 Sulbactam Sodium IV 0508 Sodium Chloride 100 ML Budesonide/ 2 PUF BID 12/29 2100 AC 01/06 Formoterol Fumarate INH 0753 Celecoxib 100 MG BID 12/29 2100 AC 01/06 PO 0752 Diphenhydramine HCl 25 MG ONCE ONE 01/05 1330 DC 01/05 PO 01/05 1331 1408 Docusate Sodium 100 MG BID 12/29 2100 AC 01/06 PO 0751 Enoxaparin Sodium 40 MG DAILY 01/03 0900 AC 01/05 SC 0828 Gabapentin 300 MG Q8 12/29 2200 AC 01/06 PO 0508 Hydrocodone Bitart/ 1 TAB Q4P PRN 12/30 1030 AC 01/03 Acetaminophen PO 0612 Hydrocodone Bitart/ 2 TAB Q4-6 PRN PRN 12/30 1030 AC 01/06 Acetaminophen PO 0756 Lidocaine 20 ML .STK-MED ONE 01/06 0004 DC IA 01/06 0005 Magnesium Sulfate 1 GM ONCE ONE 01/05 0800 DC 01/05 Dextrose/Water 100 ML IV 01/05 1159 0835 Melatonin 5 MG AT BEDTIME 01/05 2100 AC PO Melatonin 5 MG AT BEDTIME 01/01 2100 AC 01/05 PO 2035 Morphine Sulfate 4 MG .STK-MED ONE 01/05 2315 DC IV 01/05 2316 Morphine Sulfate 2 MG Q2P PRN 01/05 0630 AC 01/05 IV 0837 Omeprazole 40 MG DAILY AC 12/30 1115 AC 01/06 PO 0643 Ondansetron HCl 4 MG Q6P PRN 12/29 1700 AC 01/05 IV 2059 Potassium Chloride 40 MEQ ONCE ONE 01/05 1130 DC 01/05 PO 01/05 1131 1217 Tramadol HCl 100 MG Q4-6 PRN PRN 12/29 1700 AC 01/01 PO 2019 Trazodone HCl 100 MG AT BEDTIME 01/01 2100 AC 01/05 PO 2034 Vital Signs & I&O Last 24 Hrs of Vitals and I&O: Vital Signs Date Time Temp Pulse Resp B/P B/P Pulse O2 O2 Flow FiO2 Mean Ox Delivery Rate 01/06 0805 93 Nasal 40% Cannula 01/06 0445 95 Nasal 40% Cannula 01/06 0158 94 Nasal 40% Cannula 01/06 0042 97.3 99 20 99/61 92 01/05 2356 92 Nasal 40% Cannula 01/05 2000 96 Nasal 40% Cannula 01/05 1649 95 Nasal 45% Cannula 01/05 1600 96 Nasal 45% Cannula 01/05 1600 96.2 94 22 116/62 96 Nasal 45% Cannula 01/05 1409 95 Nasal 45% Cannula 01/05 1200 98.7 96 24 118/56 94 Nasal 45% Cannula 01/05 1047 95 Nasal 50% Cannula 01/05 0910 95 Nasal 55% Cannula Intake & Output 01/06 1600 01/06 0800 01/06 0000 Intake Total 200 580 Output Total 200 400 Balance 0 180 Intake, IV 200 100 Intake, Oral 480 Number 1 1 Bowel Movements Output, Urine 200 400 Exam General Appearance: alert, awake, comfortable, no distress Head: severe facial swelling due to subcutaneous emphysema, no tenderness to palpation Respiratory: crackles, anterior and posterior chest wall tenderness at the site of chest tube insertion, palpable crepitus over chest wall Cardiovascular: regular rate/rhythm Gastrointestinal: soft, non-tender Extremities: no edema Cranial Nerves: normal hearing, normal speech Skin: intact, normal color Skin Temp/Moisture Exam: Warm/Dry Results Last 24 Hrs of Lab Results: Laboratory Tests 01/06/18 0550: CBC w Diff NO MAN DIFF REQ, RBC 3.18 L, MCV 98.9, MCH 33.3 H, MCHC 33.6, RDW 14.8 H, MPV 7.8, Gran % 87.0 H, Lymphocytes % 9.0 L, Monocytes % 3.1, Eosinophils % 0.8, Basophils % 0.1, Absolute Granulocytes 7.0 H, Absolute Lymphocytes 0.7 L, Absolute Monocytes 0.3, Absolute Eosinophils 0.1, Absolute Basophils 0 01/06/18 0350: Anion Gap 9, Estimated GFR > 60, Glucose 101 H, Calcium 8.8, Phosphorus 4.6 H, Magnesium 1.9, Total Bilirubin 0.8, AST 34, ALT 39, Albumin 2.7 L Diagnostic Data CXR Findings: Persistent right pneumothorax. Impression/Plan Impression/Plan Impression/Plan: 1. 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 2. Hypoxemic respiratory failure in the setting of right pneumothorax and emphysema. 3. Aspiration pneumonia. The patient is now on Unasyn. Cultures are negative. 4. History of COPD without evidence of acute bronchospasm. 5. History of hypertension, hyperlipidemia and proximal SVT. 6. Subcutaneous emphysema. Recommendations: * Continue with nebs/total respiratory care. * Continue high flow oxygen, maintain saturations greater than 92%. * Complete course of Unasyn - 5 days. * Continue with incentive spirometry/postoperative thoracotomy protocol. * Continue with pain control. * Out of bed to chair daily. * Thoracic vent management as per CT surgery. * DVT prophylaxis at all times. * Continue all supportive care. Code Status: Full Code
--- NOTE | 2018-01-06 09:41 | RADIOLOGY REPORT ---
EXAMINATION: XR PORTABLE CHEST CLINICAL INFORMATION: Follow up right-sided pneumothorax. COMPARISON: Chest done on 01/06/2018 at 12:24 AM. TECHNIQUE: Portable upright 80 degree frontal view of the chest was obtained. FINDINGS: There is a right-sided pleural catheter identified, unchanged. The size of the right-sided pneumothorax appears stable. Extensive subcutaneous emphysema is noted bilaterally. Subcutaneous emphysema is also seen extending into the visualized part of the neck bilaterally. Nonspecific airspace opacities are noted at the mid to lower lung lala, unchanged. Overall, compared to the study done earlier today at 12:24 AM, there has been no significant interval change. IMPRESSION: Stable appearance of the chest. Specifically, the size of the right-sided pneumothorax appears unchanged since the study done earlier today at 12:24 AM.
[2018-01-06 16:00] VITALS: BP 114/70
--- NOTE | 2018-01-06 16:29 | PN- Thoracic Surgery ---
Surgical Brief Attending Note Brief Attending Note: Very puzzling situation. The chest tube was removed yesterday with no evidence of an air leak. It was very obvious that there was progressive accumulation of subcutaneous emphysema over the course of the afternoon. A chest x-ray did show some degree of increase in the pneumothorax but it certainly was not concerning. Overnight she developed a concerning amount of subcutaneous emphysema to the point where it was impairing her ability to open her eyes or to talk. There have been literature reports of patients having closure of airways because of massive subcutaneous emphysema. Given that we went ahead and placed a thoracic vent for decompression. This morning there is no air leak on the thoracic vent and a decrease in the subcutaneous emphysema. Clearly there had to be some leak from the lung into the tissue but now we are seeing no air leak. She is decompressing her soft tissue we will just continue as is for now with the catheter to suction.
[2018-01-07] VITALS: BP 120/64
[2018-01-07 05:38] LABS: ABSOLUTE BASOPHIL COUNT 0 /CUMM (0.0-0.2); ABSOLUTE EOSINOPHIL COUNT 0.1 /CUMM (0.0-0.7); ABSOLUTE GRANULOCYTE CT 7.7 /CUMM (1.4-6.5); ABSOLUTE LYMPH COUNT 0.8 /CUMM (1.2-3.4); ABSOLUTE MONOCYTE COUNT 0.4 /CUMM (0.10-0.60); BASOPHIL % 0.1 % (0.0-2.0); HEMATOCRIT 29.8 % (37-47); MEAN CORPUSCULAR HGB 33.4 PG (27.0-31.0); MEAN CORPUSCULAR HGB CONC 33.8 G/DL (33.0-37.0); MEAN CORPUSCULAR VOLUME 98.8 FL (81.0-99.0); MEAN PLATELET VOLUME 7.8 FL (7.4-10.4); PLATELET COUNT 375 /CUMM (130-400); RBC DISTRIBUTION WIDTH 14.9 % (11.5-14.5); RED BLOOD CELL CT 3.02 /CUMM (4.20-5.40)
[2018-01-07 06:35] LABS: GRANULOCYTE % 85.1 % (42.2-75.2)
--- NOTE | 2018-01-07 07:02 | RADIOLOGY REPORT ---
EXAMINATION: XR PORTABLE CHEST CLINICAL INFORMATION: Pneumothorax postop. COMPARISON: 01/06/2018. TECHNIQUE: Portable frontal view of the chest was obtained. FINDINGS: Diffuse subcutaneous emphysema. Large right pneumothorax increased from prior moderate. There is a small bore thoracostomy in the anterior upper chest which appears connected to a Heimlich valve. No significant effusion. Lungs not well assessed due to the subcutaneous emphysema. IMPRESSION: Increasing right pneumothorax. Telephone report called to Dr. Christianson at 700A 01/07/2018.
--- NOTE | 2018-01-07 07:26 | PN- Thoracic Surgery ---
See Addendum Subjective Subjective: Patient is in good spirits this morning. Pain controlled and her breathing is unlabored. Thoravent chamber filled up with straw-colored fluid last night and this was drained via syringe without incident. Still small air leak noted. Review of Systems Constitutional: Denies: chills, fever. Cardiovascular: Denies: chest pain, peripheral edema. Respiratory: Reports: cough, wheezing. Denies: short of breath. Objective Vital Signs and I&Os Vital Signs Date Time Temp Pulse Resp B/P B/P Pulse O2 O2 Flow FiO2 Mean Ox Delivery Rate 01/07 0400 98 Nasal 45% Cannula 01/07 0000 90 Nasal 40% Cannula 01/07 0000 97.8 80 17 120/64 90 Nasal 40% Cannula 01/06 2000 95 Nasal 40% Cannula 01/06 1614 94 Nasal 40% Cannula 01/06 1600 94 Nasal 40% Cannula 01/06 1600 98.2 96 26 114/70 96 Nasal 40% Cannula 01/06 1200 96 Nasal 50% Cannula 01/06 0805 93 Nasal 40% Cannula 01/06 0800 96 Nasal 40% Cannula 01/06 0800 98.2 86 26 124/60 96 Nasal 40% Cannula Intake & Output 01/07 0800 01/07 0000 01/06 1600 01/06 0800 01/06 0000 01/05 1600 Intake Total 214 257 4843 200 580 725 Output Total 510 390 700 200 400 320 Balance 90 30 300 0 180 405 Intake, IV 200 100 125 Intake, Oral 358 550 1403 480 600 Number 1 1 1 Bowel Movements Output, Chest 10 40 20 Tube Drainage Output, Urine 500 350 700 200 400 300 Patient 151 lb 149 lb Weight Weight Bed scale Bed scale Measurement Method Patient is alert and oriented without complaints sitting upright Appears comfortable breathing unlabored she is on 45% high f O2 Chest is diminished at the bases bilaterally with expiratory wheeze Heart is regular rate and rhythm without murmurs rubs or gallops Abdomen is rounded soft without guarding pain or rebound Bilateral lower extremities are soft without edema Thora vent in place anterior chamber without fluid collectionThe anterior chamber without fluid collection hooked to low continuous wall suction small air leak noted Physical Exam: Alert and oriented comfortable Current Medications: Current Medications Sig/Nathan Start time Last Medication Dose Route Stop Time Status Admin Al Hydroxide/Mg 30 ML Q4-6 PRN PRN 12/30 1115 AC 12/30 Hydroxide PO 2130 Albuterol Sulfate 3 ML EVERY 4 HRS/AWAKE 01/05 1600 AC 01/06 INH 2047 Albuterol Sulfate 2 PUF Q4P PRN 12/29 1600 AC INH Ampicillin Sodium/ 3,000 MG Q6 01/02 1200 DC 01/06 Sulbactam Sodium IV 0508 Sodium Chloride 100 ML Budesonide/ 2 PUF BID 12/29 2100 AC 01/06 Formoterol Fumarate INH 2205 Celecoxib 100 MG BID 12/29 2100 AC 01/06 PO 2208 Docusate Sodium 100 MG BID 12/29 2100 AC 01/06 PO 2204 Enoxaparin Sodium 40 MG DAILY 01/03 0900 AC 01/06 SC 1218 Gabapentin 300 MG Q8 12/29 2200 AC 01/07 PO 0631 Hydrocodone Bitart/ 1 TAB Q4P PRN 12/30 1030 AC 01/03 Acetaminophen PO 0612 Hydrocodone Bitart/ 2 TAB Q4-6 PRN PRN 12/30 1030 AC 01/07 Acetaminophen PO 0631 Magnesium Oxide 400 MG ONE ONE 01/07 0645 DC PO 01/07 0646 Melatonin 5 MG AT BEDTIME 01/05 2100 AC PO Melatonin 5 MG AT BEDTIME 01/01 2100 AC 01/06 PO 220 Morphine Sulfate 2 MG Q2P PRN 01/05 0630 AC 01/05 IV 0837 Omeprazole 40 MG DAILY AC 12/30 1115 AC 01/07 PO 0631 Ondansetron HCl 4 MG Q6P PRN 12/29 1700 AC 01/05 IV 2059 Tramadol HCl 100 MG Q4-6 PRN PRN 12/29 170 AC 01/01 PO 2019 Trazodone HCl 100 MG AT BEDTIME 01/01 2100 AC 01/06 PO 2205 Results Last 48 Hours of Labs: Laboratory Tests 01/07 01/06 0429 0550 Chemistry Sodium (137 - 145 mmol/L) 137 Potassium (3.5 - 5.1 mmol/L) 4.3 Chloride (98 - 107 mmol/L) 98 Carbon Dioxide (22 - 30 mmol/L) 31 H Anion Gap (5 - 16) 9 BUN (7 - 17 mg/dL) 16 Creatinine (0.5 - 1.0 mg/dL) 0.7 Estimated GFR (>60 ml/min) > 60 Glucose (65 - 99 mg/dL) 106 H Calcium (8.4 - 10.2 mg/dL) 8.8 Phosphorus (2.5 - 4.5 mg/dL) 4.7 H Magnesium (1.6 - 2.3 mg/dL) 1.8 Total Bilirubin (0.2 - 1.3 mg/dL) 0.5 AST (14 - 36 U/L) 31 ALT (9 - 52 U/L) 34 Albumin (3.5 - 5.0 g/dL) 2.7 L Hematology CBC w Diff NO MAN DIFF REQ NO MAN DIFF REQ WBC (4.8 - 10.8 /CUMM) 9.0 8.0 RBC (4.20 - 5.40 /CUMM) 3.02 L 3.18 L Hgb (12.0 - 16.0 G/DL) 10.1 L 10.6 L Hct (37 - 47 %) 29.8 L 31.5 L MCV (81.0 - 99.0 FL) 98.8 98.9 MCH (27.0 - 31.0 PG) 33.4 H 33.3 H MCHC (33.0 - 37.0 G/DL) 33.8 33.6 RDW (11.5 - 14.5 %) 14.9 H 14.8 H Plt Count (130 - 400 /CUMM) 375 347 MPV (7.4 - 10.4 FL) 7.8 7.8 Gran % (42.2 - 75.2 %) 85.1 H 87.0 H Lymphocytes % (20.5 - 51.1 %) 9.4 L 9.0 L Monocytes % (1.7 - 9.3 %) 4.4 3.1 Eosinophils % (0 - 5 %) 1.0 0.8 Basophils % (0.0 - 2.0 %) 0.1 0.1 Absolute Granulocytes (1.4 - 6.5 /CUMM) 7.7 H 7.0 H Absolute Lymphocytes (1.2 - 3.4 /CUMM) 0.8 L 0.7 L Absolute Monocytes (0.10 - 0.60 /CUMM) 0.4 0.3 Absolute Eosinophils (0.0 - 0.7 /CUMM) 0.1 0.1 Absolute Basophils (0.0 - 0.2 /CUMM) 0 0 07/27 0350 Chemistry Sodium (137 - 145 mmol/L) 137 Potassium (3.5 - 5.1 mmol/L) 4.5 Chloride (98 - 107 mmol/L) 96 L Carbon Dioxide (22 - 30 mmol/L) 31 H Anion Gap (5 - 16) 9 BUN (7 - 17 mg/dL) 13 Creatinine (0.5 - 1.0 mg/dL) 0.7 Estimated GFR (>60 ml/min) > 60 Glucose (65 - 99 mg/dL) 101 H Calcium (8.4 - 10.2 mg/dL) 8.8 Phosphorus (2.5 - 4.5 mg/dL) 4.6 H Magnesium (1.6 - 2.3 mg/dL) 1.9 Total Bilirubin (0.2 - 1.3 mg/dL) 0.8 AST (14 - 36 U/L) 34 ALT (9 - 52 U/L) 39 Albumin (3.5 - 5.0 g/dL) 2.7 L Recent Imaging Studies: Chest x-ray this morning shows worsening of her right-sided pneumothorax. As compared to yesterday study there is a 50% increase. Still subcu emphysema throughout Assessment/Plan Assessment/Plan 62F POD8 sp RUlobectomy, with final CT removed yesterdat at noon, with worsening sq emphesemya and ptx since CT pull, sp r anterior thoravent placement with good rwesults This morning cxr shows worsening of ptx. will dw Dr. Rivera. Continue NPO status due to possible surgical or ir intervention later today. cont current meds. keep thoravent in place. Dr. Rivera to see pt in am. Core Measures Venous Thromboembolism VTE Risk Factors Age>40 No Mechanical VTE Prophylaxis d/t N/A MechProphylax Ordered No VTE Pharm Prophylaxis d/t NA PharmProphylax ordered
[2018-01-07 08:00] VITALS: BP 110/60
--- NOTE | 2018-01-07 08:01 | PN- Resident CRCU ---
Subjective HPI/CRCU Issues: s/p right upper lobectomy for adenocarcinoma, POD#7 pneumothorax subcutaneous emphysema 24 Hour Events: No acute events overnight. The Thoravent was drained last night, without complications. Her CXR from this morning showed worsening of her pneumothorax . Patient subjectively does not feel short of breath. Objective Vital Signs & I&O Last 8 Hrs of Vitals and I&O: . Exam General Appearance: alert, awake, mild distress, on high flow O2 Head: atraumatic, swelling Respiratory: crackles, mild wheezing , palpable crepitus in right anterior and posterior chest wall with mild tenderness around sites of chest tube insertion Cardiovascular: regular rate/rhythm, systolic murmur Gastrointestinal: soft, non-tender Extremities: no edema Cranial Nerves: normal hearing, normal speech Skin: intact, normal color Skin Temp/Moisture Exam: Warm/Dry Sepsis Skin Exam (color): Normal for Ethnicity Current Medications: Current Medications Sig/Nathan Start time Last Medication Dose Route Stop Time Status Admin Al Hydroxide/Mg 30 ML Q4-6 PRN PRN 12/30 1115 AC 12/30 Hydroxide PO 2130 Albuterol Sulfate 3 ML EVERY 4 HRS/AWAKE 01/05 1600 AC 01/07 INH 0858 Albuterol Sulfate 2 PUF Q4P PRN 12/29 1600 AC INH Ampicillin Sodium/ 3,000 MG Q6 01/02 1200 DC 01/06 Sulbactam Sodium IV 0508 Sodium Chloride 100 ML Budesonide/ 2 PUF BID 12/29 2100 AC 01/06 Formoterol Fumarate INH 2205 Celecoxib 100 MG BID 12/29 2100 AC 01/07 PO 1005 Docusate Sodium 100 MG BID 12/29 2100 01/07 PO 1005 Enoxaparin Sodium 40 MG DAILY 01/03 0900 AC 01/07 SC 1007 Gabapentin 300 MG Q8 12/29 2200 AC 01/07 PO 0631 Hydrocodone Bitart/ 1 TAB Q4P PRN 12/30 1030 AC 01/03 Acetaminophen PO 0612 Hydrocodone Bitart/ 2 TAB Q4-6 PRN PRN 12/30 1030 AC 01/07 Acetaminophen PO 0631 Magnesium Oxide 400 MG ONE ONE 01/07 0645 DC 01/07 PO 01/07 0646 1005 Magnesium Sulfate 1 GM ONCE ONE 01/07 0815 DC 01/07 Dextrose/Water 100 ML IV 01/07 0914 1004 Melatonin 5 MG AT BEDTIME 01/05 2100 AC PO Melatonin 5 MG AT BEDTIME 01/01 2100 AC 01/06 PO 220 Morphine Sulfate 2 MG Q2P PRN 01/05 0630 AC 01/05 IV 0837 Omeprazole 40 MG DAILY AC 12/30 1115 AC 01/07 PO 0631 Ondansetron HCl 4 MG Q6P PRN 12/29 1700 AC 01/05 IV 205 Tramadol HCl 100 MG Q4-6 PRN PRN 12/29 1700 AC 01/01 PO 2019 Trazodone HCl 100 MG AT BEDTIME 01/01 2100 AC 01/06 PO 220 Impression/Plan Impression/Problem List Impression: Ms. Hadley is a pleasant 62 y/o F with PMH significant for HTN, HLD, paroxysmal SVT, 50PY daily smoker, stage IB left upper lobe lung cancer s/p left upper lobectomy in 2011 with mediastinal recurrence in 2013 tx with chemo/rad, is now admitted to critical care for postoperative care after right upper lobectomy. Assessment: 1. Hypoxemic Respiratory Failure 2. Moderate Right Sided Pneumothorax 3. S/p right upper lobectomy for adenocarcinmoa 4. Sinus Tachycardia Plan: * Continue supplemental oxygen to maintain target sats >92%. Currently on 45% high flow. * TRC/nebs as needed. * Blood and urine cultures - no growth so far * IV Unasyn was discontinued. * CXR today shows worsening of pneumothorax. * Incentive spirometry * Management of thoracic vent and further intervention for pneumothorax as per surgery. Scheduled for return to OR today. * Monitor electrolytes and replete as needed * OOB to chair * Diet: Regular * DVT Prophylaxis: SC Lovenox * Code: Full Code Problem List: 1. Lung cancer Pain Ratin Tomorrow's Labs & Rationales: CBC, ICU bundle Plan DVT/Prophylaxis: mechanical Code Status: Full Code
--- NOTE | 2018-01-07 10:34 | PN- CRCU ---
Subjective HPI/Critical Care Issues: The patient is awake and alert. The patient feels worse today due to subcutaneous emphysema. She continues to have a congested cough. She remains short of breath. She is expectorating clear to yellow sputum. Objective Current Medications: Current Medications Sig/Nathan Start time Last Medication Dose Route Stop Time Status Admin Al Hydroxide/Mg 30 ML Q4-6 PRN PRN 12/30 1115 AC 12/30 Hydroxide PO 2130 Albuterol Sulfate 3 ML EVERY 4 HRS/AWAKE 01/05 1600 AC 01/07 INH 0858 Albuterol Sulfate 2 PUF Q4P PRN 12/29 1600 AC INH Ampicillin Sodium/ 3,000 MG Q6 01/02 1200 DC 01/06 Sulbactam Sodium IV 0508 Sodium Chloride 100 ML Budesonide/ 2 PUF BID 12/29 2100 AC 01/06 Formoterol Fumarate INH 2205 Celecoxib 100 MG BID 12/29 2100 AC 01/07 PO 1005 Docusate Sodium 100 MG BID 12/29 2100 01/07 PO 1005 Enoxaparin Sodium 40 MG DAILY 01/03 0900 AC 01/07 SC 1007 Gabapentin 300 MG Q8 12/29 2200 AC 01/07 PO 0631 Hydrocodone Bitart/ 1 TAB Q4P PRN 12/30 1030 AC 01/03 Acetaminophen PO 0612 Hydrocodone Bitart/ 2 TAB Q4-6 PRN PRN 12/30 1030 AC 01/07 Acetaminophen PO 1029 Magnesium Oxide 400 MG ONE ONE 01/07 0645 DC 01/07 PO 01/07 0646 1005 Magnesium Sulfate 1 GM ONCE ONE 01/07 0815 DC 01/07 Dextrose/Water 100 ML IV 01/07 0914 1004 Melatonin 5 MG AT BEDTIME 01/05 2100 AC PO Melatonin 5 MG AT BEDTIME 01/01 2100 AC 01/06 PO 220 Morphine Sulfate 2 MG Q2P PRN 01/05 0630 AC 01/05 IV 0837 Omeprazole 40 MG DAILY AC 12/30 1115 AC 01/07 PO 0631 Ondansetron HCl 4 MG Q6P PRN 12/29 1700 AC 01/05 IV 205 Tramadol HCl 100 MG Q4-6 PRN PRN 12/29 1700 AC 01/01 PO 2019 Trazodone HCl 100 MG AT BEDTIME 01/01 2100 AC 01/06 PO 220 Vital Signs & I&O Last 24 Hrs of Vitals and I&O: Vital Signs Date Time Temp Pulse Resp B/P B/P Pulse O2 O2 Flow FiO2 Mean Ox Delivery Rate 01/07 08 98 Nasal 45% Cannula 01/07 08 97.9 76 20 110/60 98 Nasal 45% Cannula 01/07 0400 98 Nasal 45% Cannula 01/07 0000 90 Nasal 40% Cannula 01/07 0000 97.8 80 17 120/64 90 Nasal 40% Cannula 01/06 2000 95 Nasal 40% Cannula 01/06 1614 94 Nasal 40% Cannula 01/06 1600 94 Nasal 40% Cannula 01/06 1600 98.2 96 26 114/70 96 Nasal 40% Cannula 01/06 1200 96 Nasal 50% Cannula Intake & Output 01/07 1600 01/07 0800 01/07 0000 Intake Total 600 420 Output Total 510 390 Balance 90 30 Intake, Oral 600 420 Number 1 Bowel Movements Output, Chest 10 40 Tube Drainage Output, Urine 500 350 Patient 151 lb Weight Weight Bed scale Measurement Method Exam General Appearance: alert, awake, comfortable, no distress Head: severe facial swelling due to subcutaneous emphysema, no tenderness to palpation Respiratory: crackles, anterior and posterior chest wall tenderness at the site of chest tube insertion, palpable crepitus over chest wall Cardiovascular: regular rate/rhythm Gastrointestinal: soft, non-tender Extremities: no edema Cranial Nerves: normal hearing, normal speech Skin: intact, normal color Skin Temp/Moisture Exam: Warm/Dry Results Last 24 Hrs of Lab Results: Laboratory Tests 01/07/18 0429: Anion Gap 9, Estimated GFR > 60, Glucose 106 H, Calcium 8.8, Phosphorus 4.7 H, Magnesium 1.8, Total Bilirubin 0.5, AST 31, ALT 34, Albumin 2.7 L, CBC w Diff NO MAN DIFF REQ, RBC 3.02 L, MCV 98.8, MCH 33.4 H, MCHC 33.8, RDW 14.9 H, MPV 7.8, Gran % 85.1 H, Lymphocytes % 9.4 L, Monocytes % 4.4, Eosinophils % 1.0, Basophils % 0.1, Absolute Granulocytes 7.7 H, Absolute Lymphocytes 0.8 L, Absolute Monocytes 0.4, Absolute Eosinophils 0.1, Absolute Basophils 0 Impression/Plan Impression/Plan Impression/Plan: 1. 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 2. Hypoxemic respiratory failure in the setting of worsening right pneumothorax and emphysema. 3. Aspiration pneumonia. The patient is now on Unasyn. Cultures are negative. 4. History of COPD without evidence of acute bronchospasm. 5. History of hypertension, hyperlipidemia and proximal SVT. 6. Subcutaneous emphysema. Recommendations: * Discussed case with CT surgery - the patient will be taken to the OR this morning for chest tube placement/intervention. * Continue with nebs/total respiratory care. * Continue high flow oxygen, maintain saturations greater than 92%. * Monitor off antibiotics. Unasyn course completed on 01/06/18. * Continue with incentive spirometry/postoperative thoracotomy protocol. * Continue with pain control. * Out of bed to chair daily. * DVT prophylaxis at all times. * Continue all supportive care. Code Status: Full Code
--- NOTE | 2018-01-07 12:40 | Operative Report ---
Operative/Inv Procedure Report Surgery Date: 01/07/18 Name of Procedure: Right chest tube Pre-Operative Diagnosis: Right pneumothorax Post-Operative Diagnosis: Same Estimated Blood Loss: scant Surgeon/Nurse Advocate: Miguel Simon MD,Roddy Balderrama Anesthesia: local monitored anesthesi Operative/Procedure Note Note: After placement of monitoring lines patient's right lateral chest wall was prepped and draped in a sterile fashion. 1% lidocaine was used for local anesthetic. Incision was made above the 2 prior chest tube incisions and blunt dissection was done to the level of the pleura. The pleural space was entered bluntly and there was a miranda of air. A 36 [place] straight chest tube was passed through the interspace and advanced apically. It was secured to the skin with a silk suture. It was dressed with a dry sterile dressing. It was connected to a Pleur-evac and there was an initial small air leak and eventually on suction there was no evidence of any further air leak. The patient tolerated the procedure well and was returned to the intensive care unit in stable condition.
--- NOTE | 2018-01-07 13:20 | RADIOLOGY REPORT ---
EXAMINATION: XR PORTABLE CHEST CLINICAL INFORMATION: Status post thoravent removal. COMPARISON: 01/07/2018 TECHNIQUE: Portable frontal view of the chest was obtained. FINDINGS: Previously seen right-sided chest tube is been removed. There is a moderate right pneumothorax, smaller than previously seen. There continues to be extensive subcutaneous emphysema in the right neck, axilla, and chest wall. There is a lesser degree of subcutaneous emphysema in the left neck, axilla, and chest wall. No pleural effusion. Chronic left upper lobe consolidation. Cardiomediastinal silhouette unchanged. IMPRESSION: Previously seen right-sided chest tube is been removed. A moderate right pneumothorax is seen, smaller than previously seen.
[2018-01-07 16:00] VITALS: BP 114/64
--- NOTE | 2018-01-07 16:07 | PN- Thoracic Surgery ---
Subjective Subjective: POST OP CHECK Patient is in good spirits. She stiff back. She reports pain controlled. Denies chest pain, sob. Still with nonproductive cough. Postop CXR revealed moderate ptx, after CT insertion/thoravent removal, which was smaller compared to this mornings ptx on CXR. Objective Vital Signs and I&Os Vital Signs Date Time Temp Pulse Resp B/P B/P Pulse O2 O2 Flow FiO2 Mean Ox Delivery Rate 01/07 1447 96 Nasal 40% Cannula 01/07 0855 95 Nasal 40% Cannula 01/07 0800 98 Nasal 45% Cannula 01/07 0800 97.9 76 20 110/60 98 Nasal 45% Cannula 01/07 0400 98 Nasal 45% Cannula 01/07 0000 90 Nasal 40% Cannula 01/07 0000 97.8 80 17 120/64 90 Nasal 40% Cannula 01/06 2000 95 Nasal 40% Cannula 01/06 1614 94 Nasal 40% Cannula 01/06 1600 94 Nasal 40% Cannula 01/06 1600 98.2 96 26 114/70 96 Nasal 40% Cannula Intake & Output 01/07 0800 01/07 0000 01/06 1600 01/06 0800 01/06 0000 Intake Total 712 669 9802 200 580 Output Total 510 390 700 200 400 Balance 90 30 300 0 180 Intake, IV 200 100 Intake, Oral 685 627 5620 480 Number 1 1 1 Bowel Movements Output, Chest 10 40 Tube Drainage Output, Urine 500 350 700 200 400 Patient 151 lb Weight Weight Bed scale Measurement Method Physical Exam: Gen - sitting upright in nad on 45% high flow O2 HEENT - significant occular/facial swelling with crepitus Cardiac - S1S2 noted Lungs - unlabored breathing, diminished at the bases B/L Chest - CT to LWS with serosang drainage, no air leak, previous thoravent site with dressing in place c/d/i, crepitus appreciated on upper chest/neck area Abd - soft, nontender Ext - no edema or calf tenderness Current Medications: Current Medications Sig/Nathan Start time Last Medication Dose Route Stop Time Status Admin Al Hydroxide/Mg 30 ML Q4-6 PRN PRN 12/30 1115 AC 12/30 Hydroxide PO 2130 Albuterol Sulfate 3 ML EVERY 4 HRS/AWAKE 01/05 1600 AC 01/07 INH 1430 Albuterol Sulfate 2 PUF Q4P PRN 12/29 1600 AC INH Budesonide/ 2 PUF BID 12/29 2100 AC 01/07 Formoterol Fumarate INH 0900 Celecoxib 100 MG BID 12/29 2100 AC 01/07 PO 1005 Docusate Sodium 100 MG BID 12/29 2100 AC 01/07 PO 1005 Enoxaparin Sodium 40 MG DAILY 01/03 0900 AC 01/07 SC 1007 Gabapentin 300 MG Q8 12/29 2200 AC 01/07 PO 0631 Hydrocodone Bitart/ 1 TAB Q4P PRN 12/30 1030 AC 01/03 Acetaminophen PO 0612 Hydrocodone Bitart/ 2 TAB Q4-6 PRN PRN 12/30 1030 AC 01/07 Acetaminophen PO 1443 Magnesium Oxide 400 MG ONE ONE 01/07 0645 DC 01/07 PO 01/07 0646 1005 Magnesium Sulfate 1 GM ONCE ONE 01/07 0815 DC 01/07 Dextrose/Water 100 ML IV 01/07 0914 1004 Melatonin 5 MG AT BEDTIME 01/05 2100 AC PO Melatonin 5 MG AT BEDTIME 01/01 2100 AC 01/06 PO 2204 Morphine Sulfate 2 MG Q2P PRN 01/05 0630 AC 01/05 IV 0837 Omeprazole 40 MG DAILY AC 12/30 1115 AC 01/07 PO 0631 Ondansetron HCl 4 MG Q6P PRN 12/29 170 AC 01/05 IV 2059 Tramadol HCl 100 MG Q4-6 PRN PRN 12/29 170 AC 01/01 PO 2019 Trazodone HCl 100 MG AT BEDTIME 01/01 2100 AC 01/06 PO 220 Results Last 48 Hours of Labs: Laboratory Tests 01/07 01/06 0429 0550 Chemistry Sodium (137 - 145 mmol/L) 137 Potassium (3.5 - 5.1 mmol/L) 4.3 Chloride (98 - 107 mmol/L) 98 Carbon Dioxide (22 - 30 mmol/L) 31 H Anion Gap (5 - 16) 9 BUN (7 - 17 mg/dL) 16 Creatinine (0.5 - 1.0 mg/dL) 0.7 Estimated GFR (>60 ml/min) > 60 Glucose (65 - 99 mg/dL) 106 H Calcium (8.4 - 10.2 mg/dL) 8.8 Phosphorus (2.5 - 4.5 mg/dL) 4.7 H Magnesium (1.6 - 2.3 mg/dL) 1.8 Total Bilirubin (0.2 - 1.3 mg/dL) 0.5 AST (14 - 36 U/L) 31 ALT (9 - 52 U/L) 34 Albumin (3.5 - 5.0 g/dL) 2.7 L Hematology CBC w Diff NO MAN DIFF REQ NO MAN DIFF REQ WBC (4.8 - 10.8 /CUMM) 9.0 8.0 RBC (4.20 - 5.40 /CUMM) 3.02 L 3.18 L Hgb (12.0 - 16.0 G/DL) 10.1 L 10.6 L Hct (37 - 47 %) 29.8 L 31.5 L MCV (81.0 - 99.0 FL) 98.8 98.9 MCH (27.0 - 31.0 PG) 33.4 H 33.3 H MCHC (33.0 - 37.0 G/DL) 33.8 33.6 RDW (11.5 - 14.5 %) 14.9 H 14.8 H Plt Count (130 - 400 /CUMM) 375 347 MPV (7.4 - 10.4 FL) 7.8 7.8 Gran % (42.2 - 75.2 %) 85.1 H 87.0 H Lymphocytes % (20.5 - 51.1 %) 9.4 L 9.0 L Monocytes % (1.7 - 9.3 %) 4.4 3.1 Eosinophils % (0 - 5 %) 1.0 0.8 Basophils % (0.0 - 2.0 %) 0.1 0.1 Absolute Granulocytes (1.4 - 6.5 /CUMM) 7.7 H 7.0 H Absolute Lymphocytes (1.2 - 3.4 /CUMM) 0.8 L 0.7 L Absolute Monocytes (0.10 - 0.60 /CUMM) 0.4 0.3 Absolute Eosinophils (0.0 - 0.7 /CUMM) 0.1 0.1 Absolute Basophils (0.0 - 0.2 /CUMM) 0 0 07/27 0350 Chemistry Sodium (137 - 145 mmol/L) 137 Potassium (3.5 - 5.1 mmol/L) 4.5 Chloride (98 - 107 mmol/L) 96 L Carbon Dioxide (22 - 30 mmol/L) 31 H Anion Gap (5 - 16) 9 BUN (7 - 17 mg/dL) 13 Creatinine (0.5 - 1.0 mg/dL) 0.7 Estimated GFR (>60 ml/min) > 60 Glucose (65 - 99 mg/dL) 101 H Calcium (8.4 - 10.2 mg/dL) 8.8 Phosphorus (2.5 - 4.5 mg/dL) 4.6 H Magnesium (1.6 - 2.3 mg/dL) 1.9 Total Bilirubin (0.2 - 1.3 mg/dL) 0.8 AST (14 - 36 U/L) 34 ALT (9 - 52 U/L) 39 Albumin (3.5 - 5.0 g/dL) 2.7 L Recent Imaging Studies: SERVICE DATE: 01/07/18-1239 EXAM TYPE: RAD - XRY-PORTABLE CHEST XRAY EXAMINATION: XR PORTABLE CHEST CLINICAL INFORMATION: Status post thoravent removal. COMPARISON: 01/07/2018 TECHNIQUE: Portable frontal view of the chest was obtained. FINDINGS: Previously seen right-sided chest tube is been removed. There is a moderate right pneumothorax, smaller than previously seen. There continues to be extensive subcutaneous emphysema in the right neck, axilla, and chest wall. There is a lesser degree of subcutaneous emphysema in the left neck, axilla, and chest wall. No pleural effusion. Chronic left upper lobe consolidation. Cardiomediastinal silhouette unchanged. IMPRESSION: Previously seen right-sided chest tube is been removed. A moderate right pneumothorax is seen, smaller than previously seen. Assessment/Plan Assessment/Plan 62 F s/p R CT placement seconday to worsening ptx s/p right upper lobectomy on which was complicated by right ptx s/p right thoravent placement and removal. Postop CXR reveals moderate ptx CXR d/w Dr. Rivera. In a sterile fashion, right lateral chest wall was prepped and draped. 1% lidocaine was used for local anesthetic. Previous suture securing CT was cut and CT was pulled back 7 cm and secured in place with a 0- silk suture and dry sterile dressing was applied. It was then connected to a Pleur-evac without evidence of an air leak. Patient tolerated procedure well. Stat CXR ordered Cont current care, CT to LWS Regular diet Pain regimen prn Home meds on board DVT ppx - alps, lovenox OOB to chair TRC, encourage IS F/u CXR Core Measures Venous Thromboembolism VTE Risk Factors Age>40 No Mechanical VTE Prophylaxis d/t N/A MechProphylax Ordered No VTE Pharm Prophylaxis d/t NA PharmProphylax ordered
--- NOTE | 2018-01-07 16:52 | RADIOLOGY REPORT ---
EXAMINATION: XR PORTABLE CHEST CLINICAL INFORMATION: Reassess right-sided pneumothorax. COMPARISON: Chest radiography 01/07/2018. TECHNIQUE: Portable frontal view of the chest was obtained. FINDINGS: Multiple wires and leads overlie the thorax. There is redemonstration of a right-sided chest tube at the right lung base. Surgical clips overlie the right thorax. The right-sided pneumothorax is stable to minimally increased compared to the most recent x-ray. Unchanged left perihilar opacification. Extensive subcutaneous emphysema over the thorax and neck. Mediastinal contours are unchanged. Left humeral hardware redemonstrated. IMPRESSION: Stable to minimally increased right-sided pneumothorax.
[2018-01-08] VITALS: BP 110/60
[2018-01-08 05:38] LABS: ABSOLUTE BASOPHIL COUNT 0 /CUMM (0.0-0.2); ABSOLUTE EOSINOPHIL COUNT 0.1 /CUMM (0.0-0.7); ABSOLUTE GRANULOCYTE CT 8.4 /CUMM (1.4-6.5); ABSOLUTE LYMPH COUNT 0.7 /CUMM (1.2-3.4); ABSOLUTE MONOCYTE COUNT 0.1 /CUMM (0.10-0.60); BASOPHIL % 0 % (0.0-2.0); EOSINOPHIL % 0.9 % (0-5); GRANULOCYTE % 90.4 % (42.2-75.2); MEAN CORPUSCULAR HGB 33.5 PG (27.0-31.0); MEAN CORPUSCULAR HGB CONC 34.1 G/DL (33.0-37.0); MEAN CORPUSCULAR VOLUME 98.3 FL (81.0-99.0); MEAN PLATELET VOLUME 8.1 FL (7.4-10.4); PLATELET COUNT 407 /CUMM (130-400); RBC DISTRIBUTION WIDTH 14.5 % (11.5-14.5); RED BLOOD CELL CT 3.15 /CUMM (4.20-5.40); WHITE BLOOD CELL COUNT 9.3 /CUMM (4.8-10.8)
--- NOTE | 2018-01-08 06:30 | PN- Thoracic Surgery ---
Subjective Subjective: Patient reports pain from the site of the CT and pain with deep inspiration. She reports nonprod cough and reports ambulating oob to chair. She offers no other complaints. Objective Vital Signs and I&Os Vital Signs Date Time Temp Pulse Resp B/P B/P Pulse O2 O2 Flow FiO2 Mean Ox Delivery Rate 01/08 0400 97 Nasal 35% Cannula 01/08 0057 95 Nasal 35% Cannula 01/08 0000 96.1 70 16 110/60 97 Nasal 35% Cannula 01/08 0000 97 Nasal 35% Cannula 01/07 2124 94 Nasal 35% Cannula 01/07 2000 95 Nasal 35% Cannula 01/07 1600 96 Nasal 40% Cannula 01/07 1600 98.0 78 20 114/64 96 Nasal 40% Cannula 01/07 1447 96 Nasal 40% Cannula 01/07 1200 96 Nasal 55% Cannula 01/07 0855 95 Nasal 40% Cannula 01/07 0800 98 Nasal 45% Cannula 01/07 0800 97.9 76 20 110/60 98 Nasal 45% Cannula Intake & Output 01/08 0800 01/08 0000 01/07 1600 01/07 0800 01/07 0000 01/06 1600 Intake Total 100 620 800 123 679 0470 Output Total 810 470 840 510 390 700 Balance -710 150 -40 90 30 300 Intake, IV 100 Intake, Oral 100 620 700 338 894 3831 Number 1 Bowel Movements Output, Chest 60 70 40 10 40 Tube Drainage Output, Urine 750 400 800 500 350 700 Patient 158 lb 151 lb Weight Weight Bed scale Bed scale Measurement Method Physical Exam: Gen - sitting upright in nad on 35% high flow O2 HEENT - significant occular/facial swelling with crepitus, improving Cardiac - S1S2 noted Lungs - unlabored breathing, diminished at the bases B/L Chest - CT to LWS with serosang drainage 60 cc last shift, 170 cc last 24 hours, no air leak, previous thoravent site with dressing in place c/d/i, crepitus appreciated on upper chest/neck area, improving Abd - soft, nontender Ext - no edema or calf tenderness Current Medications: Current Medications Sig/Nathan Start time Last Medication Dose Route Stop Time Status Admin Al Hydroxide/Mg 30 ML Q4-6 PRN PRN 12/30 1115 AC 12/30 Hydroxide PO 213 Albuterol Sulfate 3 ML EVERY 4 HRS/AWAKE 01/05 1600 AC 01/07 INH 2122 Albuterol Sulfate 2 PUF Q4P PRN 12/29 1600 AC INH Budesonide/ 2 PUF BID 12/29 2100 AC 01/07 Formoterol Fumarate INH 2018 Celecoxib 100 MG BID 12/29 2100 AC 01/07 PO 2017 Docusate Sodium 100 MG BID 12/29 2100 AC 01/07 PO 2017 Enoxaparin Sodium 40 MG DAILY 01/03 0900 AC 01/07 SC 1007 Fentanyl Citrate 100 MCG .STK-MED ONE 01/07 1111 DC IM 01/07 1112 Gabapentin 300 MG Q8 12/29 2200 AC 01/08 PO 0602 Hydrocodone Bitart/ 1 TAB Q4P PRN 12/30 1030 AC 01/03 Acetaminophen PO 0612 Hydrocodone Bitart/ 2 TAB Q4-6 PRN PRN 12/30 1030 AC 01/08 Acetaminophen PO 0234 Lidocaine 20 ML .STK-MED ONE 01/07 1448 DC IA 01/07 1449 Magnesium Sulfate 1 GM ONCE ONE 01/07 0815 DC 01/07 Dextrose/Water 100 ML IV 01/07 0914 1004 Melatonin 5 MG AT BEDTIME 01/05 2100 DC PO Melatonin 5 MG AT BEDTIME 01/01 2100 AC 01/06 PO 2204 Midazolam HCl 2 MG .STK-MED ONE 01/07 1111 DC IM 01/07 1112 Morphine Sulfate 2 MG Q2P PRN 01/05 0630 AC 01/05 IV 0837 Omeprazole 40 MG DAILY AC 12/30 1115 AC 01/08 PO 0602 Ondansetron HCl 4 MG Q6P PRN 12/29 1700 AC 01/05 IV 205 Tramadol HCl 100 MG Q4-6 PRN PRN 12/29 1700 AC 01/01 PO 2019 Trazodone HCl 100 MG AT BEDTIME 01/01 2100 AC 01/07 PO 2016 Results Last 48 Hours of Labs: Laboratory Tests 01/08 01/07 0440 0429 Chemistry Sodium (137 - 145 mmol/L) 138 137 Potassium (3.5 - 5.1 mmol/L) 4.6 4.3 Chloride (98 - 107 mmol/L) 98 98 Carbon Dioxide (22 - 30 mmol/L) 30 31 H Anion Gap (5 - 16) 10 9 BUN (7 - 17 mg/dL) 12 16 Creatinine (0.5 - 1.0 mg/dL) 0.6 0.7 Estimated GFR (>60 ml/min) > 60 > 60 Glucose (65 - 99 mg/dL) 106 H 106 H Calcium (8.4 - 10.2 mg/dL) 8.9 8.8 Phosphorus (2.5 - 4.5 mg/dL) 4.5 4.7 H Magnesium (1.6 - 2.3 mg/dL) 1.9 1.8 Total Bilirubin (0.2 - 1.3 mg/dL) 0.4 0.5 AST (14 - 36 U/L) 38 H 31 ALT (9 - 52 U/L) 33 34 Albumin (3.5 - 5.0 g/dL) 2.9 L 2.7 L Hematology CBC w Diff MAN DIFF ORDERED NO MAN DIFF REQ WBC (4.8 - 10.8 /CUMM) 9.3 9.0 RBC (4.20 - 5.40 /CUMM) 3.15 L 3.02 L Hgb (12.0 - 16.0 G/DL) 10.6 L 10.1 L Hct (37 - 47 %) 31.0 L 29.8 L MCV (81.0 - 99.0 FL) 98.3 98.8 MCH (27.0 - 31.0 PG) 33.5 H 33.4 H MCHC (33.0 - 37.0 G/DL) 34.1 33.8 RDW (11.5 - 14.5 %) 14.5 14.9 H Plt Count (130 - 400 /CUMM) 407 H 375 MPV (7.4 - 10.4 FL) 8.1 7.8 Gran % (42.2 - 75.2 %) 90.4 H 85.1 H Lymphocytes % (20.5 - 51.1 %) 7.2 L 9.4 L Monocytes % (1.7 - 9.3 %) 1.5 L 4.4 Eosinophils % (0 - 5 %) 0.9 1.0 Basophils % (0.0 - 2.0 %) 0 0.1 Absolute Granulocytes (1.4 - 6.5 /CUMM) 8.4 H 7.7 H Segmented Neutrophils (42.2 - 75.2 %) 80 H Band Neutrophils (0.0 - 5.0 %) 8 H Absolute Lymphocytes (1.2 - 3.4 /CUMM) 0.7 L 0.8 L Lymphocytes (20.5 - 51.1 %) 11 L Monocytes (1.7 - 9.3 %) 1 L Absolute Monocytes (0.10 - 0.60 /CUMM) 0.1 0.4 Absolute Eosinophils (0.0 - 0.7 /CUMM) 0.1 0.1 Absolute Basophils (0.0 - 0.2 /CUMM) 0 0 Platelet Estimate (ADEQUATE) INCREASED Polychromasia 1+ Hypochromic-Microcytic 1+ Poikilocytosis 1+ Basophilic Stippling SLIGHT Anisocytosis 1+ Stomatocytes 1+ Assessment/Plan Assessment/Plan 62 F POD 1 s/p R CT placement secondary to worsening ptx s/p right upper lobectomy on 12/29/17. CXR yesterday reveals stable right moderate ptx. Currently no air leak noted. Follow up am CXR Cont current care, CT to LWS Regular diet Pain regimen prn Home meds on board DVT ppx - alps, lovenox OOB to chair TRC, encourage IS Will d/w Dr. Rivera Core Measures Venous Thromboembolism VTE Risk Factors Age>40 No Mechanical VTE Prophylaxis d/t N/A MechProphylax Ordered No VTE Pharm Prophylaxis d/t NA PharmProphylax ordered
[2018-01-08 08:00] VITALS: BP 118/58
--- NOTE | 2018-01-08 08:16 | RADIOLOGY REPORT ---
EXAMINATION: XR PORTABLE CHEST CLINICAL INFORMATION: Follow-up right pneumothorax. COMPARISON: Several chest x-rays last exam 01/07/2018 and first 12/29/2017. TECHNIQUE: Portable frontal view of the chest was obtained. FINDINGS: There is persistent right apical at least 15-20% pneumothorax with decreased bilateral lung volume. There is a right basilar chest catheter. There are surgical brett overlying the right mid chest. The left lung is not clearly visualized due to extensive subcutaneous chest wall emphysema which extends from right to left and bottom to the neck. There is left upper lobe para mediastinal density likely large scar. The heart size is normal. Pulmonary vascularity appears normal. There is a left humeral intramedullary el and pins for an old healed fracture. IMPRESSION: Right apical pneumothorax minimally larger. A right basilar chest catheter is unchanged. Extensive chest wall emphysema is unchanged.
--- NOTE | 2018-01-08 10:05 | PN- Resident CRCU ---
Subjective HPI/CRCU Issues: #S/p right upper lobectomy for adenocarcinoma, POD#8 #Pneumothorax #Subcutaneous emphysema, improving 24 Hour Events: Pt seen and examined this am. She was conversational with no SOB, remains on HFNC 35L/m at 35% O2. She does note some dyspnea on exertion, though much improved than yesterday as per patient. Objective Vital Signs & I&O Last 8 Hrs of Vitals and I&O: Intake & Output 01/08 1600 01/08 0800 01/08 0000 Intake Total 100 620 Output Total 810 470 Balance -710 150 Intake, Oral 100 620 Output, Chest 60 70 Tube Drainage Output, Urine 750 400 Patient 158 lb Weight Weight Bed scale Measurement Method Laboratory Tests 01/08 0440 Chemistry Sodium (137 - 145 mmol/L) 138 Potassium (3.5 - 5.1 mmol/L) 4.6 Chloride (98 - 107 mmol/L) 98 Carbon Dioxide (22 - 30 mmol/L) 30 Anion Gap (5 - 16) 10 BUN (7 - 17 mg/dL) 12 Creatinine (0.5 - 1.0 mg/dL) 0.6 Estimated GFR (>60 ml/min) > 60 Glucose (65 - 99 mg/dL) 106 H Calcium (8.4 - 10.2 mg/dL) 8.9 Phosphorus (2.5 - 4.5 mg/dL) 4.5 Magnesium (1.6 - 2.3 mg/dL) 1.9 Total Bilirubin (0.2 - 1.3 mg/dL) 0.4 AST (14 - 36 U/L) 38 H ALT (9 - 52 U/L) 33 Albumin (3.5 - 5.0 g/dL) 2.9 L Hematology CBC w Diff MAN DIFF ORDERED WBC (4.8 - 10.8 /CUMM) 9.3 RBC (4.20 - 5.40 /CUMM) 3.15 L Hgb (12.0 - 16.0 G/DL) 10.6 L Hct (37 - 47 %) 31.0 L MCV (81.0 - 99.0 FL) 98.3 MCH (27.0 - 31.0 PG) 33.5 H MCHC (33.0 - 37.0 G/DL) 34.1 RDW (11.5 - 14.5 %) 14.5 Plt Count (130 - 400 /CUMM) 407 H MPV (7.4 - 10.4 FL) 8.1 Gran % (42.2 - 75.2 %) 90.4 H Lymphocytes % (20.5 - 51.1 %) 7.2 L Monocytes % (1.7 - 9.3 %) 1.5 L Eosinophils % (0 - 5 %) 0.9 Basophils % (0.0 - 2.0 %) 0 Absolute Granulocytes (1.4 - 6.5 /CUMM) 8.4 H Segmented Neutrophils (42.2 - 75.2 %) 80 H Band Neutrophils (0.0 - 5.0 %) 8 H Absolute Lymphocytes (1.2 - 3.4 /CUMM) 0.7 L Lymphocytes (20.5 - 51.1 %) 11 L Monocytes (1.7 - 9.3 %) 1 L Absolute Monocytes (0.10 - 0.60 /CUMM) 0.1 Absolute Eosinophils (0.0 - 0.7 /CUMM) 0.1 Absolute Basophils (0.0 - 0.2 /CUMM) 0 Platelet Estimate (ADEQUATE) INCREASED Polychromasia 1+ Hypochromic-Microcytic 1+ Poikilocytosis 1+ Basophilic Stippling SLIGHT Anisocytosis 1+ Stomatocytes 1+ Vital Signs Date Time Temp Pulse Resp B/P B/P Pulse O2 O2 Flow FiO2 Mean Ox Delivery Rate 01/08 0900 97 Nasal 35% Cannula 01/08 0800 98.6 89 16 118/58 93 Nasal 35% Cannula 01/08 0400 97 Nasal 35% Cannula 01/08 0057 95 Nasal 35% Cannula 01/08 0000 96.1 70 16 110/60 97 Nasal 35% Cannula 01/08 0000 97 Nasal 35% Cannula 01/07 2124 94 Nasal 35% Cannula 01/07 2000 95 Nasal 35% Cannula 01/07 1600 96 Nasal 40% Cannula 01/07 1600 98.0 78 20 114/64 96 Nasal 40% Cannula 01/07 1447 96 Nasal 40% Cannula Exam General Appearance: no apparent distress, alert, awake, comfortable, talkative, cooperative, improved subq emphysema Head: atraumatic, puffiness due to subq emphysema Neck: normal inspection, supple Respiratory: scattered crackles B/L with palpable crepitus in the upper thoracic area throughout; tenderness noted on sites of chest tube insertions Cardiovascular: regular rate/rhythm Gastrointestinal: normal bowel sounds, soft, non-tender, no organomegaly Extremities: no edema Current Medications: Current Medications Sig/Nathan Start time Last Medication Dose Route Stop Time Status Admin Al Hydroxide/Mg 30 ML Q4-6 PRN PRN 12/30 1115 AC 12/30 Hydroxide PO 2130 Albuterol Sulfate 3 ML EVERY 4 HRS/AWAKE 01/05 1600 AC 01/08 INH 0900 Albuterol Sulfate 2 PUF Q4P PRN 12/29 1600 AC INH Budesonide/ 2 PUF BID 12/29 2100 AC 01/08 Formoterol Fumarate INH 0832 Celecoxib 100 MG BID 12/29 2100 AC 01/08 PO 0830 Docusate Sodium 100 MG BID 12/29 2100 AC 01/08 PO 0830 Enoxaparin Sodium 40 MG DAILY 01/03 0900 AC 01/08 SC 0830 Gabapentin 300 MG Q8 12/29 2200 AC 01/08 PO 0602 Hydrocodone Bitart/ 1 TAB Q4P PRN 12/30 1030 AC 01/03 Acetaminophen PO 0612 Hydrocodone Bitart/ 2 TAB Q4-6 PRN PRN 12/30 1030 AC 01/08 Acetaminophen PO 0830 Lidocaine 20 ML .STK-MED ONE 01/07 1448 DC IA 01/07 1449 Melatonin 5 MG AT BEDTIME 01/05 2100 DC PO Melatonin 5 MG AT BEDTIME 01/01 2100 AC 01/06 PO 2204 Morphine Sulfate 2 MG Q2P PRN 01/05 0630 AC 01/05 IV 0837 Omeprazole 40 MG DAILY AC 12/30 1115 AC 01/08 PO 0602 Ondansetron HCl 4 MG Q6P PRN 12/29 170 AC 01/05 IV 205 Tramadol HCl 100 MG Q4-6 PRN PRN 12/29 1700 AC 01/01 PO 2019 Trazodone HCl 100 MG AT BEDTIME 01/01 2100 AC 01/07 PO 2016 CXR Findings: SERVICE DATE: 01/08/18 EXAM TYPE: RAD - XRY-PORTABLE CHEST XRAY EXAMINATION: XR PORTABLE CHEST CLINICAL INFORMATION: Follow-up right pneumothorax. COMPARISON: Several chest x-rays last exam 01/07/2018 and first 12/29/2017. TECHNIQUE: Portable frontal view of the chest was obtained. FINDINGS: There is persistent right apical at least 15-20% pneumothorax with decreased bilateral lung volume. There is a right basilar chest catheter. There are surgical brett overlying the right mid chest. The left lung is not clearly visualized due to extensive subcutaneous chest wall emphysema which extends from right to left and bottom to the neck. There is left upper lobe para mediastinal density likely large scar. The heart size is normal. Pulmonary vascularity appears normal. There is a left humeral intramedullary el and pins for an old healed fracture. IMPRESSION: Right apical pneumothorax minimally larger. A right basilar chest catheter is unchanged. Extensive chest wall emphysema is unchanged. Impression/Plan Impression/Problem List Impression: Ms. 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 POD#8. IMPRESSION #S/p right upper lobectomy for adenocarcinoma, POD#8 #Pneumothorax #Subcutaneous emphysema, improving #Aspiration PNA s/p 7 day course of unasyn (01/06) Continue supplemental oxygen to maintain target sats >92%. Currently on 35% high flow. -TRC/nebs as needed. -Blood and urine cultures - no growth reported -CXR 01/08 shows minimal worsening of pneumothorax. -Incentive spirometry -Management of thoracic vent as per surgery's recommendation -Monitor electrolytes and replete as needed -OOB to chair FULL CODE REG DIET DVT PPX - Sq lovenox Problem List: 1. LEFT LUNG CANCER 2. S/P SANTOS LOBECTOMY Pain Ratin Tomorrow's Labs & Rationales: cbc, icu lab bundle Plan DVT/Prophylaxis: mechanical Code Status: Full Code
--- NOTE | 2018-01-08 10:38 | PN- Pulmonary ---
Subjective HPI/Critical Care Issues: chestTube replaced yesterday now has no respiratory variation she continues on high flow nasal oxygen Objective Current Medications: Current Medications Sig/Nathan Start time Last Medication Dose Route Stop Time Status Admin Al Hydroxide/Mg 30 ML Q4-6 PRN PRN 12/30 1115 AC 12/30 Hydroxide PO 2130 Albuterol Sulfate 3 ML EVERY 4 HRS/AWAKE 01/05 1600 AC 01/07 INH 2122 Albuterol Sulfate 2 PUF Q4P PRN 12/29 1600 AC INH Budesonide/ 2 PUF BID 12/29 2100 AC 01/08 Formoterol Fumarate INH 0832 Celecoxib 100 MG BID 12/29 2100 AC 01/08 PO 0830 Docusate Sodium 100 MG BID 12/29 2100 AC 01/08 PO 0830 Enoxaparin Sodium 40 MG DAILY 01/03 0900 AC 01/08 SC 0830 Fentanyl Citrate 100 MCG .STK-MED ONE 01/07 1111 DC IM 01/07 1112 Gabapentin 300 MG Q8 12/29 2200 AC 01/08 PO 0602 Hydrocodone Bitart/ 1 TAB Q4P PRN 12/30 1030 AC 01/03 Acetaminophen PO 0612 Hydrocodone Bitart/ 2 TAB Q4-6 PRN PRN 12/30 1030 AC 01/08 Acetaminophen PO 0830 Lidocaine 20 ML .STK-MED ONE 01/07 1448 DC IA 01/07 1449 Melatonin 5 MG AT BEDTIME 01/05 2100 DC PO Melatonin 5 MG AT BEDTIME 01/01 2100 AC 01/06 PO 2204 Midazolam HCl 2 MG .STK-MED ONE 01/07 1111 DC IM 01/07 1112 Morphine Sulfate 2 MG Q2P PRN 01/05 0630 AC 01/05 IV 0837 Omeprazole 40 MG DAILY AC 12/30 1115 AC 01/08 PO 0602 Ondansetron HCl 4 MG Q6P PRN 12/29 1700 AC 01/05 IV 205 Tramadol HCl 100 MG Q4-6 PRN PRN 12/29 170 AC 01/01 PO 2019 Trazodone HCl 100 MG AT BEDTIME 01/01 2100 AC 01/07 PO 2016 Vital Signs & I&O Last 24 Hrs of Vitals and I&O: Vital Signs Date Time Temp Pulse Resp B/P B/P Pulse O2 O2 Flow FiO2 Mean Ox Delivery Rate 01/08 0400 97 Nasal 35% Cannula 01/08 0057 95 Nasal 35% Cannula 01/08 0000 96.1 70 16 110/60 97 Nasal 35% Cannula 01/08 0000 97 Nasal 35% Cannula 01/07 2124 94 Nasal 35% Cannula 01/07 2000 95 Nasal 35% Cannula 01/07 1600 96 Nasal 40% Cannula 01/07 1600 98.0 78 20 114/64 96 Nasal 40% Cannula 01/07 1447 96 Nasal 40% Cannula 01/07 1200 96 Nasal 55% Cannula Intake & Output 01/08 0800 01/08 0000 Intake Total 100 620 Output Total 810 470 Balance -710 150 Intake, Oral 100 620 Output, Chest 60 70 Tube Drainage Output, Urine 750 400 Patient 158 lb Weight Weight Bed scale Measurement Method Saturation FiO2 35% 97% exam of her right chest shows diminished breath sounds cardiac exam shows a regular S1 and S2 without murmurs Impression/Plan Impression/Plan Impression/Plan: 62-year-old woman status post chest tube replacement continues to have evidence of pneumothorax on chest x-ray today Recommendations: CT surgery follow-up as to placement of her chest tube as there appears to be minimal respiratory variation nurses to contact CT surgery
[2018-01-08 12:00] VITALS: BP 118/52
[2018-01-08 16:00] VITALS: BP 108/58
--- NOTE | 2018-01-08 19:48 | RADIOLOGY REPORT ---
EXAMINATION: XR PORTABLE CHEST CLINICAL INFORMATION: Follow-up pneumothorax COMPARISON: Multiple prior chest x-rays, the most recent on 01/08/2018 at 6:39 AM TECHNIQUE: Portable AP view of the chest was obtained at 7:05 PM. FINDINGS: Redemonstration of the moderate right apical pneumothorax, unchanged since the most recent chest x-ray. Extensive soft tissue emphysema is also present, which limits evaluation. There has been interval mild improvement of aeration of the left lung. The EKG leads overlie the chest. The right-sided chest tube is seen in the lower thorax, unchanged in position. Redemonstration of left paramediastinal pulmonary opacity and multiple left rib postsurgical changes. IMPRESSION: Right sided apical pneumothorax, unchanged since 01/08/2018 at 6:39 AM in the presence of a right-sided chest tube in the lower right hemithorax.
[2018-01-09] VITALS: BP 96/54
--- NOTE | 2018-01-09 05:21 | PN- Thoracic Surgery ---
Subjective Subjective: Patient seen and evaluated. No events overngiht. Remains HD stable. Reports she feels better but is still having pain at right CT site and along sub q air tracking patterns. She is minimal mobile from bed to chair, but states she feels ready to walk more. Tolerating diet without issues and is voiding/BMs. Yesterday she was on HFNC at 30%, this has been downgraded to 2L NC. Was paged by RN yesterday evening regarding minimal to no tidaling of CT. Pleuravac was changed and tidaling appeared to be working. Repeat CXR was also obtained which showed unchanged right pneumothorax at about 20%. CT putting out only minimal drainage with 65 mL and remains on LCWS. No apparent leak, but tube may be blocked/ nonfunction seeing as though it is very low. Will discuss these finding with Dr. Rivera. Objective Vital Signs and I&Os Vital Signs Date Time Temp Pulse Resp B/P B/P Pulse O2 O2 Flow FiO2 Mean Ox Delivery Rate 01/09 0400 98 Nasal 2.0L Cannula 01/09 0000 98 Nasal 2.0L Cannula 01/09 0000 98.6 70 15 96/54 98 Nasal 2.0L Cannula 01/08 2155 95 Nasal 2.0L Cannula 01/08 2000 95 Nasal 2.0L Cannula 01/08 1600 93 Nasal 2.0L Cannula 01/08 1600 98.2 68 16 108/58 99 Nasal 2.0L Cannula 01/08 1200 97.2 80 22 118/52 98 Nasal 35% Cannula 01/08 1200 97 Nasal 35% Cannula 01/08 0900 97 Nasal 35% Cannula 01/08 0800 98.6 89 16 118/58 93 Nasal 35% Cannula 01/08 0800 93 Nasal 35% Cannula Intake & Output 01/09 0800 01/09 0000 01/08 1600 01/08 0800 01/08 0000 01/07 1600 Intake Total 920 1200 100 620 800 Output Total 750 555 810 470 840 Balance 170 645 -710 150 -40 Intake, IV 100 Intake, Oral 920 1200 100 620 700 Number 2 1 Bowel Movements Output, Chest 5 60 70 40 Tube Drainage Output, Urine 750 550 750 400 800 Patient 158 lb Weight Weight Bed scale Measurement Method Physical Exam: General: elderly female, sitting upright in bed, NAD HEENT: moderate amount of sub q air tracking R>L arm down to fingers, up through face/eyelids, and down chest, this is unchanged since yesterdays evaluation Chest: right chest tube with minimal drainage on LCWS, no air leak can be seen with coughing/deep breathing, lungs decreased on right, but difficulte to auscultate with amuont of sub q air, dressing are c/d/i Abd: soft, NT/ND Extremities: pumps in place, no calf tenderness Neuro: AAox3 Current Medications: Current Medications Sig/Nathan Start time Last Medication Dose Route Stop Time Status Admin Al Hydroxide/Mg 30 ML Q4-6 PRN PRN 12/30 1115 AC 12/30 Hydroxide PO 2130 Albuterol Sulfate 3 ML EVERY 4 HRS/AWAKE 01/05 1600 AC 01/08 INH 2152 Albuterol Sulfate 2 PUF Q4P PRN 12/29 1600 AC INH Budesonide/ 2 PUF BID 12/29 2100 AC 01/08 Formoterol Fumarate INH 213 Celecoxib 100 MG BID 12/29 2100 AC 01/08 PO 213 Docusate Sodium 100 MG BID 12/29 2100 AC 01/08 PO 0830 Enoxaparin Sodium 40 MG DAILY 01/03 0900 AC 01/08 SC 0830 Gabapentin 300 MG Q8 12/29 2200 AC 01/09 PO 0517 Hydrocodone Bitart/ 1 TAB Q4P PRN 12/30 1030 AC 01/03 Acetaminophen PO 0612 Hydrocodone Bitart/ 2 TAB Q4-6 PRN PRN 12/30 1030 AC 01/09 Acetaminophen PO 0517 Melatonin 5 MG AT BEDTIME 01/01 2100 AC 01/08 PO 213 Morphine Sulfate 2 MG Q2P PRN 01/05 0630 AC 01/05 IV 0837 Omeprazole 40 MG DAILY AC 12/30 1115 AC 01/09 PO 0517 Ondansetron HCl 4 MG Q6P PRN 12/29 170 AC 01/05 IV 205 Tramadol HCl 100 MG Q4-6 PRN PRN 12/29 170 AC 01/01 PO 2019 Trazodone HCl 100 MG AT BEDTIME 01/01 2100 AC 01/08 PO 213 Results Last 48 Hours of Labs: Laboratory Tests 01/09 01/08 0505 0440 Chemistry Sodium (137 - 145 mmol/L) 138 Potassium (3.5 - 5.1 mmol/L) 4.6 Chloride (98 - 107 mmol/L) 98 Carbon Dioxide (22 - 30 mmol/L) 30 Anion Gap (5 - 16) 10 BUN (7 - 17 mg/dL) 12 Creatinine (0.5 - 1.0 mg/dL) 0.6 Estimated GFR (>60 ml/min) > 60 Glucose (65 - 99 mg/dL) 106 H Calcium (8.4 - 10.2 mg/dL) 8.9 Phosphorus (2.5 - 4.5 mg/dL) 4.5 Magnesium (1.6 - 2.3 mg/dL) 1.9 Total Bilirubin (0.2 - 1.3 mg/dL) 0.4 AST (14 - 36 U/L) 38 H ALT (9 - 52 U/L) 33 Albumin (3.5 - 5.0 g/dL) 2.9 L Hematology CBC w Diff Pending MAN DIFF ORDERED WBC (4.8 - 10.8 /CUMM) Pending 9.3 RBC (4.20 - 5.40 /CUMM) Pending 3.15 L Hgb (12.0 - 16.0 G/DL) Pending 10.6 L Hct (37 - 47 %) Pending 31.0 L MCV (81.0 - 99.0 FL) Pending 98.3 MCH (27.0 - 31.0 PG) Pending 33.5 H MCHC (33.0 - 37.0 G/DL) Pending 34.1 RDW (11.5 - 14.5 %) Pending 14.5 Plt Count (130 - 400 /CUMM) Pending 407 H MPV (7.4 - 10.4 FL) Pending 8.1 Gran % (42.2 - 75.2 %) 90.4 H Lymphocytes % (20.5 - 51.1 %) 7.2 L Monocytes % (1.7 - 9.3 %) 1.5 L Eosinophils % (0 - 5 %) 0.9 Basophils % (0.0 - 2.0 %) 0 Absolute Granulocytes (1.4 - 6.5 /CUMM) 8.4 H Segmented Neutrophils (42.2 - 75.2 %) 80 H Band Neutrophils (0.0 - 5.0 %) 8 H Absolute Lymphocytes (1.2 - 3.4 /CUMM) 0.7 L Lymphocytes (20.5 - 51.1 %) 11 L Monocytes (1.7 - 9.3 %) 1 L Absolute Monocytes (0.10 - 0.60 /CUMM) 0.1 Absolute Eosinophils (0.0 - 0.7 /CUMM) 0.1 Absolute Basophils (0.0 - 0.2 /CUMM) 0 Platelet Estimate (ADEQUATE) INCREASED Polychromasia 1+ Hypochromic-Microcytic 1+ Poikilocytosis 1+ Basophilic Stippling SLIGHT Anisocytosis 1+ Stomatocytes 1+ Assessment/Plan Assessment/Plan This is a 62 y/o F w/ PMHx of HTN, HLD, paroxysmal SVT, 50PY daily smoker, left upper lobe lung cancer s/p left upper lobectomy in 2012 with mediastinal recurrence in 2014 tx with chemorad, now POD#11 s/p right upper lobectomy for new right upper lobe biopsy confirmed NSCLC. Remains in ICU for close cardio- pulmonary monitoring and chest tube management. No Air leak, but Ct may be occluded and nonfunctioning. Will discuss with Dr. Rivera if these needs to be manipulated Follow up am CXR Cont current care, CT to LWS Regular diet Pain regimen prn Home meds on board DVT ppx - alps, lovenox OOB to chair TRC, encourage IS Will d/w Dr. Rivera Appreciate medicine for other medical managment Core Measures Venous Thromboembolism VTE Risk Factors Age>40 No Mechanical VTE Prophylaxis d/t N/A MechProphylax Ordered No VTE Pharm Prophylaxis d/t NA PharmProphylax ordered Continue supplemental oxygen to maintain target sats >92%. Currently on 35% high flow. -TRC/nebs as needed. -Blood and urine cultures - no growth reported -CXR 01/08 shows minimal worsening of pneumothorax. -Incentive spirometry -Management of thoracic vent as per surgery's recommendation -Monitor electrolytes and replete as needed -OOB to chair Core Measures Venous Thromboembolism VTE Risk Factors Age>40 No Mechanical VTE Prophylaxis d/t N/A MechProphylax Ordered No VTE Pharm Prophylaxis d/t NA PharmProphylax ordered
[2018-01-09 05:35] LABS: ABSOLUTE BASOPHIL COUNT 0 /CUMM (0.0-0.2); ABSOLUTE EOSINOPHIL COUNT 0.1 /CUMM (0.0-0.7); ABSOLUTE LYMPH COUNT 0.8 /CUMM (1.2-3.4); ABSOLUTE MONOCYTE COUNT 0.3 /CUMM (0.10-0.60); BASOPHIL % 0.4 % (0.0-2.0); HEMATOCRIT 29.8 % (37-47); MEAN CORPUSCULAR HGB 33.5 PG (27.0-31.0); MEAN CORPUSCULAR HGB CONC 34.2 G/DL (33.0-37.0); MEAN PLATELET VOLUME 7.6 FL (7.4-10.4); PLATELET COUNT 513 /CUMM (130-400); RBC DISTRIBUTION WIDTH 14.8 % (11.5-14.5); RED BLOOD CELL CT 3.04 /CUMM (4.20-5.40); WHITE BLOOD CELL COUNT 10.2 /CUMM (4.8-10.8)
--- NOTE | 2018-01-09 07:15 | RADIOLOGY REPORT ---
EXAMINATION: XR PORTABLE CHEST CLINICAL INFORMATION: Chest tube. Pneumothorax. COMPARISON: Several prior chest radiographs, the most recent January 08 at 6:40 PM TECHNIQUE: Portable frontal view of the chest was obtained. Examination limited secondary to prominent subcutaneous emphysema. FINDINGS: Stable right-sided pneumothorax. Prominent subcutaneous emphysema is also noted. Stable positioning of right sided chest tube. Left hemithorax is unchanged in aeration. Left perihilar opacity is similar. IMPRESSION: Stable right-sided pneumothorax.
--- NOTE | 2018-01-09 07:17 | PN- Resident CRCU ---
Subjective HPI/CRCU Issues: S/p right upper lobectomy for adenocarcinoma, POD#11 Right Pneumothorax with chest tube replacement History of previous left upper lobectomy for Stage IB lung cancer and mediastinal recurrence Smoking 24 Hour Events: No overnight events. Patient is complaining of pain at her chest tube site, comfortable when at rest but sharp pain with movement. She is afebrile after completing a one week course of Unasyn. There is no air leak is her chest tube and is now off of high flow oxygen and saturating well on nasal cannula. Her subcutaneous emphysema is improving. Objective Vital Signs & I&O Last 8 Hrs of Vitals and I&O: Temp 97.5, HR 81, RR 18-22, BP 116/72, SpO2 94% on 2L Vital Signs Date Time Temp Pulse Resp B/P B/P Pulse O2 O2 Flow FiO2 Mean Ox Delivery Rate 01/09 1200 94 Nasal 2.0L Cannula 01/09 1155 95 Nasal 2.0L Cannula 01/09 0800 96 Nasal 2.0L Cannula 01/09 0800 97.5 81 28 116/72 96 Nasal 2.0L Cannula 01/09 0400 98 Nasal 2.0L Cannula 01/09 0000 98 Nasal 2.0L Cannula 01/09 0000 98.6 70 15 96/54 98 Nasal 2.0L Cannula 01/08 2155 95 Nasal 2.0L Cannula 01/08 2000 95 Nasal 2.0L Cannula 01/08 1600 93 Nasal 2.0L Cannula 01/08 1600 98.2 68 16 108/58 99 Nasal 2.0L Cannula Intake & Output 01/09 1600 01/09 0800 01/09 0000 Intake Total 240 920 Output Total 560 750 Balance -320 170 Intake, Oral 240 920 Number 2 Bowel Movements Output, Chest 10 Tube Drainage Output, Urine 550 750 Exam General Appearance: well developed/nourished, no apparent distress, alert, awake , comfortable, on nasal cannula supplemental oxygen Respiratory: decreased breath sounds, rhonchi, right sided chest tube mid axillary line, output 60->5->10 per shift, serosanguinous no air leak, palpable subcutaneous emphysema Cardiovascular: regular rate/rhythm, normal peripheral pulses Gastrointestinal: normal bowel sounds, soft, non-tender Extremities: normal inspection, normal capillary refill, normal range of motion, no edema Current Medications: Current Medications Sig/Nathan Start time Last Medication Dose Route Stop Time Status Admin Al Hydroxide/Mg 30 ML Q4-6 PRN PRN 12/30 1115 AC 12/30 Hydroxide PO 2130 Albuterol Sulfate 3 ML EVERY 4 HRS/AWAKE 01/05 1600 AC 01/09 INH 1152 Albuterol Sulfate 2 PUF Q4P PRN 12/29 1600 AC INH Budesonide/ 2 PUF BID 12/29 2100 AC 01/09 Formoterol Fumarate INH 0943 Celecoxib 100 MG BID 12/29 2100 AC 01/09 PO 0942 Docusate Sodium 100 MG BID 12/29 2100 AC 01/09 PO 0942 Enoxaparin Sodium 40 MG DAILY 01/03 0900 AC 01/09 SC 0942 Gabapentin 300 MG Q8 12/29 2200 AC 01/09 PO 0517 Hydrocodone Bitart/ 1 TAB Q4P PRN 12/30 1030 AC 01/03 Acetaminophen PO 0612 Hydrocodone Bitart/ 2 TAB Q4-6 PRN PRN 12/30 1030 AC 01/09 Acetaminophen PO 0943 Melatonin 5 MG AT BEDTIME 01/01 2100 AC 01/08 PO 2135 Morphine Sulfate 2 MG Q2P PRN 01/05 0630 AC 01/05 IV 0837 Omeprazole 40 MG DAILY AC 12/30 1115 AC 01/09 PO 0517 Ondansetron HCl 4 MG Q6P PRN 12/29 1700 AC 01/05 IV 2059 Tramadol HCl 100 MG Q4-6 PRN PRN 12/29 1700 AC 01/01 PO 2019 Trazodone HCl 100 MG AT BEDTIME 01/01 2100 AC 01/08 PO 2135 CXR Findings: FINDINGS: Stable right-sided pneumothorax. Prominent subcutaneous emphysema is also noted. Stable positioning of right sided chest tube. Left hemithorax is unchanged in aeration. Left perihilar opacity is similar. IMPRESSION: Stable right-sided pneumothorax. Impression/Plan Impression/Problem List Impression: 62 year old female with PMH significant for HTN, HLD, paroxysmal SVT, smoking, history of stage IB left upper lobe lung cancer s/p left upper lobectomy in 2011 with mediastinal recurrence in 2013 treated with chemoradiotherapy is now admitted to critical care for postoperative care after right upper lobectomy for a new primary right upper lobe biopsy confirmed non small cell lung cancer. She is currently post operative day 11 with hospital course complicated by recurrent pneumothorax after chest tube removal requiring thoracic vent and chest tube replacement with significant subcutaneous emphysema. She is clinically improving with decreased supplemental oxygen requirment and minimal chest tube output overnight. Right upper lobectomy for adenocarcinoma: POD #11 Minimal chest tube output overnight OOB to chair Regular diet Celebrex, tramadol, gabapentin, and vicodin prn for analgesia Zofran prn and PO PPI Post operative acute hypoxemic respiratory failure: Secondary to underlying lung disease, smoking, COPD, prior left upper lobectomy and worsening right pneumothorax after chest tube removal Continue TRC care Nebulized albuterol Supplemental oxygen to maintain SpO2 > 90% Continue symbicort Aspiration pneumonia. s/p 7 day course of Unasyn Cultures are negative Afebrile without leukocytosis currently Regular diet DVT ppx-lovenox 40mg sc daily Full code Problem List: 1. Lung cancer 2. S/P SANTOS LOBECTOMY 3. LEFT LUNG CANCER 4. Benign essential hypertension 5. Primary cancer of right upper lobe of lung 6. Pneumothorax, right Pain Ratin Pain Location: right axilla Tomorrow's Labs & Rationales: cbc Plan DVT/Prophylaxis: mechanical Code Status: Full Code
[2018-01-09 08:00] VITALS: BP 116/72
--- NOTE | 2018-01-09 08:06 | PN- CRCU ---
Subjective HPI/Critical Care Issues: The patient is awake and alert. She is feeling markedly improved. Her subcutaneous emphysema is improving. She is off high flow oxygen and now on nasal cannula. There were no overnight events reported. Objective Current Medications: Current Medications Sig/Nathan Start time Last Medication Dose Route Stop Time Status Admin Al Hydroxide/Mg 30 ML Q4-6 PRN PRN 12/30 1115 AC 12/30 Hydroxide PO 2130 Albuterol Sulfate 3 ML EVERY 4 HRS/AWAKE 01/05 1600 AC 01/08 INH 2152 Albuterol Sulfate 2 PUF Q4P PRN 12/29 1600 AC INH Budesonide/ 2 PUF BID 12/29 2100 AC 01/08 Formoterol Fumarate INH 213 Celecoxib 100 MG BID 12/29 2099 AC 01/08 PO 213 Docusate Sodium 100 MG BID 12/29 2100 AC 01/08 PO 0830 Enoxaparin Sodium 40 MG DAILY 01/03 0900 AC 01/08 SC 0830 Gabapentin 300 MG Q8 12/29 2200 AC 01/09 PO 0517 Hydrocodone Bitart/ 1 TAB Q4P PRN 12/30 1030 AC 01/03 Acetaminophen PO 0612 Hydrocodone Bitart/ 2 TAB Q4-6 PRN PRN 12/30 1030 AC 01/09 Acetaminophen PO 0517 Melatonin 5 MG AT BEDTIME 01/01 2100 AC 01/08 PO 213 Morphine Sulfate 2 MG Q2P PRN 01/05 0630 AC 01/05 IV 0837 Omeprazole 40 MG DAILY AC 12/30 1115 AC 01/09 PO 0517 Ondansetron HCl 4 MG Q6P PRN 12/29 170 AC 01/05 IV 2059 Tramadol HCl 100 MG Q4-6 PRN PRN 12/29 1700 AC 01/01 PO 2019 Trazodone HCl 100 MG AT BEDTIME 01/01 2100 AC 01/08 PO 2135 Vital Signs & I&O Last 24 Hrs of Vitals and I&O: Vital Signs Date Time Temp Pulse Resp B/P B/P Pulse O2 O2 Flow FiO2 Mean Ox Delivery Rate 01/09 0400 98 Nasal 2.0L Cannula 01/09 0000 98 Nasal 2.0L Cannula 01/09 0000 98.6 70 15 96/54 98 Nasal 2.0L Cannula 01/085 95 Nasal 2.0L Cannula 01/08 2000 95 Nasal 2.0L Cannula 01/08 1600 93 Nasal 2.0L Cannula 01/08 1600 98.2 68 16 108/58 99 Nasal 2.0L Cannula 01/08 1200 97.2 80 22 118/52 98 Nasal 35% Cannula 01/08 1200 97 Nasal 35% Cannula 01/08 0900 97 Nasal 35% Cannula Intake & Output 01/09 1600 01/09 0800 01/09 0000 Intake Total 240 920 Output Total 560 750 Balance -320 170 Intake, Oral 240 920 Number 2 Bowel Movements Output, Chest 10 Tube Drainage Output, Urine 550 750 Exam General Appearance: alert, awake, comfortable, no distress Head: significantly improved facial swelling Respiratory: crackles, anterior and posterior chest wall tenderness at the site of chest tube insertion, palpable crepitus over chest wall Cardiovascular: regular rate/rhythm Gastrointestinal: soft, non-tender Extremities: no edema Cranial Nerves: normal hearing, normal speech Skin: intact, normal color Skin Temp/Moisture Exam: Warm/Dry Results Last 24 Hrs of Lab Results: Laboratory Tests 01/09/18 0505: CBC w Diff MAN DIFF ORDERED, RBC 3.04 L, MCV 98.0, MCH 33.5 H, MCHC 34.2, RDW 14.8 H, MPV 7.6, Gran % 88.0 H, Lymphocytes % 8.0 L, Monocytes % 2.6, Eosinophils % 1.0, Basophils % 0.4, Absolute Granulocytes 9.0 H, Segmented Neutrophils 79 H, Band Neutrophils 2, Absolute Lymphocytes 0.8 L, Lymphocytes 13 L, Monocytes 6, Absolute Monocytes 0.3, Absolute Eosinophils 0.1, Absolute Basophils 0, Platelet Estimate INCREASED, Polychromasia 1+, Poikilocytosis 2+, Basophilic Stippling 1+, Ovalocytes 1+, Stomatocytes 1+, Fld Total RBCs Counted 100 Diagnostic Data CXR Findings: Right pneumothorax. Impression/Plan Impression/Plan Impression/Plan: 1. 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 2. Hypoxemic respiratory failure in the setting of worsening right pneumothorax and emphysema. 3. Aspiration pneumonia. The patient is now on Unasyn. Cultures are negative. 4. History of COPD without evidence of acute bronchospasm. 5. History of hypertension, hyperlipidemia and proximal SVT. 6. Subcutaneous emphysema. Recommendations: * Continue with nebs/total respiratory care. * Continue high flow oxygen, maintain saturations greater than 92%. * Monitor off antibiotics. Unasyn course completed on 01/06/18. * Continue with incentive spirometry/postoperative thoracotomy protocol. * Continue with pain control. * Out of bed to chair daily. * DVT prophylaxis at all times. * Continue all supportive care. Code Status: Full Code
[2018-01-09 16:00] VITALS: BP 110/52
[2018-01-09 19:59] VITALS: BP 110/58
[2018-01-10] VITALS: BP 104/50
--- NOTE | 2018-01-10 05:46 | PN- Thoracic Surgery ---
See Addendum Subjective Subjective: feeling much better, improved sq air. denies sob/cp. syed diet, +void, +bm Objective Vital Signs and I&Os Vital Signs Date Time Temp Pulse Resp B/P B/P Pulse O2 O2 Flow FiO2 Mean Ox Delivery Rate 01/10 0000 98.3 81 22 104/50 95 Nasal 2.0L Cannula 01/09 1959 98.6 86 24 110/58 95 Nasal 2.0L Cannula 01/09 1629 95 Nasal 2.0L Cannula 01/09 1600 96 Nasal 2.0L Cannula 01/09 1600 96.9 73 19 110/52 97 Nasal 2.0L Cannula 01/09 1200 94 Nasal 2.0L Cannula 01/09 1155 95 Nasal 2.0L Cannula 01/09 0800 96 Nasal 2.0L Cannula 01/09 0800 97.5 81 28 116/72 96 Nasal 2.0L Cannula Intake & Output 01/10 0800 01/10 0000 01/09 1600 01/09 0800 01/09 0000 01/08 1600 Intake Total 1100 720 678 932 1018 Output Total 600 300 560 750 555 Balance 500 420 -320 170 645 Intake, Oral 1100 720 572 901 0509 Number 1 2 2 1 Bowel Movements Output, Chest 10 5 Tube Drainage Output, Urine 600 300 550 750 550 Physical Exam: gen- nad card-s1s2 pulm-improved bs, coarse throughout abd- soft nt ext- calves soft nt CT: 0 output overnight Results Last 48 Hours of Labs: Laboratory Tests 01/10 01/09 0430 0505 Hematology CBC w Diff Pending MAN DIFF ORDERED WBC (4.8 - 10.8 /CUMM) Pending 10.2 RBC (4.20 - 5.40 /CUMM) Pending 3.04 L Hgb (12.0 - 16.0 G/DL) Pending 10.2 L Hct (37 - 47 %) Pending 29.8 L MCV (81.0 - 99.0 FL) Pending 98.0 MCH (27.0 - 31.0 PG) Pending 33.5 H MCHC (33.0 - 37.0 G/DL) Pending 34.2 RDW (11.5 - 14.5 %) Pending 14.8 H Plt Count (130 - 400 /CUMM) Pending 513 H MPV (7.4 - 10.4 FL) Pending 7.6 Gran % (42.2 - 75.2 %) 88.0 H Lymphocytes % (20.5 - 51.1 %) 8.0 L Monocytes % (1.7 - 9.3 %) 2.6 Eosinophils % (0 - 5 %) 1.0 Basophils % (0.0 - 2.0 %) 0.4 Absolute Granulocytes (1.4 - 6.5 /CUMM) 9.0 H Segmented Neutrophils (42.2 - 75.2 %) 79 H Band Neutrophils (0.0 - 5.0 %) 2 Absolute Lymphocytes (1.2 - 3.4 /CUMM) 0.8 L Lymphocytes (20.5 - 51.1 %) 13 L Monocytes (1.7 - 9.3 %) 6 Absolute Monocytes (0.10 - 0.60 /CUMM) 0.3 Absolute Eosinophils (0.0 - 0.7 /CUMM) 0.1 Absolute Basophils (0.0 - 0.2 /CUMM) 0 Platelet Estimate (ADEQUATE) INCREASED Polychromasia 1+ Poikilocytosis 2+ Basophilic Stippling 1+ Ovalocytes 1+ Stomatocytes 1+ Other Body Source Fld Total RBCs Counted (%) 100 Recent Imaging Studies: CXR pending Assessment/Plan Assessment/Plan A_ POD12 sp RU lobectomy for ca, with reinsertion of CT 01/07 for sq emphysema and persistent ptx, now on ws with no al/tidaling/output. P- fu labs fu cxr cont current meds will dw attending Core Measures Venous Thromboembolism VTE Risk Factors Age>40 No Mechanical VTE Prophylaxis d/t N/A MechProphylax Ordered No VTE Pharm Prophylaxis d/t NA PharmProphylax ordered
[2018-01-10 05:50] LABS: ABSOLUTE BASOPHIL COUNT 0 /CUMM (0.0-0.2); ABSOLUTE EOSINOPHIL COUNT 0.1 /CUMM (0.0-0.7); ABSOLUTE GRANULOCYTE CT 8.8 /CUMM (1.4-6.5); ABSOLUTE LYMPH COUNT 0.7 /CUMM (1.2-3.4); ABSOLUTE MONOCYTE COUNT 0.6 /CUMM (0.10-0.60); BASOPHIL % 0.1 % (0.0-2.0); EOSINOPHIL % 1.4 % (0-5); HEMATOCRIT 29.6 % (37-47); MEAN CORPUSCULAR HGB CONC 33.2 G/DL (33.0-37.0); MEAN CORPUSCULAR VOLUME 99.5 FL (81.0-99.0); MEAN PLATELET VOLUME 7.6 FL (7.4-10.4); RBC DISTRIBUTION WIDTH 14.9 % (11.5-14.5); RED BLOOD CELL CT 2.98 /CUMM (4.20-5.40); WHITE BLOOD CELL COUNT 10.3 /CUMM (4.8-10.8)
[2018-01-10 06:56] LABS: GRANULOCYTE % 85.4 % (42.2-75.2)
[2018-01-10 06:57] LABS: PLATELET COUNT 521 /CUMM (130-400)
--- NOTE | 2018-01-10 07:23 | PN- Resident CRCU ---
Subjective HPI/CRCU Issues: S/p right upper lobectomy for adenocarcinoma, POD#12 Right Pneumothorax with chest tube replacement History of previous left upper lobectomy for Stage IB lung cancer and mediastinal recurrence Smoking 24 Hour Events: No overnight events. Pain at her chest tube site but comfortable at rest Afebrile, no leukocytosis, minimal chest tube output Chest x-ray right moderate pneumothorax stable Subcutaneous emphysema is improving Objective Vital Signs & I&O Last 8 Hrs of Vitals and I&O: Vital Signs Date Time Temp Pulse Resp B/P B/P Pulse O2 O2 Flow FiO2 Mean Ox Delivery Rate 01/10 0850 97 Nasal 2.0L Cannula 01/10 08 98.8 70 18 100/58 98 Nasal 2.0L Cannula 01/10 08 98 Nasal 2.0L Cannula 01/10 0000 95 Nasal 2.0L Cannula 01/10 0000 98.3 81 22 104/50 95 Nasal 2.0L Cannula 01/09 1959 98.6 86 24 110/58 95 Nasal 2.0L Cannula 01/09 1629 95 Nasal 2.0L Cannula 01/09 1600 96 Nasal 2.0L Cannula 01/09 1600 96.9 73 19 110/52 97 Nasal 2.0L Cannula 01/09 1200 94 Nasal 2.0L Cannula 01/09 1155 95 Nasal 2.0L Cannula Intake & Output 01/10 1600 01/10 0801/10 0000 Intake Total 440 1100 Output Total 805 600 Balance -365 500 Intake, Oral 440 1100 Number 0 1 Bowel Movements Output, Chest 5 Tube Drainage Output, Urine 800 600 Intake & Output 01/10 1600 01/10 0800 01/10 0000 Intake Total 440 1100 Output Total 805 600 Balance -365 500 Intake, Oral 440 1100 Number 0 1 Bowel Movements Output, Chest 5 Tube Drainage Output, Urine 800 600 Laboratory Tests 01/10 0430 Hematology CBC w Diff NO MAN DIFF REQ WBC (4.8 - 10.8 /CUMM) 10.3 RBC (4.20 - 5.40 /CUMM) 2.98 L Hgb (12.0 - 16.0 G/DL) 9.8 L Hct (37 - 47 %) 29.6 L MCV (81.0 - 99.0 FL) 99.5 H MCH (27.0 - 31.0 PG) 33.0 H MCHC (33.0 - 37.0 G/DL) 33.2 RDW (11.5 - 14.5 %) 14.9 H Plt Count (130 - 400 /CUMM) 521 H MPV (7.4 - 10.4 FL) 7.6 Gran % (42.2 - 75.2 %) 85.4 H Lymphocytes % (20.5 - 51.1 %) 6.9 L Monocytes % (1.7 - 9.3 %) 6.2 Eosinophils % (0 - 5 %) 1.4 Basophils % (0.0 - 2.0 %) 0.1 Absolute Granulocytes (1.4 - 6.5 /CUMM) 8.8 H Absolute Lymphocytes (1.2 - 3.4 /CUMM) 0.7 L Absolute Monocytes (0.10 - 0.60 /CUMM) 0.6 Absolute Eosinophils (0.0 - 0.7 /CUMM) 0.1 Absolute Basophils (0.0 - 0.2 /CUMM) 0 Exam General Appearance: well developed/nourished, no apparent distress, alert, awake , comfortable, on nasal cannula Respiratory: some tenderness around right axillary chest tube insertion, palpable crepitus right upper lung area, improved breath sounds with scattered rhonchi Cardiovascular: regular rate/rhythm, normal peripheral pulses Gastrointestinal: normal bowel sounds, soft, non-tender Extremities: normal inspection, normal capillary refill, normal range of motion, no edema Current Medications: Current Medications Sig/Nathan Start time Last Medication Dose Route Stop Time Status Admin Al Hydroxide/Mg 30 ML Q4-6 PRN PRN 12/30 1115 AC 12/30 Hydroxide PO 2130 Albuterol Sulfate 3 ML EVERY 4 HRS/AWAKE 01/05 1600 AC 01/10 INH 0830 Albuterol Sulfate 2 PUF Q4P PRN 12/29 1600 AC INH Budesonide/ 2 PUF BID 12/29 2100 AC 01/10 Formoterol Fumarate INH 0902 Celecoxib 100 MG BID 12/29 2100 01/10 PO 0902 Docusate Sodium 100 MG BID 12/29 2100 AC 01/09 PO 0942 Enoxaparin Sodium 40 MG DAILY 01/03 0900 AC 01/10 SC 0902 Gabapentin 300 MG Q8 12/29 2200 AC 01/10 PO 0546 Hydrocodone Bitart/ 1 TAB Q4P PRN 12/30 1030 AC 01/03 Acetaminophen PO 0612 Hydrocodone Bitart/ 2 TAB Q4-6 PRN PRN 12/30 1030 AC 01/10 Acetaminophen PO 0902 Melatonin 5 MG AT BEDTIME 01/01 2100 AC 01/09 PO 225 Morphine Sulfate 2 MG Q2P PRN 01/05 0630 AC 01/09 IV 2251 Omeprazole 40 MG DAILY AC 12/30 1115 AC 01/10 PO 0546 Ondansetron HCl 4 MG Q6P PRN 12/29 1700 AC 01/05 IV 205 Tramadol HCl 100 MG Q4-6 PRN PRN 12/29 1700 AC 01/01 PO 2019 Trazodone HCl 100 MG AT BEDTIME 01/01 2100 AC 01/09 PO 2251 Impression/Plan Impression/Problem List Impression: 62 year old female with PMH significant for HTN, HLD, paroxysmal SVT, smoking, history of stage IB left upper lobe lung cancer s/p left upper lobectomy in 2011 with mediastinal recurrence in 2013 treated with chemoradiotherapy is now admitted to critical care for postoperative care after right upper lobectomy for a new primary right upper lobe biopsy confirmed non small cell lung cancer. She is currently post operative day 12 with hospital course complicated by recurrent pneumothorax after chest tube removal requiring thoracic vent and chest tube replacement on 01/07 with significant subcutaneous emphysema. She is clinically improving with decreased supplemental oxygen requirement and minimal chest tube output overnight. Right upper lobectomy for adenocarcinoma: POD #12 Minimal chest tube output overnight OOB to chair Regular diet Celebrex, tramadol, gabapentin, and vicodin prn for analgesia Zofran prn and PO PPI Post operative acute hypoxemic respiratory failure: Secondary to underlying lung disease, smoking, COPD, prior left upper lobectomy and worsening right pneumothorax after chest tube removal Continue TRC care Nebulized albuterol Supplemental oxygen to maintain SpO2 > 90% Continue symbicort Repeat chest x-ray demonstrates a stable moderate right pneumothorax Further management of chest tube as per CT surgery Aspiration pneumonia. s/p 7 day course of Unasyn Cultures are negative Afebrile without leukocytosis currently Regular diet DVT ppx-lovenox 40mg sc daily Full code Problem List: 1. Pneumothorax, right 2. Primary cancer of right upper lobe of lung 3. Lung cancer 4. S/P SANTOS LOBECTOMY Pain Ratin Pain Location: right chest Tomorrow's Labs & Rationales: cbc Plan DVT/Prophylaxis: mechanical Code Status: Full Code
--- NOTE | 2018-01-10 07:47 | RADIOLOGY REPORT ---
EXAMINATION: XR PORTABLE CHEST CLINICAL INFORMATION: Chest pain. Dyspnea. Pneumothorax. COMPARISON: Several prior chest radiographs, the most recent 01/09/2018 TECHNIQUE: Portable frontal view of the chest was obtained. FINDINGS: Stable right-sided pneumothorax. Right-sided chest tube is unchanged in orientation. Extensive subcutaneous emphysema again demonstrated. Left upper lobe paramediastinal density is unchanged. Incompletely visualized hardware of the left humeral head. IMPRESSION: Stable moderate sized right-sided pneumothorax.
[2018-01-10 08:00] VITALS: BP 100/58
--- NOTE | 2018-01-10 09:16 | PN- CRCU ---
Subjective HPI/Critical Care Issues: The patient is awake and alert. She is doing well. She slept overnight and feels less short of breath. She still has a congested cough but again this is improved. There were no overnight events reported. Objective Current Medications: Current Medications Sig/Nathan Start time Last Medication Dose Route Stop Time Status Admin Al Hydroxide/Mg 30 ML Q4-6 PRN PRN 12/30 1115 AC 12/30 Hydroxide PO 2130 Albuterol Sulfate 3 ML EVERY 4 HRS/AWAKE 01/05 1600 AC 01/10 INH 0830 Albuterol Sulfate 2 PUF Q4P PRN 12/29 1600 AC INH Budesonide/ 2 PUF BID 12/29 2100 AC 01/10 Formoterol Fumarate INH 0902 Celecoxib 100 MG BID 12/29 2100 AC 01/10 PO 0902 Docusate Sodium 100 MG BID 12/29 2100 AC 01/09 PO 0942 Enoxaparin Sodium 40 MG DAILY 01/03 0900 AC 01/10 SC 0902 Gabapentin 300 MG Q8 12/29 2200 AC 01/10 PO 0546 Hydrocodone Bitart/ 1 TAB Q4P PRN 12/30 1030 AC 01/03 Acetaminophen PO 0612 Hydrocodone Bitart/ 2 TAB Q4-6 PRN PRN 12/30 1030 AC 01/10 Acetaminophen PO 0902 Melatonin 5 MG AT BEDTIME 01/01 2100 AC 01/09 PO 2251 Morphine Sulfate 2 MG Q2P PRN 01/05 0630 AC 01/09 IV 2251 Omeprazole 40 MG DAILY AC 12/30 1115 AC 01/10 PO 0546 Ondansetron HCl 4 MG Q6P PRN 12/29 1700 AC 01/05 IV 2059 Tramadol HCl 100 MG Q4-6 PRN PRN 12/29 1700 AC 01/01 PO 2019 Trazodone HCl 100 MG AT BEDTIME 01/01 2100 AC 01/09 PO 2251 Vital Signs & I&O Last 24 Hrs of Vitals and I&O: Vital Signs Date Time Temp Pulse Resp B/P B/P Pulse O2 O2 Flow FiO2 Mean Ox Delivery Rate 01/10 08 98.8 70 18 100/58 98 Nasal 2.0L Cannula 01/10 0800 98 Nasal 2.0L Cannula 01/10 0000 95 Nasal 2.0L Cannula 01/10 0000 98.3 81 22 104/50 95 Nasal 2.0L Cannula 01/09 1959 98.6 86 24 110/58 95 Nasal 2.0L Cannula 01/09 1629 95 Nasal 2.0L Cannula 01/09 1600 96 Nasal 2.0L Cannula 01/09 1600 96.9 73 19 110/52 97 Nasal 2.0L Cannula 01/09 1200 94 Nasal 2.0L Cannula 01/09 1155 95 Nasal 2.0L Cannula Intake & Output 01/10 1600 01/10 0800 01/10 0000 Intake Total 440 1100 Output Total 805 600 Balance -365 500 Intake, Oral 440 1100 Number 0 1 Bowel Movements Output, Chest 5 Tube Drainage Output, Urine 800 600 Exam General Appearance: alert, awake, comfortable, no distress Head: significantly improved facial swelling Respiratory: crackles, anterior and posterior chest wall tenderness at the site of chest tube insertion, palpable crepitus over chest wall Cardiovascular: regular rate/rhythm Gastrointestinal: soft, non-tender Extremities: no edema Cranial Nerves: normal hearing, normal speech Skin: intact, normal color Skin Temp/Moisture Exam: Warm/Dry Results Last 24 Hrs of Lab Results: Laboratory Tests 01/10/18 0430: CBC w Diff NO MAN DIFF REQ, RBC 2.98 L, MCV 99.5 H, MCH 33.0 H, MCHC 33.2, RDW 14.9 H, MPV 7.6, Gran % 85.4 H, Lymphocytes % 6.9 L, Monocytes % 6.2, Eosinophils % 1.4, Basophils % 0.1, Absolute Granulocytes 8.8 H, Absolute Lymphocytes 0.7 L, Absolute Monocytes 0.6, Absolute Eosinophils 0.1, Absolute Basophils 0 Impression/Plan Impression/Plan Impression/Plan: 1. 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 2. Hypoxemic respiratory failure in the setting of worsening right pneumothorax and emphysema. 3. Aspiration pneumonia. The patient is now on Unasyn. Cultures are negative. 4. History of COPD without evidence of acute bronchospasm. 5. History of hypertension, hyperlipidemia and proximal SVT. 6. Subcutaneous emphysema. Recommendations: * Continue with nebs/total respiratory care. * Continue oxygen, maintain saturations greater than 92%. * Monitor off antibiotics. Unasyn course completed on 01/06/18. * Continue with incentive spirometry/postoperative thoracotomy protocol. * Continue with pain control. * Out of bed to chair daily. * DVT prophylaxis at all times. * Continue all supportive care. * Management of chest tube as per CT surgery. Code Status: Full Code
[2018-01-10 12:00] VITALS: BP 109/58
--- NOTE | 2018-01-10 12:21 | RADIOLOGY REPORT ---
EXAMINATION: XR PORTABLE CHEST CLINICAL INFORMATION: Interval clamping of chest tube. Evaluate for worsening pneumothorax. COMPARISON: 01/10/2018 at 5:50 AM TECHNIQUE: Portable frontal view of the chest was obtained. FINDINGS: Persistent, extensive soft tissue emphysema of the chest wall and neck. The right thoracostomy tube remains in stable position at the base of the right hemithorax. There is a persistent right apical pneumothorax. The visceral pleural line projects 3.8 cm below the inferior margin of the posterior right second rib, and this is not appreciably changed compared to the recent exam of 01/10/2018 at 5:50 AM. No new findings within the chest. IMPRESSION: The right apical pneumothorax has a stable appearance compared to 01/10/2018 at 5:50 AM.
--- NOTE | 2018-01-10 13:39 | Patient Discharge Instructions ---
Discharge Instructions General Discharge Information You were seen/treated for: Right upper lobe lung cancer post-op right sided hydropneumothorax post-op gram negative pneumonia You had these procedures: Surgery Date: 12/29/17 Name of Procedure: Right upper lobectomy with mediastinal lymph node dissection Surgery Date: 01/07/18 Name of Procedure: Right chest tube Watch for these problems: fever>101.3, increased pain, redness/swelling/drainage, worsening dizziness, shortness of breath, chest pains No bath, but you may shower: Yes Other wound care: dry guaze dressing changes over chest tube sites as needed, until no longer draining. leave white steri strips in place over chest incision. keep incisions clean & dry. Diet Continue normal diet: Yes Recommended Diet: Regular Activity Full Activity/No Limits: No Activity Self Limited: Yes Pounds, do NOT lift more than: 10 Activity Limited to: Weight bear as tolerated Other activity limits: no heavy lifting. no strenuous activity. Additional ACTIVITY Info: continue IST / TRC / nebs prn Acute Coronary Syndrome Inclusion Criteria At DC or during hospital stay patient has or had the following: ACS DIAGNOSIS No Discharge Core Measures Meds if any: Prescribed or Continued at Discharge Meds if any: NOT Prescribed or Continued at Discharge Congestive Heart Failure Inclusion Criteria At DC or during hospital stay patient has or had the following: CHF DIAGNOSIS No Discharge Core Measures Meds if any: Prescribed or Continued at Discharge Meds if any: NOT Prescribed or Continued at Discharge Cerebrovascular accident Inclusion Criteria At DC or during hospital stay patient has or had the following: CVA/TIA Diagnosis No Discharge Core Measures Meds if any: Prescribed or Continued at Discharge Meds if any: NOT Prescribed or Continued at Discharge Venous thromboembolism Inclusion Criteria VTE Diagnosis No VTE Type NONE VTE Confirmed by (Test) NONE Discharge Core Measures - Per Current guidelines, there needs to be overlap - treatment for the first 5 days of Warfarin therapy. - If discharged on Warfarin prior to 5 days of - overlap therapy, the patient will need to be - assessed for post discharge needs including - *Post discharge parental anticoagulation - *Warfarin and/or parental anticoagulation education - *Follow up date to check INR post discharge At least 5 days overlap therapy as Inpatient No Meds if any: Prescribed or Continued at Discharge Note: Overlap Therapy is Warfarin and Anticoagulant Meds if any: NOT Prescribed or Continued at Discharge
[2018-01-10] MEDS ORDERED: DOCUSATE SODIU100 M3 PO (14:02)
[2018-01-10] MEDS ORDERED: VICODIN 5-3001 EACH PO (14:02)
[2018-01-10 16:00] VITALS: BP 106/46
[2018-01-10 20:00] VITALS: BP 90/52
[2018-01-11] VITALS: BP 128/62
[2018-01-11 04:00] VITALS: BP 130/70
[2018-01-11 05:59] LABS: ABSOLUTE BASOPHIL COUNT 0 /CUMM (0.0-0.2); ABSOLUTE EOSINOPHIL COUNT 0.1 /CUMM (0.0-0.7); ABSOLUTE GRANULOCYTE CT 10.6 /CUMM (1.4-6.5); ABSOLUTE LYMPH COUNT 0.9 /CUMM (1.2-3.4); ABSOLUTE MONOCYTE COUNT 0.7 /CUMM (0.10-0.60); BASOPHIL % 0.1 % (0.0-2.0); GRANULOCYTE % 85.8 % (42.2-75.2); HEMATOCRIT 31.9 % (37-47); MEAN CORPUSCULAR HGB 33.3 PG (27.0-31.0); MEAN CORPUSCULAR HGB CONC 33.6 G/DL (33.0-37.0); MEAN CORPUSCULAR VOLUME 99.1 FL (81.0-99.0); MEAN PLATELET VOLUME 7.3 FL (7.4-10.4); PLATELET COUNT 631 /CUMM (130-400); RBC DISTRIBUTION WIDTH 14.9 % (11.5-14.5); RED BLOOD CELL CT 3.22 /CUMM (4.20-5.40); WHITE BLOOD CELL COUNT 12.3 /CUMM (4.8-10.8)
--- NOTE | 2018-01-11 07:44 | PN- Resident CRCU ---
Subjective HPI/CRCU Issues: S/p right upper lobectomy for adenocarcinoma, POD#13 Right Pneumothorax with chest tube replacement History of previous left upper lobectomy for Stage IB lung cancer and mediastinal recurrence Smoking 24 Hour Events: No overnight acute events. Patient was sitting comfortably. Reports improvement in shortness of breath at rest. However continues to get short of breath with mild exertion like walking to commode. Continues to report congestive cough. Subcutaneous emphysema is improving. Reports pain at chest tube site. Chest tube was removed yesterday. Objective Vital Signs & I&O Last 8 Hrs of Vitals and I&O: Laboratory Tests 01/11 0530 Hematology CBC w Diff MAN DIFF ORDERED WBC (4.8 - 10.8 /CUMM) 12.3 H RBC (4.20 - 5.40 /CUMM) 3.22 L Hgb (12.0 - 16.0 G/DL) 10.7 L Hct (37 - 47 %) 31.9 L MCV (81.0 - 99.0 FL) 99.1 H MCH (27.0 - 31.0 PG) 33.3 H MCHC (33.0 - 37.0 G/DL) 33.6 RDW (11.5 - 14.5 %) 14.9 H Plt Count (130 - 400 /CUMM) 631 H MPV (7.4 - 10.4 FL) 7.3 L Gran % (42.2 - 75.2 %) 85.8 H Lymphocytes % (20.5 - 51.1 %) 7.1 L Monocytes % (1.7 - 9.3 %) 6.0 Eosinophils % (0 - 5 %) 1.0 Basophils % (0.0 - 2.0 %) 0.1 Absolute Granulocytes (1.4 - 6.5 /CUMM) 10.6 H Segmented Neutrophils (42.2 - 75.2 %) 87 H Band Neutrophils (0.0 - 5.0 %) 2 Absolute Lymphocytes (1.2 - 3.4 /CUMM) 0.9 L Lymphocytes (20.5 - 51.1 %) 4 L Monocytes (1.7 - 9.3 %) 7 Absolute Monocytes (0.10 - 0.60 /CUMM) 0.7 H Absolute Eosinophils (0.0 - 0.7 /CUMM) 0.1 Absolute Basophils (0.0 - 0.2 /CUMM) 0 Platelet Estimate (ADEQUATE) INCREASED Polychromasia 1+ Basophilic Stippling SLIGHT Ovalocytes FEW Other Body Source Fld Total RBCs Counted (%) 100 Vital Signs Date Time Temp Pulse Resp B/P B/P Pulse O2 O2 Flow FiO2 Mean Ox Delivery Rate 01/11 1444 Nasal 4.0L Cannula 01/11 1347 78 98/54 01/11 1321 95 Nasal 2.0L Cannula 01/11 1200 96 Nasal 2.0L Cannula 01/11 1200 97.7 82 18 92/50 96 Nasal 2.0L Cannula 01/11 0800 98 Nasal 2.0L Cannula 01/11 08 98.1 72 18 100/50 98 Nasal 2.0L Cannula 01/11 0400 97.6 80 14 130/70 97 Nasal 2.0L Cannula 01/11 0400 97 Nasal 2.0L Cannula 01/11 0000 96 Nasal 2.0L Cannula 01/11 0000 97.5 82 20 128/62 96 Nasal 2.0L Cannula 01/11 2056 98 Nasal 2.0L Cannula 01/11 2000 97.4 81 20 90/52 96 Nasal 2.0L Cannula 01/10 2000 96 Nasal 2.0L Cannula Intake & Output 01/11 1600 01/11 0800 01/11 0000 Intake Total 730 240 480 Output Total 250 700 500 Balance 480 -460 -20 Intake, IV 10 10 Intake, Oral 720 240 470 Number 1 Bowel Movements Output, Urine 250 700 500 Intake & Output 01/11 1600 Intake Total 730 Output Total 250 Balance 480 Intake, IV 10 Intake, Oral 720 Output, Urine 250 Exam General Appearance: well developed/nourished, comfortable Head: atraumatic, normal appearance Cardiovascular: regular rate/rhythm Gastrointestinal: normal bowel sounds, soft, non-tender Other Physical Findings: Respiratory: some tenderness around right axillary chest tube insertion, palpable crepitus right upper lung area, improved breath sounds with scattered rhonchi Current Medications: Current Medications Sig/Nathan Start time Last Medication Dose Route Stop Time Status Admin Al Hydroxide/Mg 30 ML Q4-6 PRN PRN 12/30 1115 AC 12/30 Hydroxide PO 2130 Albuterol Sulfate 3 ML EVERY 4 HRS/AWAKE 01/05 1600 AC 01/11 INH 1250 Albuterol Sulfate 2 PUF Q4P PRN 12/29 1600 AC INH Budesonide/ 2 PUF BID 12/29 2100 AC 01/11 Formoterol Fumarate INH 0912 Celecoxib 100 MG BID 12/29 2100 AC 01/11 PO 0911 Docusate Sodium 100 MG BID 12/29 2100 AC 01/11 PO 0911 Enoxaparin Sodium 40 MG DAILY 01/03 0900 AC 01/11 SC 0911 Gabapentin 300 MG Q8 12/29 2200 AC 01/11 PO 1356 Hydrocodone Bitart/ 1 TAB Q4P PRN 12/30 1030 AC 01/03 Acetaminophen PO 0612 Hydrocodone Bitart/ 2 TAB Q4-6 PRN PRN 12/30 1030 AC 01/11 Acetaminophen PO 1356 Melatonin 5 MG AT BEDTIME 01/01 2100 AC 01/10 PO 2222 Morphine Sulfate 2 MG Q2P PRN 01/05 0630 DC 01/10 IV 2045 Omeprazole 40 MG DAILY AC 12/30 1115 AC 01/11 PO 0553 Ondansetron HCl 4 MG Q6P PRN 12/29 1700 AC 01/05 IV 205 Tramadol HCl 100 MG Q4-6 PRN PRN 12/29 170 AC 01/01 PO 2019 Trazodone HCl 100 MG AT BEDTIME 01/01 2100 AC 01/10 PO 2220 Impression/Plan Impression/Problem List Impression: 62 year old female with PMH significant for HTN, HLD, paroxysmal SVT, smoking, history of stage IB left upper lobe lung cancer s/p left upper lobectomy in 2011 with mediastinal recurrence in 2013 treated with chemoradiotherapy is now admitted to critical care for postoperative care after right upper lobectomy for a new primary right upper lobe biopsy confirmed non small cell lung cancer. She is currently post operative day 13 with hospital course complicated by recurrent pneumothorax after chest tube removal requiring thoracic vent and chest tube replacement on 01/07 with significant subcutaneous emphysema. She is clinically improving with decreased supplemental oxygen requirement and chest tube has been removed yesterday #Right upper lobectomy for adenocarcinoma: POD #13 -OOB to chair -Regular diet -Celebrex, tramadol, gabapentin, and vicodin prn for analgesia -Zofran prn and PO PPI #Post operative acute hypoxemic respiratory failure: -Secondary to underlying lung disease, smoking, COPD, prior left upper lobectomy and worsening right pneumothorax after chest tube removal -Continue TRC care -Nebulized albuterol -Supplemental oxygen to maintain SpO2 > 90% -Continue symbicort -Continue with incentive spirometry/postoperative thoracotomy protocol #Aspiration pneumonia -s/p 7 day course of Unasyn -Cultures are negative -Afebrile without leukocytosis currently Regular diet DVT ppx-lovenox 40mg sc daily Full code Problem List: 1. Pneumothorax, right 2. Primary cancer of right upper lobe of lung 3. Lung cancer Pain Ratin Tomorrow's Labs & Rationales: cbc icu bundle Plan DVT/Prophylaxis: mechanical Code Status: Full Code DVT/Prophylaxis: mechanical Code Status: Full Code
--- NOTE | 2018-01-11 07:48 | RADIOLOGY REPORT ---
EXAMINATION: XR PORTABLE CHEST CLINICAL INFORMATION: Atelectasis. Pneumothorax. COMPARISON: Chest x-ray 01/10/2018 TECHNIQUE: Portable frontal view of the chest was obtained. FINDINGS: Persistent right-sided pneumothorax relatively stable to minimally increased in size. Interval removal of right-sided chest tube. Severe pneumomediastinum persists although it appears slightly less prominent on today's examination. IMPRESSION: Persistent right-sided pneumothorax relatively stable to minimally increased in size.
[2018-01-11 08:00] VITALS: BP 100/50
--- NOTE | 2018-01-11 08:34 | PN- Thoracic Surgery ---
Subjective Subjective: CT removed yesterday, pt without reports of shortness of breath. Pt feels sq emphysema resolving, specifically notes improvement in peripheral vision and decreased swelling around eyes. Notes that she still has swelling to lower face , neck, and chest but does not feel it is worsening. Notes improved capability of speaking post CT pull, does not have to take breath after each word. Still reports fatigue with activity, had difficulty walking yesterday after respiratory treatment, is eager to walk today. Denies difficulty urinating or moving bowels. Objective Vital Signs and I&Os Vital Signs Date Time Temp Pulse Resp B/P B/P Pulse O2 O2 Flow FiO2 Mean Ox Delivery Rate 01/12 800 98 Nasal 2.0L Cannula 01/12 800 98.1 72 18 100/50 98 Nasal 2.0L Cannula 01/11 0400 97.6 80 14 130/70 97 Nasal 2.0L Cannula 01/11 0400 97 Nasal 2.0L Cannula 01/11 0000 96 Nasal 2.0L Cannula 01/11 0000 97.5 82 20 128/62 96 Nasal 2.0L Cannula 01/11 2056 98 Nasal 2.0L Cannula 01/11 2000 97.4 81 20 90/52 96 Nasal 2.0L Cannula 01/10 2000 96 Nasal 2.0L Cannula 01/10 1600 96 Nasal 2.0L Cannula 01/10 1600 97.6 84 20 106/46 96 Nasal 2.0L Cannula 01/10 1200 94 Nasal 2.0L Cannula 01/10 1200 97.5 77 20 109/58 97 Nasal 2.0L Cannula 01/10 0850 97 Nasal 2.0L Cannula Intake & Output 01/11 1600 01/11 0801/11 0000 01/10 1600 01/10 0800 01/10 0000 Intake Total 240 480 417 573 2089 Output Total 700 500 600 805 600 Balance -460 -20 -40 -365 500 Intake, IV 10 0 Intake, Oral 240 470 [phone] Number 1 0 0 1 Bowel Movements Output, Chest 5 Tube Drainage Output, Urine 700 500 600 800 600 Physical Exam: General: Alert and oriented x3, no acute distress Cardiac: RRR, s1s2 Pulm: Course breath sounds bilaterally, non-labored respiratory effort, Abd: Nontender, non-distended Ext: Moves all extremities, neurovascular grossly intact. bilateral calves soft and non-tender Results Recent Imaging Studies: PATIENT: SCOOTER BOYD PRESENT AGE: 62 PATIENT ACCOUNT NO: [id number] : 53 LOCATION: [facility] ORDERING PHYSICIAN: Amber BURKETT SERVICE DATE: 01/11/18 EXAM TYPE: RAD - XRY-PORTABLE CHEST XRAY EXAMINATION: XR PORTABLE CHEST CLINICAL INFORMATION: Atelectasis. Pneumothorax. COMPARISON: Chest x-ray 01/10/2018 TECHNIQUE: Portable frontal view of the chest was obtained. FINDINGS: Persistent right-sided pneumothorax relatively stable to minimally increased in size. Interval removal of right-sided chest tube. Severe pneumomediastinum persists although it appears slightly less prominent on today's examination. IMPRESSION: Persistent right-sided pneumothorax relatively stable to minimally increased in size. DICTATED BY: Jose Francisco Corona MD DATE/TIME DICTATED:01/11/18741 COLLECTIONS OFFICER:GONZALEZ DATE/TIME TRANSCRIBED:01/11/18741 CONFIDENTIAL, DO NOT COPY WITHOUT APPROPRIATE AUTHORIZATION. <Electronically signed in Other Vendor System> SIGNED BY: Jose Francisco Corona MD 01/11/1848 Assessment/Plan Assessment/Plan A_ POD13 sp RU lobectomy for ca, with reinsertion of CT 01/07 for sq emphysema and persistent ptx CT removed one day ago. CXR showing stable vs minimally increased ptx -continue current meds -continue current respiratory tx -follow up labs -conintue to monitor for worsening sq emphysema and worsening sob -Will discuss plan of care with Dr. Rivera Core Measures Venous Thromboembolism VTE Risk Factors Age>40 No Mechanical VTE Prophylaxis d/t N/A MechProphylax Ordered No VTE Pharm Prophylaxis d/t NA PharmProphylax ordered
--- NOTE | 2018-01-11 09:34 | PN- CRCU ---
Subjective HPI/Critical Care Issues: The patient is awake and alert. She reports having difficulty with ambulation. She was lightheaded and desaturating with significant exertion. This morning, the patient denies any increased shortness of breath. She continues to have a congested cough. There were no overnight events reported. Objective Current Medications: Current Medications Sig/Nathan Start time Last Medication Dose Route Stop Time Status Admin Al Hydroxide/Mg 30 ML Q4-6 PRN PRN 12/30 1115 AC 12/30 Hydroxide PO 2130 Albuterol Sulfate 3 ML EVERY 4 HRS/AWAKE 01/05 1600 AC 01/11 INH 0844 Albuterol Sulfate 2 PUF Q4P PRN 12/29 1600 AC INH Budesonide/ 2 PUF BID 12/29 2100 AC 01/11 Formoterol Fumarate INH 0912 Celecoxib 100 MG BID 12/29 2100 AC 01/11 PO 0911 Docusate Sodium 100 MG BID 12/29 2100 AC 01/11 PO 0911 Enoxaparin Sodium 40 MG DAILY 01/03 0900 AC 01/11 SC 0911 Gabapentin 300 MG Q8 12/29 2200 AC 01/11 PO 0554 Hydrocodone Bitart/ 1 TAB Q4P PRN 12/30 1030 AC 01/03 Acetaminophen PO 0612 Hydrocodone Bitart/ 2 TAB Q4-6 PRN PRN 12/30 1030 AC 01/11 Acetaminophen PO 0554 Melatonin 5 MG AT BEDTIME 01/01 2100 AC 01/10 PO 2222 Morphine Sulfate 2 MG Q2P PRN 01/05 0630 AC 01/10 IV 2045 Omeprazole 40 MG DAILY AC 12/30 1115 AC 01/11 PO 0553 Ondansetron HCl 4 MG Q6P PRN 12/29 170 AC 01/05 IV 2059 Tramadol HCl 100 MG Q4-6 PRN PRN 12/29 1700 AC 01/01 PO 2019 Trazodone HCl 100 MG AT BEDTIME 01/01 2100 AC 01/10 PO 2220 Vital Signs & I&O Last 24 Hrs of Vitals and I&O: Vital Signs Date Time Temp Pulse Resp B/P B/P Pulse O2 O2 Flow FiO2 Mean Ox Delivery Rate 01/12 800 98 Nasal 2.0L Cannula 01/12 800 98.1 72 18 100/50 98 Nasal 2.0L Cannula 01/11 0400 97.6 80 14 130/70 97 Nasal 2.0L Cannula 01/11 0400 97 Nasal 2.0L Cannula 01/11 0000 96 Nasal 2.0L Cannula 01/11 0000 97.5 82 20 128/62 96 Nasal 2.0L Cannula 01/11 2056 98 Nasal 2.0L Cannula 01/11 2000 97.4 81 20 90/52 96 Nasal 2.0L Cannula 01/11 2000 96 Nasal 2.0L Cannula 01/11 1600 96 Nasal 2.0L Cannula 01/11 1600 97.6 84 20 106/46 96 Nasal 2.0L Cannula 01/10 1200 94 Nasal 2.0L Cannula 01/10 1200 97.5 77 20 109/58 97 Nasal 2.0L Cannula Intake & Output 01/11 1600 01/11 0800 01/11 0000 Intake Total 240 480 Output Total 700 500 Balance -460 -20 Intake, IV 10 Intake, Oral 240 470 Number 1 Bowel Movements Output, Urine 700 500 Exam General Appearance: alert, awake, comfortable, no distress Head: significantly improved facial swelling Respiratory: crackles, anterior and posterior chest wall tenderness, palpable crepitus Cardiovascular: regular rate/rhythm Gastrointestinal: soft, non-tender Extremities: no edema Cranial Nerves: normal hearing, normal speech Skin: intact, normal color Skin Temp/Moisture Exam: Warm/Dry Results Last 24 Hrs of Lab Results: Laboratory Tests 01/11/18 0530: CBC w Diff MAN DIFF ORDERED, RBC 3.22 L, MCV 99.1 H, MCH 33.3 H, MCHC 33.6, RDW 14.9 H, MPV 7.3 L, Gran % 85.8 H, Lymphocytes % 7.1 L, Monocytes % 6.0, Eosinophils % 1.0, Basophils % 0.1, Absolute Granulocytes 10.6 H, Segmented Neutrophils 87 H, Band Neutrophils 2, Absolute Lymphocytes 0.9 L, Lymphocytes 4 L, Monocytes 7, Absolute Monocytes 0.7 H, Absolute Eosinophils 0.1, Absolute Basophils 0, Platelet Estimate INCREASED, Polychromasia 1+, Basophilic Stippling SLIGHT, Ovalocytes FEW, Fld Total RBCs Counted 100 Impression/Plan Impression/Plan Impression/Plan: 1. 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 2. Hypoxemic respiratory failure in the setting of worsening right pneumothorax and emphysema. 3. Aspiration pneumonia. The patient is now on Unasyn. Cultures are negative. 4. History of COPD without evidence of acute bronchospasm. 5. History of hypertension, hyperlipidemia and proximal SVT. 6. Subcutaneous emphysema. Recommendations: * Continue with nebs/total respiratory care. * Continue oxygen, maintain saturations greater than 92%. * Monitor off antibiotics. Unasyn course completed on 01/06/18. * Continue with incentive spirometry/postoperative thoracotomy protocol. * Continue with pain control. * Out of bed to chair daily. * DVT prophylaxis at all times. * Continue all supportive care. Code Status: Full Code
[2018-01-11 12:00] VITALS: BP 92/50
[2018-01-11 13:47] VITALS: BP 98/54
[2018-01-11 20:00] VITALS: BP 112/62
[2018-01-12] VITALS: BP 90/50
[2018-01-12 04:00] VITALS: BP 106/60
[2018-01-12 05:19] LABS: ABSOLUTE BASOPHIL COUNT 0 /CUMM (0.0-0.2); ABSOLUTE EOSINOPHIL COUNT 0.3 /CUMM (0.0-0.7); ABSOLUTE GRANULOCYTE CT 14.7 /CUMM (1.4-6.5); ABSOLUTE LYMPH COUNT 0.7 /CUMM (1.2-3.4); ABSOLUTE MONOCYTE COUNT 1.3 /CUMM (0.10-0.60); BASOPHIL % 0.1 % (0.0-2.0); EOSINOPHIL % 1.9 % (0-5); HEMATOCRIT 29.5 % (37-47); MEAN CORPUSCULAR HGB 33.3 PG (27.0-31.0); MEAN CORPUSCULAR HGB CONC 33.5 G/DL (33.0-37.0); MEAN CORPUSCULAR VOLUME 99.5 FL (81.0-99.0); MEAN PLATELET VOLUME 7.5 FL (7.4-10.4); RBC DISTRIBUTION WIDTH 15.1 % (11.5-14.5); RED BLOOD CELL CT 2.96 /CUMM (4.20-5.40); WHITE BLOOD CELL COUNT 17.1 /CUMM (4.8-10.8)
[2018-01-12 06:04] LABS: PLATELET COUNT 646 /CUMM (130-400)
--- NOTE | 2018-01-12 06:38 | PN- Thoracic Surgery ---
Subjective Subjective: feeling ok, denies sob at rest, some sob when oob, no n/v, syed diet, +voids, +bm Objective Vital Signs and I&Os Vital Signs Date Time Temp Pulse Resp B/P B/P Pulse O2 O2 Flow FiO2 Mean Ox Delivery Rate 01/12 040 95 Nasal 2.0L Cannula 01/12 040 97.7 80 18 106/60 95 Nasal 2.0L Cannula 01/12 0000 92 Nasal 2.0L Cannula 01/12 0000 98.1 82 21 90/50 92 Nasal 2.0L Cannula 01/12 2000 95 Nasal 2.0L Cannula 01/12 2000 98.7 97 22 112/62 95 Nasal 2.0L Cannula 01/11 1815 96 Nasal 2.0L Cannula 01/11 1444 Nasal 4.0L Cannula 01/11 1347 78 98/54 01/11 1321 95 Nasal 2.0L Cannula 01/11 1200 96 Nasal 2.0L Cannula 01/11 1200 97.7 82 18 92/50 96 Nasal 2.0L Cannula 01/11 0800 98 Nasal 2.0L Cannula 01/11 0800 98.1 72 18 100/50 98 Nasal 2.0L Cannula Intake & Output 01/12 0801/12 0000 01/11 1600 01/11 0800 01/11 0000 01/10 1600 Intake Total 360 730 240 480 560 Output Total 350 250 700 500 600 Balance 10 480 -460 -20 -40 Intake, IV 10 10 0 Intake, Oral 360 720 240 470 560 Number 1 0 Bowel Movements Output, Urine 350 250 700 500 600 Physical Exam: gen- nad card- s1s2 pulm- coarse thoughtout but improved, decreased bs r apex, thoracotomy site cdi w steris, ct sites cdi ext- calves soft nt Results Last 48 Hours of Labs: Laboratory Tests 01/12 01/11 0400 0530 Chemistry Sodium (137 - 145 mmol/L) 135 L Potassium (3.5 - 5.1 mmol/L) 4.6 Chloride (98 - 107 mmol/L) 96 L Carbon Dioxide (22 - 30 mmol/L) 34 H Anion Gap (5 - 16) 6 BUN (7 - 17 mg/dL) 13 Creatinine (0.5 - 1.0 mg/dL) 0.6 Estimated GFR (>60 ml/min) > 60 BUN/Creatinine Ratio (7 - 25 %) 21.7 Hematology CBC w Diff NO MAN DIFF REQ MAN DIFF ORDERED WBC (4.8 - 10.8 /CUMM) 17.1 H 12.3 H RBC (4.20 - 5.40 /CUMM) 2.96 L 3.22 L Hgb (12.0 - 16.0 G/DL) 9.9 L 10.7 L Hct (37 - 47 %) 29.5 L 31.9 L MCV (81.0 - 99.0 FL) 99.5 H 99.1 H MCH (27.0 - 31.0 PG) 33.3 H 33.3 H MCHC (33.0 - 37.0 G/DL) 33.5 33.6 RDW (11.5 - 14.5 %) 15.1 H 14.9 H Plt Count (130 - 400 /CUMM) 646 H 631 H MPV (7.4 - 10.4 FL) 7.5 7.3 L Gran % (42.2 - 75.2 %) 86.0 H 85.8 H Lymphocytes % (20.5 - 51.1 %) 4.3 L 7.1 L Monocytes % (1.7 - 9.3 %) 7.7 6.0 Eosinophils % (0 - 5 %) 1.9 1.0 Basophils % (0.0 - 2.0 %) 0.1 0.1 Absolute Granulocytes (1.4 - 6.5 /CUMM) 14.7 H 10.6 H Segmented Neutrophils (42.2 - 75.2 %) 87 H Band Neutrophils (0.0 - 5.0 %) 2 Absolute Lymphocytes (1.2 - 3.4 /CUMM) 0.7 L 0.9 L Lymphocytes (20.5 - 51.1 %) 4 L Monocytes (1.7 - 9.3 %) 7 Absolute Monocytes (0.10 - 0.60 /CUMM) 1.3 H 0.7 H Absolute Eosinophils (0.0 - 0.7 /CUMM) 0.3 0.1 Absolute Basophils (0.0 - 0.2 /CUMM) 0 0 Platelet Estimate (ADEQUATE) INCREASED Polychromasia 1+ Basophilic Stippling SLIGHT Ovalocytes FEW Other Body Source Fld Total RBCs Counted (%) 100 Recent Imaging Studies: CXR pending Assessment/Plan Assessment/Plan A- POD14, with improving sq air and stable ptx, on 2L nc, with significant sob when oob. P- pt eval, likely str placement prn pain meds labs pending cxr pending titrate o2 dc planning Core Measures Venous Thromboembolism VTE Risk Factors Age>40 No Mechanical VTE Prophylaxis d/t N/A MechProphylax Ordered No VTE Pharm Prophylaxis d/t NA PharmProphylax ordered
--- NOTE | 2018-01-12 07:14 | PN- Resident CRCU ---
Subjective HPI/CRCU Issues: S/p right upper lobectomy for adenocarcinoma, POD#14 Right Pneumothorax with chest tube replacement History of previous left upper lobectomy for Stage IB lung cancer and mediastinal recurrence Smoking 24 Hour Events: No overnight acute events noted. Alert and oriented. Reports improvement in symptoms. Reports shortness of breath when she walks up to the commode at bedside. Patient is having elevated white count however no bands. She has thrombocytosis which can also be an acute phase reactant. She denies any fevers or chills. Does not have any urinary symptoms. Continues to have brown productive cough. Does not report any pain or swelling at IV site. Subcutaneous emphysema is improving. Reports pain at chest tube site improved from yesterday Objective Vital Signs & I&O Last 8 Hrs of Vitals and I&O: Laboratory Tests 01/12 01/12 1025 0400 Chemistry Sodium (137 - 145 mmol/L) 135 L Potassium (3.5 - 5.1 mmol/L) 4.6 Chloride (98 - 107 mmol/L) 96 L Carbon Dioxide (22 - 30 mmol/L) 34 H Anion Gap (5 - 16) 6 BUN (7 - 17 mg/dL) 13 Creatinine (0.5 - 1.0 mg/dL) 0.6 Estimated GFR (>60 ml/min) > 60 BUN/Creatinine Ratio (7 - 25 %) 21.7 Hematology CBC w Diff NO MAN DIFF REQ WBC (4.8 - 10.8 /CUMM) 17.1 H RBC (4.20 - 5.40 /CUMM) 2.96 L Hgb (12.0 - 16.0 G/DL) 9.9 L Hct (37 - 47 %) 29.5 L MCV (81.0 - 99.0 FL) 99.5 H MCH (27.0 - 31.0 PG) 33.3 H MCHC (33.0 - 37.0 G/DL) 33.5 RDW (11.5 - 14.5 %) 15.1 H Plt Count (130 - 400 /CUMM) 646 H MPV (7.4 - 10.4 FL) 7.5 Gran % (42.2 - 75.2 %) 86.0 H Lymphocytes % (20.5 - 51.1 %) 4.3 L Monocytes % (1.7 - 9.3 %) 7.7 Eosinophils % (0 - 5 %) 1.9 Basophils % (0.0 - 2.0 %) 0.1 Absolute Granulocytes (1.4 - 6.5 /CUMM) 14.7 H Absolute Lymphocytes (1.2 - 3.4 /CUMM) 0.7 L Absolute Monocytes (0.10 - 0.60 /CUMM) 1.3 H Absolute Eosinophils (0.0 - 0.7 /CUMM) 0.3 Absolute Basophils (0.0 - 0.2 /CUMM) 0 Urines Urine Color Pending Urine Clarity Pending Urine pH Pending Ur Specific [place] Pending Urine Protein Pending Urine Ketones Pending Urine Nitrite Pending Urine Bilirubin Pending Urine Urobilinogen Pending Ur Leukocyte Esterase Pending Ur Microscopic Pending Urine Hemoglobin Pending Urine Glucose Pending Vital Signs Date Time Temp Pulse Resp B/P B/P Pulse O2 O2 Flow FiO2 Mean Ox Delivery Rate 01/12 0913 96 Nasal 2.0L Cannula 01/12 0400 95 Nasal 2.0L Cannula 01/12 0400 97.7 80 18 106/60 95 Nasal 2.0L Cannula 01/12 0000 92 Nasal 2.0L Cannula 01/12 0000 98.1 82 21 90/50 92 Nasal 2.0L Cannula 01/12 2000 95 Nasal 2.0L Cannula 01/12 2000 98.7 97 22 112/62 95 Nasal 2.0L Cannula 01/11 1815 96 Nasal 2.0L Cannula 01/11 1444 Nasal 4.0L Cannula 01/11 1347 78 98/54 01/11 1321 95 Nasal 2.0L Cannula 01/11 1200 96 Nasal 2.0L Cannula 01/11 1200 97.7 82 18 92/50 96 Nasal 2.0L Cannula Intake & Output 01/12 1600 01/12 0800 01/12 0000 Intake Total 200 360 Output Total 850 350 Balance -650 10 Intake, Oral 200 360 Output, Urine 850 350 Exam General Appearance: no apparent distress, alert, awake Head: improvement in subcutaneous emphysema Respiratory: normal breath sounds, crackles, chest tender at site of chest tube, palpable crepitus Cardiovascular: regular rate/rhythm Gastrointestinal: normal bowel sounds, soft, non-tender Extremities: no edema Current Medications: Current Medications Sig/Nathan Start time Last Medication Dose Route Stop Time Status Admin Al Hydroxide/Mg 30 ML Q4-6 PRN PRN 12/30 1115 AC 12/30 Hydroxide PO 2130 Albuterol Sulfate 3 ML EVERY 4 HRS/AWAKE 01/05 1600 AC 01/12 INH 0858 Albuterol Sulfate 2 PUF Q4P PRN 12/29 1600 AC INH Budesonide/ 2 PUF BID 12/29 2100 AC 01/12 Formoterol Fumarate INH 1029 Celecoxib 100 MG BID 12/29 2100 AC 01/12 PO 1028 Docusate Sodium 100 MG BID 12/29 2100 AC 01/12 PO 1028 Enoxaparin Sodium 40 MG DAILY 01/03 0900 AC 01/12 SC 1028 Gabapentin 300 MG Q8 12/29 2200 AC 01/12 PO 0607 Hydrocodone Bitart/ 1 TAB Q4P PRN 12/30 1030 AC 01/03 Acetaminophen PO 0612 Hydrocodone Bitart/ 2 TAB Q4-6 PRN PRN 12/30 1030 AC 01/12 Acetaminophen PO 0353 Melatonin 5 MG AT BEDTIME 01/01 2100 AC 01/11 PO 205 Morphine Sulfate 2 MG Q2P PRN 01/05 0630 DC 01/10 IV 204 Omeprazole 40 MG DAILY AC 12/30 1115 AC 01/12 PO 0607 Ondansetron HCl 4 MG Q6P PRN 12/29 1700 AC 01/05 IV 205 Tramadol HCl 100 MG Q4-6 PRN PRN 12/29 1700 AC 01/01 PO 2019 Trazodone HCl 100 MG AT BEDTIME 01/01 2100 AC 01/11 PO 2055 Impression/Plan Impression/Problem List Impression: 62 year old female with PMH significant for HTN, HLD, paroxysmal SVT, smoking, history of stage IB left upper lobe lung cancer s/p left upper lobectomy in 2011 with mediastinal recurrence in 2013 treated with chemoradiotherapy is now admitted to critical care for postoperative care after right upper lobectomy for a new primary right upper lobe biopsy confirmed non small cell lung cancer. She is currently post operative day 13 with hospital course complicated by recurrent pneumothorax after chest tube removal requiring thoracic vent and chest tube replacement on 01/07 with significant subcutaneous emphysema. She is clinically improving with decreased supplemental oxygen requirement and chest tube has been removed yesterday #Leukocytosis Patient has an elevated white cell count up to 17 yesterday it was 12 there are no bands present. There is significant thrombocytosis which is concerning for an acute phase reaction. Patient has been previously treated for aspiration pneumonia with Unasyn course being completed on 01/06. Patient remains afebrile. Does not report any chills. She does not report any urinary symptoms. There is no tenderness, erythema or edema at IV access. Patient continues to have cough with brown colored sputum -Sputum culture -Repeat chest x-ray today -Blood cultures, UA, urine culture -ID consult #Right upper lobectomy for adenocarcinoma: POD #14 -OOB to chair -Regular diet -Celebrex, tramadol, gabapentin, and vicodin prn for analgesia -Zofran prn and PO PPI #Post operative acute hypoxemic respiratory failure: -Secondary to underlying lung disease, smoking, COPD, prior left upper lobectomy and worsening right pneumothorax after chest tube removal -Continue TRC care -Nebulized albuterol -Supplemental oxygen to maintain SpO2 > 90% -Continue symbicort -Continue with incentive spirometry/postoperative thoracotomy protocol #Aspiration pneumonia -s/p 7 day course of Unasyn -Cultures are negative -Afebrile Regular diet DVT ppx-lovenox 40mg sc daily Full code Problem List: 1. Pneumothorax, right 2. Primary cancer of right upper lobe of lung 3. Lung cancer Pain Ratin Tomorrow's Labs & Rationales: cbc bep Plan DVT/Prophylaxis: mechanical Code Status: Full Code
--- NOTE | 2018-01-12 07:50 | RADIOLOGY REPORT ---
EXAMINATION: XR PORTABLE CHEST CLINICAL INFORMATION: Pneumothorax COMPARISON: Numerous prior chest radiographs, the most recent 01/11/2018 TECHNIQUE: Portable frontal view of the chest was obtained. FINDINGS: Stable right-sided pneumothorax. Suspected pigtail catheter projects over the right lung apex. Alternatively this may represent tubing for nasal cannula. Clinical correlation recommended. Subcutaneous emphysema demonstrates interval improvement. Unchanged left paramediastinal density. IMPRESSION: Stable pneumothorax.
--- NOTE | 2018-01-12 08:23 | PN- CRCU ---
Subjective HPI/Critical Care Issues: The patient is awake and alert. She continues to feel that she is improving. The patient remains afebrile. She continues to have a cough productive of clear to brownish sputum. This is not changed. There is no hemoptysis. She denies dysuria. She has no chills. Overall she is feeling improved and denies any new complaints today. Objective Current Medications: Current Medications Sig/Nathan Start time Last Medication Dose Route Stop Time Status Admin Al Hydroxide/Mg 30 ML Q4-6 PRN PRN 12/30 1115 AC 12/30 Hydroxide PO 213 Albuterol Sulfate 3 ML EVERY 4 HRS/AWAKE 01/05 1600 AC 01/11 INH 2139 Albuterol Sulfate 2 PUF Q4P PRN 12/29 1600 AC INH Budesonide/ 2 PUF BID 12/29 2099 AC 01/11 Formoterol Fumarate INH 2054 Celecoxib 100 MG BID 12/29 2100 AC 01/11 PO 2055 Docusate Sodium 100 MG BID 12/29 2100 AC 01/11 PO 2055 Enoxaparin Sodium 40 MG DAILY 01/03 0900 AC 01/11 SC 0911 Gabapentin 300 MG Q8 12/29 2200 AC 01/12 PO 06 Hydrocodone Bitart/ 1 TAB Q4P PRN 12/30 1030 AC 01/03 Acetaminophen PO 0612 Hydrocodone Bitart/ 2 TAB Q4-6 PRN PRN 12/30 1030 AC 01/12 Acetaminophen PO 0353 Melatonin 5 MG AT BEDTIME 01/01 2100 AC 01/11 PO 2055 Morphine Sulfate 2 MG Q2P PRN 01/05 0630 DC 01/10 IV 204 Omeprazole 40 MG DAILY AC 12/30 1115 AC 01/12 PO 06 Ondansetron HCl 4 MG Q6P PRN 12/29 170 AC 01/05 IV 205 Tramadol HCl 100 MG Q4-6 PRN PRN 12/29 170 AC 01/01 PO 2019 Trazodone HCl 100 MG AT BEDTIME 01/01 2100 AC 01/11 PO 2055 Vital Signs & I&O Last 24 Hrs of Vitals and I&O: Vital Signs Date Time Temp Pulse Resp B/P B/P Pulse O2 O2 Flow FiO2 Mean Ox Delivery Rate 01/12 0400 95 Nasal 2.0L Cannula 01/13 400 97.7 80 18 106/60 95 Nasal 2.0L Cannula 01/12 0000 92 Nasal 2.0L Cannula 01/12 0000 98.1 82 21 90/50 92 Nasal 2.0L Cannula 01/12 2000 95 Nasal 2.0L Cannula 01/12 2000 98.7 97 22 112/62 95 Nasal 2.0L Cannula 01/11 1815 96 Nasal 2.0L Cannula 01/11 1444 Nasal 4.0L Cannula 01/11 1347 78 98/54 01/11 1321 95 Nasal 2.0L Cannula 01/11 1200 96 Nasal 2.0L Cannula 01/11 1200 97.7 82 18 92/50 96 Nasal 2.0L Cannula Intake & Output 01/12 1600 01/12 0800 01/12 0000 Intake Total 200 360 Output Total 850 350 Balance -650 10 Intake, Oral 200 360 Output, Urine 850 350 Exam General Appearance: alert, awake, comfortable, no distress Head: significantly improved facial swelling Respiratory: crackles, anterior and posterior chest wall tenderness, palpable crepitus Cardiovascular: regular rate/rhythm Gastrointestinal: soft, non-tender Extremities: no edema Cranial Nerves: normal hearing, normal speech Skin: intact, normal color Skin Temp/Moisture Exam: Warm/Dry Results Last 24 Hrs of Lab Results: Laboratory Tests 01/12/18 0400: Anion Gap 6, Estimated GFR > 60, BUN/Creatinine Ratio 21.7, CBC w Diff NO MAN DIFF REQ, RBC 2.96 L, MCV 99.5 H, MCH 33.3 H, MCHC 33.5, RDW 15.1 H, MPV 7.5 , Gran % 86.0 H, Lymphocytes % 4.3 L, Monocytes % 7.7, Eosinophils % 1.9, Basophils % 0.1, Absolute Granulocytes 14.7 H, Absolute Lymphocytes 0.7 L, Absolute Monocytes 1.3 H, Absolute Eosinophils 0.3, Absolute Basophils 0 Impression/Plan Impression/Plan Impression/Plan: 1. 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 2. Hypoxemic respiratory failure in the setting of worsening right pneumothorax and emphysema. 3. Aspiration pneumonia. The patient is now on Unasyn. Cultures are negative. 4. History of COPD without evidence of acute bronchospasm. 5. History of hypertension, hyperlipidemia and proximal SVT. 6. Subcutaneous emphysema. Recommendations: * Check a UA, UC, BCs, sputum culture. * ID consult to be requested today. * Out of bed to chair, increase activity, PT for ambulation. * Continue nebs/TRC. * Continue all current medications. * Downgrade to [facility]. * Plan is to transfer to [place] when stable. Code Status: Full Code
--- NOTE | 2018-01-12 09:58 | Surgical Discharge Summary ---
Visit Information Visit Dates Admission Date: 12/29/17 Discharge Date: 01/16/18 History of Present Illness Chief Complaint: Right upper lobe lung cancer Medical History Neurological: peripheral neuropathy Cardiovascular: hypertension, hyperlipidemia, paroxysmal SVT Respiratory: COPD, lung cancer Endocrine: hyperthyroidism History of MRSA: No History of VRE: No History of CDIFF: No Isolation History: Standard Surgical History Pertinent Surgical History: appendectomy, left upper lobectomy, tubal and ovarian cystectomy, knee arthroscopy, tonsillectomy, L arm ORIF Psychosocial History Where Do You Live? Home Who Do You Live With? Spouse Services at Home: None What is Your Primary Language? Macedonian Review of Systems: See [facility] Hospital Course Course Attending Physician: Miguel Simon MD,Roddy Hameed Primary Care Physician: Marcelo Hines MD Hospital Course: Patient underwent a right upper lobe lobectomy with mediastinal lymph node dissection on 12/29/2017. Surgery was without complications. She was transferred to the ICU for continued monitoring. She received daily chest x- rays and had [address] and surgery. The first chest tube was removed within a few days of the procedure, the second chest tube remained until 01/04/18 due to persistent mild air leak and small pneumothorax. The following day on 01/05/2018 the patient had worsening subcu emphysema and worsening shortness of breath and worsening pneumothorax and a Thora vent was placed at the bedside. This temporarily improved her symptoms however on 01/07/2018, patient developed worsening respiratory distress and it was evident that the Thora vent was no longer effective in managing her pneumothorax so she was taken back to the operating room by Dr. Rivera on 01/07/2018 and a right-sided chest tube was placed secondary to right-sided pneumothorax. Patient stabilized after this. After 3 days the chest tube was removed and subsequent chest x-rays were monitored and she has improvement of her subcu emphysema and a persistent small right-sided pneumothorax which has not worsened since chest tube removal. She developed a gram negative post-op pneumonia (klebsiella) and associated leukocytosis, which resolved on iv vanco / fortaz, transitioned to oral antibiotics upon discharge. CT chest shows hydropneumothorax, with clinically improving subcutaneous emphysema. Throughout her hospital stay here she received DVT prophylaxis with Lovenox, total respiratory care, oxygen supplementation and she was evaluated for physical therapy due to deconditioning, with recommendations for continued PT at a skilled nurse facility due to her overall body deconditioning due to her prolonged hospital stay and intolerance to physical activity due to her overall respiratory status. She has been followed by pulmonology ( is her knowledge engineer), critical care, and infectious disease through her hospitalization. Complications: Significant subcutaneous emphysema stable hydropneumothorax, right side post-op pneumonia, gram negative el Allergies: Coded Allergies: Penicillins (LIP SWELLING 12/21/17) acetaminophen (UNKNOWN 12/21/17) codeine (UNKNOWN 12/21/17) latex (UNKNOWN 12/21/17) oxycodone (UNKNOWN 12/21/17) Significant Procedures: See above Pertinent Lab Results: SPEC #: [id number] MYRIAM: 01/12/18 STATUS: COMP RECD: 01/12/18-[address]: Frederic HINDS,Hedy SOURCE: LOWER RESP ENTR: 01/12/18-[address]: Miguel Simon MD, Roddy Hameed SPDESC: SPUTUM Marcelo Hines MD ORDERED: LOWER RESPIRATO Procedure Result > GRAM STAIN Final 01/13/18-1502 WHITE BLOOD CELLS FEW SQUAMOUS CELLS RARE GRAM POSITIVE COCCI FEW GRAM POSITIVE RODS RARE > LOWER RESPIRATORY CULTURE Final 01/14/18-1035 Mixed cy after 2 days with Light growth of: KLEBSIELLA PNEUMONIAE 1. KLEBSIELLA PNEUMONIAE RX AB ------ -- AMPICILLIN R CEFAZOLIN S AMOXICILLIN/CLAVULINIC ACID S AMPICILLIN/SULBACTAM S CIPROFLOXACIN S GENTAMICIN S TRIMETHOPRIM/SULFAMETHOXAZOLE S Disposition Summary Disposition Principal Diagnosis: Right upper lobe lung cancer status post right upper lobe lobectomy with mediastinal lymph node dissection Additional Diagnosis: postoperative pneumonia, sputum is positive for klebsiella hydropneumothorax on CT scan Discharge Disposition: SNF Discharge Instructions General Discharge Information Code Status: Full Code Patient's Diet: Regular diet Patient's Activity: Progress as tolerated. no heavy lifting >10 lbs. no strenuous activity Follow-Up Instructions/Appts: 1-2 weekss with 1-2 weeks with Medications at Discharge Discharge Medications: Continue taking these medications: Trazodone HCl (Trazodone HCl) 100 MG TABLET 1 Tablet ORAL Every night as needed for SLEEP Albuterol Sulfate (Proair Hfa) 90 MCG HFA.AER.AD 2 Puff Inhale through mouth EVERY 4-6 HOURS NEEDED as needed for COPD Budesonide/Formoterol Fumarate (Symbicort 160-4.5 Mcg Inhaler) 160 MCG-4.5 MCG/ ACTUATION HFA.AER.AD 2 Puff Inhale through mouth TWICE DAILY as needed for COPD Start taking the following new medications: Docusate Sodium (Docusate Sodium) 100 MG CAPSULE 100 Milligram ORAL TWICE DAILY as needed for CONSTIPATION Days = 30 No Refills Hydrocodone/Acetaminophen (Vicodin 5-300 MG Tablet) 5 MG-300 MG TABLET 1-2 Tablet ORAL EVERY 4-6 HOURS NEEDED as needed for pain control Qty = 30 No Refills Instructions: tylenol alternatively. do not combine. Copies To: Raffi HINDS,Sanjuana [place]; Mario Alberto HINDS,Myke Zhang; Donny HINDS,Marcelo Yanez
--- NOTE | 2018-01-12 14:33 | Cons- Infect Disease ---
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 Her postop course was initially complicated by a small right pneumothorax, hemoptysis and a significant air leak. On January 02 she developed increased hypoxia, requiring high flow oxygen, and a productive cough and she was begun on Unasyn, which was continued for 4 days. On January 06 her chest tube was removed, after which her chest x-ray revealed an increased pneumothorax, with increasing subcutaneous emphysema involving the face, chest and trunk. A right anterior thoravent was placed to decrease the subcutaneous air and on January 07 she was taken back to the OR for placement of a right chest tube. She has overall improved since then, and the chest tube was removed on January 10. She has remained afebrile since admission. Her white blood cell count was normal until January 11, when it increased to 12,000, and it has increased to 17,000 today. She notes a cough, productive of green sputum over the last 2 days, but does not report any shortness of breath or chest pain. She has no GI or symptoms. Allergies/Medications Allergies: Coded Allergies: Penicillins (LIP SWELLING 12/21/17) acetaminophen (UNKNOWN 12/21/17) codeine (UNKNOWN 12/21/17) latex (UNKNOWN 12/21/17) oxycodone (UNKNOWN 12/21/17) Home Med List: Albuterol Sulfate (Proair Hfa) 90 MCG HFA.AER.AD 2 PUF INH Q4-6 PRN PRN COPD (Reported) Budesonide/Formoterol Fumarate (Symbicort 160-4.5 Mcg Inhaler) 160 MCG-4.5 MCG/ ACTUATION HFA.AER.AD 2 PUF INH BID PRN COPD (Reported) Docusate Sodium 100 MG CAPSULE 100 MG PO BID PRN CONSTIPATION Hydrocodone/Acetaminophen (Vicodin 5-300 MG Tablet) 5 MG-300 MG TABLET 1-2 TAB PO Q4-6 PRN PRN pain control tylenol alternatively. do not combine. Trazodone HCl 100 MG TABLET 1 TAB PO QPM PRN SLEEP (Reported) Past History Travel History Traveled to [place] past 21 day No Medical History Neurological: peripheral neuropathy Cardiovascular: hypertension, hyperlipidemia, paroxysmal SVT Respiratory: COPD, lung cancer Endocrine: hyperthyroidism History of MRSA: No History of VRE: No History of CDIFF: No Isolation History: Standard Surgical History Surgical History: appendectomy, left upper lobectomy, tubal and ovarian cystectomy, knee arthroscopy, tonsillectomy, L arm ORIF Psychosocial History Where Do You Live? Home Services at Home: None Smoking Status: Current Everyday Smoker Functional Ability ADLs Independent: dressing, eating, toileting, bathing. Ambulation: independent IADLs Independent: shopping, housework, finances, food prep, telephone, transportation , medication admin. Employment History Employment: Retired Profession/Employer: payroll Review of Systems Review of Systems All Other Systems: Reviewed and Negative Exam & Diagnostic Data Last 24 Hrs of Vital Signs/I&O Vital Signs Date Time Temp Pulse Resp B/P B/P Pulse O2 O2 Flow FiO2 Mean Ox Delivery Rate 01/12 0913 96 Nasal 2.0L Cannula 01/12 0400 95 Nasal 2.0L Cannula 01/12 040 97.7 80 18 106/60 95 Nasal 2.0L Cannula 01/12 0000 92 Nasal 2.0L Cannula 01/12 0000 98.1 82 21 90/50 92 Nasal 2.0L Cannula 01/12 2000 95 Nasal 2.0L Cannula 01/12 2000 98.7 97 22 112/62 95 Nasal 2.0L Cannula 01/11 1815 96 Nasal 2.0L Cannula 01/11 1444 Nasal 4.0L Cannula Intake & Output 01/12 1600 01/12 0800 01/12 0000 Intake Total 200 360 Output Total 850 350 Balance -650 10 Intake, Oral 200 360 Output, Urine 850 350 Physical Exam Other Physical Findings: She is awake and alert in no acute distress. She is afebrile. Skin crepitus noted over the right neck and right upper extremity; no rash. HEENT exam is negative. Neck is supple with no adenopathy. Chest chest tube site on the right with no inflammation. Lungs crackles on the right. Heart regular rhythm with no murmur. Abdomen is soft, nontender with positive bowel sounds. Back no CVA tenderness. Extremities no cyanosis, clubbing or edema. Neuro is without focality. Last 24 Hours of Lab Results: Laboratory Tests 01/12 01/12 1025 0400 Chemistry Sodium (137 - 145 mmol/L) 135 L Potassium (3.5 - 5.1 mmol/L) 4.6 Chloride (98 - 107 mmol/L) 96 L Carbon Dioxide (22 - 30 mmol/L) 34 H Anion Gap (5 - 16) 6 BUN (7 - 17 mg/dL) 13 Creatinine (0.5 - 1.0 mg/dL) 0.6 Estimated GFR (>60 ml/min) > 60 BUN/Creatinine Ratio (7 - 25 %) 21.7 Hematology CBC w Diff NO MAN DIFF REQ WBC (4.8 - 10.8 /CUMM) 17.1 H RBC (4.20 - 5.40 /CUMM) 2.96 L Hgb (12.0 - 16.0 G/DL) 9.9 L Hct (37 - 47 %) 29.5 L MCV (81.0 - 99.0 FL) 99.5 H MCH (27.0 - 31.0 PG) 33.3 H MCHC (33.0 - 37.0 G/DL) 33.5 RDW (11.5 - 14.5 %) 15.1 H Plt Count (130 - 400 /CUMM) 646 H MPV (7.4 - 10.4 FL) 7.5 Gran % (42.2 - 75.2 %) 86.0 H Lymphocytes % (20.5 - 51.1 %) 4.3 L Monocytes % (1.7 - 9.3 %) 7.7 Eosinophils % (0 - 5 %) 1.9 Basophils % (0.0 - 2.0 %) 0.1 Absolute Granulocytes (1.4 - 6.5 /CUMM) 14.7 H Absolute Lymphocytes (1.2 - 3.4 /CUMM) 0.7 L Absolute Monocytes (0.10 - 0.60 /CUMM) 1.3 H Absolute Eosinophils (0.0 - 0.7 /CUMM) 0.3 Absolute Basophils (0.0 - 0.2 /CUMM) 0 Urines Urine Color (YEL,AMB,STR) YEL Urine Clarity (CLEAR) CLEAR Urine pH (5.0 - 8.0) 7.5 Ur Specific [place] (1.001 - 1.035) 1.015 Urine Protein (NEG,<30 MG/DL) TRACE H Urine Ketones (NEG) NEG Urine Nitrite (NEG) NEG Urine Bilirubin (NEG) NEG Urine Urobilinogen (0.1 - 1.0 EU/dl) 1.0 Ur Leukocyte Esterase (NEG) NEG Ur Microscopic SEDIMENT EXAMINED Urine RBC (0 - 5 /HPF) RARE Urine WBC (0 - 2 /HPF) 1-3 H Ur Epithelial Cells (NONE,FEW) MOD H Urine Hemoglobin (NEG) NEG Urine Glucose (N MG/DL) NEG Last 24 Hours of [place] Results: Urine culture December 29 negative Blood cultures January 02 negative Urine culture January 02 negative Blood cultures January 12 pending Urine culture January 12 pending Diagnostic Data Recent Imaging Findings: Chest x-ray January 12 reveals a stable right-sided pneumothorax, with improvement in the subcutaneous emphysema Assessment/Plan Assessment/Plan Impression: This is a 62-year-old woman smoker, with a history of left upper lobe lung cancer 6 years prior to admission, status post lobectomy and chemotherapy, with a mediastinal recurrence 2 years later, treated with chemoradiation therapy, admitted on December 29 for a right upper lobectomy with mediastinal lymph node dissection after found to have adenocarcinoma of the right upper lobe, with her postop course complicated by a pneumothorax, hemoptysis and a significant air leak, requiring replacement of the chest tube in the OR after she developed increasing subcutaneous emphysema following removal of the chest tube, now with a productive cough and an increasing white blood cell count. The most likely explanation for her leukocytosis is a pulmonary infection, either pneumonia or a tracheobronchitis. Her chest x-ray does not reveal any new process, but it is limited given the persistent pneumothorax and subcutaneous emphysema; therefore additional imaging, for example with a CT of the chest, may need to be considered. It would be reasonable to cover her empirically with antibiotics and, hopefully, a sputum can be obtained, which would help narrow the antibiotics. She has no other obvious focus of infection. Suggestion: 1. Obtain a sputum culture 2. Repeat the nares screen for MRSA 3. Consider CT of the chest 4. Begin Vancomycin 1 g IV every 24 hours and Ceftazidime 1 g IV every 8 hours pending above Consult Acknowledgment - Thank you for your consult request.
--- NOTE | 2018-01-12 18:33 | CT SCAN REPORT ---
EXAMINATION: CT CHEST WITHOUT CONTRAST CLINICAL INFORMATION: Elevated white count looking for pneumonia. COMPARISON: CT chest 11/05/2017. CT lung biopsy 12/01/2017 and several chest x-rays from this week and recent 01/12/2018. TECHNIQUE: Multidetector volumetric CT imaging of the chest was done. Axial MIP volume rendering provided. Sagittal and coronal reformatted images were obtained. DLP: 256 mGy-cm FINDINGS: Previously noted right upper lobe pulmonary nodule measuring approximately 1.1 cm is not visualized at this time, likely secondary to lobectomy. There are changes of left upper lobectomy with postradiation scarring or atelectasis along the superior paramediastinum. There is a hydropneumothorax right upper lobe with thickening of superior major fissure from fluid. There are surgical sutures seen in this fissure from previous intervention. No chest catheter is seen in the right lung apex as was suspected on the recent chest exam. There is no mediastinal shift. There is new right lower lobe patchy consolidation with pockets of air collection within the consolidation and air collection in the right posterior pleural space with minimal fluid suggestive of inflammatory process. This could be residual collection as was noted on the previous several chest x-rays. Previously visualized chest catheter on several other chest x-rays are not seen at this time and likely the catheter has been removed. There are some ground-glass changes in the left lung likely low-grade inflammatory process. No pleural effusion or pneumothorax seen. The heart size and the great vessels are normal caliber. Atherosclerotic changes of thoracic aorta. Small shotty lymph nodes are seen in the mediastinum. No pericardial effusion seen. Again visualized is extensive subcutaneous anterior chest wall and right anterolateral chest wall emphysema. There are no abnormal lymph nodes in the axilla. Imaging through the upper abdomen reveals visualized liver, spleen, pancreas and adrenal glands are unremarkable. IMPRESSION: Loculated hydropneumothorax in the right upper hemithorax. No right apical chest catheter seen. A chest tube may be beneficial. There is right lower lobe patchy consolidation with pockets of air collection including air and fluid within the right basilar pleural space. This finding could be secondary to previous chest tube insertion and subsequent catheter removal. Some residual findings persist. Thickened right major fissure from fluid collection is noted. There is ground-glass attenuation seen in the left lower lobe and right lower lobe as well. Bilateral upper lobe lobectomy changes more recent on the right side and likely remote on the left side. No abnormal mediastinal adenopathy.
[2018-01-12 19:30] VITALS: BP 118/62
[2018-01-13 06:39] VITALS: BP 104/54
--- NOTE | 2018-01-13 07:50 | PN- Thoracic Surgery ---
Subjective Subjective: Patient reports "feeling lousy" this morning. Was diaphoretic overnight. Denies worsening chest pain and shortness of breath, but states that she doesnt note any improvement, especially when ambulating. Chest tube site remains sore. No difficulties urinating or moving bowels. Objective Vital Signs and I&Os Vital Signs Date Time Temp Pulse Resp B/P B/P Pulse O2 O2 Flow FiO2 Mean Ox Delivery Rate 01/13 639 98.3 77 20 104/54 96 01/13 0000 Nasal 2.0L Cannula 01/12 2038 95 Nasal 2.0L Cannula 01/13 2000 96 Nasal 3.0L Cannula 01/12 1930 99.2 102 20 118/62 96 Nasal 3.0L Cannula 01/12 913 96 Nasal 2.0L Cannula Intake & Output 01/13 0801/13 0000 01/12 1600 01/12 0801/12 0000 01/11 1600 Intake Total 15 500 200 360 730 Output Total 500 300 850 350 250 Balance -485 200 -650 10 480 Intake, IV 15 250 10 Intake, Oral 250 200 360 720 Output, Urine 500 300 850 350 250 Physical Exam: General: Alert and oreinted x3, no acute distress Cards: RRR, s1s2 Pulm: Course throughout Abd: Non-tender, non-distended Extremiteis: Neurovascularly grossly intact, bilateral calve soft/non-tender Assessment/Plan Assessment/Plan This is a 62 year old female, POD14, with improving sq air and stable ptx, on 2L nc, with significant sob when oob. Leukocytosis noted yesterday, wbc [address] chest with evidence of new right lower lobe patchy consolidation with pockets of air collection within the consolidation and air collection in the right posterior pleural space with minimal fluid suggestive of inflammatory process. ID consult obtained, sputum culture sent one day ago, vanc/fortaz started per Dr. Llanes -Continue ID recommendations -F/U sputum cultures -Recheck labs this am -Continue current pain regimen -Continue oob, PT -TRC/IS encouraged -Encourage po/fluid intake due to reported overnight diaphoresis Will discuss plan of care with Dr. Rivera Core Measures Venous Thromboembolism VTE Risk Factors Age>40 No Mechanical VTE Prophylaxis d/t N/A MechProphylax Ordered No VTE Pharm Prophylaxis d/t NA PharmProphylax ordered
--- NOTE | 2018-01-13 07:57 | PN- Pulmonary ---
Subjective HPI/Critical Care Issues: The patient is awake and alert. She remains afebrile. Urinalysis and cultures from yesterday remain negative. Blood work this morning is pending. She reports that she is feeling significantly improved today. She continues to improve overall peer Objective Current Medications: Current Medications Sig/Nathan Start time Last Medication Dose Route Stop Time Status Admin Al Hydroxide/Mg 30 ML Q4-6 PRN PRN 12/30 1115 AC 12/30 Hydroxide PO 2130 Albuterol Sulfate 3 ML EVERY 4 HRS/AWAKE 01/05 1600 AC 01/12 INH 2038 Albuterol Sulfate 2 PUF Q4P PRN 12/29 1600 AC INH Budesonide/ 2 PUF BID 12/29 2100 AC 01/12 Formoterol Fumarate INH 2007 Ceftazidime 1,000 MG Q8H 01/12 2000 AC 01/13 IV 0348 Ceftazidime 1,000 MG IQ8 01/12 1600 CAN IV Celecoxib 100 MG BID 12/29 2100 AC 01/12 PO 2009 Docusate Sodium 100 MG BID 12/29 2100 AC 01/12 PO 2007 Enoxaparin Sodium 40 MG DAILY 01/03 0900 AC 01/12 SC 1028 Gabapentin 300 MG Q8 12/29 2200 AC 01/13 PO 0630 Hydrocodone Bitart/ 1 TAB Q4P PRN 12/30 1030 AC 01/03 Acetaminophen PO 0612 Hydrocodone Bitart/ 2 TAB Q4-6 PRN PRN 12/30 1030 AC 01/13 Acetaminophen PO 0055 Melatonin 5 MG AT BEDTIME 01/01 2100 AC 01/12 PO 2005 Omeprazole 40 MG DAILY AC 12/30 1115 AC 01/13 PO 0630 Ondansetron HCl 4 MG Q6P PRN 12/29 1700 AC 01/05 IV 2059 Tramadol HCl 100 MG Q4-6 PRN PRN 12/29 1700 AC 01/01 PO 2019 Trazodone HCl 100 MG AT BEDTIME 01/01 2100 AC 01/12 PO 2006 Vancomycin HCl 1,000 MG Q24H 01/12 2100 AC 01/12 Sodium Chloride 250 ML IV 2007 Vancomycin HCl 1,000 MG DAILY 01/12 1524 CAN Sodium Chloride 250 ML IV Vital Signs & I&O Last 24 Hrs of Vitals and I&O: Vital Signs Date Time Temp Pulse Resp B/P B/P Pulse O2 O2 Flow FiO2 Mean Ox Delivery Rate 01/13 0639 98.3 77 20 104/54 96 01/13 0000 Nasal 2.0L Cannula 01/12 2038 95 Nasal 2.0L Cannula 01/13 2000 96 Nasal 3.0L Cannula 01/12 1930 99.2 102 20 118/62 96 Nasal 3.0L Cannula 01/12 913 96 Nasal 2.0L Cannula Intake & Output 01/13 0800 01/13 0000 01/12 1600 Intake Total 15 500 Output Total 500 300 Balance -485 200 Intake, IV 15 250 Intake, Oral 250 Output, Urine 500 300 Exam General Appearance: alert, awake, comfortable, no distress Head: improved facial swelling Respiratory: crackles, anterior and posterior chest wall tenderness, palpable crepitus Cardiovascular: regular rate/rhythm Gastrointestinal: soft, non-tender Extremities: no edema Skin: intact, normal color Skin Temp/Moisture Exam: Warm/Dry Results Last 24 Hrs of Lab Results: Laboratory Tests 01/12/18 1025: Urine Color YEL, Urine Clarity CLEAR, Urine pH 7.5, Ur Specific [place] 1.015, Urine Protein TRACE H, Urine Ketones NEG, Urine Nitrite NEG, Urine Bilirubin NEG, Urine Urobilinogen 1.0, Ur Leukocyte Esterase NEG, Ur Microscopic SEDIMENT EXAMINED, Urine RBC RARE, Urine WBC 1-3 H, Ur Epithelial Cells MOD H, Urine Hemoglobin NEG, Urine Glucose NEG Diagnostic Data CT Scan Findings: Loculated hydropneumothorax in the right upper hemithorax. No right apical chest catheter seen. A chest tube may be beneficial. There is right lower lobe patchy consolidation with pockets of air collection including air and fluid within the right basilar pleural space. This finding could be secondary to previous chest tube insertion and subsequent catheter removal. Some residual findings persist. Thickened right major fissure from fluid collection is noted. There is ground-glass attenuation seen in the left lower lobe and right lower lobe as well. Bilateral upper lobe lobectomy changes more recent on the right side and likely remote on the left side. No abnormal mediastinal adenopathy. Impression/Plan Impression/Plan Impression/Plan: 1. 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 2. Hypoxemic respiratory failure in the setting of worsening right pneumothorax and emphysema. 3. Aspiration pneumonia. The patient is now on Unasyn. Cultures are negative. 4. History of COPD without evidence of acute bronchospasm. 5. History of hypertension, hyperlipidemia and proximal SVT. 6. Subcutaneous emphysema - significantly improved. 7. Leukocytosis of unclear etiology. CT chest demonstrates a loculated hydropneumothorax in the right upper hemithorax. Possible infiltrates were seen as well. The patient has been pancultured and placed on empiric antibiotics. Recommendations: * Follow-up morning labs/CBC. * Continue antibiotics as recommended by ID. * Follow-up cultures. * Will discuss plan going forward with CT surgery and ID. * Increase activity/ambulate. * Titrate oxygen down for saturations greater than 92%. * Continue nebs/total respiratory care/inhaler therapy. * DVT prophylaxis at all times. * Once the issue of the patient's leukocytosis is resolved, the plan is for the patient to be discharged to short-term rehab at [place].
--- NOTE | 2018-01-13 07:59 | PN- Medicine Consult ---
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 She was later transfered to the ICU for further care. Hospital course was complicated by small right pneumothorax+hemoptysis and air leak(chest tube 12/29-01/06). After removal of the chest tube, she developed sub cutaneous emphysema, and chest tube was replaced w/ anterior thoravent (01/07-01/10). She was also started on Unasyn on 01/02 x 4 days when she developed hypoxemia, and productive cough. She showed improvement up until 01/11 and was found to have productive cough, and occassional dyspnea upon exertion. It was also found to have WBC 10k(12/30)--> 12.3(01/11)-->17.1(01/12), and was subsequently started on empiric abx for the mgt of possible HCAP. She remained afebrile so far, but continued to require suplemental oxygen. CT scan chest was obtained on 01/13 revealed right lower lobe patchy consolidation with pockets of air collection including air and fluid within the right basilar pleural space which could be post chest tube inflammatory changes, and ground glass attention on left lower lobe. Urine cultures, blood culture were negative so far. Repeat cultures namely LRC, BC, UC 01/12 are still pending at this time. At this time, given his clincal presenation it appears to be inflammatory changes, and given a prolonged stay in the hospital infectious process should be kept in differential; she is covered for pseudomonas+staph pending culture results. UA clear. Upon reviewing the labs, it appears that she has elevated bicarbonate, and the likely explanation is metabolic compensation. Stable medical issues, and is currently being followed by Infectious disease specialist, and also pulmonology. Plan: Problem list: 1. RUL for adenocarcinoma 2. Hypoxemic respiratory failure, subcutanous emphysema 3. Possible pneumonia, ? HCAP 4. h/o COPD 5. h/o HTN. 6. Leukocytosis, likely an inflammatory change. Plan: - Recommend to continue anti-hypertensives. - Recommend to continue supplemental oxygen, and taper as tolerated. Further recs as per pulmonology. - Follow micro/cultures. Continue abx Vanc+Ceftaz pending cultures. Further recs as per ID. - Pain mgt as per Surgery service. She is stable medically, and is being followed by ID and pulmonology. Medical team will sign off at this time. Please call us with questions. Thank you for your consult. Problem List: 1. Pneumothorax, right 2. Primary cancer of right upper lobe of lung 3. Lung cancer 4. Benign essential hypertension Subjective Subjective: She feels well. She was diaphoretic during the night, but remained afebrile. BP was stable. No new rash. No dypena at rest. No chest pain, palpitations. Review of Systems Constitutional: Reports: see HPI. Objective Last 24 Hrs of Vital Signs/I&O Vital Signs Date Time Temp Pulse Resp B/P B/P Pulse O2 O2 Flow FiO2 Mean Ox Delivery Rate 01/13 0639 98.3 77 20 104/54 96 01/13 0000 Nasal 2.0L Cannula 01/12 2038 95 Nasal 2.0L Cannula 01/13 2000 96 Nasal 3.0L Cannula 01/12 1930 99.2 102 20 118/62 96 Nasal 3.0L Cannula 01/12 09 96 Nasal 2.0L Cannula Intake & Output 01/13 1600 01/13 0800 01/13 0000 Intake Total 15 500 Output Total 500 300 Balance -485 200 Intake, IV 15 250 Intake, Oral 250 Output, Urine 500 300 Physical Exam General Appearance: well developed/nourished, no apparent distress, alert, awake , comfortable Head: atraumatic, normal appearance Ears, Nose, Throat: normal pharynx Neck: normal inspection, supple, full range of motion, crepitus on the neck Cardiovascular: regular rate/rhythm Respiratory: normal breath sounds, chest non-tender, lungs clear, site of chest tube insertion- no erythema, crackles on right lower lobe Abdomen: normal bowel sounds, soft, non-tender, no organomegaly Rectal: normal exam Back: normal inspection, normal range of motion Extremities: normal inspection Neurologic/Psychiatric: no motor/sensory deficits, awake, alert, oriented x 3, normal mood/affect Reflexes: 2+: bicep (R), bicep (L), knee (R), knee (L). Skin: intact, normal color, warm/dry, crepitus Current Medications: Current Medications Sig/Nathan Start time Last Medication Dose Route Stop Time Status Admin Al Hydroxide/Mg 30 ML Q4-6 PRN PRN 12/30 1115 AC 12/30 Hydroxide PO 2130 Albuterol Sulfate 3 ML EVERY 4 HRS/AWAKE 01/05 1600 AC 01/12 INH 2038 Albuterol Sulfate 2 PUF Q4P PRN 12/29 1600 AC INH Budesonide/ 2 PUF BID 12/29 2100 AC 01/13 Formoterol Fumarate INH 0807 Ceftazidime 1,000 MG Q8H 01/12 2000 AC 01/13 IV 0348 Ceftazidime 1,000 MG IQ8 01/12 1600 CAN IV Celecoxib 100 MG BID 12/29 2100 AC 01/13 PO 0807 Docusate Sodium 100 MG BID 12/29 2100 AC 01/13 PO 0807 Enoxaparin Sodium 40 MG DAILY 01/03 0900 AC 01/13 SC 0809 Gabapentin 300 MG Q8 12/29 2200 AC 01/13 PO 0630 Hydrocodone Bitart/ 1 TAB Q4P PRN 12/30 1030 AC 01/03 Acetaminophen PO 0612 Hydrocodone Bitart/ 2 TAB Q4-6 PRN PRN 12/30 1030 AC 01/13 Acetaminophen PO 0809 Melatonin 5 MG AT BEDTIME 01/01 2100 AC 01/12 PO 2006 Omeprazole 40 MG DAILY AC 12/30 1115 AC 01/13 PO 0630 Ondansetron HCl 4 MG Q6P PRN 12/29 1700 AC 01/05 IV 2059 Tramadol HCl 100 MG Q4-6 PRN PRN 12/29 170 AC 01/01 PO 2019 Trazodone HCl 100 MG AT BEDTIME 01/01 2100 AC 01/12 PO 2006 Vancomycin HCl 1,000 MG Q24H 01/12 2100 AC 01/12 Sodium Chloride 250 ML IV 2007 Vancomycin HCl 1,000 MG DAILY 01/12 1524 CAN Sodium Chloride 250 ML IV Results Last 24 Hrs Lab/Tanvir Results: Laboratory Tests 01/13/18 0823: Sodium Pending, Potassium Pending, Chloride Pending, Carbon Dioxide Pending, Anion Gap Pending, BUN Pending, Creatinine Pending, BUN/Creatinine Ratio Pending , Magnesium Pending, CBC w Diff Pending, WBC Pending, RBC Pending, Hgb Pending, Hct Pending, MCV Pending, MCH Pending, MCHC Pending, RDW Pending, Plt Count Pending, MPV Pending 01/12/18 1025: Urine Color YEL, Urine Clarity CLEAR, Urine pH 7.5, Ur Specific [place] 1.015, Urine Protein TRACE H, Urine Ketones NEG, Urine Nitrite NEG, Urine Bilirubin NEG, Urine Urobilinogen 1.0, Ur Leukocyte Esterase NEG, Ur Microscopic SEDIMENT EXAMINED, Urine RBC RARE, Urine WBC 1-3 H, Ur Epithelial Cells MOD H, Urine Hemoglobin NEG, Urine Glucose NEG Microbiology 01/12 1710 LOWER RESP: Respiratory Culture - RES GRAM NEGATIVE RODS 01/12 1710 LOWER RESP: Gram Stain - RES 01/12 1512 UPPER RESP: Surveillance Culture - RECD 01/12 1105 BLOOD: Blood Culture - WKST 01/12 1025 URINE ROUT: Urine Culture - RECD 01/12 1000 BLOOD: Blood Culture - WKST Samantha Ramsay MD 01/13/18 0953: Attending MD Review Statement Attending Sign Off Attending Cosign Statement: I have: examined this patient, reviewed [facility] EMR data, personally reviewd images, discussd w/resident/PA/SERVICE DESK AGENT, discussed mgmt plan w/pt, agreed w/resident/ PA/SERVICE DESK AGENT, amended to note. Other Findings: Patient seen and examined, overall doing okay. Chest tube has been taken out. Patient is a transfer out of ICU. She status post right upper lobectomy with mediastinal lymph node dissection on 12/29/17 with course complicated by a pneumothorax on the right side and subcutaneous emphysema. Patient status post chest tube placement now removed. Now has developed possible lung infection either pneumonia or tracheobronchitis and was started on Vanco and ceftaz per infectious disease. Sputum culture growing gram-negative rods. Vital Signs Date Time Temp Pulse Resp B/P B/P Pulse O2 O2 Flow FiO2 Mean Ox Delivery Rate 01/13 0853 93 Nasal 2.0L Cannula 01/13 0639 98.3 77 20 104/54 96 01/13 0000 Nasal 2.0L Cannula 01/12 2038 95 Nasal 2.0L Cannula 01/13 2000 96 Nasal 3.0L Cannula 01/12 1930 99.2 102 20 118/62 96 Nasal 3.0L Cannula on exam; aox3 nad. heent: Palpable crepitus on face. resp; some crackles at right base. cv; s1,s2, rrr, + systolic murmur. abd: soft, nt, bs+ ext; trace edema Laboratory Tests 01/13 01/12 08 1025 Chemistry Sodium (137 - 145 mmol/L) 138 Potassium (3.5 - 5.1 mmol/L) 4.5 Chloride (98 - 107 mmol/L) 97 L Carbon Dioxide (22 - 30 mmol/L) 31 H Anion Gap (5 - 16) 10 BUN (7 - 17 mg/dL) 13 Creatinine (0.5 - 1.0 mg/dL) 0.6 Estimated GFR (>60 ml/min) > 60 BUN/Creatinine Ratio (7 - 25 %) 21.7 Magnesium (1.6 - 2.3 mg/dL) 1.8 Hematology CBC w Diff NO MAN DIFF REQ WBC (4.8 - 10.8 /CUMM) 15.4 H RBC (4.20 - 5.40 /CUMM) 2.85 L Hgb (12.0 - 16.0 G/DL) 9.5 L Hct (37 - 47 %) 27.8 L MCV (81.0 - 99.0 FL) 97.7 MCH (27.0 - 31.0 PG) 33.3 H MCHC (33.0 - 37.0 G/DL) 34.1 RDW (11.5 - 14.5 %) 14.6 H Plt Count (130 - 400 /CUMM) 740 H MPV (7.4 - 10.4 FL) 7.2 L Gran % (42.2 - 75.2 %) 84.5 H Lymphocytes % (20.5 - 51.1 %) 5.2 L Monocytes % (1.7 - 9.3 %) 6.7 Eosinophils % (0 - 5 %) 3.4 Basophils % (0.0 - 2.0 %) 0.2 Absolute Granulocytes (1.4 - 6.5 /CUMM) 13.0 H Absolute Lymphocytes (1.2 - 3.4 /CUMM) 0.8 L Absolute Monocytes (0.10 - 0.60 /CUMM) 1.0 H Absolute Eosinophils (0.0 - 0.7 /CUMM) 0.5 Absolute Basophils (0.0 - 0.2 /CUMM) 0 Urines Urine Color (YEL,AMB,STR) YEL Urine Clarity (CLEAR) CLEAR Urine pH (5.0 - 8.0) 7.5 Ur Specific [place] (1.001 - 1.035) 1.015 Urine Protein (NEG,<30 MG/DL) TRACE H Urine Ketones (NEG) NEG Urine Nitrite (NEG) NEG Urine Bilirubin (NEG) NEG Urine Urobilinogen (0.1 - 1.0 EU/dl) 1.0 Ur Leukocyte Esterase (NEG) NEG Ur Microscopic SEDIMENT EXAMINED Urine RBC (0 - 5 /HPF) RARE Urine WBC (0 - 2 /HPF) 1-3 H Ur Epithelial Cells (NONE,FEW) MOD H Urine Hemoglobin (NEG) NEG Urine Glucose (N MG/DL) NEG A/P; 62-year-old female with right upper lobe adenocarcinoma of the lung admitted under thoracic surgical service for right upper lobectomy with mediastinal lymph node dissection on 12/29/17 with course complicated by a pneumothorax on the right side and subcutaneous emphysema. Patient status post chest tube placement now removed. Now has developed possible lung infection either pneumonia or tracheobronchitis and was started on Vanco and ceftaz per infectious disease. Sputum culture growing gram-negative rods. Patient is afebrile. Blood pressure stable without any medications. She denies any other medical problems. She denies any history of hypertension diabetes etc. Her pain is tolerable on current regimen. She is still requiring oxygen. Her chest tube has been discontinued. Her sub-cutaneous emphysema has been getting better. She now is growing gram-negative rods in her sputum. She was started on Vanco and ceftaz per infectious disease. Will defer the antibiotic management to Dr. Llanes. She is also followed by pulmonology. Her leukocytosis is slightly better. Otherwise her blood work looks good. No active medical issues at this time. Medicine will sign off. Please call with questions or if any other medical issues arise.
[2018-01-13 08:41] LABS: ABSOLUTE BASOPHIL COUNT 0 /CUMM (0.0-0.2); ABSOLUTE EOSINOPHIL COUNT 0.5 /CUMM (0.0-0.7); ABSOLUTE LYMPH COUNT 0.8 /CUMM (1.2-3.4); BASOPHIL % 0.2 % (0.0-2.0); EOSINOPHIL % 3.4 % (0-5); HEMATOCRIT 27.8 % (37-47); MEAN CORPUSCULAR HGB 33.3 PG (27.0-31.0); MEAN CORPUSCULAR HGB CONC 34.1 G/DL (33.0-37.0); MEAN CORPUSCULAR VOLUME 97.7 FL (81.0-99.0); MEAN PLATELET VOLUME 7.2 FL (7.4-10.4); PLATELET COUNT 740 /CUMM (130-400); RBC DISTRIBUTION WIDTH 14.6 % (11.5-14.5); RED BLOOD CELL CT 2.85 /CUMM (4.20-5.40); WHITE BLOOD CELL COUNT 15.4 /CUMM (4.8-10.8)
[2018-01-13 09:04] LABS: GRANULOCYTE % 84.5 % (42.2-75.2)
--- NOTE | 2018-01-13 13:00 | PN- Infect Dx ---
Subjective Subjective: Afebrile. She continues to cough up green/dark brown sputum but denies any shortness of breath. She does note some discomfort at the site of the recent right-sided chest tube. Objective Last 24 Hrs of Vital Signs/I&O Vital Signs Date Time Temp Pulse Resp B/P B/P Pulse O2 O2 Flow FiO2 Mean Ox Delivery Rate 01/14 0853 93 Nasal 2.0L Cannula 01/14 800 95 Nasal 2.0L Cannula 01/13 0639 98.3 77 20 104/54 96 01/13 0000 Nasal 2.0L Cannula 01/12 2038 95 Nasal 2.0L Cannula 01/13 2000 96 Nasal 3.0L Cannula 01/12 193 99.2 102 20 118/62 96 Nasal 3.0L Cannula Intake & Output 01/13 1600 01/13 0000 Intake Total 500 15 500 Output Total 500 300 Balance 500 -485 200 Intake, IV 15 250 Intake, Oral 500 250 Output, Urine 500 300 Physical Exam Other Physical Findings: She appears comfortable in no acute distress Lungs bronchial breath sounds on the right Heart regular rhythm with no murmur Extremities no cyanosis, clubbing or edema Results Last 24 Hours of Lab Results: Laboratory Tests 01/13 823 Chemistry Sodium (137 - 145 mmol/L) 138 Potassium (3.5 - 5.1 mmol/L) 4.5 Chloride (98 - 107 mmol/L) 97 L Carbon Dioxide (22 - 30 mmol/L) 31 H Anion Gap (5 - 16) 10 BUN (7 - 17 mg/dL) 13 Creatinine (0.5 - 1.0 mg/dL) 0.6 Estimated GFR (>60 ml/min) > 60 BUN/Creatinine Ratio (7 - 25 %) 21.7 Magnesium (1.6 - 2.3 mg/dL) 1.8 Hematology CBC w Diff NO MAN DIFF REQ WBC (4.8 - 10.8 /CUMM) 15.4 H RBC (4.20 - 5.40 /CUMM) 2.85 L Hgb (12.0 - 16.0 G/DL) 9.5 L Hct (37 - 47 %) 27.8 L MCV (81.0 - 99.0 FL) 97.7 MCH (27.0 - 31.0 PG) 33.3 H MCHC (33.0 - 37.0 G/DL) 34.1 RDW (11.5 - 14.5 %) 14.6 H Plt Count (130 - 400 /CUMM) 740 H MPV (7.4 - 10.4 FL) 7.2 L Gran % (42.2 - 75.2 %) 84.5 H Lymphocytes % (20.5 - 51.1 %) 5.2 L Monocytes % (1.7 - 9.3 %) 6.7 Eosinophils % (0 - 5 %) 3.4 Basophils % (0.0 - 2.0 %) 0.2 Absolute Granulocytes (1.4 - 6.5 /CUMM) 13.0 H Absolute Lymphocytes (1.2 - 3.4 /CUMM) 0.8 L Absolute Monocytes (0.10 - 0.60 /CUMM) 1.0 H Absolute Eosinophils (0.0 - 0.7 /CUMM) 0.5 Absolute Basophils (0.0 - 0.2 /CUMM) 0 Last 24 Hours of Tanvir Results: Sputum culture January 12 positive for gram-negative rods Blood cultures January 12 negative Urine culture January 12 negative Recent Imaging Studies: CT of the chest January 12 reveals a loculated hydropneumothorax in the right upper hemithorax and a right lower lobe patchy consolidation with pockets of air collection including air and fluid within the right basilar pleural space Assessment/Plan ID Impression: Stable, with her temperatures remaining normal and her white blood cell count decreasing, on Vancomycin and Ceftazidime, Day 2 of treatment for a possible postop pneumonia, with her sputum culture growing gram-negative rods, now 15 days status post right upper lobectomy and 6 days status post return to the OR for placement of a right chest tube because of the development of subcutaneous emphysema. The CT findings of a hydropneumothorax are noted and will defer further evaluation/management to Thoracic surgery. Suggestion: 1. Further evaluation/management of the right hydropneumothorax per Thoracic surgery 2. Follow-up final sputum culture 3. Continue Vancomycin and Ceftazidime pending above Dr. Choi will be covering over the weekend
[2018-01-13 14:24] VITALS: BP 98/58
[2018-01-13 20:44] VITALS: BP 120/58
[2018-01-14 06:10] VITALS: BP 110/60
[2018-01-14 08:08] LABS: ABSOLUTE BASOPHIL COUNT 0 /CUMM (0.0-0.2); ABSOLUTE EOSINOPHIL COUNT 0.8 /CUMM (0.0-0.7); ABSOLUTE LYMPH COUNT 0.9 /CUMM (1.2-3.4); ABSOLUTE MONOCYTE COUNT 0.9 /CUMM (0.10-0.60); BASOPHIL % 0.4 % (0.0-2.0); EOSINOPHIL % 7.3 % (0-5); GRANULOCYTE % 75.5 % (42.2-75.2); HEMATOCRIT 27.4 % (37-47); MEAN CORPUSCULAR HGB 33.3 PG (27.0-31.0); MEAN CORPUSCULAR HGB CONC 33.5 G/DL (33.0-37.0); MEAN CORPUSCULAR VOLUME 99.3 FL (81.0-99.0); MEAN PLATELET VOLUME 7.5 FL (7.4-10.4); PLATELET COUNT 701 /CUMM (130-400); RBC DISTRIBUTION WIDTH 15.2 % (11.5-14.5); RED BLOOD CELL CT 2.76 /CUMM (4.20-5.40); WHITE BLOOD CELL COUNT 10.6 /CUMM (4.8-10.8)
--- NOTE | 2018-01-14 08:13 | PN- Pulmonary ---
Subjective HPI/Critical Care Issues: The patient is awake and alert. She continues to have a congested cough productive of yellow/brown sputum. She has shortness of breath with ambulation but feels better overall. There were no overnight events. She offers no new complaints today. Objective Current Medications: Current Medications Sig/Nathan Start time Last Medication Dose Route Stop Time Status Admin Al Hydroxide/Mg 30 ML Q4-6 PRN PRN 12/30 1115 AC 12/30 Hydroxide PO 213 Albuterol Sulfate 3 ML EVERY 4 HRS/AWAKE 01/05 1600 AC 01/13 INH 205 Albuterol Sulfate 2 PUF Q4P PRN 12/29 1600 AC INH Budesonide/ 2 PUF BID 12/29 2100 AC 01/13 Formoterol Fumarate INH 2128 Ceftazidime 1,000 MG Q8H 01/13 2000 AC 01/14 IV 0427 Celecoxib 100 MG BID 12/29 2100 AC 01/13 PO 213 Docusate Sodium 100 MG BID 12/29 2100 AC 01/13 PO 213 Enoxaparin Sodium 40 MG DAILY 01/03 0900 AC 01/13 SC 0809 Gabapentin 300 MG Q8 12/29 2200 AC 01/14 PO 0510 Hydrocodone Bitart/ 1 TAB Q4P PRN 12/30 1030 AC 01/03 Acetaminophen PO 0612 Hydrocodone Bitart/ 2 TAB Q4-6 PRN PRN 12/30 1030 AC 01/14 Acetaminophen PO 0424 Melatonin 5 MG AT BEDTIME 01/01 2100 AC 01/13 PO 2132 Omeprazole 40 MG DAILY AC 12/30 1115 AC 01/14 PO 0510 Ondansetron HCl 4 MG Q6P PRN 12/29 170 AC 01/05 IV 205 Tramadol HCl 100 MG Q4-6 PRN PRN 12/29 1700 AC 01/01 PO 2019 Trazodone HCl 100 MG AT BEDTIME 01/01 2100 AC 01/13 PO 213 Vancomycin HCl 1,000 MG Q24H 01/12 2100 AC 01/13 Sodium Chloride 250 ML IV 213 Vital Signs & I&O Last 24 Hrs of Vitals and I&O: Vital Signs Date Time Temp Pulse Resp B/P B/P Pulse O2 O2 Flow FiO2 Mean Ox Delivery Rate 01/14 0610 97.9 79 20 110/60 95 Nasal 3.0L Cannula 01/14 0000 95 Nasal 2.0L Cannula 01/13 2044 97.8 96 18 120/58 95 Nasal 3.0L Cannula 01/13 1625 96 Nasal 2.0L Cannula 01/13 1424 98.3 96 20 98/58 93 08 0853 93 Nasal 2.0L Cannula Intake & Output 01/14 1600 08 0800 08 0000 Intake Total 130 540 Output Total 150 400 Balance -20 140 Intake, IV 10 300 Intake, Oral 120 240 Output, Urine 150 400 Exam General Appearance: alert, awake, comfortable, no distress Head: improved facial swelling Respiratory: crackles, anterior and posterior chest wall tenderness, palpable crepitus Cardiovascular: regular rate/rhythm Gastrointestinal: soft, non-tender Extremities: no edema Skin: intact, normal color Skin Temp/Moisture Exam: Warm/Dry Results Last 24 Hrs of Lab Results: Laboratory Tests 01/14/18 0715: Sodium Pending, Potassium Pending, Chloride Pending, Carbon Dioxide Pending, Anion Gap Pending, BUN Pending, Creatinine Pending, BUN/Creatinine Ratio Pending , CBC w Diff Pending, WBC Pending, RBC Pending, Hgb Pending, Hct Pending, MCV Pending, MCH Pending, MCHC Pending, RDW Pending, Plt Count Pending, MPV Pending 01/13/18 0823: Anion Gap 10, Estimated GFR > 60, BUN/Creatinine Ratio 21.7, Magnesium 1.8, CBC w Diff NO MAN DIFF REQ, RBC 2.85 L, MCV 97.7, MCH 33.3 H, MCHC 34.1, RDW 14.6 H, MPV 7.2 L, Gran % 84.5 H, Lymphocytes % 5.2 L, Monocytes % 6.7, Eosinophils % 3.4, Basophils % 0.2, Absolute Granulocytes 13.0 H, Absolute Lymphocytes 0.8 L, Absolute Monocytes 1.0 H, Absolute Eosinophils 0.5, Absolute Basophils 0 Impression/Plan Impression/Plan Impression/Plan: 1. 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 2. Hypoxemic respiratory failure in the setting of worsening right pneumothorax and emphysema. 3. Aspiration pneumonia. The patient is now on Unasyn. Cultures are negative. 4. History of COPD without evidence of acute bronchospasm. 5. History of hypertension, hyperlipidemia and proximal SVT. 6. Subcutaneous emphysema - significantly improved. 7. Leukocytosis with decreasing white blood cell count on vancomycin and ceftazidime day 3 of treatment for possible postoperative pneumonia. Sputum is positive for gram-negative rods and cultures are pending. 8. Hydropneumothorax on CT scan. Recommendations: * Follow-up morning labs/CBC. * Continue antibiotics as recommended by ID. * Follow-up cultures. * Management of hydropneumothorax as per CT surgery. * Increase activity/ambulate. * Titrate oxygen down for saturations greater than 92%. * Continue nebs/total respiratory care/inhaler therapy. * DVT prophylaxis at all times. * Once the issue of the patient's leukocytosis is resolved, the plan is for the patient to be discharged to short-term rehab at [place].
--- NOTE | 2018-01-14 08:46 | PN- Thoracic Surgery ---
Subjective Subjective: Reports pain controlled with vicodin. Reports ongoing productive cough. Sputum sample obtained this morning. Some shortness of breath, which is worse with exertion. Some dizziness yesterday when out of bed. Voiding well. No BM in 2 days. Anticipates discharge to rehab soon. Objective Vital Signs and I&Os Vital Signs Date Time Temp Pulse Resp B/P B/P Pulse O2 O2 Flow FiO2 Mean Ox Delivery Rate 01/14 0824 93 Nasal 2.0L Cannula 01/14 0610 97.9 79 20 110/60 95 Nasal 3.0L Cannula 01/14 0000 95 Nasal 2.0L Cannula 01/13 2044 97.8 96 18 120/58 95 Nasal 3.0L Cannula 01/13 1625 96 Nasal 2.0L Cannula 01/13 1424 98.3 96 20 98/58 93 01/13 0853 93 Nasal 2.0L Cannula Intake & Output 01/14 1600 01/14 0800 01/14 0000 01/13 1600 01/13 0800 01/13 0000 Intake Total 405 056 9626 15 500 Output Total 150 400 500 300 Balance -20 140 1060 -485 200 Intake, IV 10 300 15 250 Intake, Oral 394 540 9728 250 Output, Urine 150 400 500 300 Physical Exam: General - alert & oriented x 3. out of bed to chair. no acute distress. improving sc emphysema. Lungs - currently receiving nebulizer treatment. slight crackles noted. improving chest wall emphysema. thoracotomy incision approximated with steri strips (intact). chest tube dressing changed with dry guaze. no exudates appreciated. no erythema. expected incisional tenderness. Cardiac - s1s2. reg. Abdomen - soft. nontender. Extremities - warm bilaterally. no c/c/e. calves soft and nontender b/l. Current Medications: Current Medications Sig/Nathan Start time Last Medication Dose Route Stop Time Status Admin Al Hydroxide/Mg 30 ML Q4-6 PRN PRN 12/30 1115 AC 12/30 Hydroxide PO 2130 Albuterol Sulfate 3 ML EVERY 4 HRS/AWAKE 01/05 1600 AC 01/14 INH 0822 Albuterol Sulfate 2 PUF Q4P PRN 12/29 1600 AC INH Bisacodyl 10 MG DAILY PRN 01/14 0845 AC NJ Budesonide/ 2 PUF BID 12/29 2100 AC 01/13 Formoterol Fumarate INH 2128 Ceftazidime 1,000 MG Q8H 01/13 2000 AC 01/14 IV 0427 Celecoxib 100 MG BID 12/29 2099 AC 01/13 PO 213 Docusate Sodium 100 MG BID 12/29 2099 AC 01/13 PO 213 Enoxaparin Sodium 40 MG DAILY 01/03 0900 AC 01/13 SC 0809 Gabapentin 300 MG Q8 12/29 2200 AC 01/14 PO 0510 Hydrocodone Bitart/ 1 TAB Q4P PRN 12/30 1030 AC 01/03 Acetaminophen PO 0612 Hydrocodone Bitart/ 2 TAB Q4-6 PRN PRN 12/30 1030 AC 01/14 Acetaminophen PO 0424 Melatonin 5 MG AT BEDTIME 01/01 2100 AC 01/13 PO 213 Omeprazole 40 MG DAILY AC 12/30 1115 AC 01/14 PO 0510 Ondansetron HCl 4 MG Q6P PRN 12/29 1700 AC 01/05 IV 2059 Polyethylene Glycol 17 GM DAILY PRN 01/14 0845 AC PO Tramadol HCl 100 MG Q4-6 PRN PRN 12/29 1700 DC 01/01 PO 2019 Trazodone HCl 100 MG AT BEDTIME 01/01 2100 AC 01/13 PO 213 Vancomycin HCl 1,000 MG Q24H 01/12 2100 AC 01/13 Sodium Chloride 250 ML IV 213 Results Last 48 Hours of Labs: Laboratory Tests 01/14 01/13 0715 0823 Chemistry Sodium (137 - 145 mmol/L) 136 L 138 Potassium (3.5 - 5.1 mmol/L) 4.6 4.5 Chloride (98 - 107 mmol/L) 99 97 L Carbon Dioxide (22 - 30 mmol/L) 31 H 31 H Anion Gap (5 - 16) 6 10 BUN (7 - 17 mg/dL) 15 13 Creatinine (0.5 - 1.0 mg/dL) 0.7 0.6 Estimated GFR (>60 ml/min) > 60 > 60 BUN/Creatinine Ratio (7 - 25 %) 21.4 21.7 Magnesium (1.6 - 2.3 mg/dL) 1.8 Hematology CBC w Diff NO MAN DIFF REQ NO MAN DIFF REQ WBC (4.8 - 10.8 /CUMM) 10.6 15.4 H RBC (4.20 - 5.40 /CUMM) 2.76 L 2.85 L Hgb (12.0 - 16.0 G/DL) 9.2 L 9.5 L Hct (37 - 47 %) 27.4 L 27.8 L MCV (81.0 - 99.0 FL) 99.3 H 97.7 MCH (27.0 - 31.0 PG) 33.3 H 33.3 H MCHC (33.0 - 37.0 G/DL) 33.5 34.1 RDW (11.5 - 14.5 %) 15.2 H 14.6 H Plt Count (130 - 400 /CUMM) 701 H 740 H MPV (7.4 - 10.4 FL) 7.5 7.2 L Gran % (42.2 - 75.2 %) 75.5 H 84.5 H Lymphocytes % (20.5 - 51.1 %) 8.6 L 5.2 L Monocytes % (1.7 - 9.3 %) 8.2 6.7 Eosinophils % (0 - 5 %) 7.3 H 3.4 Basophils % (0.0 - 2.0 %) 0.4 0.2 Absolute Granulocytes (1.4 - 6.5 /CUMM) 8.0 H 13.0 H Absolute Lymphocytes (1.2 - 3.4 /CUMM) 0.9 L 0.8 L Absolute Monocytes (0.10 - 0.60 /CUMM) 0.9 H 1.0 H Absolute Eosinophils (0.0 - 0.7 /CUMM) 0.8 0.5 Absolute Basophils (0.0 - 0.2 /CUMM) 0 0 08/02 1025 Urines Urine Color (YEL,AMB,STR) YEL Urine Clarity (CLEAR) CLEAR Urine pH (5.0 - 8.0) 7.5 Ur Specific [place] (1.001 - 1.035) 1.015 Urine Protein (NEG,<30 MG/DL) TRACE H Urine Ketones (NEG) NEG Urine Nitrite (NEG) NEG Urine Bilirubin (NEG) NEG Urine Urobilinogen (0.1 - 1.0 EU/dl) 1.0 Ur Leukocyte Esterase (NEG) NEG Ur Microscopic SEDIMENT EXAMINED Urine RBC (0 - 5 /HPF) RARE Urine WBC (0 - 2 /HPF) 1-3 H Ur Epithelial Cells (NONE,FEW) MOD H Urine Hemoglobin (NEG) NEG Urine Glucose (N MG/DL) NEG Assessment/Plan Assessment/Plan This is a 62 year old female, POD#15, with improving sq air and stable ptx, on 2L nc, improving leukocytosis vancomycin and ceftazidime day#3 of treatment for possible postoperative pneumonia, sputum is positive for gram-negative rods and cultures are pending, hydropneumothorax on CT scan pain controlled with vicodin continue colace. add miralax and dulcolax prn constipation continue iv vanco / fortaz f/u sputum culture identification / sensitivity f/u labs IST/TRC/nebs prn lovenox - dvt ppx chest tube dressing changed continue PT f/u consults d/c planning soon to str Core Measures Venous Thromboembolism VTE Risk Factors Age>40 No Mechanical VTE Prophylaxis d/t N/A MechProphylax Ordered No VTE Pharm Prophylaxis d/t NA PharmProphylax ordered
[2018-01-14 13:35] VITALS: BP 110/70
--- NOTE | 2018-01-14 20:18 | PN- Infect Dx ---
Subjective Subjective: This patient is a 62-year-old white female with an extended course in the hospital secondary to section of an adenocarcinoma. The patient is currently feeling well and denies any fevers, chills nausea or vomiting. She does complain of constipation. She is afebrile and her white blood cell count is normal. Review of Systems Constitutional: Reports: see HPI. Comments: 12 point review of system as noted above. Objective Last 24 Hrs of Vital Signs/I&O Vital Signs Date Time Temp Pulse Resp B/P B/P Pulse O2 O2 Flow FiO2 Mean Ox Delivery Rate 01/14 1618 98 Nasal 2.0L Cannula 01/14 1335 97.0 90 20 110/70 96 Room Air 01/14 0824 93 Nasal 2.0L Cannula 01/14 0800 Nasal 2.0L Cannula 01/14 0610 97.9 79 20 110/60 95 Nasal 3.0L Cannula 01/14 0000 95 Nasal 2.0L Cannula 01/13 2044 97.8 96 18 120/58 95 Nasal 3.0L Cannula Intake & Output 01/14 1600 01/14 0800 01/14 0000 Intake Total 900 130 540 Output Total 400 150 400 Balance 500 -20 140 Intake, IV 100 10 300 Intake, Oral 800 120 240 Output, Urine 400 150 400 Physical Exam Other Physical Findings: Awake alert oriented 3 Pupils equal and reactive to light, accommodation equal ocular motion Neck supple no JVD no lymphadenopathy Lungs with diffuse crackles Heart regular rate and rhythm S1-S2 Abdomen soft nontender nondistended Structure is without edema. Results Last 24 Hours of Lab Results: Laboratory Tests 01/14 0715 Chemistry Sodium (137 - 145 mmol/L) 136 L Potassium (3.5 - 5.1 mmol/L) 4.6 Chloride (98 - 107 mmol/L) 99 Carbon Dioxide (22 - 30 mmol/L) 31 H Anion Gap (5 - 16) 6 BUN (7 - 17 mg/dL) 15 Creatinine (0.5 - 1.0 mg/dL) 0.7 Estimated GFR (>60 ml/min) > 60 BUN/Creatinine Ratio (7 - 25 %) 21.4 Hematology CBC w Diff NO MAN DIFF REQ WBC (4.8 - 10.8 /CUMM) 10.6 RBC (4.20 - 5.40 /CUMM) 2.76 L Hgb (12.0 - 16.0 G/DL) 9.2 L Hct (37 - 47 %) 27.4 L MCV (81.0 - 99.0 FL) 99.3 H MCH (27.0 - 31.0 PG) 33.3 H MCHC (33.0 - 37.0 G/DL) 33.5 RDW (11.5 - 14.5 %) 15.2 H Plt Count (130 - 400 /CUMM) 701 H MPV (7.4 - 10.4 FL) 7.5 Gran % (42.2 - 75.2 %) 75.5 H Lymphocytes % (20.5 - 51.1 %) 8.6 L Monocytes % (1.7 - 9.3 %) 8.2 Eosinophils % (0 - 5 %) 7.3 H Basophils % (0.0 - 2.0 %) 0.4 Absolute Granulocytes (1.4 - 6.5 /CUMM) 8.0 H Absolute Lymphocytes (1.2 - 3.4 /CUMM) 0.9 L Absolute Monocytes (0.10 - 0.60 /CUMM) 0.9 H Absolute Eosinophils (0.0 - 0.7 /CUMM) 0.8 Absolute Basophils (0.0 - 0.2 /CUMM) 0 Last 24 Hours of Tanvir Results: Microbiology Date/Time Procedure - Status Source Growth 01/12 1710 Respiratory Culture - COMP LOWER RESP KLEBSIELLA PNEUMONIAE 01/12 1710 Gram Stain - COMP LOWER RESP 01/12 1512 Surveillance Culture - COMP UPPER RESP 01/12 1105 Blood Culture - RES BLOOD 01/12 1025 Urine Culture - COMP URINE ROUT 01/12 1000 Blood Culture - RES BLOOD Assessment/Plan ID Impression: This patient is a 62-year-old white female with a an extensive hospital course currently being treated for pneumonia. Her temperatures and white blood cell count are normal on Vancomycin and Ceftazidime, Day 3 of treatment for a possible postop pneumonia, with her sputum culture growing gram-negative rods, now 16 days status post right upper lobectomy and 7 days status post return to the OR for placement of a right chest tube because of the development of subcutaneous emphysema. Suggestion: 1. Further evaluation/management of the right hydropneumothorax per Thoracic surgery 2. Final sputum culture - Klebsiella pneumoniae (R-Amp) 3. Continue Vancomycin and Ceftazidime
[2018-01-14 21:55] VITALS: BP 130/68
[2018-01-15 06:28] VITALS: BP 110/54
--- NOTE | 2018-01-15 07:46 | PN- Student ---
Judi Suazo 01/15/18 0725: Subjective Subjective: No acute overnight events. Pt does have exertional dyspnea, but is ok at rest on 2L NC. She continues to have a productive cough. Pt has incisional pain at site of chest tubes and incision. She has been oob, voiding well, BM yesterday. The pt has been eating well, using spirometer. Denies cp, sob. Objective Objective: Physical Exam: Gen: Sitting up in bed, appears comfortable, in no respiratory distress Lungs: bibasilar crackles, CTA otherwise, incision site dry/intact with steri strips, chest tube site with dressing over it- clear/dry/intact. No accessory muscle use, non-labored breathing. NC in place at 2L. Heart: RRR. S1 and S2 normal. Abd: normoactive bs, soft, nt/nd LE: bilateral 2+ edema, skin warm and dry, nontender Results Results: Intake & Output 01/15 0801/15 0000 01/14 1600 Intake Total 240 250 900 Output Total 200 400 Balance 40 250 500 Intake, IV 250 100 Intake, Oral 240 800 Number 0 Bowel Movements Output, Urine 200 400 Vital Signs Date Time Temp Pulse Resp B/P B/P Pulse O2 O2 Flow FiO2 Mean Ox Delivery Rate 01/15 0628 97.7 70 20 110/54 96 Nasal 2.0L Cannula 01/15 0000 96 Nasal 2.0L Cannula 01/14 2155 97.7 99 20 130/68 96 01/14 1618 98 Nasal 2.0L Cannula 01/14 1335 97.0 90 20 110/70 96 Room Air 01/14 0824 93 Nasal 2.0L Cannula 01/14 0800 Nasal 2.0L Cannula 01/14 0610 97.9 79 20 110/60 95 Nasal 3.0L Cannula 01/14 0000 95 Nasal 2.0L Cannula 01/13 2044 97.8 96 18 120/58 95 Nasal 3.0L Cannula 01/13 1625 96 Nasal 2.0L Cannula 01/13 1424 98.3 96 20 98/58 93 08/ 0853 93 Nasal 2.0L Cannula 01/13 0800 95 Nasal 2.0L Cannula 01/13 0639 98.3 77 20 104/54 96 01/13 0000 Nasal 2.0L Cannula 01/12 2038 95 Nasal 2.0L Cannula 01/13 2000 96 Nasal 3.0L Cannula 01/12 1930 99.2 102 20 118/62 96 Nasal 3.0L Cannula 01/12 0913 96 Nasal 2.0L Cannula 01/12 0400 95 Nasal 2.0L Cannula 01/12 0400 97.7 80 18 106/60 95 Nasal 2.0L Cannula 01/12 0000 92 Nasal 2.0L Cannula 01/12 0000 98.1 82 21 90/50 92 Nasal 2.0L Cannula 01/12 2000 95 Nasal 2.0L Cannula 01/12 2000 98.7 97 22 112/62 95 Nasal 2.0L Cannula 01/11 1815 96 Nasal 2.0L Cannula 01/11 1444 Nasal 4.0L Cannula 01/11 1347 78 98/54 08 1321 95 Nasal 2.0L Cannula 01/11 1200 96 Nasal 2.0L Cannula 01/11 1200 97.7 82 18 92/50 96 Nasal 2.0L Cannula 01/11 0800 98 Nasal 2.0L Cannula 01/11 0800 98.1 72 18 100/50 98 Nasal 2.0L Cannula 01/11 0400 97.6 80 14 130/70 97 Nasal 2.0L Cannula 01/11 0400 97 Nasal 2.0L Cannula 01/11 0000 96 Nasal 2.0L Cannula 01/11 0000 97.5 82 20 128/62 96 Nasal 2.0L Cannula 01/10 2056 98 Nasal 2.0L Cannula 01/11 2000 97.4 81 20 90/52 96 Nasal 2.0L Cannula 01/11 2000 96 Nasal 2.0L Cannula 01/10 1600 96 Nasal 2.0L Cannula 01/10 1600 97.6 84 20 106/46 96 Nasal 2.0L Cannula 01/10 1200 94 Nasal 2.0L Cannula 01/10 1200 97.5 77 20 109/58 97 Nasal 2.0L Cannula 01/10 0850 97 Nasal 2.0L Cannula 01/10 0800 98.8 70 18 100/58 98 Nasal 2.0L Cannula 01/10 0800 98 Nasal 2.0L Cannula 01/10 0000 95 Nasal 2.0L Cannula 01/10 0000 98.3 81 22 104/50 95 Nasal 2.0L Cannula 01/09 1959 98.6 86 24 110/58 95 Nasal 2.0L Cannula 01/09 1629 95 Nasal 2.0L Cannula 01/09 1600 96 Nasal 2.0L Cannula 01/09 1600 96.9 73 19 110/52 97 Nasal 2.0L Cannula 01/09 1200 94 Nasal 2.0L Cannula 01/09 1155 95 Nasal 2.0L Cannula 01/09 0800 96 Nasal 2.0L Cannula 01/09 0800 97.5 81 28 116/72 96 Nasal 2.0L Cannula 01/09 0400 98 Nasal 2.0L Cannula 01/09 0000 98 Nasal 2.0L Cannula 01/09 0000 98.6 70 15 96/54 98 Nasal 2.0L Cannula 01/08 2155 95 Nasal 2.0L Cannula 01/08 2000 95 Nasal 2.0L Cannula 01/08 1600 93 Nasal 2.0L Cannula 01/08 1600 98.2 68 16 108/58 99 Nasal 2.0L Cannula 01/08 1200 97.2 80 22 118/52 98 Nasal 35% Cannula 01/08 1200 97 Nasal 35% Cannula 01/08 0900 97 Nasal 35% Cannula 01/08 0800 98.6 89 16 118/58 93 Nasal 35% Cannula 01/08 0800 93 Nasal 35% Cannula 01/08 0400 97 Nasal 35% Cannula 01/08 0057 95 Nasal 35% Cannula 01/08 0000 96.1 70 16 110/60 97 Nasal 35% Cannula 01/08 0000 97 Nasal 35% Cannula 01/07 2124 94 Nasal 35% Cannula 01/07 2000 95 Nasal 35% Cannula 01/07 1600 96 Nasal 40% Cannula 01/07 1600 98.0 78 20 114/64 96 Nasal 40% Cannula 01/07 1447 96 Nasal 40% Cannula 01/07 1200 96 Nasal 55% Cannula 01/07 0855 95 Nasal 40% Cannula 01/07 0800 98 Nasal 45% Cannula 01/07 0800 97.9 76 20 110/60 98 Nasal 45% Cannula 01/07 0400 98 Nasal 45% Cannula 01/07 0000 90 Nasal 40% Cannula 01/07 0000 97.8 80 17 120/64 90 Nasal 40% Cannula 01/06 2000 95 Nasal 40% Cannula 01/06 1614 94 Nasal 40% Cannula 01/06 1600 94 Nasal 40% Cannula 01/06 1600 98.2 96 26 114/70 96 Nasal 40% Cannula 01/06 1200 96 Nasal 50% Cannula 01/06 0805 93 Nasal 40% Cannula 07/ 0800 96 Nasal 40% Cannula 07/ 0800 98.2 86 26 124/60 96 Nasal 40% Cannula 07/ 0445 95 Nasal 40% Cannula 07/ 0158 94 Nasal 40% Cannula 07/ 0042 97.3 99 20 99/61 92 07/ 2356 92 Nasal 40% Cannula / 2000 96 Nasal 40% Cannula 07/ 1649 95 Nasal 45% Cannula 07/ 1600 96 Nasal 45% Cannula 07/ 1600 96.2 94 22 116/62 96 Nasal 45% Cannula 07/26 1409 95 Nasal 45% Cannula 07/26 1200 98.7 96 24 118/56 94 Nasal 45% Cannula 07/ 1047 95 Nasal 50% Cannula 07/ 0910 95 Nasal 55% Cannula 07/ 0800 97.5 76 18 104/52 96 Nasal 55% Cannula 07/26 0400 96 Nasal 55% Cannula 07/ 0208 92 Nasal 55% Cannula 07/ 0000 94 Nasal 55% Cannula 07/26 0000 98.1 76 18 104/58 96 Nasal 55% Cannula 07/25 2134 98 Nasal 55% Cannula 07/ 2000 96 Nasal 55% Cannula 07/25 1909 95 Nasal 55% Cannula 07/25 1827 95 Nasal 55% Cannula 07/25 1654 94 Nasal 55% Cannula 07/25 1600 96.9 95 19 106/66 97 Nasal 55% Cannula 07/25 1600 97 Nasal 55% Cannula 07/25 1428 95 Nasal 55% Cannula 07/25 1200 94 Nasal 55% Cannula 07/25 1200 96.5 102 22 110/70 94 Nasal 55% Cannula 07/25 1131 94 Nasal 50% Cannula 07/25 0910 95 Nasal 55% Cannula 07/25 0800 94 Nasal 55% Cannula 07/25 0800 97.1 100 22 120/60 94 Nasal 55% Cannula 07/25 0400 94 Nasal 55% Cannula 07/25 0123 94 Nasal 50% Cannula 07/25 0000 95 Nasal 50% Cannula 07/25 0000 96.6 86 20 105/60 95 Nasal 50% Cannula 07/24 2028 95 Nasal 60% Cannula 07/24 2000 93 Nasal 60% Cannula 07/24 1637 93 Nasal 60% Cannula 07/24 1600 95 Nasal 60% Cannula 07/24 1600 97.3 106 24 120/54 95 Nasal 60% Cannula 07/24 1353 93 Nasal 60% Cannula 07/24 1200 93 Nasal 60% Cannula 01/03 0858 93 Nasal 60% Cannula 01/03 0800 95 Nasal 60% Cannula 01/03 0800 97.4 98 28 102/50 95 Nasal 60% Cannula 01/03 0400 94 Nasal 60% Cannula 01/03 0050 94 Nasal 60% Cannula 01/03 0000 98.1 90 24 104/54 92 Nasal 60% Cannula 01/03 0000 92 Nasal 60% Cannula 01/02 2000 93 Nasal 60% Cannula 01/02 1641 94 Nasal 70% Cannula 01/02 1600 94 Nasal 70% Cannula 01/02 1600 98.3 114 32 110/63 94 Nasal 70% Cannula 01/02 1347 96 Nasal 70% Cannula 01/02 1200 94 Nasal 70% Cannula 01/02 0910 94 Nasal 75% Cannula 01/02 0840 92 Part 60% ReBreather 01/02 0800 99 Part 60% ReBreather 01/02 0800 98.4 110 32 100/56 99 Part 60% ReBreather 01/02 0400 92 Nasal 6.0L Cannula 01/02 0116 94 Nasal 6.0L Cannula 01/02 0000 92 Nasal 6.0L Cannula 01/02 0000 106 16 93/54 94 Nasal 6.0L Cannula 01/01 2000 92 Nasal 5.0L Cannula 01/01 1600 98.0 122 24 122/60 92 Nasal 5.0L Cannula 01/01 1600 92 Nasal 5.0L Cannula 01/01 1547 91 Nasal 5.0L Cannula 01/01 1200 97.2 100 20 124/64 92 Nasal 5.0L Cannula 01/01 1200 94 Nasal 5.0L Cannula 01/01 0845 93 Nasal 5.0L Cannula 01/01 0800 92 Nasal 4.0L Cannula 01/01 0800 97.7 115 22 142/70 92 Nasal 4.0L Cannula 01/01 0400 92 Nasal 2.0L Cannula 01/01 0102 91 Nasal 4.0L Cannula 01/01 0000 94 Nasal 4.0L Cannula 01/01 0000 97.0 78 22 110/60 94 Nasal 4.0L Cannula 12/31 2100 94 Nasal 4.0L Cannula 12/31 2000 96 Nasal 4.0L Cannula 12/31 1600 94 Nasal 4.0L Cannula 12/31 1600 98.2 110 24 110/50 94 Nasal 4.0L Cannula 12/31 1200 94 Nasal 2.0L Cannula 12/31 0938 94 Nasal 2.0L Cannula 12/31 0800 96 Nasal 2.0L Cannula 12/31 0800 96.6 80 20 102/50 96 Nasal 2.0L Cannula 12/31 0400 95 Nasal 2.0L Cannula 12/31 0043 96 Nasal 2.0L Cannula 12/31 0000 97 Nasal 2.0L Cannula 12/31 0000 97.6 76 22 104/50 97 Nasal 2.0L Cannula 12/30 2000 94 Nasal 2.0L Cannula 12/31 1999 99.2 86 24 108/44 97 Nasal 2.0L Cannula 12/30 1610 96 Nasal 2.0L Cannula 12/30 1600 97.8 88 20 112/50 96 Nasal 2.0L Cannula 12/30 1600 96 Nasal 2.0L Cannula 12/30 1200 98 Nasal 2.0L Cannula 12/30 0818 97 Nasal 2.0L Cannula 12/30 0800 98.7 80 18 122/60 98 Nasal 2.0L Cannula 12/30 0421 95 Nasal 2.0L Cannula 12/30 0400 98 Nasal 2.0L Cannula 12/30 0003 99 Nasal 3.0L Cannula 12/30 0000 99 Nasal 3.0L Cannula 12/30 0000 96.5 65 20 124/60 99 Nasal 3.0L Cannula 12/29 2200 66 114/56 12/29 2048 Nasal 3.0L Cannula 12/29 2000 97 Nasal 2.0L Cannula 12/29 1715 94 Nasal 3.0L Cannula 12/29 1700 96.6 64 18 110/60 96 Nasal 3.0L Cannula Last 24 Hours I&Os 01/15 0800 08 0000 01/14 1600 Intake Total 240 250 900 Output Total 200 400 Balance 40 250 500 Intake, IV 250 100 Intake, Oral 240 800 Number 0 Bowel Movements Output, Urine 200 400 Microbiology Date/Time Procedure - Status Source Growth 01/12 1710 Respiratory Culture - COMP LOWER RESP KLEBSIELLA PNEUMONIAE 01/12 1710 Gram Stain - COMP LOWER RESP 01/12 1512 Surveillance Culture - COMP UPPER RESP 01/12 1105 Blood Culture - RES BLOOD 01/12 1025 Urine Culture - COMP URINE ROUT Orders Procedure Date/time Status CBC WITHOUT DIFFERENTIAL 01/14 06 Complete BASIC ELECTROLYTES PLUS BUN&CR 01/14 600 Complete RT RE-EVALUATION 01/14 UNK Complete Therapeutic Activities 01/14 UNK Complete Gait Training 01/14 UNK Complete Misc Message 01/14 UNK Active MAGNESIUM 01/13 075 Complete CBC WITHOUT DIFFERENTIAL 01/13 075 Complete BASIC ELECTROLYTES PLUS BUN&CR 01/13 075 Complete Therapeutic Activities 01/13 UNK Complete Therapeutic Exercise 01/13 UNK Complete Gait Training 01/13 UNK Complete ACTIVE SURVEILLANCE NARES 01/12 1412 Complete CULTURE,URINE 01/12 838 Complete LOWER RESPIRATORY CULTURE 01/12 838 Complete BLOOD CULTURE 01/12 838 Active URINALYSIS 01/12 0838 Complete AEROSOL CHG 01/12 UNK Complete OXYGEN 01/12 UNK Complete OXYGEN TRANSPORT 01/12 UNK Complete OXYGEN DAILY CHARGE 01/12 UNK Complete Therapeutic Activities 01/12 UNK Complete Gait Training 01/12 UNK Complete Transfer patient to 01/12 UNK Active INCENTIVE SPIROMETRY TRX CHG 01/11 UNK Complete CHEST PHYSICAL THERAPY CHG 01/11 UNK Complete AEROSOL CHG 01/11 UNK Complete OXYGEN 01/11 UNK Complete OXYGEN DAILY CHARGE 01/11 UNK Complete INCENTIVE SPIROMETRY TRX CHG 01/10 UNK Complete CHEST PHYSICAL THERAPY CHG 01/10 UNK Complete AEROSOL CHG 01/10 UNK Complete OXYGEN 01/10 UNK Complete OXYGEN DAILY CHARGE 01/10 UNK Complete Laboratory Tests 01/14/18 0715: Anion Gap 6, Estimated GFR > 60, BUN/Creatinine Ratio 21.4, CBC w Diff NO MAN DIFF REQ, RBC 2.76 L, MCV 99.3 H, MCH 33.3 H, MCHC 33.5, RDW 15.2 H, MPV 7.5 , Gran % 75.5 H, Lymphocytes % 8.6 L, Monocytes % 8.2, Eosinophils % 7.3 H, Basophils % 0.4, Absolute Granulocytes 8.0 H, Absolute Lymphocytes 0.9 L, Absolute Monocytes 0.9 H, Absolute Eosinophils 0.8, Absolute Basophils 0 01/13/18 08: Anion Gap 10, Estimated GFR > 60, BUN/Creatinine Ratio 21.7, Magnesium 1.8, CBC w Diff NO MAN DIFF REQ, RBC 2.85 L, MCV 97.7, MCH 33.3 H, MCHC 34.1, RDW 14.6 H, MPV 7.2 L, Gran % 84.5 H, Lymphocytes % 5.2 L, Monocytes % 6.7, Eosinophils % 3.4, Basophils % 0.2, Absolute Granulocytes 13.0 H, Absolute Lymphocytes 0.8 L, Absolute Monocytes 1.0 H, Absolute Eosinophils 0.5, Absolute Basophils 0 01/12/18 1025: Urine Color YEL, Urine Clarity CLEAR, Urine pH 7.5, Ur Specific [place] 1.015, Urine Protein TRACE H, Urine Ketones NEG, Urine Nitrite NEG, Urine Bilirubin NEG, Urine Urobilinogen 1.0, Ur Leukocyte Esterase NEG, Ur Microscopic SEDIMENT EXAMINED, Urine RBC RARE, Urine WBC 1-3 H, Ur Epithelial Cells MOD H, Urine Hemoglobin NEG, Urine Glucose NEG Microbiology 01/12 1710 LOWER RESP: Respiratory Culture - COMP KLEBSIELLA PNEUMONIAE 01/12 1710 LOWER RESP: Gram Stain - COMP 01/12 1512 UPPER RESP: Surveillance Culture - COMP 01/12 1105 BLOOD: Blood Culture - RES 01/12 1025 URINE ROUT: Urine Culture - COMP 01/12 1000 BLOOD: Blood Culture - RES Assessment/Plan Assessment: This is a 62 yo female POD 16 with improving subq air and stable pneumothorax, on 2L nc, day 4 of vancomycin and ceftazidime tx for possible postop pneumonia with sputum culture growing klebsiella. Plan: -c/w pain control -no adler, voiding well -BM yesterday, colace daily -sputum culture grew klebsiella sensitive to cefazolin, augmentin, unasyn, cipro , gent, bactrim, resistant to ampicillin, pt will need to be discharged with PO abx- per ID reccomendations -White count downtrending, repeat AM labs tomorrow -C/w spirometer/TRC/nebs prn, wean o2 as tolerated -Encourage oob/ambulation -lovenox for dvt ppx -continue w/ PT -Pt will go to short term rehab upon discharge (likely tomorrow)to continue working with PT -Discharge planning Tika Samuel 01/15/18 0928: Subjective Subjective: feeling much better. still sob on exertion. no sob at rest. pain controlled Objective Objective: pulm: incisions cdi, ct sites dressed. bs improved r apex Assessment/Plan Plan: AP: overall improving. Likely transfer to [facility] tomorrow. ?abx on dc- await ID input. Titrate O2. OOB, ambulate. dvt ppx. diet as tolerated. dc planning. will dw attending
--- NOTE | 2018-01-15 11:59 | PN- Pulmonary ---
Subjective HPI/Critical Care Issues: The patient is awake and alert. She reports having ongoing improvement from a respiratory perspective. She still has a cough productive of yellow, green sputum however this is less. She is also less short of breath with ambulation. The patient complains of increased lower extremity edema today which is new. She denies any calf pain, chest pain, increased shortness of breath, tachycardia or palpitations. Objective Current Medications: Current Medications Sig/Nathan Start time Last Medication Dose Route Stop Time Status Admin Al Hydroxide/Mg 30 ML Q4-6 PRN PRN 12/30 1115 AC 12/30 Hydroxide PO 2130 Albuterol Sulfate 3 ML EVERY 4 HRS/AWAKE 01/05 1600 AC 01/15 INH 1151 Albuterol Sulfate 2 PUF Q4P PRN 12/29 1600 AC INH Bisacodyl 10 MG DAILY PRN 01/14 0845 AC 01/14 PA 1754 Budesonide/ 2 PUF BID 12/29 2100 AC 01/15 Formoterol Fumarate INH 0929 Ceftazidime 1,000 MG Q8H 01/13 2000 AC 01/15 IV 0425 Celecoxib 100 MG BID 12/29 2100 AC 01/15 PO 0929 Docusate Sodium 100 MG BID 12/29 2100 AC 01/15 PO 0929 Enoxaparin Sodium 40 MG DAILY 01/03 0900 AC 01/15 SC 0929 Gabapentin 300 MG Q8 12/29 2200 AC 01/15 PO 0510 Hydrocodone Bitart/ 1 TAB Q4P PRN 12/30 1030 AC 01/03 Acetaminophen PO 0612 Hydrocodone Bitart/ 2 TAB Q4-6 PRN PRN 12/30 1030 AC 01/15 Acetaminophen PO 0930 Melatonin 5 MG AT BEDTIME 01/01 2100 AC 01/14 PO 2134 Omeprazole 40 MG DAILY AC 12/30 1115 AC 01/15 PO 0510 Ondansetron HCl 4 MG Q6P PRN 12/29 1700 AC 01/05 IV 2059 Polyethylene Glycol 17 GM DAILY PRN 01/14 0845 AC 01/14 PO 0942 Trazodone HCl 100 MG AT BEDTIME 01/01 2100 AC 01/14 PO 2030 Vancomycin HCl 1,000 MG Q24H 01/12 2100 AC 01/14 Sodium Chloride 250 ML IV 2020 Vital Signs & I&O Last 24 Hrs of Vitals and I&O: Vital Signs Date Time Temp Pulse Resp B/P B/P Pulse O2 O2 Flow FiO2 Mean Ox Delivery Rate 01/15 0841 95 Nasal 2.0L Cannula 01/15 0628 97.7 70 20 110/54 96 Nasal 2.0L Cannula 01/15 0000 96 Nasal 2.0L Cannula 01/14 2155 97.7 99 20 130/68 96 01/14 1618 98 Nasal 2.0L Cannula 01/14 1335 97.0 90 20 110/70 96 Room Air Intake & Output 01/15 1600 01/15 0800 01/15 0000 Intake Total 240 250 Output Total 200 200 Balance -200 40 250 Intake, IV 250 Intake, Oral 240 Number 0 Bowel Movements Output, Urine 200 200 Exam General Appearance: alert, awake, comfortable, no distress Head: improved facial swelling Respiratory: crackles, anterior and posterior chest wall tenderness, palpable crepitus Cardiovascular: regular rate/rhythm Gastrointestinal: soft, non-tender Extremities: Bilateral foot edema, extending up into the ankles, no erythema and no palpable pain Skin: intact, normal color Skin Temp/Moisture Exam: Warm/Dry Impression/Plan Impression/Plan Impression/Plan: 1. 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 2. Hypoxemic respiratory failure in the setting of worsening right pneumothorax and emphysema. 3. Aspiration pneumonia. 4. History of COPD without evidence of acute bronchospasm. 5. History of hypertension, hyperlipidemia and proximal SVT. 6. Subcutaneous emphysema - significantly improved. 7. Hydropneumothorax on CT scan. 8. Increased lower extremity swelling, rule out DVT. Recommendations: * Check lower extremity Dopplers this morning. * Continue antibiotics as recommended by ID. * Management of hydropneumothorax as per CT surgery. * Increase activity/ambulate. * Titrate oxygen down for saturations greater than 92%. * Continue nebs/total respiratory care/inhaler therapy. * DVT prophylaxis at all times. * Once the issue of the patient's pneumonia, hydropneumothorax and lower extremity swelling are resolved, the plan is for the patient to be discharged to short-term rehab at [place].
--- NOTE | 2018-01-15 13:32 | ULTRASOUND REPORT ---
EXAMINATION: US TRIPLEX OF LOWER EXTREMITIES, BILATERAL CLINICAL INFORMATION: Lower extremity swelling. COMPARISON: None TECHNIQUE: Color-flow triplex imaging with spectral analysis and compression Doppler were performed on the lower extremities. FINDINGS: The common femoral vein is compressible and exhibits a normal phasic waveform, bilaterally; this suggests that the iliac veins are widely patent above. Within each proximal thigh, the visualized profunda femoris vein is patent. The visualized greater saphenous veins and saphenofemoral junctions are normal. Superficial femoral vein is patent in the proximal, mid and distal aspect of each thigh. Popliteal vein appears normal to the level of the trifurcation, bilaterally, and the visualized calf veins are unremarkable. No evidence of Mercado's cyst. IMPRESSION: No evidence of deep vein thrombosis in either lower extremity.
[2018-01-15 13:53] VITALS: BP 126/80
--- NOTE | 2018-01-15 18:53 | PN- Infect Dx ---
Subjective Subjective: This patient is a 62-year-old white female with an extended course in the hospital secondary to resection of an adenocarcinoma. The patient is currently feeling well and denies any fevers, chills nausea or vomiting. She is afebrile and her white blood cell count is normal. Review of Systems Constitutional: Reports: see HPI. Objective Last 24 Hrs of Vital Signs/I&O Vital Signs Date Time Temp Pulse Resp B/P B/P Pulse O2 O2 Flow FiO2 Mean Ox Delivery Rate 01/15 1651 95 Nasal 2.0L Cannula 01/15 1600 Nasal 3.0L Cannula 01/15 1353 98.3 78 20 126/80 98 Nasal 3.0L Cannula 01/15 0841 95 Nasal 2.0L Cannula 01/15 0628 97.7 70 20 110/54 96 Nasal 2.0L Cannula 01/15 0000 96 Nasal 2.0L Cannula 01/14 2155 97.7 99 20 130/68 96 Intake & Output 01/15 1600 01/15 0800 08/05 0000 Intake Total 610 240 250 Output Total 200 200 Balance 410 40 250 Intake, IV 50 250 Intake, Oral 560 240 Number 0 Bowel Movements Output, Urine 200 200 Physical Exam Other Physical Findings: Awake alert oriented 3 Pupils equal and reactive to light, accommodation equal ocular motion Neck supple no JVD no lymphadenopathy Lungs with diffuse bibasilar crackles Heart regular rate and rhythm S1-S2 Abdomen soft nontender nondistended Lower extremities without edema. Results Last 24 Hours of Lab Results: No new labs Last 24 Hours of Tanvir Results: No new cultures Recent Imaging Studies: No new studies Assessment/Plan ID Impression: This patient is a 62-year-old white female with a an extensive hospital course currently being treated for pneumonia. Her temperatures and white blood cell count are normal on Vancomycin and Ceftazidime, Day 4 of treatment for a possible postop pneumonia, with her sputum culture growing gram-negative rods, now 17 days status post right upper lobectomy and 8 days status post return to the OR for placement of a right chest tube because of the development of subcutaneous emphysema. Suggestion: 1. Further evaluation/management of the right hydropneumothorax per Thoracic surgery 2. Final sputum culture - Klebsiella pneumoniae (R-Amp) 3. Continue Vancomycin and Ceftazidime
[2018-01-15 22:07] VITALS: BP 100/60
[2018-01-16 00:11] VITALS: BP 110/62
[2018-01-16 07:21] VITALS: BP 122/66
--- NOTE | 2018-01-16 08:35 | PN- Thoracic Surgery ---
Subjective Subjective: feeling good, breahting same- fine at rest, some sob on exertion. syed diet, +bm , +voids. no cp. feels ready to leave hospital today Objective Vital Signs and I&Os Vital Signs Date Time Temp Pulse Resp B/P B/P Pulse O2 O2 Flow FiO2 Mean Ox Delivery Rate 01/16 0743 97 Nasal 3.0L Cannula 01/16 0721 97.7 74 20 122/66 99 Nasal 3.0L Cannula 01/16 0011 97.6 75 20 110/62 97 Nasal 3.0L Cannula 01/16 0000 94 Nasal 3.0L Cannula 01/15 2207 99.1 77 20 100/60 96 / 1651 95 Nasal 2.0L Cannula 01/15 1600 Nasal 3.0L Cannula 01/15 1353 98.3 78 20 126/80 98 Nasal 3.0L Cannula 01/15 0841 95 Nasal 2.0L Cannula Intake & Output 01/16 1600 08/06 0800 08/06 0000 / 1600 01/15 0800 08/ 0000 Intake Total 120 700 610 240 250 Output Total 600 540 200 200 Balance -480 160 410 40 250 Intake, IV 50 250 Intake, Oral 120 700 560 240 Number 0 Bowel Movements Output, Urine 600 540 200 200 Physical Exam: gen- nad card-s1s2 rrr pulm- improved bs throughout. dressings changed- ct sites cdi. thoracotomy incision cdi w steris. no erythema. ext- calves soft, some edema. Results Recent Imaging Studies: LE dopplers 01/15/18: negative for dvt CXR:pending Assessment/Plan Assessment/Plan A- POD18 sp right thoracotomy, upper lobectomy, with hydropneumothorax, currently stable on 2Lnc and on abx for pna. P- ?need for abx on dc- will dw ID CXR pending this am continue current meds appreciate pulm input dc planning- has bed at [facility] Core Measures Venous Thromboembolism VTE Risk Factors Age>40 No Mechanical VTE Prophylaxis d/t N/A MechProphylax Ordered No VTE Pharm Prophylaxis d/t NA PharmProphylax ordered
--- NOTE | 2018-01-16 11:04 | PN- Infect Dx ---
Subjective Subjective: Afebrile. She feels improved, with decreased cough, now productive of yellow sputum, and with minimal discomfort in the right chest. Objective Last 24 Hrs of Vital Signs/I&O Vital Signs Date Time Temp Pulse Resp B/P B/P Pulse O2 O2 Flow FiO2 Mean Ox Delivery Rate 01/16 08 94 Nasal 3.0L Cannula 01/16 0743 97 Nasal 3.0L Cannula 01/16 0721 97.7 74 20 122/66 99 Nasal 3.0L Cannula 01/16 0011 97.6 75 20 110/62 97 Nasal 3.0L Cannula 01/16 0000 94 Nasal 3.0L Cannula 01/15 2207 99.1 77 20 100/60 96 01/15 1651 95 Nasal 2.0L Cannula 01/15 1600 Nasal 3.0L Cannula 01/15 1353 98.3 78 20 126/80 98 Nasal 3.0L Cannula Intake & Output 01/16 1600 01/16 0800 08 0000 Intake Total 120 700 Output Total 600 540 Balance -480 160 Intake, Oral 120 700 Output, Urine 600 540 Physical Exam Other Physical Findings: She appears comfortable in no acute distress Lungs are clear Heart regular rhythm with no murmur Extremities trace edema both lower extremities Results Last 24 Hours of Lab Results: Laboratory Tests 01/14 0715 Chemistry Sodium (137 - 145 mmol/L) 136 L Potassium (3.5 - 5.1 mmol/L) 4.6 Chloride (98 - 107 mmol/L) 99 Carbon Dioxide (22 - 30 mmol/L) 31 H Anion Gap (5 - 16) 6 BUN (7 - 17 mg/dL) 15 Creatinine (0.5 - 1.0 mg/dL) 0.7 Estimated GFR (>60 ml/min) > 60 BUN/Creatinine Ratio (7 - 25 %) 21.4 Hematology CBC w Diff NO MAN DIFF REQ WBC (4.8 - 10.8 /CUMM) 10.6 RBC (4.20 - 5.40 /CUMM) 2.76 L Hgb (12.0 - 16.0 G/DL) 9.2 L Hct (37 - 47 %) 27.4 L MCV (81.0 - 99.0 FL) 99.3 H MCH (27.0 - 31.0 PG) 33.3 H MCHC (33.0 - 37.0 G/DL) 33.5 RDW (11.5 - 14.5 %) 15.2 H Plt Count (130 - 400 /CUMM) 701 H MPV (7.4 - 10.4 FL) 7.5 Gran % (42.2 - 75.2 %) 75.5 H Lymphocytes % (20.5 - 51.1 %) 8.6 L Monocytes % (1.7 - 9.3 %) 8.2 Eosinophils % (0 - 5 %) 7.3 H Basophils % (0.0 - 2.0 %) 0.4 Absolute Granulocytes (1.4 - 6.5 /CUMM) 8.0 H Absolute Lymphocytes (1.2 - 3.4 /CUMM) 0.9 L Absolute Monocytes (0.10 - 0.60 /CUMM) 0.9 H Absolute Eosinophils (0.0 - 0.7 /CUMM) 0.8 Absolute Basophils (0.0 - 0.2 /CUMM) 0 Last 24 Hours of Tanvir Results: Sputum culture January 12 positive for Klebsiella resistant to Ampicillin Recent Imaging Studies: Chest x-ray January 16 reveals improved aeration in the right lung with a decrease in the hydropneumothorax Dopplers of both lower extremities January 15 negative Assessment/Plan ID Impression: Doing well, with continued improvement overall, with her temperatures remaining normal and her white blood cell count also now normal on Vancomycin and Ceftazidime, now Day 4 of treatment for a possible postop pneumonia secondary to Klebsiella. Based on her sputum culture her antibiotics can be adjusted. She is apparently scheduled for discharge later today. Suggestion: 1. Further management of the right hydropneumothorax per Thoracic surgery 2. Discontinue Vancomycin and Ceftazidime 3. Begin Ciprofloxacin 500 mg p.o. every 12 hours for 3 days
[2018-01-16] MEDS ORDERED: CIPRO500 M1 PO (11:21)
[2018-01-16 11:22] VITALS: BP 122/66
--- NOTE | 2018-01-16 13:56 | RADIOLOGY REPORT ---
EXAMINATION: XR CHEST CLINICAL INFORMATION: Hydropneumothorax. Patient requiring supplemental oxygen. COMPARISON: 01/12/2018 TECHNIQUE: 2 views of the chest were obtained. FINDINGS: Soft tissue emphysema of the right lateral chest wall and neck has decreased. A hydropneumothorax at the right apex is, overall, unchanged in size compared to 01/12/2018. However, the amount of fluid within the pleural space at the right apex has increased. Lungs are hypoinflated and lung parenchyma suboptimally evaluated. Overall, lungs have a similar hazy appearance compared to 01/12/2018. Note that patchy groundglass opacities in both lungs were observed on the chest CT of 01/12/2018 (suspicious for active pneumonitis). 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 IMPRESSION: - No new pulmonary findings compared to the 01/12/2018. - The amount of fluid in the pleural space at the right apex has increased compared to 01/12/2018. - Interval decrease of soft tissue emphysema of the right lateral chest wall and neck.
== END 2018-01-16 12:48 | DRG 163 ==
LOC: CRI 01:56 → 2NA 01:56 → SDA 01:56 → ENRESERV 15:49 → ENTRNSPT 16:46 → EDTRNSPT 17:02 → EDTRNSPTSTS 17:02 → CMPTRNSPT 17:12 → CRI 17:14 → ENTRNSPT 01-12 18:54 → EDTRNSPTSTS 01-12 19:10 → 2NA 01-12 19:26 → CMPTRNSPT 01-12 19:32 → 2NA 01-16 12:48
PROVIDERS: Internal Medicine; Nurse Practitioner; Physician Assistant; Physician Assistant Surgical; Student in an Organized Health Care Education/Training Program; Thoracic Surgery (Cardiothoracic Vascular Surgery)
PROC: 0BTC0ZZ Resection of Right Upper Lung Lobe, Open Approach (ICD-10-PCS; principal; 2017-12-29)
PROC: 07B70ZZ Excision of Thorax Lymphatic, Open Approach (ICD-10-PCS; principal; 2017-12-29)
PROC: 0W9930Z Drainage of Right Pleural Cavity with Drainage Device, Percutaneous Approach (ICD-10-PCS; 2018-01-05)
PROC: 0W9900Z Drainage of Right Pleural Cavity with Drainage Device, Open Approach (ICD-10-PCS; 2018-01-07)
DX: C34.11 Malignant neoplasm of upper lobe, right bronchus or lung (principal); J69.0 Pneumonitis due to inhalation of food and vomit; J96.01 Acute respiratory failure with hypoxia; J15.0 Pneumonia due to Klebsiella pneumoniae; I47.1 Supraventricular tachycardia; J95.811 Postprocedural pneumothorax; J94.8 Other specified pleural conditions; R13.10 Dysphagia, unspecified; Z85.118 Personal history of other malignant neoplasm of bronchus and lung; G62.9 Polyneuropathy, unspecified; J44.9 Chronic obstructive pulmonary disease, unspecified; E78.5 Hyperlipidemia, unspecified; T81.82XA Emphysema (subcutaneous) resulting from a procedure, initial encounter; Z92.21 Personal history of antineoplastic chemotherapy; I10 Essential (primary) hypertension; F17.200 Nicotine dependence, unspecified, uncomplicated; E05.90 Thyrotoxicosis, unspecified without thyrotoxic crisis or storm; K21.9 Gastro-esophageal reflux disease without esophagitis; Y83.8 Other surgical procedures as the cause of abnormal reaction of the patient, or of later complication, without mention of misadventure at the time of the procedure; Z90.2 Acquired absence of lung [part of]; D72.829 Elevated white blood cell count, unspecified; Z91.040 Latex allergy status; Z88.5 Allergy status to narcotic agent; Z88.0 Allergy status to penicillin; Z88.6 Allergy status to analgesic agent; Z90.49 Acquired absence of other specified parts of digestive tract
CPT/HCPCS: 2NAP; CCU; 36415; 36592; 71045; 71046; 81001; 81003; 82436; 87040; 87070; 87086; 88304; 88305; 88309; 88331; 93005; 93010; 93970; 97110-GO; 97116-GO; 97162-GP; 97530-GO; C9290; J0131; J0690; J0713; J1644; J1650; J2001; J2270; J2405; J3370; J3490; J7040; J7060; J7608